=== PATIENT | male | born 1960 | race Caucasian/White ===

== ENCOUNTER 2018-04-30 16:54 | Emergency (ER) | payer MEDICARE, SELFPAY ==
[2018-04-30 16:56] VITALS: BP 135/84; PULSE 93; RESP 18; TEMP 36.7; O2SAT 96; BMI 19.8
--- NOTE | 2018-04-30 18:03 | ED.VISSUMM ---
- ER Visit Summary Date of Service: 04/30/18 Chief Complaint: Abscess History of Present Illness: The patient is a 58 M who reports an abscess to the right thigh for the past 1 week. He has noted some spontaneous drainage. He denies fever or chills. Physical Examination: Vital signs unremarkable. Patient is afebrile. Patient sitting upright in bed no acute distress. He is nontoxic appearing. Heart is regular rate and rhythm without murmur. Lung sounds are clear. Skin examination reveals a 3 x 4 cm area of induration on the medial right thigh with abscess. There is an eschar over the wound. There is no surrounding cellulitis or lymphangitis. Test Results: [] Emergency Department Course and Treatment: Patient is consented for I&D. 2 cc 1% lidocaine were infused locally. An X incision is made with a #11 blade. There is some pus drained. Loculations were broken up. Dressing is applied and patient be treated with Bactrim and Keflex, first dose given here. Treatment Plan: [] Disposition: Discharge Impression: Right thigh cutaneous abscess status post I&D This note was generated with [employer] dictation software. It may contain incorrect words, spelling, and punctuation that were not noted in review of the chart prior to signing ED Disposition - Plan for ED Patient: Referrals: Care Physician,No Primary [Primary Care Provider] -
--- NOTE | 2018-04-30 18:04 | ED.DEP ---
ED Disposition - Plan for ED Patient: Disposition: Home or Assisted Living Instructions: ED Abscess IandD Prescriptions: Cephalexin [Keflex] 500 mg PO Q6 #40 capsule Smz/Tmp Ds [Bactrim Ds] 1 tablet PO BID #20 tablet Referrals: Cathy Elmore MD [STAFF PHYSICIAN] - As Needed
[2018-04-30] MEDS: Cephalexin 250 MG Capsule 500 MG PO (18:12)
[2018-04-30] MEDS: Smz/Tmp Ds Tablet 1 TABLET PO (18:13)
== END 2018-04-30 18:22 | disposition home or self-care (01) ==
PROVIDERS: Emergency Provider Emergency Medicine
DX: L02.415 Cutaneous abscess of right lower limb (principal); F20.0 Paranoid schizophrenia; Z72.0 Tobacco use; Z79.899 Other long term (current) drug therapy
CPT/HCPCS: 10060; 99283

== ENCOUNTER 2019-06-27 00:43 | Inpatient (IN) | payer MEDICARE, SELFPAY ==
[2019-06-27] VITALS (21 sets, daily range): BP systolic 151–180; BP diastolic 58–137; PULSE 80–110; RESP 13–21; TEMP 36.6–37.1; O2SAT 74–99; BMI 22.4; BMI 21.9
--- NOTE | 2019-06-27 01:04 | RAD_ITS ---
STUDY: X-RAY CHEST REASON FOR EXAM: Male, 59 years old. DYSPNEA TECHNIQUE: Single AP portable view of the chest. COMPARISON: 04/24/16. FINDINGS: The lungs are normally expanded with new interval appearance of right lower lobe airspace opacity compatible with pneumonia. There is no demonstrated pleural abnormality. Normal size heart. Normal mediastinum and velma. Normal visualized pulmonary arteries. There is atherosclerotic calcification of the aortic arch with tortuosity. There are diffuse degenerative changes of the visualized thoracic spine. There is degenerative osteoarthritis of the bilateral shoulders. There is no demonstrated abnormality of the visualized soft tissue structures of the upper abdomen. RAD/Chest 1 View (Portable) IMPRESSION: Right lower lobe infiltrate. Electronically Signed: Amada Shell MD at 1:56 EDT , Service support ,
--- NOTE | 2019-06-27 01:04 | EKG12_ITS ---
Test Reason : SOB Blood Pressure : / mmHG Vent. Rate : 082 BPM Atrial Rate : 082 BPM P-R Int : 136 ms QRS Dur : 088 ms QT Int : 362 ms P-R-T Axes : 082 089 060 degrees QTc Int : 422 ms Normal sinus rhythm Normal ECG Confirmed by MARQUITA YANEZ ([id number]), film and video editor LOLA ANDERSON ([id number]) on 06/28/2019 10:12:08 AM Referred By: Azar Riggs Confirmed By:MARQUITA YANEZ
[2019-06-27 01:11] LABS: Absolute Lymphocyte Count 0.92 X10^3/uL (0.83-4.51); Absolute Neutrophil Count 8.9 X10^3/uL (2.0-7.7); Basophil# 0.02 X10^3/uL; Basophil% 0.2 % (0-1); Eosinophil# 0.03 X10^3/uL; Eosinophils% 0.3 % (0-5); Hemoglobin 12.5 g/dL (13.0-16.5); Lymphocyte # 0.92 X10^3/ul (4.0); Lymphocyte % 8.6 % (19-41); Mean Corp Hgb Conc 32.9 g/dL (32-36); Mean Corpuscular Hgb 30.6 pg (27.0-32.0); Mean Corpuscular Volume 93.1 fL (80-94); Mean Platelet Vol. 7.7 fl (6.2-12.0); Monocyte# 0.77 X10^3/uL; Monocyte% 7.2 % (0-10); NRBC Flagged by Analyzer 0 % (0-5); Neutrophil # 8.94 X10^3/uL (2.7-7.7); Neutrophil % 83.4 % (47-70); Platelet Count 316 K/mm3 (150-450); RBC Distribution Width CV 13.5 % (11.6-14.6); Red Blood Count 4.08 M/mm3 (4.6-6.2); White Blood Count 10.7 K/mm3 (4.4-11.0)
[2019-06-27] MEDS: 0.9% Normal Saline 1,000 ML 150 ML IV (01:11)
[2019-06-27] MEDS: MethylPREDNISolone 125 MG/2 ML Vial IV (01:12)
--- NOTE | 2019-06-27 01:42 | ED.DCSUM_ITS ---
- ER Visit Summary Date of Service: 06/27/19 Chief Complaint: [Shortness of breath] History of Present Illness: The patient is a 59 M [presents to the emergency department complaint of shortness of breath for a long time patient is a poor historian and has flight of ideas and I cannot pinpoint how long his symptoms have been ongoing. Patient does describe a cough. Patient states cough is mostly nonproductive. He denies any fevers or chills. He denies any chest pain. He denies recent travel or surgery. Patient comes in stating that he does not think he has coronavirus. Patient not on home oxygen. He is a smoker and also admits to smoking crack cocaine. Patient does have history of COPD as well as paranoid schizophrenia. Patient denies recent travel or surgery.] Physical Examination: [HEENT-PERRLA, EOMI. Cranial nerves II through XII grossly intact. TMs clear. Mucous membranes moist. No adenopathy. Cardiovascular-regular rate and rhythm without murmur or ectopy Lungs-some coarse breath sounds bilaterally with some faint expiratory wheezes noted. Somewhat diminished in the right lower lobe compared to the left. No accessory muscle use or retractions. No conversational dyspnea. Abdomen-normoactive bowel sounds, soft, nontender, no rebound or rigidity, no peritoneal signs. Extremities-intact ?4, normal range of motion, normal pulses, atraumatic] Test Results: [] EKG obtained arrival shows sinus rhythm with a ventricular rate of 82 bpm with no acute segment changes. CBC with differential showed a white count of 10.7, hemoglobin 12.5, hematocrit 38, platelets 316. Chemistry showed a sodium 120, potassium 4.5, chloride 81, CO2 36, glucose 109, BUN 8, creatinine 0.52. Troponin is 0.12. Lactate was 1.0. D-dimer was 1.34. Alcohol was negative. Influenza was negative. Chest x-ray showed a right lower lobe infiltrate. CT of the chest was ordered and results from radiology pending although on my interpretation I do not appreciate a PE or dissection. Emergency Department Course and Treatment: [Patient was started on Levaquin 750 mg IV. Patient was placed on nasal cannula O2. Patient was given albuterol MDI. Patient was given Solu-Medrol 125 mg IV. He was given a liter normal same fluid bolus.] Treatment Plan: [Admit for right lower lobe pneumonia as well as hyponatremia and elevated troponin.] Disposition: [Admit] Impression: [Right lower lobe pneumonia Hypoxemia COPD exacerbation Elevated troponin-significance uncertain Hyponatremia] This note was generated with [employer] dictation software. It may contain incorrect words, spelling, and punctuation that were not noted in review of the chart prior to signing ED Disposition - Plan for ED Patient: Referrals: Care Physician,No Primary [Primary Care Provider] -
[2019-06-27] MEDS: levoFLOXacin IV 750 MG/150 ML BAG 100 MG IV ×2 (01:47→21:12)
[2019-06-27 02:01] LABS: D-Dimer Quantitative (DVT/PE) 1.34 FEU/ug/m (0.27-0.49)
[2019-06-27 02:05] LABS: Anion Gap 3 (5-15); BUN 8 mg/dL (7-18); BUN/Creat Ratio 15.3 RATIO (10-20); Calcium,Total 7.9 mg/dL (8.5-10.1); Chloride 81 mmol/L (98-107); Creatinine, Serum 0.52 mg/dL (0.70-1.30); EST Glomerular Filtration Rate 170 mL/min (>60); Est Glom Filt Rate - Afr Amer 206 mL/min (>60); Estimated Creatinine Clearance 149.39 ml/min; Glucose 109 mg/dL (74-106); Potassium 4.5 mmol/L (3.5-5.1); Sodium Level 120 mmol/L (136-145)
--- NOTE | 2019-06-27 02:06 | CT_ITS ---
STUDY: CTA CHEST REASON FOR EXAM: Male, 59 years old. SOB AND FACIAL SWELLING,COUGH,ELEVATED DDIMER -- HX:COPD,EMPHYSEMA AND SMOKING RADIATION DOSAGE (If Supplied By Facility): CTDIvol = ( 11.57 ) mGy, DLP = ( 322.75 ) mGycm TECHNIQUE: The examination was performed with the intravenous administration of IV 100mL Isovue-370. Post-processing of the angiographic images was performed, with multiplanar reformation and 3D reconstruction. Individualized dose optimization techniques were used for this CT. COMPARISON: None. FINDINGS: Normal enhancement of the main pulmonary artery and right and left pulmonary arteries. Normal enhancement of the bilateral peripheral pulmonary arteries. There is no demonstrated pulmonary embolism. There is mild atherosclerotic calcification of the aortic arch with tortuosity. There is no demonstrated aortic dissection. Borderline cardiomegaly with coronary artery calcifications. Normal mediastinum. Normal hilar regions. Normal visualized trachea and bronchi. The lungs are normally expanded. There are diffuse bilateral emphysematous changes more significant throughout the mid upper lung minor and lung apices. There are foci of subtle groundglass opacity along the subpleural region of the right upper lobe as well as right lower lobe suggestive of small pulmonary patchy infiltrates, viral versus bacterial. Mild right-sided pleural effusion. Normal chest wall structures. Normal osseous structures. Upper abdomen: Mild ascites. Remainder of the visualized upper abdominal structures otherwise unremarkable. CT/CTA Chest W/WO Contrast IMPRESSION: Negative CTA chest examination, without a demonstrated pulmonary embolism or arterial dissection. Right upper lobe and right lower lobe subpleural distribution of groundglass infiltrates pneumonia, viral versus bacterial. Mild right-sided pleural effusion. Underlying emphysema. Electronically Signed: Amada Shell MD at 3:07 EDT , Service support ,
[2019-06-27 02:23] LABS: Alcohol, Blood (Medical)-Serum < 3.0 mg/dL
[2019-06-27 02:40] LABS: Amphetamine Urine VISTA NEGATIVE (<1000 ng/mL); Barbiturate Urine VISTA NEGATIVE (< 200 ng/mL); Benzodiazepine Urine VISTA NEGATIVE (< 200 ng/mL); Cocaine Urine VISTA POSITIVE (< 300 ng/mL); Ecstacy Urine VISTA NEGATIVE (< 500 ng/mL); Methadone Urine VISTA NEGATIVE (< 300 ng/mL); PCP Urine VISTA NEGATIVE (< 25 ng/mL); THC Urine VISTA POSITIVE (< 50 ng/mL); Vista UDS pH Range 6
--- NOTE | 2019-06-27 03:27 | HP.PCM_ITS ---
History of Present Illness Date of Admission: 06/27/19 Chief Complaint: SOB The patient is a 59 year old M with a history of paranoid schizophrenia who presents to the hospital shortness of breath. He states that he has had shortness of breath for 27 years and has had a cough for 30 years. During the exam there was no coughing. When he presented to the hospital he was hypoxic down to the 70s which has improved. He also had a troponin of around 0.12, likely related to his hypoxia. He had a chest x-ray demonstrated a right lower lobe consolidation consistent with pneumonia and was admitted for pneumonia, COPD exacerbation, and acute hypoxia. Because of his paranoid schizophrenia, he is a poor historian. He remains afebrile and without a leukocytosis. EKG is nonischemic Past Medical History Past Medical History (Chronic Problems): Chronic Problems Polysubstance abuse (Chronic) Paranoid schizophrenia (Chronic) Nicotine addiction (Chronic) COPD (chronic obstructive pulmonary disease) (Chronic) Allergies doxycycline Adverse Reaction (Verified 06/27/19 00:56) Other haloperidol lactate [From Haldol] Adverse Reaction (Verified 06/27/19 00:56) Other antihistamines Adverse Reaction (Uncoded 06/27/19 00:56) Rash Home Medications: Ambulatory Orders Medication Instructions Recorded Benztropine [Cogentin] 1 mg PO QHS 12/18/12 Prolixin 10 mg PO QHS 12/18/12 Surgical History: appendectomy Psychiatric History: Schizophrenia - Paranoid schizophrenia Smoking Status: Current every day smoker Alcohol: None Drugs: Cocaine, Marijuana - *Family History Paternal History Items: Heart Disease - Father of heart disease in his early 70s Maternal History Items: No pertinent history Review of Systems Constitutional: Denies: Chills, Fever, Weight Change HEENT: Denies: Head Aches, Sinus Congestion, Sinus Drainage Cardiovascular: Denies: Chest Pain, Palpitations Respiratory: Reports: Cough, Shortness of Breath. Denies: Shortness of breath at rest, Sputum production Gastrointestinal: Denies: Abdominal Pain, Nausea, Vomiting Genitourinary: Denies: Dysuria Musculoskeletal: Denies: Joint Pain, Joint Tenderness Skin: Denies: Rash, Wounds Neurological: Denies: Numbness, Tingling, Focal weakness Psychiatric: Denies: Anxiety, Depression Hematologic/ Lymphatic: Denies: Easy Bruising, Easy Bleeding VTE Information - Inpt Only VTE Present on Admission: No - Physical Exam Vitals/I&O's: Vital Signs Temp Pulse Resp BP Pulse Ox 98.7 F 82 19 H 154/86 H 95 06/27/19 02:57 06/27/19 02:57 06/27/19 02:57 06/27/19 02:57 06/27/19 02:57 Oxygen Flow Rate (L/min) 4 Oxygen Delivery Method Nasal Cannula Weight: 156 lb 1.396 oz Body Mass Index (BMI) 22.4 Intake and Output for Last 24 Hours 06/25/19 06/26/19 06/27/19 23:59 23:59 23:59 Intake Total 92.5 / 92.5 Balance 92.5 / 92.5 General: Alert, Oriented x3, Cooperative, No apparent distress HEENT: Atraumatic, PERRLA, EOMI, Normocephalic Oral: Moist Mucosa Neck: Supple, No JVD Lungs: Normal air movement, No rhonchi, No rales, Wheezes Cardiovascular: Regular rate, Regular Rhythm, Normal S1, Normal S2, No murmurs Abdomen: Soft, Non Tender, Non-Distended, No Hepato-splenomegaly Extremities: No edema, Capillary Refill Less than 3 Seconds Skin: No rashes, No breakdown Neurological: Neuro grossly intact, Sensory exam intact to light touch and pain Psych/Mental Status: Normal Affect, Appropriate, - - He does not have hallucinations from his schizophrenia though he does have an occasional he has delusions Microbiology Past 72 Hours 06/27/19 01:15 Mucosa - Nasopharyngeal Influenza Types A,B Direct FA (AMANDA) - Final Laboratory Results 06/27/19 00:58: WBC 10.7, RBC 4.08 L, Hgb 12.5 L, Hct 38.0 L, MCV 93.1, MCH 30.6, MCHC 32.9, RDW Std Deviation 46.0 H, RDW Coeff of John 13.5, Plt Count 316, MPV 7.7, Immature Gran % (Auto) 0.300, Neut % (Auto) 83.4 H, Lymph % (Auto) 8.6 L, [place] % (Auto) 7.2, Eos % (Auto) 0.3, Baso % (Auto) 0.2, Absolute Neuts (auto) 8.9 H, Absolute Lymphs (auto) 0.92, Nucleated RBC % 0 06/27/19 01:30: D-Dimer Quant (PE/DVT) 1.34 H* 06/27/19 01:30: Sodium 120 L, Potassium 4.5, Chloride 81 L, Carbon Dioxide 36.0 H, Anion Gap 3 L, BUN 8, Creatinine 0.52 L, Estim Creat Clear Calc 149.39, Est GFR (MDRD) Af Amer 206, Est GFR (MDRD) Non-Af 170, BUN/Creatinine Ratio 15.3, Glucose 109 H, Calcium 7.9 L, Troponin I 0.120 H 06/27/19 01:30: Lactic Acid 1.0 06/27/19 01:30: Ethyl Alcohol < 3.0 06/27/19 02:15: Urine Opiates Screen NEGATIVE, Urine Methadone Screen NEGATIVE, Ur Barbiturates Screen NEGATIVE, Ur Phencyclidine Scrn NEGATIVE, Ur Amphetamines Screen NEGATIVE, U Methamphetamin-MDMA NEGATIVE, U Benzodiazepines Scrn NEGATIVE, Urine Cocaine Screen POSITIVE H, U Cannabinoids Screen POSITIVE H, Ur Drug Screen Comment Current Medications Sodium Chloride () 1,000 mls @ 150 mls/hr IV .[id number] ONE Stop: 06/27/19 07:43 Last Infusion: 06/27/19 01:48 Dose: 0 mls/hr Documented by: Assessment/Plan All Active Problems Anemia (Acute) Rhinovirus (Acute) Acute exacerbation of chronic obstructive pulmonary disease (COPD) (Acute) Community acquired pneumonia (Acute) Impacted cerumen of both ears (Acute) 1. Acute hypoxic respiratory failure secondary to acute right lower lobe pneumonia/COPD exacerbation/elevated troponin -CT of the chest is pending for possible -Levaquin for his pneumonia -Sputum culture, urine Legionella and urine strep are also pending -Blood cultures are pending -Continue with Solu-Medrol and duo nebs -EKG is unremarkable, will obtain serial troponins likely demand ischemia secondary to his acute hypoxic respiratory failure 2. 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
[2019-06-27] MEDS: Ipratropium/Albuterol Sulfate 3 ML AMPUL.NEB INHALATION ×6 (04:00→19:16)
[2019-06-27 04:57] LABS: Absolute Lymphocyte Count 0.24 X10^3/uL (0.83-4.51); Absolute Neutrophil Count 9.2 X10^3/uL (2.0-7.7); Hematocrit 37.5 % (40-54); Hemoglobin 12.3 g/dL (13.0-16.5); Lymphocyte # 0.24 X10^3/ul (4.0); Lymphocyte % 2.5 % (19-41); Mean Corp Hgb Conc 32.8 g/dL (32-36); Mean Corpuscular Hgb 30.4 pg (27.0-32.0); Mean Corpuscular Volume 92.6 fL (80-94); Mean Platelet Vol. 7.8 fl (6.2-12.0); Monocyte# 0.07 X10^3/uL; Monocyte% 0.7 % (0-10); NRBC Flagged by Analyzer 0 % (0-5); Neutrophil # 9.21 X10^3/uL (2.7-7.7); Neutrophil % 96.4 % (47-70); POSITIVE DIFFERENTIAL YES; Platelet Count 317 K/mm3 (150-450); RBC Distribution Width CV 13.5 % (11.6-14.6); RBC Distribution Width SD 46.2 fl (35.1-43.9); Red Blood Count 4.05 M/mm3 (4.6-6.2); White Blood Count 9.6 K/mm3 (4.4-11.0)
[2019-06-27 04:58] LABS: Differential Indicated SCAN CRITERIA MET
[2019-06-27 05:26] LABS: Differential Comment SCANNED; Reactive Lymphocyte RARE
[2019-06-27 05:45] LABS: Anion Gap 7 (5-15); BUN 6 mg/dL (7-18); Calcium,Total 7.8 mg/dL (8.5-10.1); Chloride 79 mmol/L (98-107); EST Glomerular Filtration Rate 180 mL/min (>60); Est Glom Filt Rate - Afr Amer 217 mL/min (>60); Estimated Creatinine Clearance 147.91 ml/min; Glucose 162 mg/dL (74-106); Potassium 4.1 mmol/L (3.5-5.1); Sodium Level 120 mmol/L (136-145)
[2019-06-27] MEDS: 0.9% Normal Saline 1,000 ML 100 ML IV (08:15)
--- NOTE | 2019-06-27 09:09 | PN_ITS ---
Subjective: Patient seen and examined. He was admitted with a complaint of worsening shortness of breath and cough. He had no fever or chills. CXR on admission showed right lower lobe pneumonia anc CTA showed right upper and right lower lobe ground glass infiltrates pneumonia,a nd mild right sided pleural effusion. He is being managed for community acquired pneumonia. Patient had no complaints this morning. He denies shortness of breath, though he remains on 4L of oxygen; he is not on oxygen at home. He admits to a cough which is slightly productive, though he does have a chronic cough. Review of systems is otherwise negative. labs and vitals reviewed. He has remained hemodynamically stable. Vitals/I&O's: Vital Signs Temp Pulse Resp BP Pulse Ox 97.8 F 86 20 H 162/58 H 94 06/27/19 03:31 06/27/19 07:21 06/27/19 07:21 06/27/19 03:33 06/27/19 07:21 Oxygen Flow Rate (L/min) 4 Oxygen Delivery Method Nasal Cannula Weight: 148 lb 9.465 oz Body Mass Index (BMI) 21.9 Intake and Output for Last 24 Hours 06/25/19 06/26/19 06/27/19 23:59 23:59 23:59 Intake Total 592.5 / 592.5 Output Total 700 / 700 Balance -107.5 / -107.5 General: Alert, Oriented x3, Cooperative, No apparent distress HEENT: Atraumatic, PERRLA, EOMI, Normocephalic Oral: Dry Mucosa Neck: Supple, No JVD, Negative Carotid Bruits Lungs: - - decreased breath sounds in right mid and lower lung minor, has wheezing bilaterally, no rhonchi. on 4L of oxygen Cardiovascular: Regular rate, Regular Rhythm, Normal S1, Normal S2, No murmurs Abdomen: Bowel Sounds Present, Soft, Non Tender, Non-Distended, No Hepato- splenomegaly Extremities: No clubbing, No cyanosis, No edema, Capillary Refill Less than 3 S econds Skin: No rashes, No breakdown Musculoskeletal: No Tenderness to Palpation of Joints or Extremities Lymphatic: No Cervical, Supraclavicular, or Inguinal Adenopathy Neurological: Cranial nerves II-XII grossly intact, Neuro grossly intact, Motor Exam 5/5 strength throughout Psych/Mental Status: Normal Affect, Appropriate, Alert and oriented to time, place, person, mood and affect Microbiology Past 72 Hours 06/27/19 02:15 Urine, Clean Catch Streptococcus pneumoniae Antigen (M - Final 06/27/19 02:15 Urine, Clean Catch Legionella Antigen - Final 06/27/19 01:15 Mucosa - Nasopharyngeal Influenza Types A,B Direct FA (AMANDA) - Final Laboratory Results 06/27/19 00:58: WBC 10.7, RBC 4.08 L, Hgb 12.5 L, Hct 38.0 L, MCV 93.1, MCH 30 .6, MCHC 32.9, RDW Std Deviation 46.0 H, RDW Coeff of John 13.5, Plt Count 316, MPV 7.7, Immature Gran % (Auto) 0.300, Neut % (Auto) 83.4 H, Lymph % (Auto) 8.6 L, [place] % (Auto) 7.2, Eos % (Auto) 0.3, Baso % (Auto) 0.2, Absolute Neuts (auto) 8.9 H, Absolute Lymphs (auto) 0.92, Nucleated RBC % 0 06/27/19 01:30: D-Dimer Quant (PE/DVT) 1.34 H* 06/27/19 01:30: Sodium 120 L, Potassium 4.5, Chloride 81 L, Carbon Dioxide 36.0 H, Anion Gap 3 L, BUN 8, Creatinine 0.52 L, Estim Creat Clear Calc 149.39, Est GFR (MDRD) Af Amer 206, Est GFR (MDRD) Non-Af 170, BUN/Creatinine Ratio 15.3, Glucose 109 H, Calcium 7.9 L, Troponin I 0.120 H 06/27/19 01:30: Lactic Acid 1.0 06/27/19 01:30: Ethyl Alcohol < 3.0 06/27/19 02:15: Urine Opiates Screen NEGATIVE, Urine Methadone Screen NEGATIVE, Ur Barbiturates Screen NEGATIVE, Ur Phencyclidine Scrn NEGATIVE, Ur Amphetamines Screen NEGATIVE, U Methamphetamin-MDMA NEGATIVE, U Benzodiazepines Scrn NEGATIVE, Urine Cocaine Screen POSITIVE H, U Cannabinoids Screen POSITIVE H, Ur Drug Screen Comment 06/27/19 04:30: WBC 9.6, RBC 4.05 L, Hgb 12.3 L, Hct 37.5 L, MCV 92.6, MCH 30.4, MCHC 32.8, RDW Std Deviation 46.2 H, RDW Coeff of John 13.5, Plt Count 317, MPV 7.8, Immature Gran % (Auto) 0.400, Neut % (Auto) 96.4 H, Lymph % (Auto) 2.5 L, [place] % (Auto) 0.7, Eos % (Auto) 0.0, Baso % (Auto) 0.0, Absolute Neuts (auto) 9.2 H, Absolute Lymphs (auto) 0.24 L, Nucleated RBC % 0, Differential Comment SCANNED, Reactive Lymphocytes RARE 06/27/19 04:30: Sodium 120 L, Potassium 4.1, Chloride 79 L, Carbon Dioxide 34.0 H, Anion Gap 7, BUN 6 L, Creatinine 0.50 L, Estim Creat Clear Calc 147.91, Est GFR (MDRD) Af Amer 217, Est GFR (MDRD) Non-Af 180, BUN/Creatinine Ratio 12.0, Glucose 162 H, Calcium 7.8 L 06/27/19 04:30: Troponin I 0.106 H 06/27/19 07:50: Troponin I 0.098 H Diagnostic Data Chest X-Ray 06/27/19 01:04 IMPRESSION: Right lower lobe infiltrate. Electronically Signed: Amada Shell MD at 1:56 EDT , Service support , Chest CTA 06/27/19 02:06 IMPRESSION: Negative CTA chest examination, without a demonstrated pulmonary embolism or arterial dissection. Right upper lobe and right lower lobe subpleural distribution of groundglass infiltrates pneumonia, viral versus bacterial. Mild right-sided pleural effusion. Underlying emphysema. Electronically Signed: Amada Shell MD at 3:07 EDT , Service support , Current Medications Acetaminophen (Tylenol) 650 mg PO Q6H PRN PRN PRN Reason: Pain Score 1-10/Temp > 100.7 F Albuterol/Ipratropium (Duoneb) 3 ml INHALATION Q4HWA.RT SNEHA Last Admin: 06/27/19 07:21 Dose: 3 ml Documented by: Benztropine Mesylate (Cogentin) 1 mg PO QHS [facility] Enoxaparin Sodium (Lovenox) 40 mg SC DAILY [facility] Fluphenazine HCl (Prolixin) 10 mg PO QHS [facility] Sodium Chloride () 1,000 mls @ 100 mls/hr IV .Q10H [facility] Last Admin: 06/27/19 08:15 Dose: 100 mls/hr Documented by: Levofloxacin (Levaquin Iv) 750 mg in 150 mls @ 100 mls/hr IV QHS [facility] Sodium Chloride () 250 mls @ 15 mls/hr IV .[id number] PRN PRN Reason: Saline Flush Sodium Chloride () 250 mls @ 15 mls/hr IV .[id number] PRN PRN Reason: Additional IVPB Infusion Methylprednisolone (Solu-Medrol) 40 mg IV Q8 [facility] Last Admin: 06/27/19 05:02 Dose: 40 mg Documented by: Ondansetron HCl (Zofran) 4 mg IV Q8H PRN PRN PRN Reason: NAUSEA/VOMITING Sodium Chloride () 10 - 40 ml IV UD PRN PRN Reason: SALINE FLUSH STROKE Vital Signs/Narrative: Vital Signs Pulse Resp Pulse Ox 06/27/19 07:21 86 20 H 94 06/27/19 06:57 95 Medical Necessity - Tobacco Use Smoking Status: Current every day smoker Assessment/Plan All Active Problems Anemia (Acute) Rhinovirus (Acute) Acute exacerbation of chronic obstructive pulmonary disease (COPD) (Acute) Community acquired pneumonia (Acute) Impacted cerumen of both ears (Acute) 1. Acute hypoxic respiratory failure due to right lower lobe pneumonia * remains on 4L of oxygen, not tachypneic * on IV levaquin * urine for strep and Legionella pending * will order respiratory panel * check COVID 19; COVID 19 precautions * 2. Community acquired pneumonia: as under 1 3. COPD exacerbation * patient has mild expiratory wheezing * on IV solumedrol and breathing treatment with bronchodilators. * titrate oxygen to maintain sats>90% * 4. Hyponatremia * Na was 120 on admission, and is still 120 * previous records from 2017 showed Na of 138; no more recent data available * will check serum osmolality and BNP- BNP was >500, so will start on IV lasix 40mg bid. * check urine osmolality and urine sodium * nephrology consulted. 5. Elevated troponins: * initial troponin was 0.120, and trended down to 0.098. No chest pain or EKG changes. * check 2D echo * 6. Paranoid schizophrenia * on fluphenazine and benztropine * hold fluphenazine for now o/a of hyponatremia of 20 * 6. history of nicotine dependence; counselled to quit. DVT prophylaxis: lovenox Inpatient E&M: [id number] [facility] Hosp L3
[2019-06-27 10:02] LABS: BNP,B-Type NATRIURETIC PEPTIDE 515.9 pg/mL (0-100)
[2019-06-27 10:07] LABS: Urine Sodium 17 mmol/L (Not Establ.)
[2019-06-27 10:10] LABS: Osmolality, Urine 375 mOsm/KG
[2019-06-27 10:10] LABS: Osmolality, Serum 253 mOsm/KG (280-301)
--- NOTE | 2019-06-27 11:00 | CASEMGMT ---
Social Work Note SW received consult for Mental Health. SW reviewed chart, pt has history of Paranoid Schizophrenia and history of using crack cocaine. Pt currently in COVID precautions, SW unable to enter pt's room. RN KRISTAL did attempt to call pt to complete assessment, pt didn't answer. SW will continue to follow along, will speak with pt regarding Mental Health once pt is available. Fernanda Yu BIOFUELS PRODUCTION ASSOCIATE, HOME CARE AIDE
[2019-06-27] MEDS: Enoxaparin 40 MG/0.4 ML Syringe SC (13:07)
--- NOTE | 2019-06-27 13:21 | ECHOD_ITS ---
Reason For Study: HEART FAILURE Procedure This was a 2D Doppler, Color Flow transthoracic echocardiogram. The study was technically difficult. The exam was abbreviated due to the COVID 19 protocol. Exam performed portable in ICU/CCU. Left Ventricle Normal LV size. The estimated ejection fraction is 60 %. Normal diastology for age. No regional wall motion abnormalities noted. Right Ventricle Normal RV size. Normal systolic function. Atria Normal left atrium. Normal right atrium. No doppler evidence for ASD. Mitral Valve There is no mitral valve stenosis. No mitral valve insufficiency. Tricuspid Valve There is no tricuspid stenosis. Trivial tricuspid valve insufficiency. Pulmonary artery systolic pressure is 35-40 mmHg. Aortic Valve Trisinus/trileaflet aortic valve. There is no aortic stenosis. No aortic valve insufficiency. Pulmonic Valve There is no pulmonic valvular stenosis. No pulmonic valve insufficiency. Great Vessels Normal aortic root. Pericardium/Pleural No pericardial effusion. MMode/2D Measurements & Calculations RVDd: 3.7 cm LAV(MOD-bp): 46.3 ml LVAd ap4: 32.0 cm2 LAV(MOD-bp) Indexed: 25.5 ml/m2 EDV(MOD-sp4): 94.7 ml LAV(MOD-sp2): 45.8 ml EDV(sp4-el): 95.7 ml LAV(MOD-sp4): 43.9 ml LVAs ap4: 18.9 cm2 ESV(MOD-sp4): 40.6 ml ESV(sp4-el): 39.7 ml EF(MOD-sp4): 57.1 % EF(sp4-el): 58.6 % SV(MOD-sp4): 54.1 ml SV(sp4-el): 56.0 ml LA A4 area: 18.5 cm2 RA A4 area: 17.7 cm2 Time Measurements MV dec time: 0.41 sec Doppler Measurements & Calculations MV E max jagdeep: 64.2 cm/sec Lat Peak E' Jagdeep: 12.5 cm/sec Med Peak E' Jagdeep: 8.6 cm/sec MV A max jagdeep: 82.4 cm/sec E/E' lat: 5.2 E/E' med: 7.4 MV E/A: 0.78 TR max jagdeep: 289.3 cm/sec TR max P.5 mmHg Interpretation Summary The estimated ejection fraction is 60 %. Normal diastology for age. Trivial tricuspid valve insufficiency. Abbreviated exam following the COVID 19 protocol. Ordering Physician: Faina Nails Performed By: Enedelia Del Castillo, ELIAZARCS, RVT
[2019-06-27 14:04] LABS: Thyroid Stim Hormone (TSH) 0.29 uIU/mL (0.358-3.74)
[2019-06-27] MEDS: Furosemide 40 MG/4 ML Vial IV ×2 (15:21→16:23)
--- NOTE | 2019-06-27 15:21 | PCM.CONS.R ---
Consultation - Renal 06/28/19 PCP/ Referring MD: Requesting physician: Dr Nails Primary care physician: No Primary Care Phys Reason for Consultation:: hyponatremia - History of Present Illness History of Present Illness: The patient is a 59 year old M with paranoid schizophrenia, polysubstance abuse, tobacco use with COPD admitted for CAP. He was found hypoxic, hyponatremic with sodium 120 on admission. He admits to drinking a lot of water to keep from getting dehydrated. Urine sodium low at 17 urine osmolarity 375, serum osmolarity 253 with mildly elevated troponin levels. He is an unreliable historian. Apparently denied fever, chills but had cough reported to be chronic. No documented fever on admit. Creatinine stable at 0.5. CXR and CTA done showed right pleural effusion, emphysematous changes with ground glass appearance in the upper lobes, RLL pneumonia. Pulmonary embolus negative. Echo ordered, pending results. He is on iv lasix and started on steroids with iv antibiotics. Denies recent travel or sick contacts. Resp panel unremarkable with COVID19 test pending. - Allergies Allergies: Allergies doxycycline Adverse Reaction (Unknown, Verified 06/27/19 03:45) Other haloperidol lactate [From Haldol] Adverse Reaction (Verified 06/27/19 03:45) jitters antihistamines Adverse Reaction (Uncoded 06/27/19 00:56) Rash - Current Medications Current Medications: Current Medications Acetaminophen (Tylenol) 650 mg PO Q6H PRN PRN PRN Reason: Pain Score 1-10/Temp > 100.7 F Albuterol/Ipratropium (Duoneb) 3 ml INHALATION Q4HWA.RT [facility] Last Admin: 06/27/19 11:35 Dose: 3 ml Documented by: Benztropine Mesylate (Cogentin) 1 mg PO QHS [facility] Enoxaparin Sodium (Lovenox) 40 mg SC DAILY [facility] Last Admin: 06/27/19 13:07 Dose: 40 mg Documented by: Fluphenazine HCl (Prolixin) 10 mg PO QHS [facility] Furosemide (Lasix) 40 mg IV BID@1000,1800 [facility] Hydralazine HCl (Apresoline Iv) 10 mg IV Q6H PRN PRN PRN Reason: BLOOD PRESSURE ELEVATION Levofloxacin (Levaquin Iv) 750 mg in 150 mls @ 100 mls/hr IV QHS [facility] Sodium Chloride () 250 mls @ 15 mls/hr IV .[id number] PRN PRN Reason: Saline Flush Sodium Chloride () 250 mls @ 15 mls/hr IV .[id number] PRN PRN Reason: Additional IVPB Infusion Methylprednisolone (Solu-Medrol) 40 mg IV Q8 [facility] Last Admin: 06/27/19 13:07 Dose: 40 mg Documented by: Ondansetron HCl (Zofran) 4 mg IV Q8H PRN PRN PRN Reason: NAUSEA/VOMITING Sodium Chloride () 10 - 40 ml IV UD PRN PRN Reason: SALINE FLUSH - Past Medical History Past Medical History (Chronic Problems): Chronic Problems Polysubstance abuse (Chronic) Paranoid schizophrenia (Chronic) Nicotine addiction (Chronic) COPD (chronic obstructive pulmonary disease) (Chronic) - Past Surgical History Surgical History: appendectomy - Social History Smoking Status: Current every day smoker Alcohol: None Drugs: Cocaine, Marijuana - Family History Paternal History Items: Heart Disease - Father of heart disease in his early 70s Maternal History Items: No pertinent history Review of Systems Constitutional: Denies: Anorexia, Chills, Fever Cardiovascular: Denies: Chest Pain Respiratory: Reports: Cough, Shortness of Breath - improved with iv lasix Gastrointestinal: Denies: Abdominal Pain, Nausea, Vomiting Genitourinary: Denies: Dysuria Objective: limited exam due to COVID 19 status pending - Physical Exam Vitals/I&O's: Vital Signs Temp Pulse Resp BP Pulse Ox 98.4 F 92 20 H 180/84 H 97 06/27/19 09:00 06/27/19 11:35 06/27/19 11:35 06/27/19 09:00 06/27/19 09:00 Oxygen Flow Rate (L/min) 2 Oxygen Delivery Method Nasal Cannula Weight: 67.4 kg Body Mass Index (BMI) 21.9 Intake and Output for Last 24 Hours 06/25/19 06/26/19 06/27/19 23:59 23:59 23:59 Intake Total 2289.17 / 2289.17 Output Total 700 / 700 Balance 1589.17 / 1589.17 General: Alert, Oriented x3, Cooperative, No apparent distress, - - breathing comfortably without use off accessory muscles or nasal flaring, no conversational dyspnea. Requesting more coffee, up in bed eating breakfast Oral: Moist Mucosa Neck: No JVD Lungs: - - respirations normal Extremities: No edema Comment: deferred due to COVID 19 pending results Microbiology Past 72 Hours 06/27/19 10:15 Mucosa - Nasopharyngeal Respiratory Panel (PCR) - Final 06/27/19 02:15 Urine, Clean Catch Streptococcus pneumoniae Antigen (M - Final 06/27/19 02:15 Urine, Clean Catch Legionella Antigen - Final 06/27/19 01:15 Mucosa - Nasopharyngeal Influenza Types A,B Direct FA ([facility]ANDA) - Final Laboratory Results 06/27/19 00:58: WBC 10.7, RBC 4.08 L, Hgb 12.5 L, Hct 38.0 L, MCV 93.1, MCH 30.6, MCHC 32.9, RDW Std Deviation 46.0 H, RDW Coeff of John 13.5, Plt Count 316, MPV 7.7, Immature Gran % (Auto) 0.300, Neut % (Auto) 83.4 H, Lymph % (Auto) 8.6 L, Elk % (Auto) 7.2, Eos % (Auto) 0.3, Baso % (Auto) 0.2, Absolute Neuts (auto) 8.9 H, Absolute Lymphs (auto) 0.92, Nucleated RBC % 0 06/27/19 01:30: D-Dimer Quant (PE/DVT) 1.34 H* 06/27/19 01:30: Sodium 120 L, Potassium 4.5, Chloride 81 L, Carbon Dioxide 36.0 H, Anion Gap 3 L, BUN 8, Creatinine 0.52 L, Estim Creat Clear Calc 149.39, Est GFR (MDRD) Af Amer 206, Est GFR (MDRD) Non-Af 170, BUN/Creatinine Ratio 15.3, Glucose 109 H, Calcium 7.9 L, Troponin I 0.120 H 06/27/19 01:30: Lactic Acid 1.0 06/27/19 01:30: Ethyl Alcohol < 3.0 06/27/19 02:15: Urine Opiates Screen NEGATIVE, Urine Methadone Screen NEGATIVE, Ur Barbiturates Screen NEGATIVE, Ur Phencyclidine Scrn NEGATIVE, Ur Amphetamines Screen NEGATIVE, U Methamphetamin-MDMA NEGATIVE, U Benzodiazepines Scrn NEGATIVE, Urine Cocaine Screen POSITIVE H, U Cannabinoids Screen POSITIVE H, Ur Drug Screen Comment 06/27/19 02:15: Urine Osmolality 375 06/27/19 02:15: Ur Random Sodium 17 06/27/19 04:30: WBC 9.6, RBC 4.05 L, Hgb 12.3 L, Hct 37.5 L, MCV 92.6, MCH 30.4, MCHC 32.8, RDW Std Deviation 46.2 H, RDW Coeff of John 13.5, Plt Count 317, MPV 7.8, Immature Gran % (Auto) 0.400, Neut % (Auto) 96.4 H, Lymph % (Auto) 2.5 L, Elk % (Auto) 0.7, Eos % (Auto) 0.0, Baso % (Auto) 0.0, Absolute Neuts (auto) 9.2 H, Absolute Lymphs (auto) 0.24 L, Nucleated RBC % 0, Differential Comment SCANNED, Reactive Lymphocytes RARE 06/27/19 04:30: Sodium 120 L, Potassium 4.1, Chloride 79 L, Carbon Dioxide 34.0 H, Anion Gap 7, BUN 6 L, Creatinine 0.50 L, Estim Creat Clear Calc 147.91, Est GFR (MDRD) Af Amer 217, Est GFR (MDRD) Non-Af 180, BUN/Creatinine Ratio 12.0, Glucose 162 H, Calcium 7.8 L 06/27/19 04:30: Troponin I 0.106 H 06/27/19 07:50: Troponin I 0.098 H 06/27/19 07:50: Serum Osmolality 253 L 06/27/19 07:50: B-Natriuretic Peptide 515.9 H 06/27/19 07:50: TSH 0.29 L 06/27/19 10:15: COVID-19 ([facility]) Pending Clinical Impression(s) from Imaging Studies Chest X-Ray 06/27/19 01:04 IMPRESSION: Right lower lobe infiltrate. Electronically Signed: Amada Shell MD at 1:56 EDT , Service support , Chest CTA 06/27/19 02:06 IMPRESSION: Negative CTA chest examination, without a demonstrated pulmonary embolism or arterial dissection. Right upper lobe and right lower lobe subpleural distribution of groundglass infiltrates pneumonia, viral versus bacterial. Mild right-sided pleural effusion. Underlying emphysema. Electronically Signed: Amada Shell MD at 3:07 EDT , Service support , Current Medications Acetaminophen (Tylenol) 650 mg PO Q6H PRN PRN PRN Reason: Pain Score 1-10/Temp > 100.7 F Albuterol/Ipratropium (Duoneb) 3 ml INHALATION Q4HWA.RT [facility] Last Admin: 06/27/19 11:35 Dose: 3 ml Documented by: Benztropine Mesylate (Cogentin) 1 mg PO QHS [facility] Enoxaparin Sodium (Lovenox) 40 mg SC DAILY [facility] Last Admin: 06/27/19 13:07 Dose: 40 mg Documented by: Fluphenazine HCl (Prolixin) 10 mg PO QHS [facility] Furosemide (Lasix) 40 mg IV BID@1000,1800 [facility] Hydralazine HCl (Apresoline Iv) 10 mg IV Q6H PRN PRN PRN Reason: BLOOD PRESSURE ELEVATION Levofloxacin (Levaquin Iv) 750 mg in 150 mls @ 100 mls/hr IV QHS [facility] Sodium Chloride () 250 mls @ 15 mls/hr IV .[id number] PRN PRN Reason: Saline Flush Sodium Chloride () 250 mls @ 15 mls/hr IV .[id number] PRN PRN Reason: Additional IVPB Infusion Methylprednisolone (Solu-Medrol) 40 mg IV Q8 [facility] Last Admin: 06/27/19 13:07 Dose: 40 mg Documented by: Ondansetron HCl (Zofran) 4 mg IV Q8H PRN PRN PRN Reason: NAUSEA/VOMITING Sodium Chloride () 10 - 40 ml IV UD PRN PRN Reason: SALINE FLUSH Assessment/Plan All Active Problems Anemia (Acute) Rhinovirus (Acute) Acute exacerbation of chronic obstructive pulmonary disease (COPD) (Acute) Community acquired pneumonia (Acute) Impacted cerumen of both ears (Acute) 1. Hyponatremia of unclear duration. serum sodium 120 on admit improved to 132 last night, now at 128. Urine sodium low at 17 to suggest prerenal event. Await echo to check on LVEF to evaluate for cardiomyopathy. Renal function preserved with creatinine of 0.43. Discussed fluid restriction 2. RLL pneumonia on CXR with cough, hypoxia, small rt pleural effusion. CTA negative for PE with groundglass infiltrates in upper lobes. Continue with antibx, iv lasix. May need to give NSS if sodium not improved with lasix and echo shows normal LV function. Await COVID 19 results 3. Tobacco use with emphysematous changes on CTA 4. + troponin levels, await echo 5. hx polysubstance use 6. schizophrenia. 7. Hypokalemia due to diuretics, replaced with KCL
[2019-06-27 17:18] LABS: Anion Gap 5 (5-15); BUN 7 mg/dL (7-18); BUN/Creat Ratio 16.2 RATIO (10-20); Calcium,Total 6.4 mg/dL (8.5-10.1); Chloride 96 mmol/L (98-107); Creatinine, Serum 0.43 mg/dL (0.70-1.30); EST Glomerular Filtration Rate 212 mL/min (>60); Est Glom Filt Rate - Afr Amer 256 mL/min (>60); Estimated Creatinine Clearance 171.98 ml/min; Glucose 124 mg/dL (74-106); Potassium 3.1 mmol/L (3.5-5.1); Sodium Level 132 mmol/L (136-145)
[2019-06-27] MEDS: hydrALAZINE 20 MG/ML Vial 10 MG IV (20:25)
[2019-06-27] MEDS: 0.9% Saline Lock 10 ML Syringe IV ×2 (20:25→21:13)
[2019-06-27] MEDS: Benztropine 2 MG Tablet 1 MG PO (21:13)
[2019-06-27] MEDS: Metoprolol Tartrate 25 MG Tablet PO (22:50)
[2019-06-28] VITALS (11 sets, daily range): BP systolic 143–163; BP diastolic 71–90; PULSE 85–108; RESP 16–20; TEMP 36.4–36.9; O2SAT 93–98
[2019-06-28] MEDS: 0.9% Saline Lock 10 ML Syringe IV ×5 (05:12→21:23)
[2019-06-28 05:55] LABS: Anion Gap 3 (5-15); BUN 9 mg/dL (7-18); BUN/Creat Ratio 14.7 RATIO (10-20); Calcium,Total 8.3 mg/dL (8.5-10.1); Chloride 85 mmol/L (98-107); Creatinine, Serum 0.61 mg/dL (0.70-1.30); EST Glomerular Filtration Rate 142 mL/min (>60); Est Glom Filt Rate - Afr Amer 171 mL/min (>60); Estimated Creatinine Clearance 121.23 ml/min; Glucose 143 mg/dL (74-106); Potassium 4.4 mmol/L (3.5-5.1); Sodium Level 128 mmol/L (136-145); T4 Free Direct 1.04 ng/dL (0.76-1.46)
[2019-06-28] MEDS: Ipratropium/Albuterol Sulfate 3 ML AMPUL.NEB INHALATION ×4 (07:20→18:40)
--- NOTE | 2019-06-28 08:49 | PCM.PN.HOSP ---
Subjective: Patient seen and examined. He felt well and had no complaints. He said his shortness of breath is much better. He denies any cough, chest pain, palpitations, dizziness, nausea or vomiting. Review of systems is otherwise negative. Labs and vitals reviewed. Sodium came up to 132, but is down to 128 this morning. Vitals/I&O's: Vital Signs Temp Pulse Resp BP Pulse Ox 97.6 F L 92 18 152/72 H 97 06/28/19 05:20 06/28/19 05:20 06/28/19 05:20 06/28/19 05:20 06/28/19 05:20 Oxygen Flow Rate (L/min) 4 Oxygen Delivery Method Nasal Cannula Weight: 148 lb 9.465 oz Body Mass Index (BMI) 21.9 Intake and Output for Last 24 Hours 06/26/19 06/27/19 06/28/19 23:59 23:59 23:59 Intake Total 3519.17 / 3999.17 960 / 960 Output Total 700 / 700 Balance 2819.17 / 3299.17 960 / 960 General: Alert, Oriented x3, Cooperative, No apparent distress HEENT: Atraumatic, PERRLA, EOMI, Normocephalic Oral: Dry Mucosa Neck: Supple, No JVD, Negative Carotid Bruits Lungs: - - minimally decreased breath sounds bibasally, no wheezing or crackles, on 4L of oxygen. Cardiovascular: Regular rate, Regular Rhythm, Normal S1, Normal S2, No murmurs Abdomen: Bowel Sounds Present, Soft, Non Tender, Non-Distended, No Hepato-splenomegaly Extremities: No clubbing, No cyanosis, No edema, Capillary Refill Less than 3 Seconds Skin: No rashes, No breakdown Musculoskeletal: No Tenderness to Palpation of Joints or Extremities Lymphatic: No Cervical, Supraclavicular, or Inguinal Adenopathy Neurological: Cranial nerves II-XII grossly intact, Neuro grossly intact, Motor Exam 5/5 strength throughout Psych/Mental Status: Normal Affect, Appropriate, Alert and oriented to time, place, person, mood and affect Microbiology Past 72 Hours 06/27/19 10:15 Sputum, Expectorated/Coughed Gram Stain - Final 06/27/19 10:15 Mucosa - Nasopharyngeal Respiratory Panel (PCR) - Final 06/27/19 02:15 Urine, Clean Catch Streptococcus pneumoniae Antigen (M - Final 06/27/19 02:15 Urine, Clean Catch Legionella Antigen - Final 06/27/19 01:15 Mucosa - Nasopharyngeal Influenza Types A,B Direct FA (AMANDA) - Final Laboratory Results 06/27/19 02:15: Urine Osmolality 375 06/27/19 02:15: Ur Random Sodium 17 06/27/19 07:50: Serum Osmolality 253 L 06/27/19 07:50: B-Natriuretic Peptide 515.9 H 06/27/19 07:50: TSH 0.29 L 06/27/19 10:15: COVID-19 ([facility]) Pending 06/27/19 16:30: Sodium 132 L, Potassium 3.1 L, Chloride 96 L, Carbon Dioxide 31.0, Anion Gap 5, BUN 7, Creatinine 0.43 L, Estim Creat Clear Calc 171.98, Est GFR (MDRD) Af Amer 256, Est GFR (MDRD) Non-Af 212, BUN/Creatinine Ratio 16.2, Glucose 124 H, Calcium 6.4 L* 06/28/19 05:10: Sodium 128 L, Potassium 4.4, Chloride 85 L, Carbon Dioxide 40.0 H, Anion Gap 3 L, BUN 9, Creatinine 0.61 L, Estim Creat Clear Calc 121.23, Est GFR (MDRD) Af Amer 171, Est GFR (MDRD) Non-Af 142, BUN/Creatinine Ratio 14.7, Glucose 143 H, Calcium 8.3 L, Magnesium 2.0, Free T4 1.04 Diagnostic Data Chest X-Ray 06/27/19 01:04 IMPRESSION: Right lower lobe infiltrate. Electronically Signed: Amada Shell MD at 1:56 EDT , Service support , Chest CTA 06/27/19 02:06 IMPRESSION: Negative CTA chest examination, without a demonstrated pulmonary embolism or arterial dissection. Right upper lobe and right lower lobe subpleural distribution of groundglass infiltrates pneumonia, viral versus bacterial. Mild right-sided pleural effusion. Underlying emphysema. Electronically Signed: Amada Shell MD at 3:07 EDT , Service support , Current Medications Acetaminophen (Tylenol) 650 mg PO Q6H PRN PRN PRN Reason: Pain Score 1-10/Temp > 100.7 F Acetazolamide (Diamox) 250 mg PO BID [facility] Stop: 06/29/19 22:01 Albuterol/Ipratropium (Duoneb) 3 ml INHALATION Q4HWA.RT [facility] Last Admin: 06/27/19 19:16 Dose: 3 ml Documented by: Benztropine Mesylate (Cogentin) 1 mg PO QHS [facility] Last Admin: 06/27/19 21:13 Dose: 1 mg Documented by: Enoxaparin Sodium (Lovenox) 40 mg SC DAILY [facility] Last Admin: 06/27/19 13:07 Dose: 40 mg Documented by: Fluphenazine HCl (Prolixin) 10 mg PO QHS [facility] Furosemide (Lasix) 40 mg IV BID@1000,1800 [facility] Last Admin: 06/27/19 16:23 Dose: 40 mg Documented by: Hydralazine HCl (Apresoline Iv) 10 mg IV Q6H PRN PRN PRN Reason: BLOOD PRESSURE ELEVATION Last Admin: 06/27/19 20:25 Dose: 10 mg Documented by: Levofloxacin (Levaquin Iv) 750 mg in 150 mls @ 100 mls/hr IV QHS [facility] Last Infusion: 06/27/19 23:22 Dose: Infused Documented by: Sodium Chloride () 250 mls @ 15 mls/hr IV .[id number] PRN PRN Reason: Saline Flush Sodium Chloride () 250 mls @ 15 mls/hr IV .[id number] PRN PRN Reason: Additional IVPB Infusion Methylprednisolone (Solu-Medrol) 40 mg IV Q8 [facility] Last Admin: 06/28/19 05:12 Dose: 40 mg Documented by: Metoprolol Tartrate (Lopressor (Beta Jody)) 25 mg PO BID [facility] Last Admin: 06/27/19 22:50 Dose: 25 mg Documented by: Ondansetron HCl (Zofran) 4 mg IV Q8H PRN PRN PRN Reason: NAUSEA/VOMITING Sodium Chloride () 10 - 40 ml IV UD PRN PRN Reason: SALINE FLUSH Last Admin: 06/28/19 05:12 Dose: 10 ml Documented by: STROKE Vital Signs/Narrative: Vital Signs Temp Pulse Resp BP Pulse Ox 06/28/19 05:20 97.6 F L 92 18 152/72 H 97 Medical Necessity - Tobacco Use Smoking Status: Current every day smoker Assessment/Plan All Active Problems Anemia (Acute) Rhinovirus (Acute) Acute exacerbation of chronic obstructive pulmonary disease (COPD) (Acute) Community acquired pneumonia (Acute) Impacted cerumen of both ears (Acute) 1. Acute hypoxic respiratory failure due to right lower lobe pneumonia remains on 4L of oxygen, not tachypneic on IV levaquin urine for strep and Legionella are negative respiratory panel was negative will order respiratory panel check COVID 19; COVID 19 precautions 2. Community acquired pneumonia: as under 1 3. COPD exacerbation lungs are clear to auscultation today on IV solumedrol and breathing treatment with bronchodilators. titrate oxygen to maintain sats>90% 4. Hyponatremia is a hypotonic hyponatremia; patient appeared euvolemic, though he was on oxygen and BNP was elevated at >500 serum osmolality was low at 253, urine sodium was 17 on IV lasix for probable heart failure, on fluid restriction sodium is 128 today nephro on board 5. Probable acute heart failure of unknown EF still on 4L of oxygen; BNP was >500 2D echo pending on IV lasix 40mg bid; fluid restriction to 1500cc daily intake and output charting 5. Elevated troponins: initial troponin was 0.120, and trended down to 0.098. No chest pain or EKG changes. 2D echo pending 6. Hypertension was not on any meds at home. BP was up to the 180s systolic yesterday stated on PO metoprolol 25mg bid yesterday IV hydralazine prn 7. Hypocalcemia: calcium was 6.4 yesterday. Replaced with calcium gluconate. Calcium level today is 8.3 8. Paranoid schizophrenia on fluphenazine and benztropine will resume fluphenazine as sodium is better 6. history of nicotine dependence; counselled to quit. DVT prophylaxis: lovenox Inpatient E&M: [id number] [facility] L2
[2019-06-28] MEDS: AcetaZOLAMIDE 250 MG Tablet PO ×2 (09:03→21:25)
[2019-06-28] MEDS: Metoprolol Tartrate 25 MG Tablet PO ×2 (09:03→21:25)
[2019-06-28] MEDS: Enoxaparin 40 MG/0.4 ML Syringe SC (09:04)
[2019-06-28] MEDS: Furosemide 40 MG/4 ML Vial IV ×2 (09:04→17:11)
[2019-06-28 09:11] LABS: Absolute Lymphocyte Count 0.29 X10^3/uL (0.83-4.51); Absolute Neutrophil Count 11.5 X10^3/uL (2.0-7.7); Basophil# 0.01 X10^3/uL; Basophil% 0.1 % (0-1); Hematocrit 39.9 % (40-54); Hemoglobin 12.8 g/dL (13.0-16.5); Lymphocyte # 0.29 X10^3/ul (4.0); Lymphocyte % 2.4 % (19-41); Mean Corp Hgb Conc 32.1 g/dL (32-36); Mean Corpuscular Hgb 29.9 pg (27.0-32.0); Mean Corpuscular Volume 93.2 fL (80-94); Mean Platelet Vol. 8.2 fl (6.2-12.0); Monocyte# 0.27 X10^3/uL; Monocyte% 2.2 % (0-10); NRBC Flagged by Analyzer 0 % (0-5); Neutrophil # 11.49 X10^3/uL (2.7-7.7); POSITIVE DIFFERENTIAL YES; Platelet Count 332 K/mm3 (150-450); RBC Distribution Width CV 14.4 % (11.6-14.6); RBC Distribution Width SD 49.3 fl (35.1-43.9); Red Blood Count 4.28 M/mm3 (4.6-6.2); White Blood Count 12.1 K/mm3 (4.4-11.0)
[2019-06-28 09:19] LABS: Differential Indicated SCAN CRITERIA MET
[2019-06-28 09:31] LABS: Differential Comment SCANNED
[2019-06-28] MEDS: Senna/Docusate Sodium 1 Tablet PO (11:10)
--- NOTE | 2019-06-28 11:15 | CASEMGMT ---
RN CM attempted to call patient in room to complete assessment. No answer, unable to leave message. RN CM will attempt again later as time allows. RN CM called patient several time yesterday with no answer and requested nursing to give CM extension to patient to have patient call RN CM, but received no call.
--- NOTE | 2019-06-28 11:28 | CASEMGMT ---
Social Work Note Pt still in COVID precautions. RN KRISTAL attempted to call pt multiple times yesterday and attempted to call today and pt didn't answer. SW unable to meet with pt to discuss MH as pt is in COVID precautions. SW waiting for NORI GIRALDO to get a hold of pt to complete assessment and then will speak to pt regarding MH. SW to continue to follow for MH and substance abuse. Fernanda Yu BINDING BENCH WORKER, SCHOOL SERVICES OFFICER
--- NOTE | 2019-06-28 13:30 | CASEMGMT ---
RN KRISTAL called patient in room, as he is in precautions, for initial transition planning/care coordination assessment. NORI GIRALDO introduced self and role at [facility]. Patient is alert and oriented. Patient willing to participate in assessment and is able to answer all questions appropriately. Care providers, pharmacy, and demographics verified. Patient wishes to discharge home, denies need for home health at this time. Patient states he has no further needs or concerns at this time. CM to follow for discharge planning needs that may arise. PCP: No PCP, list given to nurse to provide to patient Specialists: [facility] Preferred Pharmacy: [place] Insurance: [facility] Prescription Benefit: yes Living Will/HPOA: none LNOK: Roommate Living Arrangements: Patient lives with roommate in 2 story home. Patient states he is independent at home. Transportation: walks/public transportation DME/HHC: Patient denies DME or previous HHC. Disposition Plan: Patient wishes to discharge home with family support and follow-up plans in place. Fernanda BRENNAN, RN, CM
--- NOTE | 2019-06-28 14:12 | CASEMGMT ---
Addendum entered by Fernanda Yu 06/28/19 14:59: SW was able to call pt again and get a hold of pt. SW introduced self and role at [facility]. Pt is alert and orientated x3. Pt states he was trying to rest but is agreeable to speaking with this worker. Pt confirms that he would like substance abuse resources and food assistance resources. SW informed pt that this worker can put together packed of information for pt including substance abuse resources, food pantries, and MOW information. SW informed pt that MOW referral can be made for pt while he is at [facility]. Pt agreeable to MOW referral. SW made MOW referral. SW provided RN with packet of resources to provide to pt as pt is in COVID precautions and SW is not able to enter pt's room at this time. Pt denied additional needs or concers at this time. Original Note: Social Work Note RN CM updated this worker that pt see's a counselor at [facility] and pt wanted resources on substance abuse and food assistance. SW attempted to call pt to discuss resources, pt didn't answer. SW to follow up with pt tomorrow. COVID test is still pending for pt. Fernanda Yu PROPERTY MANAGEMENT INTERN, MAIL DISTRIBUTION CLERK
[2019-06-28] MEDS: levoFLOXacin IV 750 MG/150 ML BAG 100 MG IV (21:24)
[2019-06-28] MEDS: Benztropine 2 MG Tablet 1 MG PO (21:25)
[2019-06-29] VITALS: BP 137/68; PULSE 85; RESP 20; TEMP 36.6; O2SAT 95
[2019-06-29] MEDS: 0.9% Saline Lock 10 ML Syringe IV (05:17)
[2019-06-29 05:25] VITALS: BP 154/93; PULSE 93; RESP 20; TEMP 36.4; O2SAT 98
[2019-06-29 05:55] LABS: Anion Gap 6 (5-15); BUN 12 mg/dL (7-18); BUN/Creat Ratio 16.3 RATIO (10-20); Calcium,Total 8.8 mg/dL (8.5-10.1); Chloride 90 mmol/L (98-107); Creatinine, Serum 0.74 mg/dL (0.70-1.30); EST Glomerular Filtration Rate 115 mL/min (>60); Est Glom Filt Rate - Afr Amer 139 mL/min (>60); Estimated Creatinine Clearance 99.94 ml/min; Glucose 123 mg/dL (74-106); Potassium 3.9 mmol/L (3.5-5.1); Sodium Level 128 mmol/L (136-145)
[2019-06-29] MEDS: Ipratropium/Albuterol Sulfate 3 ML AMPUL.NEB INHALATION (07:08)
[2019-06-29 07:09] VITALS: PULSE 97; RESP 18; O2SAT 94
[2019-06-29 07:47] LABS: Absolute Lymphocyte Count 0.56 X10^3/uL (0.83-4.51); Absolute Neutrophil Count 12.6 X10^3/uL (2.0-7.7); Basophil# 0.01 X10^3/uL; Basophil% 0.1 % (0-1); Eosinophil# 0.01 X10^3/uL; Eosinophils% 0.1 % (0-5); Hematocrit 42.4 % (40-54); Hemoglobin 13.5 g/dL (13.0-16.5); Lymphocyte # 0.56 X10^3/ul (4.0); Mean Corp Hgb Conc 31.8 g/dL (32-36); Mean Corpuscular Hgb 30.3 pg (27.0-32.0); Mean Corpuscular Volume 95.3 fL (80-94); Mean Platelet Vol. 8.1 fl (6.2-12.0); Monocyte# 0.68 X10^3/uL; Monocyte% 4.9 % (0-10); NRBC Flagged by Analyzer 0 % (0-5); Neutrophil # 12.59 X10^3/uL (2.7-7.7); Neutrophil % 90.5 % (47-70); POSITIVE DIFFERENTIAL YES; Platelet Count 379 K/mm3 (150-450); RBC Distribution Width CV 14.6 % (11.6-14.6); RBC Distribution Width SD 50.9 fl (35.1-43.9); Red Blood Count 4.45 M/mm3 (4.6-6.2); White Blood Count 13.9 K/mm3 (4.4-11.0)
[2019-06-29 08:00] LABS: Differential Indicated SCAN CRITERIA MET
[2019-06-29 08:42] LABS: Differential Comment SCANNED
--- NOTE | 2019-06-29 10:25 | CASEMGMT ---
Addendum entered by Doroteo Lugo 06/29/19 12:43: Call and message left with [facility] that pt will be discharged today and will need his prescriptions delivered to his home @ [address] Updated that pt does not have a phone and delivery should be to back door of house. Call back information given. Lev NICK Original Note: NORI GIRALDO Note: Possible dc today. SW assisting with dc needs re: meals/transportation. NORI GIRALDO called to [facility], they will deliver prescriptions to patient's home. Pt lives in two story home, can self isolate, but compliance is concern. Pt is independent, no care needs identified. Lev SANM
[2019-06-29] MEDS: Polyethylene Glycol 3350 17 GM PACKET PO (10:46)
[2019-06-29 10:50] VITALS: BP 171/85; PULSE 105; RESP 18; TEMP 36.5; O2SAT 93
[2019-06-29 10:53] VITALS: PULSE 105
[2019-06-29] MEDS: Senna/Docusate Sodium 1 Tablet PO (10:53)
[2019-06-29] MEDS: AcetaZOLAMIDE 250 MG Tablet PO (10:53)
[2019-06-29] MEDS: Metoprolol Tartrate 25 MG Tablet PO (10:53)
[2019-06-29 11:30] VITALS: PULSE 96; RESP 18
--- NOTE | 2019-06-29 11:55 | CASEMGMT ---
Social Work GOGO spoke with physician who states pt is ready for discharge but states he has no food at home and will need to go to the grocery. Pt to return home with 14 days of isolation and should not go to grocery store. Phone call to Adriana at [facility] [facility] and they are able to provide pt with a delivery on Saturday 07/01 of 10 frozen meals and will deliver weekly thereafter. Phone number to pt room provided and MOW spoke with pt and obtained all needed information for meals to start on Tuesday. SW placed call to [employer] who is able to deliver a box of groceries to pt doorstep free of charge and they are able to deliver the items today if pt is home by 4pm. [employer] is closed on the weekend and will reopen on Tuesday if pt unable to get resources today. They state there will be enough food in the box to last about 2 weeks. GOGO placed phone call to pt room. Pt confirmed he did speak with MOW and is appreciative to have this service started. GOGO informed pt about groceries from [employer] and he is agreeable to this and understanding that he needs to be home by 4 pm to get the service today. Pt agreeable to discharge today and states he is aware that he needs to be in isolation for 14 days. Pt states he does not have a ride home but plans on walking. GOGO inquired about friends, family, roommate and pt denies any. [facility] call to [facility] to see if pt has a returned case inspector that may assist but pt does not currently have a CM as he has not been seen in quite a while. Phone call to [employer] who state they are unable to take pt due to potential Covid. Phone call to Larry at [employer] and left . Phone call to [facility] chair Van and they do not have a W/C van running at this time. Phone call to [employer] and they are able to take pt home. Arrangements made for 1:30 pickler helper. Phone call to pt and asked if he was able to find a ride home. Pt did make phone calls but was unable to secure a ride and he is agreeable to transportation with [employer]. Pt stating he is unable to pay at this time. GOGO spoke with wireless development manager and [facility] agreeable for payment. Physician and nursing made aware of discharge time. Call to [employer] and arrangements made for grocery delivery to pt home today between 2:00 and 4:00. [facility] to deliver prescriptions. Plan: Pt to return home via [facility] [employer] and will have 2 weeks of groceries delivered to door step this afternoon and [facility] [facility] to start on Tuesday. [facility] to deliver prescriptions to home. [facility] [employer]
--- NOTE | 2019-06-29 12:25 | DCINST_ITS ---
- Discharge Diagnoses Current Active Problems: Current Active and Chronic Problems Hypokalemia (Acute) Hyponatremia (Acute) COPD (chronic obstructive pulmonary disease) (Chronic) Community acquired pneumonia (Acute) You will use the following diet at home:: Cardiac Your food should be the consistency of: Regular Your liquids should be the consistency of: Regular/Thin Discharge Activity: Return to Normal Activity Weight Bearing Status: Weight bearing as tolerated Call your doctor if you observe: Fever of 101 or Higher, Shortness of breath, Dizziness Instructions: ED Hyponatremia, Pneumonia Additional Instructions: to be in self isolation for the next 14 days, or until you are informed that COVID 19 test was negative. You will be informed by hospital about COVID 19 test Allergies/Adverse Reactions: Allergies doxycycline Adverse Reaction (Unknown, Verified 06/27/19 03:45) Other haloperidol lactate [From Haldol] Adverse Reaction (Verified 06/27/19 03:45) jitters antihistamines Adverse Reaction (Uncoded 06/27/19 00:56) Rash Medications to take at Discharge Benztropine [Cogentin] 1 mg PO QHS 12/18/12 Prolixin 10 mg PO QHS 12/18/12 Albuterol Inhaler [Ventolin Hfa (SP)] 1 puff INHALATION Q4H PRN PRN 06/27/19 Lisinopril [Zestril] 10 mg PO DAILY #30 tab 06/29/19 Metoprolol Tartrate [Lopressor (beta bob)] 25 mg PO BID #60 tab 06/29/19 levoFLOXacin tablet [Levaquin tablet] 750 mg PO DAILY #3 tab 06/29/19 The following prescriptions were given: levoFLOXacin tablet [Levaquin tablet] 750 mg PO DAILY #3 tab Transmission Status: Sent to [place] [address] Metoprolol Tartrate [Lopressor (beta bob)] 25 mg PO BID #60 tab Transmission Status: Sent to [place] [address] Lisinopril [Zestril] 10 mg PO DAILY #30 tab Transmission Status: Sent to [place] [address] Primary Care Physician: Care Physician,No Primary [Primary Care Provider] - Test Results: Test results from this visit will be discussed in further detail at your follow- up appointment, if applicable. Please Follow Up With: Daphne Persaud DO Proposed Discharge Date: 06/29/19
--- NOTE | 2019-06-29 12:35 | PCM.DC.SUM ---
Discharge Date and Diagnosis - Problem List Patient Problems: Active and Suspected Problems Hypokalemia (Acute) Hyponatremia (Acute) Community acquired pneumonia (Acute) Date of Admission: 06/27/19 Date of Discharge: 06/29/19 - Primary Discharge Diagnosis Active and Suspected Problems Hypokalemia (Acute) Hyponatremia (Acute) Community acquired pneumonia (Acute) acute HFpEF hypocalcemia - Secondary Discharge Diagnosis Chronic Problems Polysubstance abuse (Chronic) Paranoid schizophrenia (Chronic) Nicotine addiction (Chronic) COPD (chronic obstructive pulmonary disease) (Chronic) Hospital Course and Treatment Imaging Results: Diagnostic Data Chest X-Ray 06/27/19 01:04 IMPRESSION: Right lower lobe infiltrate. Electronically Signed: Amada Shell MD at 1:56 EDT , Service support , Chest CTA 06/27/19 02:06 IMPRESSION: Negative CTA chest examination, without a demonstrated pulmonary embolism or arterial dissection. Right upper lobe and right lower lobe subpleural distribution of groundglass infiltrates pneumonia, viral versus bacterial. Mild right-sided pleural effusion. Underlying emphysema. Electronically Signed: Amada Shell MD at 3:07 EDT , Service support , Interpretation Summary The estimated ejection fraction is 60 %. Normal diastology for age. Trivial tricuspid valve insufficiency. Abbreviated exam following the COVID 19 protocol. nephrology- Dr Persaud Operations: None Procedures: 2-D Echocardiogram Summary of Care Provided: The patient is a 59 year old M with a past medical history of paranoid schizophrenia who was admitted through the ED on 06/27/2019 with a complaint of shortness of breath. Patient states he has had shortness of breath for 27 years and a cough for about 30 years due to COPD. Shortness of breath worsened so he came to the ED. He denied any cough or palpitations, dizziness, nausea vomiting or diarrhea. On admission in the ED, saturation was down in the 70s which improved with administration of oxygen. Initial troponin was 0.12 and chest x-ray done showed right lower lobe consolidation consistent with pneumonia. CTA done was negative for PE and showed right upper lobe and right lower lobe distribution of groundglass infiltrates versus pneumonia and a mild right-sided pleural effusion with underlying emphysema. He was admitted and managed for acute hypoxic respiratory insufficiency due to community acquired pneumonia. He was started on IV Levaquin. Of note patient was also hyponatremic on admission with sodium of 120. Osmolality of the serum was also low. BNP was checked and this was around 500. Patient however looked euvolemic he also stated that he had been drinking a lot of water. Patient was diuresed with IV Lasix 40 mg twice daily. Nephrology was also consulted and fluid was restricted. Patient's hyponatremia improved markedly with sodium going up to 130 and coming down to 128. Patient shortness of breath resolved and he was weaned off of oxygen and he remained stable on room air. Blood cultures were negative and urine for strep and Legionella were also negative. [] Sputum culture with Inge albicans. Patient remained stable and was discharged home on 06/29/2019 with a prescription for p.o. Levaquin 750 mg daily x 3 days to give a total of 5 days of antibiotics. 2D echo was done which showed EF of 60% with normal diastole. However since patient had improved on Lasix, he was given p.o. Lasix 40 mg daily x7 days and also potassium supplementation 20 mEq daily for 7 days. He is to follow-up with his primary care doctor within 1 week. Patient seen and examined prior to discharge. He had no complaints and felt well. Review of systems otherwise negative. I did associate counsel patient that he would need to be self isolated for the next 14 days until complete results come back and then negative. Patient stated that he would not be able to self isolate because he did not have any food at home to eat and did not have anyone to bring him food. This was discussed with case management to arrange for Meals on Wheels for patient starting today and his medications will be delivered to him at home as well. Labs and vitals reviewed. Home medications reviewed and reconciled. o/e: Vital Signs Temp Pulse Resp BP Pulse Ox 97.7 F L 105 H 18 171/85 H 93 06/29/19 10:50 06/29/19 10:53 06/29/19 10:50 06/29/19 10:50 06/29/19 10:50 General: Alert, Oriented x3, Cooperative, No apparent distress HEENT: Atraumatic, PERRLA, EOMI, Normocephalic Oral: Dry Mucosa Neck: Supple, No JVD, Negative Carotid Bruits Lungs: - - minimally decreased breath sounds bibasally, no wheezing or crackles, on room air Cardiovascular: Regular rate, Regular Rhythm, Normal S1, Normal S2, No murmurs Abdomen: Bowel Sounds Present, Soft, Non Tender, Non-Distended, No Hepato-splenomegaly Extremities: No clubbing, No cyanosis, No edema, Capillary Refill Less than 3 Seconds Skin: No rashes, No breakdown Musculoskeletal: No Tenderness to Palpation of Joints or Extremities Lymphatic: No Cervical, Supraclavicular, or Inguinal Adenopathy Neurological: Cranial nerves II-XII grossly intact, Neuro grossly intact, Motor Exam 5/5 strength throughout Psych/Mental Status: Normal Affect, Appropriate, Alert and oriented to time, place, person, mood and affect Plan is to dc home on PO levaquin and p.o. Lasix potassium chloride as stated above. Of note, patient was also noted to be hypertensive during admission. He was not on any blood pressure medications, with blood pressure being in the 180 systolic. He was threrefore started on p.o. metoprolol 25 mg twice daily and lisinopril 10 mg daily. He is to follow up with his PCP for adjustment of BP meds as needed. Patient Problems: Active and Suspected Problems Hypokalemia (Acute) Hyponatremia (Acute) Community acquired pneumonia (Acute) - Physical Exam Vitals/I&O's: Vital Signs Temp Pulse Resp BP Pulse Ox 97.7 F L 105 H 18 171/85 H 93 06/29/19 10:50 06/29/19 10:53 06/29/19 10:50 06/29/19 10:50 06/29/19 10:50 Oxygen Flow Rate (L/min) 2 Oxygen Delivery Method Room Air Weight: 148 lb 9.465 oz Body Mass Index (BMI) 21.9 Intake and Output for Last 24 Hours 06/27/19 06/28/19 06/29/19 23:59 23:59 23:59 Intake Total 3519.17 / 3999.17 2160 / 2640 870 / 870 Output Total 700 / 700 Balance 2819.17 / 3299.17 2160 / 2640 870 / 870 Microbiology Past 72 Hours 06/27/19 10:15 Sputum, Expectorated/Coughed Gram Stain - Final 06/27/19 10:15 Sputum, Expectorated/Coughed Respiratory Culture - Final Presumptive C albicans 06/27/19 01:05 Blood Culture (Wb) #2 - Right Forearm Blood Culture - Preliminary No growth in 48 hours. 06/27/19 00:58 Blood Culture (Wb) - Left Forearm Blood Culture - Preliminary No growth in 48 hours. 06/27/19 10:15 Mucosa - Nasopharyngeal Respiratory Panel (PCR) - Final 06/27/19 02:15 Urine, Clean Catch Streptococcus pneumoniae Antigen (M - Final 06/27/19 02:15 Urine, Clean Catch Legionella Antigen - Final 06/27/19 01:15 Mucosa - Nasopharyngeal Influenza Types A,B Direct FA (AMANDA) - Final Laboratory Results 06/29/19 05:20: Sodium 128 L, Potassium 3.9, Chloride 90 L, Carbon Dioxide 32.0, Anion Gap 6, BUN 12, Creatinine 0.74, Estim Creat Clear Calc 99.94, Est GFR (MDRD) Af Amer 139, Est GFR (MDRD) Non-Af 115, BUN/Creatinine Ratio 16.3, Glucose 123 H, Calcium 8.8 06/29/19 05:20: WBC 13.9 H, RBC 4.45 L, Hgb 13.5, Hct 42.4, MCV 95.3 H, MCH 30.3, MCHC 31.8 L, RDW Std Deviation 50.9 H, RDW Coeff of John 14.6, Plt Count 379, MPV 8.1, Immature Gran % (Auto) 0.400, Neut % (Auto) 90.5 H, Lymph % (Auto) 4.0 L, Pacific % (Auto) 4.9, Eos % (Auto) 0.1, Baso % (Auto) 0.1, Absolute Neuts (auto) 12.6 H, Absolute Lymphs (auto) 0.56 L, Nucleated RBC % 0, Differential Comment SCANNED Current Medications Acetaminophen (Tylenol) 650 mg PO Q6H PRN PRN PRN Reason: Pain Score 1-10/Temp > 100.7 F Acetazolamide (Diamox) 250 mg PO BID SNEHA Stop: 06/29/19 22:01 Last Admin: 06/29/19 10:53 Dose: 250 mg Documented by: Albuterol/Ipratropium (Duoneb) 3 ml INHALATION Q4HWA.RT [facility] Last Admin: 06/29/19 07:08 Dose: 3 ml Documented by: Benztropine Mesylate (Cogentin) 1 mg PO QHS [facility] Last Admin: 06/28/19 21:25 Dose: 1 mg Documented by: Enoxaparin Sodium (Lovenox) 40 mg SC DAILY [facility] Last Admin: 06/29/19 12:32 Dose: Not Given Documented by: Fluphenazine HCl (Prolixin) 10 mg PO QHS [facility] Last Admin: 06/28/19 21:25 Dose: 10 mg Documented by: Hydralazine HCl (Apresoline Iv) 10 mg IV Q6H PRN PRN PRN Reason: BLOOD PRESSURE ELEVATION Last Admin: 06/27/19 20:25 Dose: 10 mg Documented by: Levofloxacin (Levaquin Iv) 750 mg in 150 mls @ 100 mls/hr IV QHS [facility] Last Infusion: 06/29/19 07:29 Dose: Infused Documented by: Sodium Chloride () 250 mls @ 15 mls/hr IV .[id number] PRN PRN Reason: Saline Flush Sodium Chloride () 250 mls @ 15 mls/hr IV .[id number] PRN PRN Reason: Additional IVPB Infusion Methylprednisolone (Solu-Medrol) 40 mg IV Q8H [facility] Metoprolol Tartrate (Lopressor (Beta Jody)) 25 mg PO BID [facility] Last Admin: 06/29/19 10:53 Dose: 25 mg Documented by: Ondansetron HCl (Zofran) 4 mg IV Q8H PRN PRN PRN Reason: NAUSEA/VOMITING Polyethylene Glycol (Miralax) 17 gm PO DAILY [facility] Last Admin: 06/29/19 10:46 Dose: 17 gm Documented by: Senna/Docusate Sodium (Senokot-S, Rosana-Colace) 1 tablet PO DAILY [facility] Last Admin: 06/29/19 10:53 Dose: 1 tablet Documented by: Sodium Chloride () 10 - 40 ml IV UD PRN PRN Reason: SALINE FLUSH Last Admin: 06/29/19 05:17 Dose: 10 ml Documented by: Discharge Diet: Low fat/ Low Cholesterol Discharge Activity: Return to Normal Activity Weight Bearing Status: Weight bearing as tolerated Call your doctor if you observe: Fever of 101 or Higher, Shortness of breath, Dizziness Home Medications: Medications to take at Discharge Benztropine [Cogentin] 1 mg PO QHS 12/18/12 Prolixin 10 mg PO QHS 12/18/12 Albuterol Inhaler [Ventolin Hfa] 1 puff INHALATION Q4H PRN PRN 06/27/19 Furosemide [Lasix] 40 mg PO DAILY #7 tab 06/29/19 Lisinopril [Zestril] 10 mg PO DAILY #30 tab 06/29/19 Metoprolol Tartrate [Lopressor (beta jody)] 25 mg PO BID #60 tab 06/29/19 Potassium Chloride 20 meq PO DAILY #7 tab.er.prt 06/29/19 levoFLOXacin tablet [Levaquin tablet] 750 mg PO DAILY #3 tab 06/29/19 Following Prescrptions Were Given to Patient: Furosemide [Lasix] 40 mg PO DAILY #7 tab Transmission Status: Received by [place] [id number] levoFLOXacin tablet [Levaquin tablet] 750 mg PO DAILY #3 tab Transmission Status: Received by [place] [id number] Metoprolol Tartrate [Lopressor (beta jody)] 25 mg PO BID #60 tab Transmission Status: Received by [facility] [id number] Potassium Chloride 20 meq PO DAILY #7 tab.er.prt Transmission Status: Received by [place] [id number] Lisinopril [Zestril] 10 mg PO DAILY #30 tab Transmission Status: Received by [place] [id number] Primary Care Physician: Care Physician,No Primary [Primary Care Provider] - Please Follow Up With: Daphne Persaud DO When: one week Patient Instructions: Pneumonia, ED Hyponatremia Disposition: Home Minutes spent on discharge:: 40 Patient Condition:: Stable Medical Necessity - Tobacco Use Smoking Status: Current every day smoker Meaningful Use Info Meaningful Use Diagnoses (Choose all that apply): CHF - CHF EKTA/ARB ordered at discharge?: Yes Documented LVEF (%): 60 Inpatient E&M: 10090 Disch Hosp
--- NOTE | 2019-06-29 13:36 | NURSING ---
This RN attempted to review discharge instructions with the patient. Patient was argumentation with this nurse, stating he will take his medications how he wants to, and refuses to be on medications for a long time. This RN tried to explain to the patient that he needs to get a PCP, and that they would manage his medications for him, however the patient continued to be argumentative and interrupt this nurse. This nurse explained all medications to patient and how to take them and when to take them. During further education about wearing a mask when around his roommate, the patient again was interrupting this RN and argumentative. This nurse explained to patient that he needs to let me explain to him, however the patient continued to interrupt this RN.
--- NOTE | 2019-07-02 08:01 | CASEMGMT ---
NORI GIRALDO DC PHONE CALL DC DATE: 06.29.19 DC DISPOSITION: Home DC DIAGNOSIS: SARS COVID 2-negative DC Call deferred as patient does not have a phone. Extensive DC planning prior to discharge was completed including self isolation until results for testing are known. NORI GIRALDO set up for medications to be delivered to his home by Teresa, [facility] set up [employer] who will provide 2 weeks of food, then [facility] will also start food service helper this week. Ride home was arranged by [facility] through [facility] [employer] [facility]. Lev BRENNAN RN ACM
--- NOTE | 2019-07-02 09:11 | CASEMGMT ---
NORI GIRALDO Note: Call from [facility] that they were not able to deliver medications because driver education road instructor could not find address. Pt called in to pharmacy and gave further instructions to his home at the address that was given (address was correct). Medications will be delivered this am. NORI GIRALDO requested Lexie BOWENS call [employer] to be sure food delivery was successful on Tuesday, or is further intervention is needed. Lev BRENNAN RN ACM
--- NOTE | 2019-07-02 09:11 | CASEMGMT ---
RN CM Note: Call from [facility] that they were not able to deliver medications because driver/refuse collector could not find address. Pt called in to pharmacy and gave further instructions to his home at the address that was given (address was correct). NORI GIRALDO requested Lexie BOWENS call [employer] to be sure food delivery was successful on Tuesday, or is further intervention is needed. Lev BRITTN NORI ACM
--- NOTE | 2019-07-02 09:14 | CASEMGMT ---
Social Work Note SW placed a call to [employer] to confirm pt was able to get food delivered on Tuesday. Per [employer], a progress worker dropped off pt's food for him on Tuesday. Fernanda Yu HOUSEHOLD APPLIANCE INSTALLER, COMMERCIAL CONSTRUCTION ESTIMATOR
--- NOTE | 2019-07-03 10:27 | CASEMGMT ---
Social Work Note [facility] updated that [employer] attempted to deliver meals yesterday but was unable to find pt's address/home. Per previous notes, pt's pharmacy [facility] was given special instructions by pt and was able to find pt's home to deliver medications. [facility] placed a call to [facility] and was provided instructions. Per [facility], pt's address is actually [address] [place] [address]. [facility] was able to park in [facility] parking lot and it was three steps to get to pt's door. Pt's door is located by a pink garage door and there are steps above pt's door but staff doesn't take those steps, pt's door is on ground level located under the steps. [facility] placed a call to [facility] and updated staff on instructions on how to get to pt's home. Fernanda Yu COOKER PROCESS CHEESE, DEPARTMENT MANAGER
== END 2019-06-29 13:40 | disposition home or self-care (01) | DRG 193 ==
LOC: ED 01:41 → PCU 02:51 → ICU 08:32
PROVIDERS: Internal Medicine Nephrology; Admitting Provider Family Medicine; Emergency Provider Emergency Medicine; Referring Provider Family Medicine; Visit Provider Student in an Organized Health Care Education/Training Program
DX: J18.9 Pneumonia, unspecified organism (principal); I50.31 Acute diastolic (congestive) heart failure; J96.01 Acute respiratory failure with hypoxia; E87.1 Hypo-osmolality and hyponatremia; F20.0 Paranoid schizophrenia; J44.0 Chronic obstructive pulmonary disease with (acute) lower respiratory infection; E87.6 Hypokalemia; I11.0 Hypertensive heart disease with heart failure; F17.200 Nicotine dependence, unspecified, uncomplicated; F19.10 Other psychoactive substance abuse, uncomplicated; T50.2X5A Adverse effect of carbonic-anhydrase inhibitors, benzothiadiazides and other diuretics, initial encounter; E83.51 Hypocalcemia
CPT/HCPCS: 36415; 71045; 71275; 80048; 80307; 80320; 83605; 83735; 83880; 83930; 83935; 84300; 84439; 84443; 84484; 85025; 85379; 87040; 87070; 87205; 87449; 87633; 87635; 87804; 93005; 93306; 94640; 94667; 99285; 99406; J7030; Q9967; A4216; G0480; J0610; J1940; U0004

== ENCOUNTER 2019-10-03 12:44 | Inpatient (IN) | payer MEDICARE, SELFPAY ==
[2019-06-27 03:28] VITALS: BMI 21.9
[2019-10-03] VITALS (11 sets, daily range): BP systolic 144–166; BP diastolic 66–94; PULSE 77–102; RESP 16–22; TEMP 36.6–37.2; O2SAT 77–100; BMI 19.8; BMI 21.3
--- NOTE | 2019-10-03 13:12 | EKG12_ITS ---
Test Reason : ABDOMINAL PAIN Blood Pressure : / mmHG Vent. Rate : 097 BPM Atrial Rate : 097 BPM P-R Int : 146 ms QRS Dur : 088 ms QT Int : 332 ms P-R-T Axes : 081 110 061 degrees QTc Int : 421 ms Normal sinus rhythm Right axis deviation Pulmonary disease pattern Abnormal ECG Confirmed by MARQUITA YANEZ ([id number]), greeting card editor LOLA ANDERSON ([id number]) on 10/08/2019 12:02:14 PM Referred By: Confirmed By:MARQUITA YANEZ
--- NOTE | 2019-10-03 13:23 | ED.VISSUMM ---
- ER Visit Summary Date of Service: 10/03/19 Chief Complaint: Abdominal pain History of Present Illness: The patient is a 59 M presenting with abdominal pain. He states he has had abdominal pain for quite some time. He states now that he is in the emergency department his abdominal pain is actually resolved. He states it improves with marijuana. He is currently homeless. He has flight of ideas. He has pressured speech. He denies suicidal or homicidal ideation. On arrival to the ED his pulse ox was 77% on room air. He admits to shortness of breath. Denies fever or cough. Physical Examination: Vitals are stable. Patient is afebrile. Alert no acute distress. Pulse ox 88% on room air HEENT exam is unremarkable. Neck is supple. Lungs are diminished bilaterally. Heart is regular rate and rhythm. Abdomen is soft nontender nondistended. No guarding or rebound Extremities are unremarkable. Skin is warm and dry. No focal neurologic deficit. Remainder of exam is unremarkable. Emergency Department Course and Treatment: EKG is sinus rate of 97. Chest x-ray shows near complete resolution of right basilar opacities since June 27, 2019; there appears minimal residual atelectasis and/or possible pneumonia. CBC unremarkable. Chemistry shows sodium 131. Liver lipase are normal. Troponin is negative. Tox positive for cannabinoids. Alcohol negative. COVID negative. Patient was given DuoNeb. He was given Solu-Medrol IV. Discussed with the hospitalist for admission. Disposition: Admission Impression: COPD exacerbation, hypoxia This note was generated with [employer] dictation software. It may contain incorrect words, spelling, and punctuation that were not noted in review of the chart prior to signing ED Disposition - Plan for ED Patient: Referrals: Care Physician,No Primary [Primary Care Provider] -
[2019-10-03 14:08] LABS: Absolute Lymphocyte Count 1.11 X10^3/uL (0.83-4.51); Absolute Neutrophil Count 6.4 X10^3/uL (2.0-7.7); Basophil# 0.01 X10^3/uL; Basophil% 0.1 % (0-1); Eosinophil# 0.02 X10^3/uL; Eosinophils% 0.2 % (0-5); Hematocrit 43.1 % (40-54); Hemoglobin 13.3 g/dL (13.0-16.5); Lymphocyte # 1.11 X10^3/ul (4.0); Lymphocyte % 13.5 % (19-41); Mean Corp Hgb Conc 30.9 g/dL (32-36); Mean Corpuscular Hgb 29.6 pg (27.0-32.0); Mean Corpuscular Volume 95.8 fL (80-94); Mean Platelet Vol. 8.7 fl (6.2-12.0); Monocyte# 0.63 X10^3/uL; Monocyte% 7.7 % (0-10); NRBC Flagged by Analyzer 0 % (0-5); Neutrophil # 6.41 X10^3/uL (2.7-7.7); Neutrophil % 78.3 % (47-70); POSITIVE MORPHOLOGY YES; Platelet Count 376 K/mm3 (150-450); RBC Distribution Width CV 18.8 % (11.6-14.6); RBC Distribution Width SD 65.8 fl (35.1-43.9); White Blood Count 8.2 K/mm3 (4.4-11.0)
[2019-10-03 14:11] LABS: Differential Indicated SCAN CRITERIA MET
[2019-10-03 14:23] LABS: ALB/GLOB Ratio 0.8 RATIO (0.9-2.4); AST(SGOT) 25 U/L (15-37); Alanine Aminotransfer ALT/SGPT 33 U/L (16-61); Albumin, Serum 3.3 g/dL (3.2-5.0); Alkaline Phosphatase 70 U/L (45-117); Anion Gap 0 (5-15); BUN 10 mg/dL (7-18); BUN/Creat Ratio 13.4 RATIO (10-20); Calcium,Total 8.4 mg/dL (8.5-10.1); Chloride 91 mmol/L (98-107); Creatinine, Serum 0.74 mg/dL (0.70-1.30); EST Glomerular Filtration Rate 113 mL/min (>60); Est Glom Filt Rate - Afr Amer 137 mL/min (>60); Estimated Creatinine Clearance 87.43 ml/min; Globulin 3.9 g/dL (2.2-4.2); Glucose 101 mg/dL (74-106); Lipase 92 U/L (73-393); Potassium 4.6 mmol/L (3.5-5.1); Protein, Total 7.2 g/dL (6.4-8.2); Sodium Level 131 mmol/L (136-145)
[2019-10-03 14:26] LABS: Alcohol, Blood (Medical)-Serum < 3.0 mg/dL
[2019-10-03 14:39] LABS: Anisocytosis RARE; Red Cell Morphology N CHROM NORMAL (NORM C&C)
--- NOTE | 2019-10-03 14:41 | RAD_ITS ---
STUDY: X-RAY CHEST REASON FOR EXAM: Male, 59 years old. PT HAVING ABD PAIN FOR OVER HALF A YEAR and DESCRIBES TIGHTENING OF MUSCLES AND ALSO LEG SWELLING. PAIN IMPROVES WITH MOTRIN AND MEDICAL MARIJUANA TECHNIQUE: Single frontal view of the chest. COMPARISON: June 27, 2019 FINDINGS: There is near complete resolution of the right lower lobe opacity visualized on the prior examination. There are a few right basilar ill-defined opacities. Normal size heart. Normal mediastinum and velma. Normal visualized pulmonary arteries. Normal visualized aortic arch and descending thoracic aorta. Normal visualized thoracic spine. Normal visualized ribs, clavicles, and shoulders. There is no demonstrated abnormality of the visualized soft tissue structures of the upper abdomen. RAD/Chest 1 View (Portable) IMPRESSION: Near complete resolution of right basilar opacities since June 27, 2019; there appears minimal residual atelectasis and/or possible pneumonia. Electronically Signed: Radha Moreno MD at 15:22 EDT Tel , Service support ,
[2019-10-03] MEDS: Acetaminophen 500 MG Tablet 1000 MG PO (14:46)
[2019-10-03 14:47] LABS: Amphetamine Urine VISTA NEGATIVE (<1000 ng/mL); Barbiturate Urine VISTA NEGATIVE (< 200 ng/mL); Benzodiazepine Urine VISTA NEGATIVE (< 200 ng/mL); Cocaine Urine VISTA NEGATIVE (< 300 ng/mL); Ecstacy Urine VISTA NEGATIVE (< 500 ng/mL); Methadone Urine VISTA NEGATIVE (< 300 ng/mL); PCP Urine VISTA NEGATIVE (< 25 ng/mL); THC Urine VISTA POSITIVE (< 50 ng/mL); Vista UDS pH Range 6
[2019-10-03] MEDS: Ipratropium/Albuterol Sulfate 3 ML AMPUL.NEB INHALATION ×2 (16:37→19:39)
--- NOTE | 2019-10-03 16:39 | NURSING ---
DR DON MARRERO
--- NOTE | 2019-10-03 16:53 | NURSING ---
pedro parikh copd, hypoxia
[2019-10-03] MEDS: MethylPREDNISolone 125 MG/2 ML Vial IV (17:00)
--- NOTE | 2019-10-03 17:43 | PCM.HP.STD ---
<Yanet Diggs - Last Filed: 10/03/19 17:55> Problem List (1) Hyponatremia Status: Chronic (2) Anemia Status: Resolved (3) Polysubstance abuse Status: Chronic (4) Paranoid schizophrenia Status: Chronic (5) Rhinovirus Status: Resolved (6) Nicotine addiction Status: Chronic (7) COPD (chronic obstructive pulmonary disease) Status: Chronic (8) Acute exacerbation of chronic obstructive pulmonary disease (COPD) Status: Acute (9) Impacted cerumen of both ears Status: Resolved History of Present Illness Date of Admission: 10/03/19 Chief Complaint: Shortness of breath, cough. The patient is a 59 year old M who presents to the emergency room due to shortness of breath and cough. Patient is a poor historian and has flight of ideas. HPI difficult to obtain. No family at bedside. He denies fever. States he feels better now and denies any current symptoms. Patient states he is here because he was supposed to get a chest x-ray. Per records, he has a past medical history of COPD, hypertension, paranoid schizophrenia, polysubstance abuse, tobacco dependence. Patient reports he has a current pack per day smoker and uses marijuana. Denies other drug use. Past Medical History Past Medical History (Chronic Problems): Chronic Problems Hyponatremia (Chronic) Polysubstance abuse (Chronic) Paranoid schizophrenia (Chronic) Nicotine addiction (Chronic) COPD (chronic obstructive pulmonary disease) (Chronic) Allergies doxycycline Adverse Reaction (Unknown, Verified 10/03/19 12:49) Other haloperidol lactate [From Haldol] Adverse Reaction (Verified 10/03/19 12:49) jitters antihistamines Adverse Reaction (Uncoded 10/03/19 12:49) Rash Home Medications: Ambulatory Orders Medication Instructions Recorded Benztropine [Cogentin] 1 mg PO QHS 12/18/12 Prolixin 15 mg PO QHS 12/18/12 Albuterol Inhaler [Ventolin Hfa] 1 puff INHALATION Q4H PRN PRN 06/27/19 Lisinopril [Zestril] 10 mg PO DAILY #30 tab 06/29/19 Metoprolol Tartrate [Lopressor 25 mg PO BID #60 tab 06/29/19 (beta bob)] Fluphenazine HCl 10 mg PO DAILY 10/03/19 Prednisone 0 mg 10/03/19 Smz/Tmp Ds [Bactrim Ds] 1 tab PO BID 10/03/19 Surgical History: appendectomy Psychiatric History: Schizophrenia - Paranoid schizophrenia Lives: Homeless, - - States he is living with a friend Smoking Status: Current every day smoker Tobacco Use: Cigarettes Alcohol: None Drugs: Marijuana - *Family History Paternal History Items: Heart Disease - Father of heart disease in his early 70s Maternal History Items: - - Denies known maternal medical history including cardiac history. Review of Systems Constitutional: Denies: Chills, Fever, Weight Change HEENT: Denies: Head Aches, Sinus Congestion, Sinus Drainage Cardiovascular: Denies: Chest Pain, Palpitations Respiratory: Reports: Cough, Shortness of Breath Gastrointestinal: Denies: Abdominal Pain, Nausea, Vomiting Genitourinary: Denies: Dysuria Musculoskeletal: Denies: Joint Pain, Joint Tenderness Skin: Denies: Rash, Wounds Neurological: Denies: Numbness, Tingling, Focal weakness Psychiatric: Denies: Anxiety, Depression, Homicidal Ideations, Suicidal Ideations Hematologic/ Lymphatic: Denies: Easy Bruising, Easy Bleeding VTE Information - Inpt Only VTE Present on Admission: No VTE Mechan Device Prophylaxis: None VTE Pharm Prophylaxis ordered?: Yes - Physical Exam Vitals/I&O's: Vital Signs Temp Pulse Resp BP Pulse Ox 98.9 F 86 20 H 166/86 H 94 10/03/19 17:03 10/03/19 17:03 10/03/19 17:03 10/03/19 17:03 10/03/19 17:03 Oxygen Flow Rate (L/min) 6 Oxygen Delivery Method Nasal Cannula Weight: 130 lb Body Mass Index (BMI) 19.8 General: Alert, Oriented x3, Cooperative HEENT: Atraumatic, PERRLA, EOMI, Normocephalic Neck: Supple, No JVD, Negative Carotid Bruits Lungs: Clear to auscultation, Diminished Cardiovascular: Regular rate, No murmurs Abdomen: Bowel Sounds Present, Soft, Non Tender, Non-Distended Extremities: No clubbing, No cyanosis, No edema, Capillary Refill Less than 3 Seconds Skin: No rashes, No breakdown Musculoskeletal: No Tenderness to Palpation of Joints or Extremities Neurological: Cranial nerves II-XII grossly intact, Neuro grossly intact Psych/Mental Status: Normal Affect, Appropriate Laboratory Results 10/03/19 13:27: COVID-19 ([facility]) Negative 10/03/19 13:52: WBC 8.2, RBC 4.50 L, Hgb 13.3, Hct 43.1, MCV 95.8 H, MCH 29.6, MCHC 30.9 L, RDW Std Deviation 65.8 H, RDW Coeff of John 18.8 H, Plt Count 376, MPV 8.7, Immature Gran % (Auto) 0.200, Neut % (Auto) 78.3 H, Lymph % (Auto) 13.5 L, Crockett % (Auto) 7.7, Eos % (Auto) 0.2, Baso % (Auto) 0.1, Absolute Neuts (auto) 6.4, Absolute Lymphs (auto) 1.11, Nucleated RBC % 0, RBC Morphology N CHROM, Anisocytosis RARE 10/03/19 13:52: Sodium 131 L, Potassium 4.6, Chloride 91 L, Carbon Dioxide 40.0 H, Anion Gap 0 L, BUN 10, Creatinine 0.74, Estim Creat Clear Calc 87.43, Est GFR (MDRD) Af Amer 137, Est GFR (MDRD) Non-Af 113, BUN/Creatinine Ratio 13.4, Glucose 101, Calcium 8.4 L, Total Bilirubin 0.20, AST 25, ALT 33, Alkaline Phosphatase 70, Troponin I 0.032, Total Protein 7.2, Albumin 3.3, Globulin 3.9, Albumin/Globulin Ratio 0.8 L, Lipase 92 10/03/19 13:52: Ethyl Alcohol < 3.0 10/03/19 14:25: Urine Opiates Screen NEGATIVE, Urine Methadone Screen NEGATIVE, Ur Barbiturates Screen NEGATIVE, Ur Phencyclidine Scrn NEGATIVE, Ur Amphetamines Screen NEGATIVE, U Methamphetamin-MDMA NEGATIVE, U Benzodiazepines Scrn NEGATIVE, Urine Cocaine Screen NEGATIVE, U Cannabinoids Screen POSITIVE H, Ur Drug Screen Comment Assessment/Plan All Active Problems Acute exacerbation of chronic obstructive pulmonary disease (COPD) (Acute) Anemia (Resolved) Impacted cerumen of both ears (Resolved) Rhinovirus (Resolved) 1. Acute hypoxic respiratory insufficiency secondary to exacerbation of COPD-chest x-ray without acute process. IV Solu-Medrol. Albuterol DuoNeb aerosols. Continue supplement oxygen to maintain O2 at or above 90%. Walking pulse ox prior to discharge. COVID negative. 2. Hypertension-stable, continue lisinopril, Toprol. 3. Chronic hyponatremia-appears above baseline. Trend BMP. 4. Paranoid schizophrenia-continue home medication regimen. 5. Polysubstance abuse-reports history of cocaine and other drug use. Currently uses marijuana which is consistent with tox screen. 6. Tobacco dependence-encouraged cessation. Nicotine replacement patch. DVT prophylaxis-Lovenox subcu This patient was seen by DANIELLE Gillette under the supervision of Dr. Riggs. <Azar Riggs F - Last Filed: 10/03/19 18:11> History of Present Illness The patient is a 59 year old M [] Past Medical History Allergies doxycycline Adverse Reaction (Unknown, Verified 10/03/19 12:49) Other haloperidol lactate [From Haldol] Adverse Reaction (Verified 10/03/19 12:49) jitters antihistamines Adverse Reaction (Uncoded 10/03/19 12:49) Rash - Physical Exam Vitals/I&O's: Vital Signs Temp Pulse Resp BP Pulse Ox 97.8 F 86 18 166/83 H 100 10/03/19 17:49 10/03/19 17:49 10/03/19 17:49 10/03/19 17:49 10/03/19 17:49 Oxygen Flow Rate (L/min) 2 Oxygen Delivery Method Nasal Cannula Weight: 130 lb Body Mass Index (BMI) 19.8 Laboratory Results 10/03/19 13:27: COVID-19 ([facility]) Negative 10/03/19 13:52: WBC 8.2, RBC 4.50 L, Hgb 13.3, Hct 43.1, MCV 95.8 H, MCH 29.6, MCHC 30.9 L, RDW Std Deviation 65.8 H, RDW Coeff of John 18.8 H, Plt Count 376, MPV 8.7, Immature Gran % (Auto) 0.200, Neut % (Auto) 78.3 H, Lymph % (Auto) 13.5 L, Crockett % (Auto) 7.7, Eos % (Auto) 0.2, Baso % (Auto) 0.1, Absolute Neuts (auto) 6.4, Absolute Lymphs (auto) 1.11, Nucleated RBC % 0, RBC Morphology N CHROM, Anisocytosis RARE 10/03/19 13:52: Sodium 131 L, Potassium 4.6, Chloride 91 L, Carbon Dioxide 40.0 H, Anion Gap 0 L, BUN 10, Creatinine 0.74, Estim Creat Clear Calc 87.43, Est GFR (MDRD) Af Amer 137, Est GFR (MDRD) Non-Af 113, BUN/Creatinine Ratio 13.4, Glucose 101, Calcium 8.4 L, Total Bilirubin 0.20, AST 25, ALT 33, Alkaline Phosphatase 70, Troponin I 0.032, Total Protein 7.2, Albumin 3.3, Globulin 3.9, Albumin/Globulin Ratio 0.8 L, Lipase 92 10/03/19 13:52: Ethyl Alcohol < 3.0 10/03/19 14:25: Urine Opiates Screen NEGATIVE, Urine Methadone Screen NEGATIVE, Ur Barbiturates Screen NEGATIVE, Ur Phencyclidine Scrn NEGATIVE, Ur Amphetamines Screen NEGATIVE, U Methamphetamin-MDMA NEGATIVE, U Benzodiazepines Scrn NEGATIVE, Urine Cocaine Screen NEGATIVE, U Cannabinoids Screen POSITIVE H, Ur Drug Screen Comment Addendum: Dr. Riggs I personally examined the patient and reviewed the chart. I agree with the above. 59-year-old male who presents to the hospital because he was post get chest x-rays however when he was here in the hospital he also was having shortness of breath as well as a cough, as well as mild abdominal pain. CT scan of his abdomen pelvis was unremarkable. However he does have coarse breath sounds bilaterally and he did have some hypoxic respiratory failure that was acute with sat of 77% on room air. He was started on 6 L nasal cannula in the ED and has improved significantly and feels much better. He would also like to eat if he can because he says that his abdominal abdomen feels better. He is a very difficult historian secondary to his diagnosis of schizophrenia, he is on fluphenazine as well as Cogentin. As for his hypoxic respiratory failure and a COPD exacerbation, will continue with Solu-Medrol 3 times daily and duo nebs. Will wean oxygen as able. He also had a COVID test which was negative. Inpatient E&M: [id number] Init Hosp L3
[2019-10-03] MEDS: 0.9% Normal Saline 1,000 ML 75 ML IV (20:10)
[2019-10-03] MEDS: 0.9% Saline Lock 10 ML Syringe IV (20:11)
[2019-10-03] MEDS: Benztropine 2 MG Tablet 1 MG PO (21:28)
[2019-10-03] MEDS: Metoprolol Tartrate 25 MG Tablet PO (21:33)
[2019-10-04 02:58] VITALS: PULSE 87
[2019-10-04 05:00] VITALS: BP 133/59; PULSE 76; RESP 16; TEMP 37.1; O2SAT 96
[2019-10-04 06:00] LABS: Absolute Lymphocyte Count 0.36 X10^3/uL (0.83-4.51); Hematocrit 42.6 % (40-54); Hemoglobin 12.9 g/dL (13.0-16.5); Lymphocyte # 0.36 X10^3/ul (4.0); Lymphocyte % 10.3 % (19-41); Mean Corp Hgb Conc 30.3 g/dL (32-36); Mean Corpuscular Hgb 29.1 pg (27.0-32.0); Mean Corpuscular Volume 95.9 fL (80-94); Mean Platelet Vol. 8.3 fl (6.2-12.0); Monocyte# 0.13 X10^3/uL; Monocyte% 3.7 % (0-10); NRBC Flagged by Analyzer 0 % (0-5); Neutrophil # 2.99 X10^3/uL (2.7-7.7); Neutrophil % 85.7 % (47-70); POSITIVE DIFFERENTIAL YES; POSITIVE MORPHOLOGY YES; Platelet Count 340 K/mm3 (150-450); RBC Distribution Width CV 18.6 % (11.6-14.6); RBC Distribution Width SD 66.3 fl (35.1-43.9); Red Blood Count 4.44 M/mm3 (4.6-6.2); White Blood Count 3.5 K/mm3 (4.4-11.0)
[2019-10-04 06:09] LABS: Differential Indicated SCAN CRITERIA MET
[2019-10-04 06:20] LABS: Anion Gap 0 (5-15); BUN 11 mg/dL (7-18); BUN/Creat Ratio 19.2 RATIO (10-20); Calcium,Total 8.1 mg/dL (8.5-10.1); Chloride 94 mmol/L (98-107); Creatinine, Serum 0.57 mg/dL (0.70-1.30); EST Glomerular Filtration Rate 154 mL/min (>60); Est Glom Filt Rate - Afr Amer 186 mL/min (>60); Estimated Creatinine Clearance 122.81 ml/min; Glucose 126 mg/dL (74-106); Potassium 4.9 mmol/L (3.5-5.1); Sodium Level 133 mmol/L (136-145)
[2019-10-04 06:36] VITALS: PULSE 89; RESP 20; O2SAT 95
[2019-10-04] MEDS: Ipratropium/Albuterol Sulfate 3 ML AMPUL.NEB INHALATION (06:36)
[2019-10-04 06:44] LABS: Anisocytosis 1+; Differential Comment SCANNED
[2019-10-04 06:45] LABS: Red Cell Morphology N CHROM NORMAL (NORM C&C)
[2019-10-04] MEDS: Acetaminophen 325 MG Tablet 650 MG PO (08:22)
--- NOTE | 2019-10-04 08:32 | NURSING ---
pt escalating and security and sue white and edmundo up. refusing to let check pox. pt off the unit screaming and very aggitated. escorted off premise.
--- NOTE | 2019-10-04 08:35 | DS.PCM_ITS ---
<Osbaldo Montoya - Last Filed: 10/04/19 08:35> Discharge Date and Diagnosis Date of Admission: 10/03/19 Date of Discharge: 10/04/19 - Primary Discharge Diagnosis Acute Problems: Acute hypoxic and hypercapneic respiratory failure 2/2 COPD exacerbation Paranoid schizophrenia Nicotine abuse Marijuana abuse Homelessness Hyponatremia - Secondary Discharge Diagnosis Chronic Problems: Chronic Problems Hyponatremia (Chronic) Polysubstance abuse (Chronic) Paranoid schizophrenia (Chronic) Nicotine addiction (Chronic) COPD (chronic obstructive pulmonary disease) (Chronic) Hospital Course and Treatment Imaging Results: RAD/Chest 1 View (Portable) IMPRESSION: Near complete resolution of right basilar opacities since June 27, 2019; there appears minimal residual atelectasis and/or possible pneumonia. Operations: None Procedures: None Summary of Care Provided: Hospital Course: The patient is a 59 year old M with pmhx of COPD nicotine abuse, marijuana abuse, homelessness, paranoid schizophrenia, who presented to the ER with shortness of breath, requesting a chest xray, abdominal pain. He was found to be hypoxic at 77% with elevated CO2 on BMP and required up to 6 lpm to maintain adequate sats. CXR showed improvement of prior opacities and small amount of residual atelectasis vs pna. Trop was negative, he had mild hyponatremia, drug screen showed thc. EtOH was negative, covid was negative, lipase was negative, LFTs were normal. He was felt to have COPD exacerbation and started on steroids and aerosols. The following morning he was very agitated. He would not allow me to physically touch him. He was violent, threatening the stafff, throwing thing s, and demanding pills for pain and to make him sleep. He removed his own oxygen and was continuously yelling on the floor without evidence of struggle to breath, accessory muscle breathing, tripoding, or cyanosis. He denies SOB. He demanded to be transferred to [facility], however several minutes later he suddenly left ama. This patient was seen by Osbaldo Montoya PA-C under the supervision of Dr. Humphries. [] - Physical Exam Vitals/I&O's: Vital Signs Temp Pulse Resp BP Pulse Ox 98.8 F 89 20 H 133/59 H 95 10/04/19 05:00 10/04/19 06:36 10/04/19 06:36 10/04/19 05:00 10/04/19 06:36 Oxygen Flow Rate (L/min) 3 Oxygen Delivery Method Nasal Cannula Weight: 140 lb 10.479 oz Body Mass Index (BMI) 21.3 Intake and Output for Last 24 Hours 10/02/19 10/03/19 10/04/19 23:59 23:59 23:59 Intake Total 440 / 440 150 / 150 Output Total 1000 / 1000 500 / 500 Balance -560 / -560 -350 / -350 General: Alert, - - Disheveled, angry, throwing things, standing up, sitting down, laying down frequently, threatening postures, making fists, stating he was in the and could fight us. HEENT: Atraumatic Lungs: - - Yelling, no cyanosis of the mouth, no mega SOB, no tripoding, no accessory breathing, no conversational dyspnea. Extremities: No edema, - - no mega cyanosis Skin: No rashes, No breakdown Psych/Mental Status: Agitated, Irrational Behavior, Restless, Alert and oriented to time, place, person, mood and affect Comment: Patient refused to allow me to touch him for further examination Laboratory Results 10/03/19 13:27: COVID-19 ([facility]) Negative 10/03/19 13:52: WBC 8.2, RBC 4.50 L, Hgb 13.3, Hct 43.1, MCV 95.8 H, MCH 29.6, MCHC 30.9 L, RDW Std Deviation 65.8 H, RDW Coeff of John 18.8 H, Plt Count 376, MPV 8.7, Immature Gran % (Auto) 0.200, Neut % (Auto) 78.3 H, Lymph % (Auto) 13.5 L, Linn % (Auto) 7.7, Eos % (Auto) 0.2, Baso % (Auto) 0.1, Absolute Neuts (auto) 6.4, Absolute Lymphs (auto) 1.11, Nucleated RBC % 0, RBC Morphology N CHROM, Anisocytosis RARE 10/03/19 13:52: Sodium 131 L, Potassium 4.6, Chloride 91 L, Carbon Dioxide 40.0 H, Anion Gap 0 L, BUN 10, Creatinine 0.74, Estim Creat Clear Calc 87.43, Est GFR (MDRD) Af Amer 137, Est GFR (MDRD) Non-Af 113, BUN/Creatinine Ratio 13.4, Glucose 101, Calcium 8.4 L, Total Bilirubin 0.20, AST 25, ALT 33, Alkaline Phosphatase 70, Troponin I 0.032, Total Protein 7.2, Albumin 3.3, Globulin 3.9, Albumin/Globulin Ratio 0.8 L, Lipase 92 10/03/19 13:52: Ethyl Alcohol < 3.0 10/03/19 14:25: Urine Opiates Screen NEGATIVE, Urine Methadone Screen NEGATIVE, Ur Barbiturates Screen NEGATIVE, Ur Phencyclidine Scrn NEGATIVE, Ur Amphetamines Screen NEGATIVE, U Methamphetamin-MDMA NEGATIVE, U Benzodiazepines Scrn NEGATIVE, Urine Cocaine Screen NEGATIVE, U Cannabinoids Screen POSITIVE H, Ur Drug Screen Comment 10/04/19 05:46: WBC 3.5 L, RBC 4.44 L, Hgb 12.9 L, Hct 42.6, MCV 95.9 H, MCH 29.1, MCHC 30.3 L, RDW Std Deviation 66.3 H, RDW Coeff of John 18.6 H, Plt Count 340, MPV 8.3, Immature Gran % (Auto) 0.300, Neut % (Auto) 85.7 H, Lymph % (Auto) 10.3 L, Linn % (Auto) 3.7, Eos % (Auto) 0.0, Baso % (Auto) 0.0, Absolute Neuts (auto) 3.0, Absolute Lymphs (auto) 0.36 L, Nucleated RBC % 0, Differential Comment SCANNED, Diff Path Review July ashli, RBC Morphology N CHROM, Anisocytosis 1+ 10/04/19 05:46: Sodium 133 L, Potassium 4.9, Chloride 94 L, Carbon Dioxide 39.0 H, Anion Gap 0 L, BUN 11, Creatinine 0.57 L, Estim Creat Clear Calc 122.81, Est GFR (MDRD) Af Amer 186, Est GFR (MDRD) Non-Af 154, BUN/Creatinine Ratio 19.2, Glucose 126 H, Calcium 8.1 L Discharge Diet: Low fat/ Low Cholesterol, 2000 mg Sodium Diet Discharge Activity: Return to Normal Activity Home Medications: Medications to take at Discharge Benztropine [Cogentin] 1 mg PO QHS 12/18/12 Prolixin 15 mg PO QHS 12/18/12 Albuterol Inhaler [Ventolin Hfa] 1 puff INHALATION Q4H PRN PRN 06/27/19 Lisinopril [Zestril] 10 mg PO DAILY #30 tab 06/29/19 Metoprolol Tartrate [Lopressor (beta bob)] 25 mg PO BID #60 tab 06/29/19 Fluphenazine HCl 10 mg PO DAILY 10/03/19 Prednisone 0 mg 10/03/19 Smz/Tmp Ds [Bactrim Ds] 1 tab PO BID 10/03/19 Primary Care Physician: Care Physician,No Primary [Primary Care Provider] - Disposition: Against Medical Advice Minutes spent on discharge:: 35 Patient Condition:: Guarded Medical Necessity - Tobacco Use Smoking Status: Current every day smoker Tobacco Use: Cigarettes Meaningful Use Info Meaningful Use Diagnoses (Choose all that apply): None applicable <Josi Humphries - Last Filed: 10/04/19 14:05> Discharge Date and Diagnosis - Secondary Discharge Diagnosis Chronic Problems: Chronic Problems Hyponatremia (Chronic) Polysubstance abuse (Chronic) Paranoid schizophrenia (Chronic) Nicotine addiction (Chronic) COPD (chronic obstructive pulmonary disease) (Chronic) Hospital Course and Treatment Summary of Care Provided: This patient was seen in conjunction with RIVERA Hanna. I have independently interviewed and examined the patient and reviewed pertinent historical, laboratory, and other data. Please refer to RIVERA Hanna note for his patient's presentation, findings, and recommendations. I have reviewed and his note and concur with his documentation 1-year-old male with past medical history of COPD, nicotine dependence, paranoid schizophrenia who is homeless presented with progressive shortness of breath and abdominal pain. Patient was found to be hypoxic in the ED and was admitted to the regular floor as COPD exacerbation. His COVID-19 test was negative. Rest of his blood work was essentially stable. He was managed on IV steroids and breathing treatment. Patient however was very belligerent the next morning, refusing care and sign out AGAINST MEDICAL ADVICE. I was unable to see the patient prior to he walking out of the floor. I was informed of his behavior -refusing care. Chart was reviewed in detail. He left before I could see him. - Physical Exam Vitals/I&O's: Vital Signs Temp Pulse Resp BP Pulse Ox 98.8 F 89 20 H 133/59 H 95 10/04/19 05:00 10/04/19 06:36 10/04/19 06:36 10/04/19 05:00 10/04/19 06:36 Oxygen Flow Rate (L/min) 3 Oxygen Delivery Method Nasal Cannula Weight: 63.8 kg Body Mass Index (BMI) 21.3 Intake and Output for Last 24 Hours 10/02/19 10/03/19 10/04/19 23:59 23:59 23:59 Intake Total 440 / 440 150 / 150 Output Total 1000 / 1000 500 / 500 Balance -560 / -560 -350 / -350 Laboratory Results 10/03/19 13:27: COVID-19 ([facility]) Negative 10/03/19 13:52: WBC 8.2, RBC 4.50 L, Hgb 13.3, Hct 43.1, MCV 95.8 H, MCH 29.6, MCHC 30.9 L, RDW Std Deviation 65.8 H, RDW Coeff of John 18.8 H, Plt Count 376, MPV 8.7, Immature Gran % (Auto) 0.200, Neut % (Auto) 78.3 H, Lymph % (Auto) 13.5 L, Linn % (Auto) 7.7, Eos % (Auto) 0.2, Baso % (Auto) 0.1, Absolute Neuts (auto) 6.4, Absolute Lymphs (auto) 1.11, Nucleated RBC % 0, RBC Morphology N CHROM, Anisocytosis RARE 10/03/19 13:52: Sodium 131 L, Potassium 4.6, Chloride 91 L, Carbon Dioxide 40.0 H, Anion Gap 0 L, BUN 10, Creatinine 0.74, Estim Creat Clear Calc 87.43, Est GFR (MDRD) Af Amer 137, Est GFR (MDRD) Non-Af 113, BUN/Creatinine Ratio 13.4, Glucose 101, Calcium 8.4 L, Total Bilirubin 0.20, AST 25, ALT 33, Alkaline Phosphatase 70, Troponin I 0.032, Total Protein 7.2, Albumin 3.3, Globulin 3.9, Albumin/Globulin Ratio 0.8 L, Lipase 92 10/03/19 13:52: Ethyl Alcohol < 3.0 10/03/19 14:25: Urine Opiates Screen NEGATIVE, Urine Methadone Screen NEGATIVE, Ur Barbiturates Screen NEGATIVE, Ur Phencyclidine Scrn NEGATIVE, Ur Amphetamines Screen NEGATIVE, U Methamphetamin-MDMA NEGATIVE, U Benzodiazepines Scrn NEGATIVE, Urine Cocaine Screen NEGATIVE, U Cannabinoids Screen POSITIVE H, Ur Drug Screen Comment 10/04/19 05:46: WBC 3.5 L, RBC 4.44 L, Hgb 12.9 L, Hct 42.6, MCV 95.9 H, MCH 29.1, MCHC 30.3 L, RDW Std Deviation 66.3 H, RDW Coeff of John 18.6 H, Plt Count 340, MPV 8.3, Immature Gran % (Auto) 0.300, Neut % (Auto) 85.7 H, Lymph % (Auto) 10.3 L, Linn % (Auto) 3.7, Eos % (Auto) 0.0, Baso % (Auto) 0.0, Absolute Neuts (auto) 3.0, Absolute Lymphs (auto) 0.36 L, Nucleated RBC % 0, Differential Comment SCANNED, Diff Path Review Reviewed, RBC Morphology N CHROM, Anisocytosis 1+ 10/04/19 05:46: Sodium 133 L, Potassium 4.9, Chloride 94 L, Carbon Dioxide 39.0 H, Anion Gap 0 L, BUN 11, Creatinine 0.57 L, Estim Creat Clear Calc 122.81, Est GFR (MDRD) Af Amer 186, Est GFR (MDRD) Non-Af 154, BUN/Creatinine Ratio 19.2, Glucose 126 H, Calcium 8.1 L Inpatient E&M: [id number] Disch Hosp
--- NOTE | 2019-10-04 08:45 | NURSING ---
PATIENT YELLING AND SCREAMING WENT INTO ROOM PATIENT YELLING HE WANTS SOMETHING FOR PAIN NURSE TRYING TO LOOK INTO COMPUTER TO SEE WHAT IS ORDERED PATIENT GETTING LOUDER AND LOUDER THROWING BLANKETS AROUND DEMANDING CLOTHES. LET PATIENT KNOW THAT TYLENOL IS ORDERED AN THAT THIS NURSE WILL GIVE. CAME BACK WITH TYLENOL SECURITY AND FRAMING MANAGER PRESENT AT THIS TIME TRYING TO CALM PATIENT ALONG WITH PHYSICIAN BONE DENSITY TECHNICIAN. PATIENT GIVEN TYLENOL THEN STARTED YELLING MORE HE JUST WANTS SLEEP THREW GLASS DOWN ON FLOOR BREAKING IT WITH PIECES HITTING THIS NURSE AND PROJECTED IN ROOM ON FLOOR. PATIENT KEPT YELLING . HE WAAS FROM [facility] AND HE JUST NEEDS TO SLEEP. 2 NURSES IN ROOM TRYING TO LEAVE ROOM TO LET PATIENT SLEEP THEN PATIENT ASKED NURSE TO TIE SHOE. WHEN THE NURSE WENT TO TIE SHOE HE STARTED YELLING AND GETTING VIOLENT THEN HE WANTED TO BE TRANSPORTED TO [facility] HE IS FROM [facility]. TAKE HIM TO [facility]. HE WOULD NOT LET NURSE CHECK O2 LEVEL OR VITAL SIGNS INSTEAD STOOD UP AND SHOOK FIST AT NURSE IN VIOLENCE. PATIENT GOT DRESSED THEN PROCEEDED TOWARD DOOR TO LEAVE SECURITY AND NURSING MACHINE ZIPPER TRIMMER ESCORTED PATIENT OUT OF FACILITY
[2019-10-04 12:12] LABS: Pathologist Review Reviewed
== END 2019-10-04 08:34 | disposition left against medical advice (07) | DRG 190 ==
LOC: ED 14:09 → PCU 20:37
PROVIDERS: Admitting Provider Family Medicine; Emergency Provider Emergency Medicine; Visit Provider Internal Medicine
DX: J44.1 Chronic obstructive pulmonary disease with (acute) exacerbation (principal); J96.01 Acute respiratory failure with hypoxia; J96.02 Acute respiratory failure with hypercapnia; F20.0 Paranoid schizophrenia; E87.1 Hypo-osmolality and hyponatremia; Z59.0 Homelessness; F17.210 Nicotine dependence, cigarettes, uncomplicated; I10 Essential (primary) hypertension; F14.10 Cocaine abuse, uncomplicated; F12.10 Cannabis abuse, uncomplicated
CPT/HCPCS: 36415; 71045; 80048; 80053; 80307; 80320; 83690; 84484; 85025; 87635; 93005; 94640; 99285; 99406; G2023; J7030; A4216; G0480; U0003

== ENCOUNTER 2020-08-22 21:37 | Emergency (ER) | payer MEDICARE, SELFPAY ==
[2019-10-03 18:41] VITALS: BMI 21.3
[2020-08-22 21:38] VITALS: PULSE 78; RESP 16; TEMP 36.1; O2SAT 96; BMI 21.4
[2020-08-22] MEDS: Ketorolac 30 MG/ML Syringe IV (22:43)
[2020-08-22 22:49] LABS: Absolute Lymphocyte Count 1.15 X10^3/uL (0.83-4.51); Absolute Neutrophil Count 7.7 X10^3/uL (2.0-7.7); Basophil# 0.04 X10^3/uL; Basophil% 0.4 % (0-1); Eosinophil# 0.11 X10^3/uL; Eosinophils% 1.1 % (0-5); Hematocrit 42.7 % (40-54); Hemoglobin 13.8 g/dL (13.0-16.5); Lymphocyte # 1.15 X10^3/ul (0.83-4.51); Lymphocyte % 11.6 % (19-41); Mean Corp Hgb Conc 32.3 g/dL (32-36); Mean Corpuscular Hgb 31.3 pg (27.0-32.0); Mean Corpuscular Volume 96.8 fL (80-94); Mean Platelet Vol. 8.1 fl (6.2-12.0); Monocyte# 0.93 X10^3/uL; Monocyte% 9.4 % (0-10); NRBC Flagged by Analyzer 0 % (0-5); Neutrophil # 7.67 X10^3/uL (2.7-7.7); Neutrophil % 77.4 % (47-70); Platelet Count 291 K/mm3 (150-450); RBC Distribution Width CV 13.7 % (11.6-14.6); RBC Distribution Width SD 48.8 fl (35.1-43.9); Red Blood Count 4.41 M/mm3 (4.6-6.2); White Blood Count 9.9 K/mm3 (4.4-11.0)
[2020-08-22 23:06] LABS: AST(SGOT) 31 U/L (15-37); Alanine Aminotransfer ALT/SGPT 31 U/L (16-61); Albumin, Serum 3.3 g/dL (3.2-5.0); Alkaline Phosphatase 76 U/L (45-117); Anion Gap 2 (5-15); BUN 8 mg/dL (7-18); BUN/Creat Ratio 12.3 RATIO (10-20); Calcium,Total 8.7 mg/dL (8.5-10.1); Chloride 89 mmol/L (98-107); Creatinine, Serum 0.65 mg/dL (0.70-1.30); EST Glomerular Filtration Rate 133 mL/min (>60); Est Glom Filt Rate - Afr Amer 160 mL/min (>60); Estimated Creatinine Clearance 109.62 ml/min; Globulin 3.8 g/dL (2.2-4.2); Glucose 115 mg/dL (74-106); Potassium 4.4 mmol/L (3.5-5.1); Protein, Total 7.1 g/dL (6.4-8.2); Sodium Level 127 mmol/L (136-145)
[2020-08-22 23:10] LABS: Acetaminophen (Tylenol) Level < 2.0 ug/mL (10.0-30.0)
--- NOTE | 2020-08-22 23:15 | EX.ED.DYSGE1 ---
HPI History of Present Illness Chief Complaint: Other, Pain/Inj Detail of Chief Complaint: Left arm pain Informant: patient Onset/Context/Timing Onset: Month(s) Timing: Waxes and wanes Current Severity: Mild Maximum Severity: Moderate Narrative Narrative: Patient presents secondary to what he believes are muscle spasms. He holds up both arms and states that he has pain around his left bicep. He states it has been an abnormal shape for several years and he thinks it is from holding his crack pipe. He was asked multiple times what changed tonight that brought him to the emergency room but he was unable to give me an answer. He states that his arm was hurting tonight so he came in for evaluation. We did review his medication bottles that he has with him. He has a bottle of Tylenol 3 25 mg and a bottle Tylenol 500 mg. When asked how much of he had this he is taken he states he takes 2 tabs from each bottle at the same time, 1650 mg per dose. He states he has been doing this for quite some time. [facility] Medical History (Updated 08/22/20 @ 23:[address] Sonja Blackwood MD) Cocaine abuse COPD (chronic obstructive pulmonary disease) Paranoid schizophrenia Home Medications albuterol sulfate 1 puff INHALATION Q4H PRN PRN 06/27/19 [History Last Taken Unknown] lisinopril 10 mg PO DAILY #30 tab 06/29/19 [Rx Last Taken Unknown] fluphenazine HCl 10 mg PO DAILY 10/03/19 [History Last Taken Unknown] acetaminophen [Tylenol Extra Strength] 500 mg PO Q6H PRN 08/22/20 [History Last Taken Unknown] benztropine 1 mg PO DAILY 08/22/20 [History Last Taken Unknown] metoprolol tartrate 25 mg PO DAILY 08/22/20 [History Last Taken Unknown] Allergy/AdvReac Type Severity Reaction Status Date / Time doxycycline AdvReac Unknown Other Verified 08/22/20 21:59 haloperidol lactate AdvReac jitters Verified 08/22/20 21:59 [From Haldol] antihistamines AdvReac Rash Uncoded 08/22/20 21:41 Social History Smoking Status: Current every day smoker tobacco type: cigarettes ROS ROS ED Constitutional Constitutional ED: Denies chills or fever(s) Eyes Eyes: Denies change in vision ENT ENT ED: Denies sore throat Cardiovascular Cardiovascular: Denies chest pain Respiratory/Chest Respiratory/Chest: Denies cough or dyspnea Gastrointestinal Gastrointestinal: Denies abdominal pain, diarrhea, nausea or vomiting Genitourinary Genitourinary ED: Denies dysuria Musculoskeletal Musculoskeletal: Reports arthralgias and myalgias; Denies back pain Integumentary Denies rash Neurologic Neurologic: Denies headache(s) or weakness Psychiatric Psychiatric: Denies anxiety or depression Endocrine Endocrinology: Denies polydipsia or polyuria Allergic/Immunologic Allergic/Immunologic ED: Denies urticaria EXAM Physical Exam Const Vital Signs: 08/22/20 21:38 Temperature 97 F L Temperature Source Temporal Pulse Rate 78 Respiratory Rate 16 Pulse Ox 96 Positive well nourished and well developed General Appearance ED: well developed HEENT Reports moist mucous membranes Eyes PERRL and EOMs intact bilaterally Neck supple Chest Wall inspection of chest normal and palpation of chest normal Resp normal respiratory effort and clear to auscultation bilaterally Cardio regular rate and regular rhythm GI normal to inspection, nondistended, normoactive bowel sounds and non-tender Extremity Extremity Narrative: No reproducible tenderness with palpation over the left upper extremity. Strong distal pulses and normal sensation. Full range of motion. Neuro oriented x3 and no sensory deficits noted Sensorium / Orientation: alert Motor Exam: strength 5/5 throughout Psych Mood & Affect: anxious Skin no rashes or lesions noted MDM MDM MDM Narrative Medical decision making narrative: Due to the patient's excessive Tylenol ingestion patient did have labs obtained including LFTs and Tylenol level. Albuterol inhaler was ordered but patient refused this. He was given a dose of Toradol for pain. Lab Data Attestation: I reviewed the patient's lab results. Labs: Laboratory Results - last 24 hr 08/22/20 08/22/20 08/22/20 22:40 22:40 22:40 WBC 9.9 RBC 4.41 L Hgb 13.8 Hct 42.7 MCV 96.8 H MCH 31.3 MCHC 32.3 RDW Std Deviation 48.8 H RDW Coeff of John 13.7 Plt Count 291 MPV 8.1 Immature Gran % (Auto) 0.100 Neut % (Auto) 77.4 H Lymph % (Auto) 11.6 L [place] % (Auto) 9.4 Eos % (Auto) 1.1 Baso % (Auto) 0.4 Absolute Neuts (auto) 7.7 Absolute Lymphs (auto) 1.15 Nucleated RBC % 0 Sodium 127 L Potassium 4.4 Chloride 89 L Carbon Dioxide 36.0 H Anion Gap 2 L BUN 8 Creatinine 0.65 L Estim Creat Clear Calc 109.62 Est GFR (MDRD) Af Amer 160 Est GFR (MDRD) Non-Af 133 BUN/Creatinine Ratio 12.3 Glucose 115 H Calcium 8.7 Total Bilirubin 0.20 Direct Bilirubin 0.10 AST 31 ALT 31 Alkaline Phosphatase 76 Total Protein 7.1 Albumin 3.3 Globulin 3.8 Acetaminophen < 2.0 L Treatment and Re-Evaluation Comments:: Prior to the completion of the patient's lab work he decided he did not want to stay for results and left the emergency room. Test results ultimately returned with normal Tylenol level and normal LFTs. Patient does have history of hyponatremia and sodium tonight is 127. Discharge Plan Triage Chief Complaint: Other, Pain/Inj ED Provider: Sonja Blackwood Dx/Rx/DC Orders Clinical Impression: Arm pain Prescriptions: No Action albuterol sulfate 1 INHALER inhaler 1 puff inhalation Q4H PRN PRN (Reason: breathing) RF: 0 lisinopril 10 MG tablet 10 mg PO DAILY Qty: 30 RF: 1 fluphenazine HCl 10 MG tablet 10 mg PO DAILY RF: 0 benztropine 1 mg Tablet 1 mg PO DAILY RF: 0 metoprolol tartrate 25 MG tablet 25 mg PO DAILY RF: 0 acetaminophen [Tylenol Extra Strength] 500 mg Capsule 500 mg PO Q6H PRN (Reason: Pain) RF: 0 Primary Care Provider: Care Physician,No Primary Referrals: Care Physician,No Primary [Primary Care Provider] - Disposition Disposition: [facility]
--- NOTE | 2020-08-22 23:15 | ED.RN ---
pt standing in hallway asking to get IV out. RN took pt to room and he stated take this out, this is disgusting. explained to pt waiting on lab results, and he stated I don't care what you are waiting on. He then was angry and said women. I cannot believe I didn't get to talk to a male doctor. HRO notified that pt is leaving with a hostile attitude. notified.
== END 2020-08-22 23:15 | disposition left against medical advice (07) ==
PROVIDERS: Emergency Provider Emergency Medicine
DX: M79.602 Pain in left arm (principal); F17.210 Nicotine dependence, cigarettes, uncomplicated; F14.10 Cocaine abuse, uncomplicated; F20.0 Paranoid schizophrenia; Z79.899 Other long term (current) drug therapy; M62.838 Other muscle spasm
CPT/HCPCS: 80048; 80076; 80329; 85025; 96374; 99284; G0480

== ENCOUNTER 2020-08-27 09:43 | Inpatient (IN) | payer MEDICARE, SELFPAY ==
[2020-08-27] VITALS (9 sets, daily range): BP systolic 124–157; BP diastolic 85–97; PULSE 70–118; RESP 16–20; TEMP 36.6–36.8; O2SAT 88–97; BMI 28.0
--- NOTE | 2020-08-27 10:03 | EX.ED.VIS.PS ---
HPI HPI - Psych History of Present Illness Chief Complaint: Suicidal Informant: patient Onset/Context/Timing Onset: Days Context: Gradual Onset Timing: Continuous Current Severity: Mild Maximum Severity: Mild Associated Symptoms Associated Symptoms - Psych: Positive for Depressed, Hopelessness, Suicidal Thoughts, Agitated and Paranoia Specific plan (suicidal thought): No specific plan Narrative Narrative: 60-year-old male history of paranoid schizophrenia and currently homeless. He is very upset about being homeless. States that he is having suicidal thoughts. And he needs to be hospitalized. He denies any recent illness. Prior similar symptoms: Yes Recent Illness/Hospitalization: No [facility] Medical History (Updated 08/27/20 @ 11:[address] Baldo Beasley MD) Cocaine abuse COPD (chronic obstructive pulmonary disease) HTN (hypertension) Paranoid schizophrenia Home Medications lisinopril 10 mg PO DAILY #30 tab 06/29/19 [Rx Last Taken Unknown] fluphenazine HCl 10 mg PO DAILY 10/03/19 [History Last Taken Unknown] benztropine 1 mg PO DAILY 08/22/20 [History Last Taken Unknown] metoprolol tartrate 25 mg PO DAILY 08/22/20 [History Last Taken Unknown] Allergy/AdvReac Type Severity Reaction Status Date / Time doxycycline AdvReac Unknown Other Verified 08/22/20 21:59 haloperidol lactate AdvReac jitters Verified 08/22/20 21:59 [From Haldol] antihistamines AdvReac Rash Uncoded 08/22/20 21:41 Social History Smoking Status: Current every day smoker tobacco type: cigarettes ROS ROS ED ROS Narrative Denies recent illness. Review of Systems ROS Unobtainable: Denies due to encephalopathy Constitutional Constitutional ED: Denies chills or fever(s) Eyes Eyes: Denies change in vision ENT ENT ED: Denies ear pain or sore throat Cardiovascular Cardiovascular: Denies chest pain Respiratory/Chest Respiratory/Chest: Denies dyspnea Gastrointestinal Gastrointestinal: Denies abdominal pain, diarrhea or vomiting Genitourinary Genitourinary ED: Denies dysuria Musculoskeletal Musculoskeletal: Reports arthralgias and myalgias Integumentary Denies abscess or rash Neurologic Neurologic: Denies headache(s) Psychiatric Psychiatric: Reports anxiety, depression and suicidal thoughts Endocrine Endocrinology: Denies polyuria Hematologic/Lymphatic Hematologic/Lymphatic: Denies easy bruising Allergic/Immunologic Allergic/Immunologic ED: Denies urticaria EXAM Physical Exam Narrative Exam Narrative: Older male no acute distress. Emotionally upset. Minimally cooperative. No obvious toxidrome. No smell of alcohol. Vital signs are stable and afebrile. Const Vital Signs: 08/27/20 09:45 Temperature 98.3 F Temperature Source Temporal Pulse Rate 118 H Respiratory Rate 16 Blood Pressure 157/97 H Blood Pressure Mean 117 Pulse Ox 94 Oxygen Delivery Method Room Air Positive well nourished and well developed; Negative for obese General Appearance ED: well developed and irritable Nutritional Appearance: Negative for obese HEENT Reports moist mucous membranes normocephalic and atraumatic; Negative for trauma or tenderness Eyes PERRL and EOMs intact bilaterally Neck no lymphadenopathy, supple and no JVD General: Negative for tenderness Resp normal respiratory effort Auscultation: wheezes Cardio no murmurs Rate: tachycardic Rhythm: regular rhythm GI non-tender, non-distended and no masses Auscultation: normoactive bowel sounds Palpation: soft; Negative for tender Back/Spine no CVA tenderness General Back: Negative for CVA tenderness Cervical Spine: Negative for cervical spine tenderness Thoracic Spine / Upper Back: Negative for thoracic spinal tenderness Extremity normal to inspection General Extremety ED: Negative for edema or tenderness General Extremity: Negative for edema Neuro Sensorium / Orientation: alert, oriented to person and oriented to place Psych activity/motor behavior normal; Negative for denies suicidal ideation Appearance: grossly normal Attitude: paranoid, uncooperative, guarded and agitated Activity / Motor Behavior: appropriate eye contact Speech: excessive, loud and pressured Mood & Affect: depressed, anxious, irritable, tearful and hostile affect Thought Process: disorganized Thought Content: suicidality Attention / Concentration: concentration grossly impaired Insight: limited Judgement: limited Skin Rashes: no rashes MDM MDM MDM Narrative Medical decision making narrative: Order paranoid schizophrenic, homeless male who states he is suicidal. And all thing at this time is able to care for himself. Will have a psychiatric evaluation most likely need placed. He will undergo an ED mental health work-up. Medically he is cleared. Lab Data Lab results narrative: CBC: White count 7. Hemoglobin 15. Sodium is low 130.the patient's baseline he runs between about 127 and 132. Gap normal. Normal BUN and creatinine. Glucose 106. Alcohol negative. Tox screen is positive only for cannabis. Labs: Laboratory Results - last 24 hr 08/27/20 08/27/20 08/27/20 10:07 10:07 10:07 WBC 7.5 RBC 5.01 Hgb 15.6 Hct 48.3 MCV 96.4 H MCH 31.1 MCHC 32.3 RDW Std Deviation 48.3 H RDW Coeff of John 13.5 Plt Count 372 MPV 8.2 Immature Gran % (Auto) 0.400 Neut % (Auto) 75.1 H Lymph % (Auto) 16.5 L [place] % (Auto) 7.2 Eos % (Auto) 0.5 Baso % (Auto) 0.3 Absolute Neuts (auto) 5.6 Absolute Lymphs (auto) 1.23 Nucleated RBC % 0 Sodium 130 L Potassium 4.3 Chloride 92 L Carbon Dioxide 37.0 H Anion Gap 1 L BUN 10 Creatinine 0.63 L Estim Creat Clear Calc 121.57 Est GFR (MDRD) Af Amer 165 Est GFR (MDRD) Non-Af 137 BUN/Creatinine Ratio 15.8 Glucose 106 Calcium 8.6 Urine Opiates Screen Urine Methadone Screen Ur Barbiturates Screen Ur Phencyclidine Scrn Ur Amphetamines Screen U Methamphetamin-MDMA U Benzodiazepines Scrn Urine Cocaine Screen U Cannabinoids Screen Ur Drug Screen Comment Ethyl Alcohol < 3.0 08/27/20 13:13 WBC RBC Hgb Hct MCV MCH MCHC RDW Std Deviation RDW Coeff of John Plt Count MPV Immature Gran % (Auto) Neut % (Auto) Lymph % (Auto) [place] % (Auto) Eos % (Auto) Baso % (Auto) Absolute Neuts (auto) Absolute Lymphs (auto) Nucleated RBC % Sodium Potassium Chloride Carbon Dioxide Anion Gap BUN Creatinine Estim Creat Clear Calc Est GFR (MDRD) Af Amer Est GFR (MDRD) Non-Af BUN/Creatinine Ratio Glucose Calcium Urine Opiates Screen NEGATIVE Urine Methadone Screen NEGATIVE Ur Barbiturates Screen NEGATIVE Ur Phencyclidine Scrn NEGATIVE Ur Amphetamines Screen NEGATIVE U Methamphetamin-MDMA NEGATIVE U Benzodiazepines Scrn NEGATIVE Urine Cocaine Screen NEGATIVE U Cannabinoids Screen POSITIVE H Ur Drug Screen Comment Ethyl Alcohol Discharge Plan Triage Chief Complaint: Suicidal ED Provider: Baldo Beasley Dx/Rx/DC Orders Clinical Impression: Paranoid schizophrenia, Feeling suicidal Prescriptions: No Action lisinopril 10 MG tablet 10 mg PO DAILY Qty: 30 RF: 1 fluphenazine HCl 10 MG tablet 10 mg PO DAILY RF: 0 benztropine 1 mg Tablet 1 mg PO DAILY RF: 0 metoprolol tartrate 25 MG tablet 25 mg PO DAILY RF: 0 Primary Care Provider: Care Physician,No Primary Referrals: Care Physician,No Primary [Primary Care Provider] - Disposition Disposition: Psychiatric Hospital or Unit
[2020-08-27 10:16] LABS: Absolute Lymphocyte Count 1.23 X10^3/uL (0.83-4.51); Absolute Neutrophil Count 5.6 X10^3/uL (2.0-7.7); Basophil# 0.02 X10^3/uL; Basophil% 0.3 % (0-1); Eosinophil# 0.04 X10^3/uL; Eosinophils% 0.5 % (0-5); Hematocrit 48.3 % (40-54); Hemoglobin 15.6 g/dL (13.0-16.5); Lymphocyte # 1.23 X10^3/ul (0.83-4.51); Lymphocyte % 16.5 % (19-41); Mean Corp Hgb Conc 32.3 g/dL (32-36); Mean Corpuscular Hgb 31.1 pg (27.0-32.0); Mean Corpuscular Volume 96.4 fL (80-94); Mean Platelet Vol. 8.2 fl (6.2-12.0); Monocyte# 0.54 X10^3/uL; Monocyte% 7.2 % (0-10); NRBC Flagged by Analyzer 0 % (0-5); Neutrophil # 5.59 X10^3/uL (2.7-7.7); Neutrophil % 75.1 % (47-70); Platelet Count 372 K/mm3 (150-450); RBC Distribution Width CV 13.5 % (11.6-14.6); RBC Distribution Width SD 48.3 fl (35.1-43.9); Red Blood Count 5.01 M/mm3 (4.6-6.2); White Blood Count 7.5 K/mm3 (4.4-11.0)
[2020-08-27 10:31] LABS: Anion Gap 1 (5-15); BUN 10 mg/dL (7-18); BUN/Creat Ratio 15.8 RATIO (10-20); Calcium,Total 8.6 mg/dL (8.5-10.1); Chloride 92 mmol/L (98-107); Creatinine, Serum 0.63 mg/dL (0.70-1.30); EST Glomerular Filtration Rate 137 mL/min (>60); Est Glom Filt Rate - Afr Amer 165 mL/min (>60); Estimated Creatinine Clearance 121.57 ml/min; Glucose 106 mg/dL (74-106); Potassium 4.3 mmol/L (3.5-5.1); Sodium Level 130 mmol/L (136-145)
[2020-08-27 10:48] LABS: Alcohol, Blood (Medical)-Serum < 3.0 mg/dL
[2020-08-27] MEDS: Ibuprofen 600 MG Tablet PO (13:02)
--- NOTE | 2020-08-27 13:05 | ED.RN ---
pt yelling at patient safety observer, pt informed that his behavior was inappropriate, pt redirected, given pain medication for his left arm pain.
--- NOTE | 2020-08-27 13:15 | CM.ED ---
SOCIAL WORK ASSESSMENT Referral Source: Dr. Beasley Reason for Consult: Mental Health Evaluation Chief Compliant: Patient presents to [facility] ER with suicidal thoughts. Patient with history of paranoid schizophrenia and states been without medication for years. Patient has been homeless for 3 years. Marital/Social History: Single Living Situation: Homeless Support/Resources: [facility] in the past History: None Education and Employment History: 6th grade, disabled. Mental Health Treatment/History: Paranoid Schizophrenia. Patient states followed with [facility]. 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 Triggers/Stressors: being homeless, not having medications Coping Skills: None Substance Abuse History: Patient reports prior history of beer and crack cocaine. Patient admits to marijuana use. Risk to Self/Others: Suicidal- Patient admits to suicidal thoughts. Homicidal- Patient denies any thoughts of wanting to harm anyone else. Patient tearful stating ?I?m a nice decent bhargav.? Mental Status Exam: Orientation- A&Ox3 Memory: fair Appearance/General Behavior: disheveled, agitated Mood/Affect: depressed, bizarre Communication Pattern: responds to questions Thought Process: flight of ideas General Intellectual Functioning: Average Judgement: poor Insight: fair Assessment: Met with patient in room. Sitter protocol in place. Patient gave life review. Patient states has been homeless for 3 years. Patient states was living with a roommate who from lung cancer a few years ago. Patient reports history of paranoid schizophrenia and states has been without medications. Patient states suicidal thoughts. Patient with grandiose thinking, flight of ideas, paranoia. Patient reports it has been 10-15 years since last hospitalization for mental health. Patient does not feel can keep self safe. Patient reports ?I?m a total wreak.? Collaboration with Dr. Beasley. Plan for inpatient psych. Patient has been [place] [facility]. This worker to facilitate placement. Plan: Referral to inpatient psych Siddhartha Cerrato MSW, PROPERTY INSURANCE AGENT
[2020-08-27 13:35] LABS: Amphetamine Urine VISTA NEGATIVE (<1000 ng/mL); Barbiturate Urine VISTA NEGATIVE (< 200 ng/mL); Benzodiazepine Urine VISTA NEGATIVE (< 200 ng/mL); Cocaine Urine VISTA NEGATIVE (< 300 ng/mL); Ecstacy Urine VISTA NEGATIVE (< 500 ng/mL); Methadone Urine VISTA NEGATIVE (< 300 ng/mL); PCP Urine VISTA NEGATIVE (< 25 ng/mL); THC Urine VISTA POSITIVE (< 50 ng/mL); Vista UDS pH Range 7
[2020-08-27] MEDS: Metoprolol Tartrate 25 MG Tablet PO (14:25)
[2020-08-27] MEDS: Benztropine 2 MG Tablet 1 MG PO (14:25)
[2020-08-27] MEDS: Lisinopril 10 MG Tablet PO (14:26)
--- NOTE | 2020-08-27 15:16 | CM.ED ---
SOCIAL WORK Referral called and faxed to [facility]. Pending review at this time. Siddhartha Cerrato, AUTO COLLISION REPAIR INSTRUCTOR, CLOTH LAYER
--- NOTE | 2020-08-27 16:40 | CM.ED ---
SOCIAL WORK Received call from [facility] do not have bed available for patient, but may be able to accept patient later this evening or tomorrow. Referral faxed and called to [facility]. Pending review at this time. Siddhartha Cerrato, KNOWLEDGE MANAGEMENT CONSULTANT, FAN BLADE ALIGNER
--- NOTE | 2020-08-27 17:52 | EKG12_ITS ---
Test Reason : MHC PLACEMENT Blood Pressure : / mmHG Vent. Rate : 083 BPM Atrial Rate : 083 BPM P-R Int : 146 ms QRS Dur : 092 ms QT Int : 354 ms P-R-T Axes : 080 098 073 degrees QTc Int : 415 ms Normal sinus rhythm Possible Left atrial enlargement Rightward axis Borderline ECG Confirmed by ROBIN HENDERSON, PROSPER ([id number]), material expeditor ITALO BRIAN ([id number]) on 08/29/2020 10:44:48 A M Referred By: TARAS Confirmed By:LORNA KELLY MD
[2020-08-27] MEDS: Albuterol 2.5 MG/3 ML VIAL.NEB. INHALATION (18:02)
[2020-08-27] MEDS: Ipratropium/Albuterol Sulfate 3 ML AMPUL.NEB INHALATION (18:02)
--- NOTE | 2020-08-27 18:25 | RAD_ITS ---
INDICATION: wheezing EXAMINATION/TECHNIQUE: X-RAY - XR Chest 1 View COMPARISON: 10/03/2019. FINDINGS: Subtle bilateral ill-defined opacities. Tortuous and calcified thoracic aorta. The heart is not enlarged. No pleural effusion or pneumothorax. No acute osseous abnormalities. RAD/Chest 1 View (Portable) IMPRESSION: Subtle bilateral ill-defined opacities could represent infection and/or edema. Electronically Signed: Marcell Moran MD at 18:54 EDT Tel , Service support ,
--- NOTE | 2020-08-27 18:50 | CM.ED ---
SOCIAL WORK Discussed with Dr. Terrell. Patient with change in status, requiring O2. Hospitalist to be paged. [facility] notified. Siddhartha Cerrato, EXERCISE INSTRUCT, HAND HOSE CUTTER
--- NOTE | 2020-08-27 19:26 | ED.RN ---
pt refuses iv access at this time.
[2020-08-27] MEDS: predniSONE 20 MG Tablet 60 MG PO (20:19)
--- NOTE | 2020-08-27 22:28 | PCM.HP.STD ---
HPI - General General Date of Admission: 08/27/20 HPI Narrative LYLY CALVIN, is a 60 M who presents to the hospital with mental health disturbance. He has a paranoid schizophrenic who is presenting. He denies any visual hallucinations but says he does have auditory hallucinations however he does not elucidate on what these hallucinations are saying. He presented to the hospital on 611 with muscle spasms in his arm specifically around his left bicep. And that it has been an abnormal shape for several years and he thinks it is because he was holding a crack pipe.. He did not wait for test results at that time and left the ER AMA. He is homeless and therefore not on oxygen at baseline, however when he presented he was hypoxic to 88% and was placed on 2 L nasal cannula. It was felt that he needed to go to a psychiatric hospital secondary to his suicidality and his homicidal ideation however despite being accepted because of his respiratory status he needed medical stabilization first and therefore admitted. I was unable to gather any significant information from him as he was perseverating over the idea of being told that he had to have an IV in his arm. After redirecting him from that he discussed his left arm pain. When I tried to discuss to him about his suicidality he says that he is more homicidal and suicidal however he does not clarify if he currently has a plan either for his suicidality or his homicidal ideation. [facility] Medical History (Updated 08/27/20 @ 22:[address] Azar Riggs MD) Cocaine abuse COPD (chronic obstructive pulmonary disease) HTN (hypertension) Paranoid schizophrenia Smoker Substance abuse Home Medications lisinopril 10 mg PO DAILY #30 tab 06/29/19 [Rx Last Taken 08/27/20] fluphenazine HCl 10 mg PO DAILY 10/03/19 [History Last Taken 08/27/20] benztropine 1 mg PO DAILY 08/22/20 [History Last Taken 08/27/20] metoprolol tartrate 25 mg PO DAILY 08/22/20 [History Last Taken 08/27/20] Allergy/AdvReac Type Severity Reaction Status Date / Time doxycycline AdvReac Unknown Other Verified 08/22/20 21:59 haloperidol lactate AdvReac jitters Verified 08/22/20 21:59 [From Haldol] antihistamines AdvReac Rash Uncoded 08/22/20 21:41 Family History (Updated 08/27/20 @ 22:[address] Azar Riggs MD) Father Heart disease Surgical History (Updated 08/27/20 @ 19:22 by Sonja Pickens) History of appendectomy Social History Smoking Status: Current every day smoker tobacco type: cigarettes ROS Constitutional Constitutional: Denies chills, fatigue, fever(s) or malaise Eyes Eyes: Denies blurry vision ENT HEENT: Denies headache(s) or nasal discharge Cardiovascular Cardiovascular: Denies chest pain, dyspnea on exertion or syncope Respiratory/Chest Respiratory/Chest: Denies cough, shortness of breath at rest or shortness of breath with exertion Gastrointestinal Gastrointestinal: Denies constipation, diarrhea, nausea or vomiting Genitourinary Genitourinary: Denies dysuria Neurologic Neurologic: Denies focal weakness, numbness or tremor(s) Psychiatric Psychiatric: Reports anxiety, homicidal ideation and suicidal ideation; Denies depression Vital Signs Vital Signs Vital Signs: 08/27/20 09:45 08/27/20 17:39 08/27/20 17:41 Temperature 98.3 F Temperature Source Temporal Pulse Rate 118 H 88 Respiratory Rate 16 16 16 Respiratory Effort Respiratory Depth Respiratory Pattern Blood Pressure 157/97 H 150/85 H Blood Pressure Mean 117 106 Blood Pressure Source Blood Pressure Position Blood Pressure Location Pulse Ox 94 88 97 Oxygen Delivery Method Room Air Room Air Nasal Cannula Oxygen Flow Rate (L/min) 4 08/27/20 18:07 08/27/20 19:00 08/27/20 20:00 Temperature Temperature Source Pulse Rate 70 74 70 Respiratory Rate 16 20 H Respiratory Effort Respiratory Depth Respiratory Pattern Normal Blood Pressure Blood Pressure Mean Blood Pressure Source Blood Pressure Position Blood Pressure Location Pulse Ox 94 94 Oxygen Delivery Method Nasal Cannula Nasal Cannula Oxygen Flow Rate (L/min) 2 08/27/20 21:00 08/27/20 21:27 08/27/20 21:46 Temperature 98 F 98.1 F Temperature Source Oral Oral Pulse Rate 70 79 Respiratory Rate 20 H 20 H Respiratory Effort Non-Labored Short of Breath Respiratory Depth Normal Respiratory Pattern Tachypnea Blood Pressure 150/85 H 124/88 H Blood Pressure Mean 106 100 Blood Pressure Source Monitor Blood Pressure Position Semi-Fowlers Blood Pressure Location Right Arm Pulse Ox 94 95 Oxygen Delivery Method Nasal Cannula Nasal Cannula Nasal Cannula Oxygen Flow Rate (L/min) 2 2 2 Weight Weight: 135 lb 2.294 oz Body Mass Index (BMI) 0.0 Physical Exam Const alert and no apparent distress General Appearance: disheveled HEENT normocephalic Mouth: dry mucous membranes Teeth and Gingiva: poor dentition and teeth discoloration Eyes PERRL, EOMs intact bilaterally and conjunctivae normal Neck supple and no JVD Resp normal respiratory effort, no retractions and no use of accessory muscles Auscultation: wheezes throughout; Negative for crackles, rales or rhonchi Cardio regular rate, regular rhythm, S1 normal heart sound, S2 normal heart sound and no murmurs GI soft to palpation, non-tender and non-distended; Negative for hepatosplenomegaly Extremity no clubbing, cyanosis or edema Skin no rashes or lesions noted Neuro no focal motor deficits and no sensory deficits noted Psych Appearance: unkempt and disheveled Attitude: paranoid Activity / Motor Behavior: fidgetting Speech: rapid Mood & Affect: labile affect Thought Process: perseverating Thought Content: suicidality and homicidality Results Lab / Micro Data Result Diagrams: 08/27/20 10:07 08/27/20 10:07 Labs: Laboratory Results - last 24 hr 08/27/20 08/27/20 08/27/20 10:07 10:07 10:07 WBC 7.5 RBC 5.01 Hgb 15.6 Hct 48.3 MCV 96.4 H MCH 31.1 MCHC 32.3 RDW Std Deviation 48.3 H RDW Coeff of John 13.5 Plt Count 372 MPV 8.2 Immature Gran % (Auto) 0.400 Neut % (Auto) 75.1 H Lymph % (Auto) 16.5 L Drew % (Auto) 7.2 Eos % (Auto) 0.5 Baso % (Auto) 0.3 Absolute Neuts (auto) 5.6 Absolute Lymphs (auto) 1.23 Nucleated RBC % 0 Sodium 130 L Potassium 4.3 Chloride 92 L Carbon Dioxide 37.0 H Anion Gap 1 L BUN 10 Creatinine 0.63 L Estim Creat Clear Calc 121.57 Est GFR (MDRD) Af Amer 165 Est GFR (MDRD) Non-Af 137 BUN/Creatinine Ratio 15.8 Glucose 106 Calcium 8.6 Urine Opiates Screen Urine Methadone Screen Ur Barbiturates Screen Ur Phencyclidine Scrn Ur Amphetamines Screen U Methamphetamin-MDMA U Benzodiazepines Scrn Urine Cocaine Screen U Cannabinoids Screen Ur Drug Screen Comment Ethyl Alcohol < 3.0 08/27/20 13:13 WBC RBC Hgb Hct MCV MCH MCHC RDW Std Deviation RDW Coeff of John Plt Count MPV Immature Gran % (Auto) Neut % (Auto) Lymph % (Auto) Drew % (Auto) Eos % (Auto) Baso % (Auto) Absolute Neuts (auto) Absolute Lymphs (auto) Nucleated RBC % Sodium Potassium Chloride Carbon Dioxide Anion Gap BUN Creatinine Estim Creat Clear Calc Est GFR (MDRD) Af Amer Est GFR (MDRD) Non-Af BUN/Creatinine Ratio Glucose Calcium Urine Opiates Screen NEGATIVE Urine Methadone Screen NEGATIVE Ur Barbiturates Screen NEGATIVE Ur Phencyclidine Scrn NEGATIVE Ur Amphetamines Screen NEGATIVE U Methamphetamin-MDMA NEGATIVE U Benzodiazepines Scrn NEGATIVE Urine Cocaine Screen NEGATIVE U Cannabinoids Screen POSITIVE H Ur Drug Screen Comment Ethyl Alcohol Micro: Microbiology 08/27/20 14:23 SARS-CoV-2 Antigen (Rapid) - Final Mucosa - Nasopharyngeal Radiology Impression Chest X-Ray 08/27/20 18:25 IMPRESSION: Subtle bilateral ill-defined opacities could represent infection and/or edema. Electronically Signed: Marcell Moran MD at 18:54 EDT Tel , Service support , Assessment & Plan Assessment/Plan (1) Acute respiratory failure with hypoxia: (2) Acute exacerbation of chronic obstructive pulmonary disease (COPD): (3) Paranoid schizophrenia: (4) Feeling suicidal: PLAN: 1. Acute hypoxic respiratory failure secondary to COPD exacerbation -Argumentative about the IV therefore will make his prednisone p.o. -Continue with duo nebs -ABG is pending, he does have an elevated carbon dioxide which is not new for him 2. Paranoid schizophrenia now with suicidal and homicidal ideation -We will continue with his home medications -He was accepted to mental health facility -Hopefully once stabilized medically will be able to be transferred to the mental health facility for further stabilization -Unable to clarify his homicidal ideation, states that he does have auditory hallucinations but it just sounds like somebody is calling his name from far away. He does deny visual hallucinations 3. Hypertension -Blood pressure is stable -We will continue with his p.o. metoprolol and lisinopril His sodium level is at baseline for him DVT: SCDs Charges/Coding Visit Charges Inpatient E&M: 57659 Init Hosp L2
[2020-08-27] MEDS: Acetaminophen 325 MG Tablet 650 MG PO (23:03)
--- NOTE | 2020-08-27 23:15 | NURSING ---
650 mg Tylenol pulled from accudose for this pt so it could be given. In the meantime, Erwin JULIO pulled Tylenol as well to give to pt. 650 mg Tylenol placed in return bin in accudose by this RN.
[2020-08-28] VITALS (8 sets, daily range): BP systolic 128–159; BP diastolic 55–65; PULSE 82–99; RESP 14–20; TEMP 36.7–37.4; O2SAT 93–96
[2020-08-28] MEDS: 0.9% Saline Lock 10 ML Syringe IV (01:48)
[2020-08-28] MEDS: Ondansetron 4 MG/2 ML Vial IV (01:48)
[2020-08-28] MEDS: Dicyclomine 10 MG Capsule PO ×2 (04:48→20:16)
[2020-08-28] MEDS: Acetaminophen 325 MG Tablet 650 MG PO (05:00)
[2020-08-28 06:48] LABS: Absolute Neutrophil Count 4.8 X10^3/uL (2.0-7.7); Hematocrit 42.6 % (40-54); Hemoglobin 13.6 g/dL (13.0-16.5); Lymphocyte % 9.1 % (19-41); Mean Corp Hgb Conc 31.9 g/dL (32-36); Mean Corpuscular Hgb 30.8 pg (27.0-32.0); Mean Corpuscular Volume 96.4 fL (80-94); Mean Platelet Vol. 8.1 fl (6.2-12.0); Monocyte# 0.18 X10^3/uL; Monocyte% 3.3 % (0-10); NRBC Flagged by Analyzer 0 % (0-5); Neutrophil # 4.78 X10^3/uL (2.7-7.7); Neutrophil % 87.4 % (47-70); POSITIVE DIFFERENTIAL YES; Platelet Count 367 K/mm3 (150-450); RBC Distribution Width CV 13.5 % (11.6-14.6); RBC Distribution Width SD 48.6 fl (35.1-43.9); Red Blood Count 4.42 M/mm3 (4.6-6.2); White Blood Count 5.5 K/mm3 (4.4-11.0)
[2020-08-28 06:50] LABS: Differential Indicated SCAN CRITERIA MET
[2020-08-28 07:09] LABS: Anion Gap 3 (5-15); BUN 9 mg/dL (7-18); BUN/Creat Ratio 13.1 RATIO (10-20); Calcium,Total 8.5 mg/dL (8.5-10.1); Chloride 86 mmol/L (98-107); Creatinine, Serum 0.69 mg/dL (0.70-1.30); EST Glomerular Filtration Rate 124 mL/min (>60); Est Glom Filt Rate - Afr Amer 150 mL/min (>60); Estimated Creatinine Clearance 96.24 ml/min; Glucose 194 mg/dL (74-106); Sodium Level 126 mmol/L (136-145)
[2020-08-28] MEDS: Ipratropium/Albuterol Sulfate 3 ML AMPUL.NEB INHALATION ×2 (07:31→20:30)
[2020-08-28] MEDS: predniSONE 20 MG Tablet 40 MG PO (08:49)
[2020-08-28] MEDS: Metoprolol Tartrate 25 MG Tablet PO (08:50)
[2020-08-28] MEDS: Lisinopril 10 MG Tablet PO (08:51)
[2020-08-28] MEDS: Benztropine 2 MG Tablet 1 MG PO (08:51)
--- NOTE | 2020-08-28 10:21 | PCM.PN.HOSP ---
Subjective Subjective Patient is a 60-year-old gentleman with history of schizophrenia who presented to the emergency department wanting to go to a psych facility. Patient was however found to be hypoxic and assessment of COPD with mild exacerbation made admitted to regular nursing floor for further management Objective Data Objective Data Vital Signs: Vital Signs Temp Pulse Resp BP Pulse Ox 99.1 F 99 16 131/58 H 93 08/28/20 08:30 08/28/20 08:50 08/28/20 08:30 08/28/20 08:30 08/28/20 08:30 Oxygen Flow Rate (L/min) 3 Oxygen Delivery Method Nasal Cannula Weight: 61.3 kg Body Mass Index (BMI) 0.0 Intake & Output: Intake and Output for Last 24 Hours 08/26/20 08/27/20 08/28/20 23:59 23:59 23:59 Intake Total 700 / 700 Balance 700 / 700 Lab / Micro Data Result Diagrams: 08/28/20 06:42 08/28/20 06:42 Labs: Laboratory Results - last 24 hr 08/27/20 08/27/20 08/27/20 10:07 10:07 13:13 WBC RBC Hgb Hct MCV MCH MCHC RDW Std Deviation RDW Coeff of John Plt Count MPV Immature Gran % (Auto) Neut % (Auto) Lymph % (Auto) [place] % (Auto) Eos % (Auto) Baso % (Auto) Absolute Neuts (auto) Absolute Lymphs (auto) Nucleated RBC % Sodium 130 L Potassium 4.3 Chloride 92 L Carbon Dioxide 37.0 H Anion Gap 1 L BUN 10 Creatinine 0.63 L Estim Creat Clear Calc 121.57 Est GFR (MDRD) Af Amer 165 Est GFR (MDRD) Non-Af 137 BUN/Creatinine Ratio 15.8 Glucose 106 Calcium 8.6 Urine Opiates Screen NEGATIVE Urine Methadone Screen NEGATIVE Ur Barbiturates Screen NEGATIVE Ur Phencyclidine Scrn NEGATIVE Ur Amphetamines Screen NEGATIVE U Methamphetamin-MDMA NEGATIVE U Benzodiazepines Scrn NEGATIVE Urine Cocaine Screen NEGATIVE U Cannabinoids Screen POSITIVE H Ur Drug Screen Comment Ethyl Alcohol < 3.0 08/28/20 08/28/20 06:42 06:42 WBC 5.5 RBC 4.42 L Hgb 13.6 Hct 42.6 MCV 96.4 H MCH 30.8 MCHC 31.9 L RDW Std Deviation 48.6 H RDW Coeff of John 13.5 Plt Count 367 MPV 8.1 Immature Gran % (Auto) 0.200 Neut % (Auto) 87.4 H Lymph % (Auto) 9.1 L [place] % (Auto) 3.3 Eos % (Auto) 0.0 Baso % (Auto) 0.0 Absolute Neuts (auto) 4.8 Absolute Lymphs (auto) 0.50 L Nucleated RBC % 0 Sodium 126 L Potassium 5.0 Chloride 86 L Carbon Dioxide 37.0 H Anion Gap 3 L BUN 9 Creatinine 0.69 L Estim Creat Clear Calc 96.24 Est GFR (MDRD) Af Amer 150 Est GFR (MDRD) Non-Af 124 BUN/Creatinine Ratio 13.1 Glucose 194 H Calcium 8.5 Urine Opiates Screen Urine Methadone Screen Ur Barbiturates Screen Ur Phencyclidine Scrn Ur Amphetamines Screen U Methamphetamin-MDMA U Benzodiazepines Scrn Urine Cocaine Screen U Cannabinoids Screen Ur Drug Screen Comment Ethyl Alcohol Micro: Microbiology 08/27/20 14:23 Mucosa - Nasopharyngeal SARS-CoV-2 Antigen (Rapid) - Final Radiography Diagnostic Testing: Radiology Impression Chest X-Ray 08/27/20 18:25 IMPRESSION: Subtle bilateral ill-defined opacities could represent infection and/or edema. Electronically Signed: Marcell Moran MD at 18:54 EDT Tel , Service support , Physical Exam Narrative GENERAL: cooperative HEENT: Atraumatic; EYES; Anicteric, Normal Conjunctiva NECK; supple, normal thyroid, RESPIRATORY: Diminished to auscultation CARDIOVASCULAR: Regular S1 S2, GI: soft, normoactive bowel sounds, : No Renal angle tenderness; EXTREMITIES: No edema, no clubbing, MUSCULOSKELETAL: no muscle waisting NEURO: Awake; no lateralizing signs. SKIN: No Rash PSYCH; Flat affect Assessment & Plan Assessment/Plan (1) Paranoid schizophrenia: (2) Hypoxemia: (3) Hyponatremia: PLAN: Patient is a 60-year-old gentleman found to be hypoxic after presenting to the emergency department asking to be placed in a psych facility 1. Acute respiratory insufficiency ?Secondary to COPD with acute exacerbation. Admitted to regular nursing floor placed on prednisone as well as bronchodilator treatment 2. Hypertension - Blood pressure controlled, home medications continued with dose adjustment as needed 3. Hyponatremia ?Patient has some chronicity to his hyponatremia do suspect his antipsychotic medications we will continue monitoring 4. Paranoid schizophrenia ?Plan is for patient to be placed in an inpatient psych facility once he is weaned off oxygen 5. DVT prophylaxis ?Low risk Charges/Coding Visit Charges Inpatient E&M: 02786 Subs Hosp L2
--- NOTE | 2020-08-28 11:47 | CASEMGMT ---
Addendum entered by Mercedes Blair 08/28/20 12:29: Social Work Return call from [facility] who state a new [place], new Covid Screen and note of medical clearance are needed to consider pt for placement. They may be able to accept pt with oxygen needs. [facility] updated physician who feels pt needs to remain at [facility] today. Discharge to psychiatric facility will be readdressed tomorrow. [facility] updated. FAITH Ward Original Note: Social Work Pt was evaluated in the ED yesterday by CED. [place] and psychiatric placement pursued. Per ED SW, [facility] accept. Pt then admitted for medical issues. This SW contacted [facility] intake at this time and spoke with [place]. Explained that pt still requiring 3L O2 and was not on O2 previously. [facility] requesting updated clinicals be faxed. Requested information faxed. Will await return call. FAITH Blue
[2020-08-28] MEDS: FLUPHENAZINE HCL 10 MG TABLET PO (15:46)
--- NOTE | 2020-08-28 16:48 | CHAPLAIN ---
Type of Pastoral Visit _x__ Initial Visit ___ Follow-up Visit ___ On-call Visit ___ General Patient Visit ___ Spiritual Assessment ___ Family Conference ___ Bereavement ___ Rapid Response ___ Code Blue ___ Other (describe below) Pastoral Care Referral From ___ Patient ___ Family ___ Nurse ___ Physician ___ Windows Server Administrator ___ Lamp Developer _x__ Other (describe below) Sacrament/Intervention ___ Active listening ___ Anointing ___ Mormon ___ Bereavement ___ Communion ___ Abbie exploration ___ ___ Life review ___ Prayer ___ Reconciliation ___ Sacrament of Sick ___ Supportive presence ___ Wedding _x__ Other (describe below) Pastoral Comments patient is sleeping at the time of visit; sitter is in the room and states that she will ask pt when he awakens if he wants to talk with this musical instruments assembler; left a calling card
[2020-08-28] MEDS: levoFLOXacin 750 MG Tablet PO (18:12)
--- NOTE | 2020-08-28 23:25 | NURSING ---
pt went in room cont. pulse ox is alarming. spoke to pt to put his O2 and cont. pulse ox back on. pt states its too uncomfortable, I am not gonna wear it. I'm done. asked pt if he is sob, pt denies sob. pt went back to sleep. sitter at bedside.
--- NOTE | 2020-08-29 00:05 | NURSING ---
Patient requesting to walk in hallways. This RN informed patient that for his safety he needs to stay in his room and ambulate. Patient furious, yelling and asking to speak with someone older and more authoritative. States he wants to speak with the police as he feels he is imprisoned and would like to press charges. [place] precinct police sergeant notified of patient request. Officer arrived to room and talked with patient for roughly 15 minutes. Patient now seems more calm. Sitter remains at bedside.
[2020-08-29] MEDS: Acetaminophen 325 MG Tablet 650 MG PO ×2 (00:30→10:00)
[2020-08-29 02:00] VITALS: BP 137/80; PULSE 94; RESP 18; TEMP 36.9; O2SAT 95
--- NOTE | 2020-08-29 04:08 | NURSING ---
pt wanted to shower, explained we need to wrap his IV first. Pt insisted to remove his IV, pt just pulled Iv out in front of staff.
[2020-08-29] MEDS: levoFLOXacin 750 MG Tablet PO (06:43)
--- NOTE | 2020-08-29 06:46 | NURSING ---
Refusing oxygen and continuous pulse ox at this time.
--- NOTE | 2020-08-29 06:50 | NURSING ---
Patient sitting in hallway yelling. Demanding to make a phone call. This RN offered patient a portable phone to make a call but patient would not return to room. Yelling continued, therefore Estee Gutierrez was called.
--- NOTE | 2020-08-29 07:15 | NURSING ---
pt asking RN for phone to call his sider. pt came out of his room demanding for a phone. granite polisher machine tried to tell pt to go back in his room and he will give him phone to call to. pt refused and sat in the hallway and started screaming. granite polisher machine called security, but no police justice available yet. Security came and immediately pt got up and went to his room. pt then started to scream again and propellant charge zone assembler called tor willis. propellant charge zone assembler spoke to and got haldol order. pt refusing to stay in bed and wanted to leave. ED RN, DIRECTOR OF FINANCE, security and propellant charge zone assembler carried pt back in his room.
--- NOTE | 2020-08-29 07:20 | NURSING ---
talked with Dr. Barriga for the second time regarding patient, code violent. informed to Dr. Barriga continues to not follow instructions, yelling, security, nightshift charge nurse, operations supervisor 2nd shift, Ana Campbell RN and 2 [employer] officers bedside. Vickie JULIO aware. Requesting Dr. Barriga come see patient Orders recieved for Ativan and Haldol.
--- NOTE | 2020-08-29 07:31 | NURSING ---
talked with Dr. Barriga. Informed him patient sitting in the chair. aware per staff spo2 82% on RA while yelling.
[2020-08-29] MEDS: Haloperidol Lactate 5 MG/ML Vial 2 MG IM (07:34)
--- NOTE | 2020-08-29 08:10 | NURSING ---
Addendum entered by Leslie Ruelas 08/29/20 08:14: pt continues to refuse to wear Oxygen. Dr. Barriga aware. no respiratory distress noted Original Note: pt sitting in recliner, sitter in room. pt continues to be aggitated intermittently. assisted pt with making a phone call using units portable phone to [facility].
[2020-08-29 08:34] VITALS: BP 144/70; PULSE 85; RESP 20; TEMP 37.1; O2SAT 86
--- NOTE | 2020-08-29 09:03 | CASEMGMT ---
Addendum entered by Najma Barger 08/29/20 12:47: SW spoke w/[facility], they can take pt, just need COVID screening. Screening completed w/pt, faxed to [facility]. SW spoke w/[facility], they can take pt any time. SW called [facility], set up an ambulance for 1:30 pm. SW let pt, pt's bedside RN, and [facility] at [facility] know the time. scratcher tender notified physician. No further needs, pt to [facility] today. JALEN Oviedo Addendum entered by Najma Barger 08/29/20 11:16: SW called [facility], as per [facility], he is still receiving the information and once they have everything he will let SW know if they can take pt or if they have any additional questions. JALEN Oviedo Addendum entered by Najma Barger 08/29/20 10:27: Updates faxed to [facility] including pink slip and discharge summary. JALEN Oviedo Original Note: As per physician, pt is now medically ready for discharge. [facility] called [facility], they no longer have pt's referral on file. [facility] faxed new referral, will send updates as they are available today. JALEN Oviedo
[2020-08-29 09:06] VITALS: PULSE 85
[2020-08-29] MEDS: Benztropine 2 MG Tablet 1 MG PO (09:06)
[2020-08-29] MEDS: predniSONE 20 MG Tablet 40 MG PO (09:06)
[2020-08-29] MEDS: FLUPHENAZINE HCL 10 MG TABLET PO (09:06)
[2020-08-29] MEDS: Lisinopril 10 MG Tablet PO (09:06)
[2020-08-29] MEDS: Metoprolol Tartrate 25 MG Tablet PO (09:06)
--- NOTE | 2020-08-29 09:40 | PCM.DC.SUM ---
Providers Date of Admission: 08/27/20 Primary Care Physician: Ebony Primary Care Phys Reason For Visit: COPOD EXACERATION AND SUICIDALITY Diagnosis Discharge Diagnosis (1) Paranoid schizophrenia: Status: Acute Code(s): F20.0 - Paranoid schizophrenia (2) Hypoxemia: Status: Acute Code(s): R09.02 - Hypoxemia (3) Hyponatremia: Status: Chronic Code(s): E87.1 - Hypo-osmolality and hyponatremia Medications at Discharge Home Medications lisinopril 10 mg PO DAILY #30 tab 06/29/19 fluphenazine HCl 10 mg PO DAILY 10/03/19 benztropine 1 mg PO DAILY 08/22/20 metoprolol tartrate 25 mg PO DAILY 08/22/20 levofloxacin 750 mg PO DAILY@0600 #5 tab 08/29/20 prednisone 40 mg PO BREAKFAST #10 tab 08/29/20 Hospital Course Summary of Care Provided Minutes Spent on Discharge: 35 Hospital Course: 1. Acute respiratory insufficiency ?Secondary to COPD with acute exacerbation. Admitted to regular nursing floor placed on prednisone as well as bronchodilator treatment -Patient did improve clinically. Patient was deemed medically stable to be transferred to an inpatient psych facility for treatment of his paranoid schizophrenia 2. Hypertension - Blood pressure controlled, home medications continued with dose adjustment as needed 3. Hyponatremia ?Patient has some chronicity to his hyponatremia do suspect his antipsychotic medications we will continue monitoring -Patient refused subsequent blood draws for follow-up 4. Paranoid schizophrenia ?Plan is for patient to be placed in an inpatient psych facility once he is weaned off oxygen 5. DVT prophylaxis ?Low risk Physical Exam Narrative GENERAL: cooperative HEENT: Atraumatic; EYES; Anicteric, Normal Conjunctiva NECK; supple, normal thyroid, RESPIRATORY: Diminished to auscultation CARDIOVASCULAR: Regular S1 S2, GI: soft, normoactive bowel sounds, : No Renal angle tenderness; EXTREMITIES: No edema, no clubbing, MUSCULOSKELETAL: no muscle waisting NEURO: Awake; no lateralizing signs. SKIN: No Rash PSYCH; Flat affect Weight / BMI Weight Weight: 61.3 kg Body Mass Index (BMI) 0.0 ABG / Lab / Microbiology Data Result Diagrams: 08/28/20 06:42 08/28/20 06:42 Microbiology: Microbiology 08/27/20 14:23 Mucosa - Nasopharyngeal SARS-CoV-2 Antigen (Rapid) - Final Meaningful Use Info Meaningful Use Diagnoses (Choose all that apply): None applicable Discharge Plan Admission Admit Date/Time: 08/27/20 22:22 Primary Reason for Your Visit: COPD with superimposed pneumonia Attending Provider: Quinten Barriga Primary Care Provider: Care Physician,No Primary Discharge Orders/Prescriptions Prescriptions: New prednisone 20 mg Tablet 40 mg PO BREAKFAST Qty: 10 RF: 0 levofloxacin 750 mg Tablet 750 mg PO DAILY@0600 Qty: 5 RF: 0 Continued lisinopril 10 MG tablet 10 mg PO DAILY Qty: 30 RF: 1 fluphenazine HCl 10 MG tablet 10 mg PO DAILY RF: 0 benztropine 1 mg Tablet 1 mg PO DAILY RF: 0 metoprolol tartrate 25 MG tablet 25 mg PO DAILY RF: 0 Referrals / Follow Up: Care Physician,No Primary [Primary Care Provider] - Disposition Disposition (needs filled in before D/C Order can be placed): Psychiatric Hospital or Unit Charges/Coding Visit Charges Inpatient E&M: 18906 Disch Hosp
--- NOTE | 2020-08-29 13:22 | NURSING ---
took message from Lobito Donohue, pt cyanide case hardener, who states that he has shelter set up for pt upon discharge from [facility]. contact phone number is [phone] ext [phone]
--- NOTE | 2020-08-29 14:00 | NURSING ---
Report given to [facility] RN. While giving report the nurse states she was unaware of code lazaro, sitter precautions for suicidal/homicidal ideations and other behaviors patient was exhibiting. This RN states that the SW did fax info (including nurses' notes) to intake. RN states they will accept patient. She is aware the patient is on his way via ambulance at this time.
== END 2020-08-29 13:36 | DRG 191 ==
LOC: ED 19:41 → MS3 08-28 00:57
PROVIDERS: Emergency Medicine; Admitting Provider Family Medicine; Emergency Provider Emergency Medicine; Visit Provider Internal Medicine
DX: J44.1 Chronic obstructive pulmonary disease with (acute) exacerbation (principal); R45.851 Suicidal ideations; F20.0 Paranoid schizophrenia; E87.1 Hypo-osmolality and hyponatremia; R06.89 Other abnormalities of breathing; I10 Essential (primary) hypertension; F14.10 Cocaine abuse, uncomplicated; F17.210 Nicotine dependence, cigarettes, uncomplicated; R09.02 Hypoxemia; Z79.899 Other long term (current) drug therapy; Z59.0 Homelessness; R45.850 Homicidal ideations
CPT/HCPCS: 36415; 71045; 80048; 80307; 82077; 85025; 87426; 93005; 94640; 99285; 99406; A4216; J2405

== ENCOUNTER 2020-11-04 09:20 | Inpatient (IN) | payer MEDICARE, SELFPAY ==
[2020-11-04] VITALS (14 sets, daily range): BP systolic 81–103; BP diastolic 59–79; PULSE 71–96; RESP 16–24; TEMP 35.9–36.8; O2SAT 79–96; BMI 21.2; BMI 21.3
--- NOTE | 2020-11-04 09:40 | EKG12_ITS ---
Test Reason : SOB Blood Pressure : / mmHG Vent. Rate : 069 BPM Atrial Rate : 069 BPM P-R Int : 144 ms QRS Dur : 090 ms QT Int : 358 ms P-R-T Axes : 082 144 070 degrees QTc Int : 383 ms Normal sinus rhythm Low voltage QRS Anteroseptal [place], age undetermined, cannot be excluded Confirmed by ALBERTO HENDERSON, RADHA ([id number]), food expeditor ITALO BRIAN ([id number]) on 11/06/2020 9:55:20 AM Referred By: NATI Confirmed By:RADHA DOMINGUEZ MD
[2020-11-04] MEDS: Albuterol 2.5 MG/3 ML VIAL.NEB. INHALATION (09:50)
[2020-11-04] MEDS: Ipratropium/Albuterol Sulfate 3 ML AMPUL.NEB INHALATION (09:50)
[2020-11-04 09:54] LABS: Absolute Lymphocyte Count 0.92 X10^3/uL (0.83-4.51); Absolute Neutrophil Count 10.1 X10^3/uL (2.0-7.7); Basophil# 0.04 X10^3/uL; Basophil% 0.3 % (0-1); Eosinophil# 0.03 X10^3/uL; Eosinophils% 0.2 % (0-5); Hematocrit 52.3 % (40-54); Hemoglobin 16.6 g/dL (13.0-16.5); Lymphocyte # 0.92 X10^3/ul (0.83-4.51); Lymphocyte % 7.6 % (19-41); Mean Corp Hgb Conc 31.7 g/dL (32-36); Mean Corpuscular Hgb 29.9 pg (27.0-32.0); Mean Corpuscular Volume 94.1 fL (80-94); Mean Platelet Vol. 8.5 fl (6.2-12.0); Monocyte# 0.92 X10^3/uL; Monocyte% 7.6 % (0-10); NRBC Flagged by Analyzer 0 % (0-5); Neutrophil # 10.12 X10^3/uL (2.7-7.7); Neutrophil % 84.1 % (47-70); Platelet Count 352 K/mm3 (150-450); RBC Distribution Width CV 14.8 % (11.6-14.6); RBC Distribution Width SD 51.6 fl (35.1-43.9); Red Blood Count 5.56 M/mm3 (4.6-6.2); White Blood Count 12.1 K/mm3 (4.4-11.0)
[2020-11-04] MEDS: 0.9% Normal Saline 1,000 ML 999 ML IV ×3 (09:57→13:00)
--- NOTE | 2020-11-04 10:04 | RAD_ITS ---
STUDY: X-RAY CHEST REASON FOR EXAM: Male, 60 years old. Cough hypoxia TECHNIQUE: Single AP portable view of the chest. COMPARISON: Comparison is made with prior study dated 04/29/2020. FINDINGS: EKG electrodes are seen. New patchy infiltrate in the right lower lobe. Minimal increased linear markings at the left lung base. There is no demonstrated pleural abnormality. Normal size heart. Normal mediastinum and velma. Normal visualized pulmonary arteries. There is atherosclerotic calcification of the aortic arch with tortuosity. There are degenerative changes of the visualized thoracic spine. Normal visualized ribs, clavicles, and shoulders. There is no demonstrated abnormality of the visualized soft tissue structures of the upper abdomen. RAD/Chest 1 View (Portable) IMPRESSION: Patchy infiltrate in the right lower lobe as well as increased markings at the left lung base. Electronically Signed: Kp Viveros MD at 10:27 EDT , Service support ,
[2020-11-04 10:12] LABS: Prothrombin Time (Protime)PT. 12.8 SECONDS (11.7-14.9)
[2020-11-04 10:13] LABS: Partial Thromboplast Time 25.2 Seconds (24.1-36.2)
[2020-11-04 10:15] LABS: Lactic Acid 1.7 mmol/L (0.4-1.9)
--- NOTE | 2020-11-04 10:25 | ED.RN ---
PT REFUSING TO BE SWABBED FOR COVID. DR DODD NOTIFIED
[2020-11-04 10:45] LABS: ALB/GLOB Ratio 0.9 RATIO (0.9-2.4); AST(SGOT) 64 U/L (15-37); Alanine Aminotransfer ALT/SGPT 76 U/L (16-61); Albumin, Serum 3.5 g/dL (3.2-5.0); Alkaline Phosphatase 89 U/L (45-117); Anion Gap 5 (5-15); BUN 16 mg/dL (7-18); BUN/Creat Ratio 17.3 RATIO (10-20); Calcium,Total 9.1 mg/dL (8.5-10.1); Chloride 85 mmol/L (98-107); Creatinine, Serum 0.93 mg/dL (0.70-1.30); EST Glomerular Filtration Rate 88 mL/min (>60); Est Glom Filt Rate - Afr Amer 106 mL/min (>60); Estimated Creatinine Clearance 76.09 ml/min; Glucose 127 mg/dL (74-106); Potassium 5.1 mmol/L (3.5-5.1); Protein, Total 7.5 g/dL (6.4-8.2); Sodium Level 124 mmol/L (136-145); Troponin-I HS 115 pg/mL (3.0-78.0)
--- NOTE | 2020-11-04 11:02 | CT_ITS ---
STUDY: CT ABDOMEN AND PELVIS WITH CONTRAST REASON FOR EXAM: Male, 60 years old. Abdominal pain. Lower extremity swelling. Weakness. Substance abuse. RADIATION DOSAGE (If Supplied By Facility): CTDIvol = ( 12.33 ) mGy, DLP = ( 1076.37 ) mGycm TECHNIQUE: Transaxial images were obtained from the dome of the diaphragm to the symphysis pubis without oral contrast. IV 100mL Isovue-370 was administered. Sagittal and coronal images were reconstructed. Individualized dose optimization techniques were used for this CT. COMPARISON: None. FINDINGS: Small bilateral pleural effusions slightly worse on the right side with bibasilar atelectasis. The visualized portions of the heart are within normal limits. Normal liver. Mild degree of gallbladder wall thickening with a small amount of pericholecystic fluid. Possible sludge are noncalcified gallstones within the gallbladder lumen. Small amount of fluid is seen in the right paracolic gutter. Normal spleen. Normal pancreas. Normal bilateral adrenal glands. Normal right kidney. Normal left kidney. Normal visualized stomach. Normal small intestine. Moderate amount of fecal material is seen in the colon. The appendix is visualized and appears normal. There is diffuse atherosclerotic calcification of the abdominal aorta and its major visceral branches, without a demonstrated aneurysm. Normal inferior vena cava. Normal retroperitoneum. Diffuse bladder wall thickening. Small amount of free fluid is seen within the pelvis. Central prostatic calcifications. Increased markings in the subcutaneous fat suggestive of a subcutaneous edema. There are diffuse degenerative changes of the visualized lumbar spine. Minimal anterior listhesis of L4 on L5 most likely secondary to the facet joint osteoarthritis. CT/Abdomen/Pelvis W IV Cont ONLY IMPRESSION: Small amount of free fluid in the pelvis as well as the Comment gutter on the right side. Mild degree of gallbladder wall thickening and pericholecystic fluid. Possible sludge in the gallbladder lumen. Diffuse urinary bladder wall thickening. Electronically Signed: Kp Viveros MD at 12:09 EDT , Service support ,
--- NOTE | 2020-11-04 11:02 | CT_ITS ---
STUDY: CTA CHEST REASON FOR EXAM: Male, 60 years old. Hypoxia. Leg swelling. Weakness. Substance abuse. RADIATION DOSAGE (If Supplied By Facility): CTDIvol = ( 12.33 ) mGy, DLP = ( 1076.37 ) mGycm TECHNIQUE: The examination was performed with the intravenous administration of IV 100mL Isovue-370. Post-processing of the angiographic images was performed, with multiplanar reformation and 3D reconstruction. Individualized dose optimization techniques were used for this CT. COMPARISON: None. FINDINGS: Normal enhancement of the main pulmonary artery and right and left pulmonary arteries. Normal enhancement of the bilateral peripheral pulmonary arteries. There is no demonstrated pulmonary embolism. There is atherosclerotic calcification of the aortic arch with tortuosity. There is no demonstrated aortic dissection. There are calcifications of the coronary arteries. Normal mediastinum. Normal hilar regions. Normal visualized trachea and bronchi. The lungs are well expanded. Emphysematous changes. Small right pleural effusion with right basilar atelectasis. Increased markings in the subcutaneous fat suggestive of possible fluid overload. There are degenerative changes of thoracic spine. Normal visualized upper abdomen. CT/CTA Chest W/WO Contrast IMPRESSION: Small right pleural effusion with right basilar atelectasis. There is no evidence of pulmonary embolism. Electronically Signed: Kp Viveros MD at 11:56 EDT , Service support ,
--- NOTE | 2020-11-04 11:02 | CT_ITS ---
STUDY: CT BRAIN WITHOUT CONTRAST REASON FOR EXAM: Male, 60 years old. Weakness. Lower extremity swelling and substance abuse. RADIATION DOSAGE (If Supplied By Facility): CTDIvol = ( 44.99 ) mGy, DLP = ( 779.24 ) mGycm TECHNIQUE: Transaxial CT imaging of the brain was performed without administration of intravenous contrast material. Individualized dose optimization techniques were used for this CT. COMPARISON: No relevant priors. FINDINGS: Normal soft tissue structures. Normal calvarium. There is mild cerebral atrophy with widening of the extra-axial spaces and ventricular dilatation. There are areas of decreased attenuation within the white matter tracts of the supratentorial brain, consistent with microvascular disease changes. Normal basal ganglia and thalami. Normal brainstem. Normal cerebellum. There is no intracranial hemorrhage. There are no findings of an acute ischemic infarction. Mild mucosal thickening at the base of the left maxillary sinus. CT/Brain/Head without Contrast IMPRESSION: Chronic involutional changes of the brain. Electronically Signed: Kp Viveros MD at 11:54 EDT , Service support ,
--- NOTE | 2020-11-04 11:06 | CM.ED ---
SW Note MD stated that patient will be admitted. reports that patient reports he lives at a long term and wants a new placement. Acute SW will be updated. Plan: To be determined. Cindy LOGAN
[2020-11-04] MEDS: Ceftriaxone 1 GM/50 ML BAG IV (11:11)
--- NOTE | 2020-11-04 11:47 | EDS_ITS ---
HPI History of Present Illness Chief Complaint: Edema Informant: patient and mental health staff Narrative Narrative: 60-year-old male presents the emergency room with shortness of breath. Patient reportedly has been having some periorbital swelling. He fell last week but did not come to emergency. He states now he is developed abdominal pain shortness of breath bilateral leg pain. He is currently residing at a half-way but does not staff 24 hours a day 7 days a week. He has a history of paranoid schizophrenia as well as polysubstance abuse. Longstanding history of COPD. Patient denies any fever. He does note cough and states he has had some sputum production. Unfortunately the patient is a very poor historian and cannot really give consistent linear answers. [facility] Medical History Cocaine abuse COPD (chronic obstructive pulmonary disease) HTN (hypertension) Paranoid schizophrenia Smoker Substance abuse Home Medications lisinopril 10 mg PO DAILY #30 tab 06/29/19 [Rx Last Taken 08/27/20] fluphenazine HCl 10 mg PO DAILY 10/03/19 [History Last Taken 08/27/20] benztropine 1 mg PO DAILY 08/22/20 [History Last Taken 08/27/20] metoprolol tartrate 25 mg PO DAILY 08/22/20 [History Last Taken 08/27/20] Allergy/AdvReac Type Severity Reaction Status Date / Time haloperidol lactate Allergy Anaphylaxis Verified 11/04/20 09:41 [From Haldol] doxycycline AdvReac Unknown Other Verified 11/04/20 09:40 antihistamines AdvReac Rash Uncoded 11/04/20 09:40 Family History Father Heart disease Surgical History History of appendectomy Social History Smoking Status: Current every day smoker tobacco type: cigarettes ROS ROS ED Constitutional Constitutional ED: Denies chills or weight loss Eyes Eyes: Reports other Details: Periorbital swelling facial bruising ; Denies change in vision or diplopia ENT ENT ED: Denies ear pain, rhinorrhea or sore throat Cardiovascular Cardiovascular: Denies chest pain, orthopnea, palpitations or racing heartbeat Respiratory/Chest Respiratory/Chest: Reports cough, dyspnea and dyspnea on exertion; Denies orthopnea Gastrointestinal Gastrointestinal: Reports abdominal pain; Denies diarrhea, nausea or vomiting Genitourinary Genitourinary ED: Denies dysuria, hematuria or urinary frequency Musculoskeletal Musculoskeletal: Denies arthralgias or myalgias Integumentary Denies abscess or rash Neurologic Neurologic: Reports headache(s); Denies weakness Psychiatric Psychiatric: Denies anxiety, depression, suicidal ideation or suicidal thoughts Endocrine Endocrinology: Denies polydipsia, polyphagia or polyuria Allergic/Immunologic Allergic/Immunologic ED: Denies mouth swelling, tongue swelling or urticaria EXAM Physical Exam Const Vital Signs: 11/04/20 09:20 11/04/20 09:27 11/04/20 09:31 Temperature 96.7 F L Temperature Source Temporal Pulse Rate 73 Respiratory Rate 16 Respiratory Effort Respiratory Pattern Blood Pressure 81/59 L Blood Pressure Mean 66 Pulse Ox 79 80 92 Oxygen Delivery Method Room Air Nasal Cannula Nasal Cannula Oxygen Flow Rate (L/min) 2 4 11/04/20 09:44 11/04/20 09:48 11/04/20 09:53 Temperature 97.7 F L Temperature Source Oral Pulse Rate 75 71 Respiratory Rate 23 H 18 Respiratory Effort Short of Breath Respiratory Pattern Tachypnea Normal Blood Pressure 88/62 L 83/59 L Blood Pressure Mean 70 67 Pulse Ox 94 Oxygen Delivery Method Nasal Cannula Oxygen Flow Rate (L/min) 4 11/04/20 10:24 11/04/20 11:21 11/04/20 11:46 Temperature 98.2 F Temperature Source Oral Pulse Rate 71 73 78 Respiratory Rate 24 H 22 H 21 H Respiratory Effort Respiratory Pattern Blood Pressure 88/64 L 100/67 96/67 Blood Pressure Mean 72 78 76 Pulse Ox 93 94 94 Oxygen Delivery Method Nasal Cannula Nasal Cannula Oxygen Flow Rate (L/min) 4 4 11/04/20 12:58 Temperature 98.1 F Temperature Source Oral Pulse Rate 73 Respiratory Rate 19 H Respiratory Effort Respiratory Pattern Blood Pressure 101/71 Blood Pressure Mean 81 Pulse Ox 95 Oxygen Delivery Method Nasal Cannula Oxygen Flow Rate (L/min) 4 Positive well nourished and well developed General Appearance ED: well developed HEENT Reports normocephalic, head/scalp atraumatic and moist mucous membranes HEENT Narrative: Bilateral periorbital swelling. Ecchymosis over the left forehead and periorbital region. trauma Eyes PERRL and EOMs intact bilaterally Neck no lymphadenopathy, supple and no JVD Resp clear to auscultation bilaterally Auscultation: rhonchi Cardio regular rate, regular rhythm and no murmurs GI GI Narrative: Generalized tenderness to palpation with superficial abrasions over the lower abdominal wall Palpation: soft and tender Back/Spine no CVA tenderness and normal ROM Extremity normal to inspection General Extremety ED: Negative for edema General Extremity: Negative for edema Neuro oriented x3 and CN's II-XII intact bilaterally Sensorium / Orientation: alert Motor Exam: strength 5/5 throughout Psych mental status grossly normal Mood & Affect: Negative for depressed or tearful Skin no rashes or lesions noted and no wounds MDM MDM MDM Narrative Medical decision making narrative: Patient received breathing treatments and Solu-Medrol. My review of the chest x-ray is probable early infiltrate in the right lower lung field. It was a white count of 12.1 and his hypoxia we administered Rocephin and azithromycin. Later in his ED course CT of his head CTA of his chest and CT his head and pelvis was obtained. No obvious infiltrate was noted or pulmonary embolisms noted. Patient is still requiring supplemental oxygen. The CT was having pelvis demonstrates gallbladder sludge with pericholecystic fluid. Formal gallbladder ultrasound was obtained. He is not tender in the right upper quadrant and is not having any problems eating. I do not think that this represents acute cholecystitis. I did speak with on-call surgeon Dr. Maguire. She will follow along. The patient removed his IV has oxygen and his heart monitor stating that he wants to go outside and smoke and to go live somewhere else. He has been off of his psychiatric medicines for the past couple days per his immigration case manager. I do not think he has the capacity to make this decision. He tells me that he does not want an IV because it prevents him from sleeping. Patient received Geodon all pink slip him. I will speak with the hospitalist regarding admission Lab Data Attestation: I reviewed the patient's lab results. Labs: Laboratory Results - last 24 hr 11/04/20 11/04/20 11/04/20 09:35 09:35 09:35 WBC 12.1 H RBC 5.56 Hgb 16.6 H Hct 52.3 MCV 94.1 H MCH 29.9 MCHC 31.7 L RDW Std Deviation 51.6 H RDW Coeff of John 14.8 H Plt Count 352 MPV 8.5 Immature Gran % (Auto) 0.200 Neut % (Auto) 84.1 H Lymph % (Auto) 7.6 L [place] % (Auto) 7.6 Eos % (Auto) 0.2 Baso % (Auto) 0.3 Absolute Neuts (auto) 10.1 H Absolute Lymphs (auto) 0.92 Nucleated RBC % 0 PT INR APTT Sodium 124 L Potassium 5.1 Chloride 85 L Carbon Dioxide 34.0 H Anion Gap 5 BUN 16 Creatinine 0.93 Estim Creat Clear Calc 76.09 Est GFR (MDRD) Af Amer 106 Est GFR (MDRD) Non-Af 88 BUN/Creatinine Ratio 17.3 Glucose 127 H Lactic Acid 1.7 Calcium 9.1 Total Bilirubin 0.30 AST 64 H ALT 76 H Alkaline Phosphatase 89 Troponin I High Sens 115 H* Total Protein 7.5 Albumin 3.5 Globulin 4.0 Albumin/Globulin Ratio 0.9 11/04/20 09:54 WBC RBC Hgb Hct MCV MCH MCHC RDW Std Deviation RDW Coeff of John Plt Count MPV Immature Gran % (Auto) Neut % (Auto) Lymph % (Auto) [place] % (Auto) Eos % (Auto) Baso % (Auto) Absolute Neuts (auto) Absolute Lymphs (auto) Nucleated RBC % PT 12.8 INR 1.0 APTT 25.2 Sodium Potassium Chloride Carbon Dioxide Anion Gap BUN Creatinine Estim Creat Clear Calc Est GFR (MDRD) Af Amer Est GFR (MDRD) Non-Af BUN/Creatinine Ratio Glucose Lactic Acid Calcium Total Bilirubin AST ALT Alkaline Phosphatase Troponin I High Sens Total Protein Albumin Globulin Albumin/Globulin Ratio Radiography Diagnostic Testing: Radiology Impression Chest X-Ray 11/04/20 10:04 IMPRESSION: Patchy infiltrate in the right lower lobe as well as increased markings at the left lung base. Electronically Signed: Kp Viveros MD at 10:27 EDT , Service support , Abdomen/Pelvis CT 11/04/20 11:02 IMPRESSION: Small amount of free fluid in the pelvis as well as the Comment gutter on the right side. Mild degree of gallbladder wall thickening and pericholecystic fluid. Possible sludge in the gallbladder lumen. Diffuse urinary bladder wall thickening. Electronically Signed: Kp Viveros MD at 12:09 EDT , Service support , Brain CT 11/04/20 11:02 IMPRESSION: Chronic involutional changes of the brain. Electronically Signed: Kp Viveros MD at 11:54 EDT , Service support , Chest CTA 11/04/20 11:02 IMPRESSION: Small right pleural effusion with right basilar atelectasis. There is no evidence of pulmonary embolism. Electronically Signed: Kp Viveros MD at 11:56 EDT , Service support , Gallbladder Ultrasound 11/04/20 12:17 IMPRESSION: Findings suggestive of tumefactive sludge adherent to the gallbladder wall. Small amount of pericholecystic fluid. Electronically Signed: Kp Viveros MD at 13:56 EDT , Service support , EKG Initial EKG: Attestation: I personally reviewed and interpreted this EKG as follows: Comments: EKG demonstrates normal sinus rhythm at a rate of 69 bpm. Noted low voltage. Discharge Plan Triage Chief Complaint: Edema ED Provider: Daquan Terrell Dx/Rx/DC Orders Clinical Impression: Acute exacerbation of chronic obstructive pulmonary disease (COPD), Acute hypoxemic respiratory failure Prescriptions: No Action lisinopril 10 MG tablet 10 mg PO DAILY Qty: 30 RF: 1 fluphenazine HCl 10 MG tablet 10 mg PO DAILY RF: 0 benztropine 1 mg Tablet 1 mg PO DAILY RF: 0 metoprolol tartrate 25 MG tablet 25 mg PO DAILY RF: 0 Primary Care Provider: Daquan Pritchett NP Referrals: Daquan Pritchett STOCK SHEETS CLEANER INSPECTOR, STOCK SHEETS CLEANER INSPECTOR-C [Primary Care Provider] - Disposition Disposition: Acute [facility] Capacity Capacity Assessment Tool Can the patient make a choice & communicate that choice?: Yes Can the patient understand benefits, risks and alternatives?: Yes Can the patient make a logical, rational choice?: No Is the choice the patient makes consistent w/ their values?: No Is there an impending, emergent risk to the patient?: Yes Does the patient have an Advance Directive?: No Is there a Surrogate Available?: No i.e. HCPOA: No i.e. close relative (spouse, child, parent, sibling)?: No
--- NOTE | 2020-11-04 12:17 | US_ITS ---
STUDY: ABDOMINAL ULTRASOUND - RIGHT UPPER QUADRANT REASON FOR VISIT: Male, 60 years old right upper quadrant pain. TECHNIQUE: Ultrasound evaluation of the right upper quadrant was performed with real-time and static guevara-scale imaging. TECHNICAL QUALITY: Adequate. COMPARISON: Comparison is made with prior CT scan done earlier today. FINDINGS: Liver: The liver measures 17.4 cm. There is normal echogenicity of the liver. The bile ducts are within normal limits. There is hepatic color flow. The direction of portal flow is hepatopetal. There is no demonstrated mass lesion. Gallbladder: Normal distended gallbladder. The gallbladder wall measures 2 mm. There is a negative sonographic Lee''s sign. There is pericholecystic fluid. There are no gallstones. There is evidence of 6.9 mm tumefactive sludge adherent to the gallbladder wall. Common Bile Duct (C.B.D.): The common bile duct measures 4 mm. Pancreas: Normal size of the head, body of the pancreas. The tail portion is obscured due to overlying bowel gas. There is normal echogenicity of the pancreas. There is no demonstrated pancreatic mass or cyst. Right Kidney: Normal size of the right kidney. The right kidney measures 10.5 cm x 4.7 cm x 5.1 cm. Normal renal cortex. The right cortex measures 1.1 cm. There is no demonstrated renal mass or cyst. There is no right hydronephrosis. US/Gallbladder IMPRESSION: Findings suggestive of tumefactive sludge adherent to the gallbladder wall. Small amount of pericholecystic fluid. Electronically Signed: Kp Viveros MD at 13:56 EDT , Service support ,
[2020-11-04] MEDS: Ibuprofen 400 MG Tablet 800 MG PO (12:54)
[2020-11-04] MEDS: Ziprasidone IM 20 MG/ML VIAL IM (14:48)
--- NOTE | 2020-11-04 14:51 | ED.RN ---
PT AGITATED, DIFFICULT TO REDIRECT, REFUSES TO WEAR MONITORS, REMOVED IV. OUT IN HALLWAY DEMANDING TO LEAVE, REDIRECTED BACK TO ROOM. PT INTERMITTENTLY WILL WEAR O2 WITH NASAL CANNULA, DESPITE LENGTHY EDUCATION ON RISKS OF NOT WEARING. PT APPEARS HYPOXIC, LIPS AND EARS BLUE TINGED. PT CONSENTING TO SIT IN CHAIR AT BEDSIDE AND WEAR NASAL CANNULA, LIPS PINK. REAL ESTATE REPRESENTATIVE REMAINS AT BEDSIDE. PT REQUESTS, SOMETHING TO HELP ME CALM DOWN. STACIE KIM.
--- NOTE | 2020-11-04 14:55 | ED.RN ---
PT ALSO REFUSING TO GIVE URINE SAMPLE AT THIS TIME, DOES NOT ALLOW THIS RN TO OBTAIN VITALS SIGNS.
--- NOTE | 2020-11-04 15:00 | CM.ED ---
GOGO Note Referral Source: mine environmental engineer Reason: Patient reports he wants to leave. His medical conditions requires he use oxygen for his safety and well being. Patient is refusing to wear oxygen. SW met with patient. In the room was patient's casemanager Macey Casper, Dayana Ivesron RN, MAYTE Cota and this radio script writer. Patient said that he wanted to go to [place]. The RN's (Dayana and [place]) explained the importance of patient wearing his oxygen. MD spoke to patient and stated the serious of the situation. Patient's director of casework services said that she just got assigned this patient 1 day ago. She said that patient is in a custodial now but has indicated a desire to leave. Per CM patient has been homeless for 11 years. SW called Abdiaziz in Adult Protective Services. She said that she would recommend that [facility] for guardianship as it is there client. GOGO spoke to Macey Casper and inquired if she could speak to staff at [facility] regarding guardianship. GOGO was updated by Macey Casper. She said that she spoke to Estela Nassar at [facility]. Macey said that she was told by Estela Nassar that they do not file contested or emergency guardianship. GOGO spoke to Trisha Lopez and updated her regarding this situation. Plan: To be determined Cindy LOGAN
--- NOTE | 2020-11-04 15:00 | NURSING ---
THERON PRADHAN, [place] NEEDS REDRAWN
--- NOTE | 2020-11-04 15:59 | NURSING ---
[facility] COPD EXAC
[2020-11-04] MEDS: MethylPREDNISolone 125 MG/2 ML Vial IV (16:04)
--- NOTE | 2020-11-04 16:15 | ED.RN ---
PT CONTINUES TO REFUSES VITALS, OBTAINED AFTER MUCH COAXING, FREQUENTLY REMOVES NASAL CANNULA
--- NOTE | 2020-11-04 16:18 | CM.ED ---
Addendum entered by Cindy Meadows 11/04/20 17:26: GOGO spoke to Macey Casper patient's casemanager from [facility]. Macey said that the plan is for patient to go to a 24/7 supervised shelter at discharge. Macey said that patient has a payee, Mr. Hilliard (banking attorney in [place]). Macey said that patient is in agreement with a 24/7 shelter as people will assist him with care of the residence. GOGO updated Rekha Arellano regarding this patient and his needs. Plan: Patient admitted to acute unit. Original Note: GOGO Note GOGO called patient's CUSTOMS PATROL OFFICER, Daquan Hathaway. He stated that the only next of kin listed was Lobito Charanjit for the [facility]. GOGO received call from Abdiaziz at [facility]. She said that they are reaching out to determine if, as patient is in a shelter, it is in her jurisdiction. She is hopeful to have any answer in 24 hour. Plan: To be determined Cindy Lay
--- NOTE | 2020-11-04 16:43 | PCM.HP.STD ---
Documented by User: Flavio STAFFORD 11/04/20 17:25 HPI - General General Date of Admission: 11/04/20 HPI Narrative LYLY CALVIN is a 60-year-old male who presents to the ED at [facility] 11/04/2020 with a chief complaint of shortness of breath and abdominal pain. Patient not able to provide much insight into his current condition due to sedation with Geodon, after being noncompliant with ED staff and tearing out his IV port. According to the ED note, patient has been suffering for abdominal pain and shortness of breath with bilateral leg pain for the past week, ED physician believes patient has not been compliant with his home medication due to his paranoid schizophrenia and polysubstance abuse. Past medical history is significant for long standing COPD and cigarette use. On examination patient did endorse cough and some mild nonpurulent sputum production. He denied any fever, chills or N/V/D. CT of the abdomen/pelvis demonstrates small amount of free fluid in the pelvis, mild degree of gallbladder wall thickening , kit-Suzi cystic fluid with a small amount of sludge in the gallbladder lumen and diffuse urinary bladder wall thickening. Chest x-ray demonstrates a possible patchy infiltrate in the right lower lobe as well as increased markings at the left lung base as well as emphysematous change with hyperinflated lungs. CT- A demonstrated small right pleural effusion with right bibasilar atelectasis and showed no evidence of pulmonary embolism. Brain CT only demonstrated chronic involutional changes of the brain's and did not demonstrate any evidence of acute ischemia. Gallbladder ultrasound demonstrated findings suggestive of tumefactive sludge in the gallbladder wall with small amounts of pericholecystic fluid. In the ED patient was given bronchodilators, initiate on Rocephin and azithromycin as well as given Geodon. [facility] Medical History Cocaine abuse COPD (chronic obstructive pulmonary disease) HTN (hypertension) Paranoid schizophrenia Smoker Substance abuse Home Medications lisinopril 10 mg PO DAILY #30 tab 06/29/19 [Rx Last Taken 08/27/20] fluphenazine HCl 10 mg PO DAILY 10/03/19 [History Last Taken 08/27/20] benztropine 1 mg PO DAILY 08/22/20 [History Last Taken 08/27/20] metoprolol tartrate 25 mg PO DAILY 08/22/20 [History Last Taken 08/27/20] Allergy/AdvReac Type Severity Reaction Status Date / Time haloperidol lactate Allergy Anaphylaxis Verified 11/04/20 09:41 [From Haldol] doxycycline AdvReac Unknown Other Verified 11/04/20 09:40 antihistamines AdvReac Rash Uncoded 11/04/20 09:40 Family History Father Heart disease Surgical History History of appendectomy Social History Smoking Status: Current every day smoker tobacco type: cigarettes ROS Review of Systems ROS Unobtainable: due to mental condition and due to mental status Vital Signs Vital Signs Vital Signs: 11/04/20 09:20 11/04/20 09:27 11/04/20 09:31 Temperature 96.7 F L Temperature Source Temporal Pulse Rate 73 Respiratory Rate 16 Respiratory Effort Respiratory Pattern Blood Pressure 81/59 L Blood Pressure Mean 66 Pulse Ox 79 80 92 Oxygen Delivery Method Room Air Nasal Cannula Nasal Cannula Oxygen Flow Rate (L/min) 2 4 11/04/20 09:44 11/04/20 09:48 11/04/20 09:53 Temperature 97.7 F L Temperature Source Oral Pulse Rate 75 71 Respiratory Rate 23 H 18 Respiratory Effort Short of Breath Respiratory Pattern Tachypnea Normal Blood Pressure 88/62 L 83/59 L Blood Pressure Mean 70 67 Pulse Ox 94 Oxygen Delivery Method Nasal Cannula Oxygen Flow Rate (L/min) 4 11/04/20 10:24 11/04/20 11:21 11/04/20 11:46 Temperature 98.2 F Temperature Source Oral Pulse Rate 71 73 78 Respiratory Rate 24 H 22 H 21 H Respiratory Effort Respiratory Pattern Blood Pressure 88/64 L 100/67 96/67 Blood Pressure Mean 72 78 76 Pulse Ox 93 94 94 Oxygen Delivery Method Nasal Cannula Nasal Cannula Oxygen Flow Rate (L/min) 4 4 11/04/20 12:58 11/04/20 16:12 Temperature 98.1 F 97.8 F Temperature Source Oral Temporal Pulse Rate 73 89 Respiratory Rate 19 H 18 Respiratory Effort Respiratory Pattern Blood Pressure 101/71 103/79 Blood Pressure Mean 81 87 Pulse Ox 95 92 Oxygen Delivery Method Nasal Cannula Nasal Cannula Oxygen Flow Rate (L/min) 4 4 Weight Weight: 144 lb Body Mass Index (BMI) 21.2 Physical Exam Const alert General Appearance: uncooperative Orientation / Consciousness: lethargic Exam Limitations: behavioral limitations HEENT normocephalic, head/scalp atraumatic and hearing grossly normal bilaterally Eyes EOMs intact bilaterally and conjunctivae normal Neck no lymphadenopathy, supple and no JVD Resp normal respiratory effort, no retractions, no use of accessory muscles and clear to auscultation bilaterally Cardio regular rate, regular rhythm, no murmurs and no JVD GI normal to inspection, nondistended, normoactive bowel sounds, soft to palpation and non-tender Extremity normal to inspection, full ROM and no clubbing, cyanosis or edema Skin no rashes or lesions noted, no wounds and no jaundice Neuro CN's II-XII intact bilaterally Psych Attitude: paranoid Mood & Affect: anxious Results Lab / Micro Data Result Diagrams: 11/04/20 09:35 11/04/20 09:35 Labs: Laboratory Results - last 24 hr 11/04/20 09:35: WBC 12.1 H, RBC 5.56, Hgb 16.6 H, Hct 52.3, MCV 94.1 H, MCH 29.9, MCHC 31.7 L, RDW Std Deviation 51.6 H, RDW Coeff of John 14.8 H, Plt Count 352, MPV 8.5, Immature Gran % (Auto) 0.200, Neut % (Auto) 84.1 H, Lymph % (Auto) 7.6 L, Davis % (Auto) 7.6, Eos % (Auto) 0.2, Baso % (Auto) 0.3, Absolute Neuts (auto) 10.1 H, Absolute Lymphs (auto) 0.92, Nucleated RBC % 0 11/04/20 09:35: Sodium 124 L, Potassium 5.1, Chloride 85 L, Carbon Dioxide 34.0 H, Anion Gap 5, BUN 16, Creatinine 0.93, Estim Creat Clear Calc 76.09, Est GFR (MDRD) Af Amer 106, Est GFR (MDRD) Non-Af 88, BUN/Creatinine Ratio 17.3, Glucose 127 H, Calcium 9.1, Total Bilirubin 0.30, AST 64 H, ALT 76 H, Alkaline Phosphatase 89, Troponin I High Sens 115 H*, Total Protein 7.5, Albumin 3.5, Globulin 4.0, Albumin/Globulin Ratio 0.9 11/04/20 09:35: Lactic Acid 1.7 11/04/20 09:54: PT 12.8, INR 1.0, APTT 25.2 Micro: Microbiology 11/04/20 10:50 Mucosa - Nose SARS-CoV-2 Antigen (Rapid) - Final Radiology Impression Chest X-Ray 11/04/20 10:04 IMPRESSION: Patchy infiltrate in the right lower lobe as well as increased markings at the left lung base. Electronically Signed: Kp Viveros MD at 10:27 EDT , Service support , Abdomen/Pelvis CT 11/04/20 11:02 IMPRESSION: Small amount of free fluid in the pelvis as well as the Comment gutter on the right side. Mild degree of gallbladder wall thickening and pericholecystic fluid. Possible sludge in the gallbladder lumen. Diffuse urinary bladder wall thickening. Electronically Signed: Kp Viveros MD at 12:09 EDT , Service support , Brain CT 11/04/20 11:02 IMPRESSION: Chronic involutional changes of the brain. Electronically Signed: Kp Viveros MD at 11:54 EDT , Service support , Chest CTA 11/04/20 11:02 IMPRESSION: Small right pleural effusion with right basilar atelectasis. There is no evidence of pulmonary embolism. Electronically Signed: Kp Viveros MD at 11:56 EDT , Service support , Gallbladder Ultrasound 11/04/20 12:17 IMPRESSION: Findings suggestive of tumefactive sludge adherent to the gallbladder wall. Small amount of pericholecystic fluid. Electronically Signed: Kp Viveros MD at 13:56 EDT , Service support , Assessment & Plan Assessment/Plan (1) Acute hypoxemic respiratory failure: (2) Acute respiratory failure with hypoxia: (3) Acute exacerbation of chronic obstructive pulmonary disease (COPD): (4) Paranoid schizophrenia: PLAN: Patient is a 60-year-old male who presents to the ED [facility] on 11/04/2020 with a chief complaint of shortness of breath and abdominal pain. Patient will be admitted for management of COPD exacerbation and will be consulted on by general surgery for abdominal pain. 1) acute hypoxic respiratory failure secondary to COPD exacerbation Patient presents with shortness of breath and mild sputum production. Patient does not appear to be on any bronchodilators at home, nor is he on oxygen at the halfway. Vital signs obtained in the ED are stable and patient is afebrile. Chest x-ray does not demonstrate acute cardiopulmonary process and only shows emphysematous changes with hyperinflated lungs. CT-A did not demonstrate any evidence of pulmonary embolism. CBC shows a mild leukocytosis at 12,000 WBCs with neutrophilic predominance. Plan; admit to PCU for cardiac telemetry monitoring, initiate albuterol as needed, scheduled duo nebs every 4 hours, IV Solu-Medrol 40 mg every 8, incentive spirometry encouraged, respiratory therapy evaluation ordered, O2 per protocol, CBC and BMP in a.m., viral respiratory panel ordered, continue azithromycin initiated in the ED. 2) Abdominal pain Patient complains of abdominal pain. CT of the abdomen/pelvis show a small amount of free fluid in the pelvis, mild degree of gallbladder wall thickening with pericholecystic fluid, possible sludge in the gallbladder lumen and urinary bladder wall thickening. Ultrasound of the gallbladder shows tumefactive sludge adherent to the gallbladder wall with pericholecystic fluid. Plan; consult general surgery, CBC and BMP in a.m, IV fluids. 3) elevated troponins Initial high-sensitivity troponin mildly elevated at 115. Patient denies any chest pain or heart palpitations. Likely demand secondary to #1. We will place on PCU for cardiac telemetry monitoring, no further cycling of troponins at this time. 4) hyponatremia BMP shows a sodium of 124. Plan; trend BMP, IV fluids. CODE STATUS: Unverified at this time due to patient sedation DVT prophylaxis - low risk, not indicated Patient seen by Flavio Ramirez PA-C, under the supervision of Dr. Banks. Documented by User: Dr. Ridge Banks, 11/04/20 18:50 HPI - General General Date of Admission: 11/04/20 [facility] Medical History Cocaine abuse COPD (chronic obstructive pulmonary disease) HTN (hypertension) Paranoid schizophrenia Smoker Substance abuse Home Medications lisinopril 10 mg PO DAILY #30 tab 06/29/19 [Rx Last Taken 08/27/20] fluphenazine HCl 10 mg PO DAILY 10/03/19 [History Last Taken 08/27/20] benztropine 1 mg PO DAILY 08/22/20 [History Last Taken 08/27/20] metoprolol tartrate 25 mg PO DAILY 08/22/20 [History Last Taken 08/27/20] Allergy/AdvReac Type Severity Reaction Status Date / Time haloperidol lactate Allergy Anaphylaxis Verified 11/04/20 09:41 [From Haldol] doxycycline AdvReac Unknown Other Verified 11/04/20 09:40 antihistamines AdvReac Rash Uncoded 11/04/20 09:40 Family History Father Heart disease Surgical History History of appendectomy Social History Smoking Status: Current every day smoker tobacco type: cigarettes Results Lab / Micro Data Result Diagrams: 11/04/20 09:35 11/04/20 09:35 Charges/Coding Addendum Addendum: Patient seen and examined independently of Flavio Ramirez today, he came to the ER at [facility] with complaints of mid abdominal pain, patient also appeared cyanotic around his lips and face on evaluation in the ER and he was noted to have a pulse ox of 80 on room air. Patient has a history of schizophrenia and lives in a halfway, it is unknown whether the patient takes his medications correctly it is believed that he has not been taking his psychiatric medications for the last 48 hours. Patient was placed on supplemental oxygen in the emergency room, he underwent imaging studies of the lungs which showed no obvious evidence of pneumonia-there was evidence of emphysematous changes however. Patient became moderately agitated in the emergency room and had to be given IM Geodon, he pulled his IV out and his telemetry leads. On examination he appeared in no distress. Vital signs as documented. Skin warm and dry and without overt rashes. Neck without JVD, neck was supple, trachea midline, thyroid was normal. Lungs clear bilaterally, normal air movement was noted. Heart exam notable for regular rhythm, normal sounds and absence of murmurs, rubs or gallops. Abdomen unremarkable and without evidence of organomegaly, masses, or abdominal aortic enlargement. Bowel sounds are present, abdomen is not distended, there is some mild mid abdominal tenderness to deep palpation-no rebound abdominal tenderness was noted. Extremities nonedematous, no cyanosis was noted, no clubbing was noted. Neuro: Cranial nerves II through XII are grossly intact, no focal motor deficits were noted, sensation to light touch and pinprick intact, motor exam 5/5 throughout. Psych: Patient is alert and oriented x3, patient's affect is bizarre, he does not appear to be agitated at the time of my exam. Patient will be admitted to PCU for acute hypoxic respiratory failure and abdominal pain, imaging studies of the gallbladder showed evidence of sludge adherent to the gallbladder wall and a small amount of pericholecystic fluid, patient's abdomen however is nontender in the right upper quadrant, there is mild mid abdominal tenderness to palpation but no rebound abdominal tenderness was noted. Patient will be seen by general surgery during his hospital stay. I have reviewed Flavio Ramirez's history and physical including his medical assessment and plan of care and endorse it. Visit Charges Inpatient E&M: 87476 Init Hosp L3
--- NOTE | 2020-11-04 17:04 | NURSING ---
emergency documentation
[2020-11-04] MEDS: Acetaminophen 325 MG Tablet 650 MG PO (21:18)
[2020-11-05 04:00] VITALS: BP 117/63; PULSE 92; RESP 18; TEMP 36.3; O2SAT 94
[2020-11-05 08:31] LABS: Troponin-I HS 111 pg/mL (3.0-78.0)
--- NOTE | 2020-11-05 09:10 | CASEMGMT ---
GOGO called [facility] and asked to talk with Macey Casper, patient's Seedling Puller. Her voice mail said she will be out of the office most of the day doing home visits and to talk with her food supervisor, Baldo, for immediate attention. GOGO spoke with change number operator and asked to talk with Macey's food supervisor and she said it was Salas. GOGO then left a message for Salas requesting a return call regarding patient. GOGO also received a call from [facility] at [facility] requesting an update. GOGO told her SW does not have any updates at this time. GOGO told her that per Cindy's (ED SW) note the plan is for him to go to a penitentiary with / staff and patient is in agreement. GOGO told her SW has not confirmed this. Dayana Green MSW CED
--- NOTE | 2020-11-05 09:44 | CASEMGMT ---
Addendum entered by Dayana Green 11/05/20 09:59: Macey's cell number is [phone]. Addendum entered by Dayana Green 11/05/20 09:49: GOGO received a call from Macey. They cannot take patient in their 24/7 long term if he requires O2. GOGO told her that SW will have to let her know, but he will more than likely need O2 at discharge. Dayana COUGHLIN Original Note: GOGO received a call from Macey Casper with [facility]. She asked what his d/c needs will be. SW told her he will more than likely need home O2 and the physician thinks he will be ready tomorrow. She said that may be a problem as none of their group homes are medical. GOGO asked about the plan for the 24/7 long term. She said it is not a medical long term, but she will check to see if he can have O2 at the long term. She said if he cannot go to that long term they were wondering if rehab may be appropriate so he can get his medical needs met. GOGO asked that if he needs O2 and they cannot take him in the 24/7 long term they essentially have no place for him to go. She said that is correct. She will find out about the O2 and the long term and get back to GOGO. Dayana COUGHLIN
--- NOTE | 2020-11-05 09:48 | CON.PCM.SX_ITS ---
Assessment & Plan Assessment/Plan (1) Abdominal pain: (2) Acute exacerbation of chronic obstructive pulmonary disease (COPD): PLAN: Patient denies any abdominal pain. Denies any pain on exam. Patient denies abdominal pain nausea or vomiting with meals prior to coming into the hospital states he had large meals with no issues. Patient's ultrasound was reviewed gallbladder wall was 2 mm likely the pericholecystic fluid is actually fluid in the abdomen as patient does have pelvic fluid as well so doubt this is from the actual gallbladder. Patient is also noncompliant with medical care he is using refusing his supplemental oxygen. Patient is also unable to sign his own consents currently- and process started to appointed guardian. Patient is currently on a regular diet. Will plan to sign off call with any questions please. Patient does begin to have abdominal pain or nausea or vomiting recommend a HIDA scan to rule out acute cholecystitis however this will be very difficult as patient has been noncompliant and likely was not sit still for the scan. Kaye Maguire M.D. Pager: [phone] [facility] [address] [place] [address], [facility], [address] [place] [address] Office: [phone] HPI Consult Data Date of Consult: 11/06/20 HPI Narrative HPI Narrative: LYLY CALVIN, is a 60 M who admitted due to hypoxia. Patient will occasionally complain of abdominal pain. Patient had a CT abdomen pelvis done thousand ultrasound of the gallbladder which showed abnormal wall some gallbladder sludge he did call some pericholecystic fluid. CAT scan did show seem fluid in the pelvis as well. Patient also has significant past medical history for paranoid schizophrenia as well as substance abuse. Patient had pr eviously been refusing supplemental oxygen and he was satting in the 70s on room air. Currently he did allow the nasal cannula to be placed. Patient denied having any abdominal pain for me this morning also states that he had been eating previously without any issues denied any nausea or vomiting. Patient did not want answer any further questions states he wanted to just chew his gum. [facility] Medical History (Updated 11/05/20 @ 10:[address] Kaye Maguire MD) Abdominal pain Cocaine abuse COPD (chronic obstructive pulmonary disease) HTN (hypertension) Paranoid schizophrenia Smoker Substance abuse Home Medications lisinopril 10 mg PO DAILY #30 tab 06/29/19 [Rx Last Taken 08/27/20] fluphenazine HCl 10 mg PO DAILY 10/03/19 [History Last Taken 08/27/20] benztropine 1 mg PO DAILY 08/22/20 [History Last Taken 08/27/20] metoprolol tartrate 25 mg PO DAILY 08/22/20 [History Last Taken 08/27/20] Allergy/AdvReac Type Severity Reaction Status Date / Time haloperidol lactate Allergy Anaphylaxis Verified 11/04/20 09:41 [From Haldol] doxycycline AdvReac Unknown Other Verified 11/04/20 09:40 antihistamines AdvReac Rash Uncoded 11/04/20 09:40 Family History Father Heart disease Surgical History History of appendectomy Social History Smoking Status: Current every day smoker tobacco type: cigarettes ROS Review of Systems ROS Unobtainable: other Details: Patient was not interested in answering any more questions as he wanted to chew his gum Gastrointestinal Gastrointestinal: Denies abdominal pain, nausea or vomiting Physical Exam Const alert, oriented x3 and no apparent distress HEENT normocephalic and head/scalp atraumatic Resp normal respiratory effort Cardio regular rate GI soft to palpation and non-tender; Negative for non-distended Palpation: Negative for guarding Extremity no clubbing, cyanosis or edema Neuro CN's II-XII intact bilaterally Psych Mood & Affect: irritable Lab / Micro Data Result Diagrams: 11/06/20 05:35 11/06/20 05:35 Labs: Laboratory Results - last 24 hr 11/04/20 09:35: WBC 12.1 H, RBC 5.56, Hgb 16.6 H, Hct 52.3, MCV 94.1 H, MCH 29.9 , MCHC 31.7 L, RDW Std Deviation 51.6 H, RDW Coeff of John 14.8 H, Plt Count 352, MPV 8.5, Immature Gran % (Auto) 0.200, Neut % (Auto) 84.1 H, Lymph % (Auto) 7.6 L, Mobile % (Auto) 7.6, Eos % (Auto) 0.2, Baso % (Auto) 0.3, Absolute Neuts (auto) 10.1 H, Absolute Lymphs (auto) 0.92, Nucleated RBC % 0 11/04/20 09:35: Sodium 124 L, Potassium 5.1, Chloride 85 L, Carbon Dioxide 34.0 H, Anion Gap 5, BUN 16, Creatinine 0.93, Estim Creat Clear Calc 76.09, Est GFR (MDRD) Af Amer 106, Est GFR (MDRD) Non-Af 88, BUN/Creatinine Ratio 17.3, Glucose 127 H, Calcium 9.1, Total Bilirubin 0.30, AST 64 H, ALT 76 H, Alkaline Phosphatase 89, Troponin I High Sens 115 H*, Total Protein 7.5, Albumin 3.5, Globulin 4.0, Albumin/Globulin Ratio 0.9 11/04/20 09:35: Lactic Acid 1.7 11/04/20 09:54: PT 12.8, INR 1.0, APTT 25.2 11/05/20 08:00: Troponin I High Sens 111 H* Micro: Microbiology 11/04/20 17:25 Mucosa - Nasopharyngeal Respiratory Panel (PCR) - Final 11/04/20 10:50 Mucosa - Nose SARS-CoV-2 Antigen (Rapid) - Final Radiology Impression Chest X-Ray 11/04/20 10:04 IMPRESSION: Patchy infiltrate in the right lower lobe as well as increased markings at the left lung base. Electronically Signed: Kp Viveros MD at 10:27 EDT , Service support , Abdomen/Pelvis CT 11/04/20 11:02 IMPRESSION: Small amount of free fluid in the pelvis as well as the Comment gutter on the right side. Mild degree of gallbladder wall thickening and pericholecystic fluid. Possible sludge in the gallbladder lumen. Diffuse urinary bladder wall thickening. Electronically Signed: Kp Viveros MD at 12:09 EDT , Service support , Brain CT 11/04/20 11:02 IMPRESSION: Chronic involutional changes of the brain. Electronically Signed: Kp Viveros MD at 11:54 EDT , Service support , Chest CTA 11/04/20 11:02 IMPRESSION: Small right pleural effusion with right basilar atelectasis. There is no evidence of pulmonary embolism. Electronically Signed: Kp Viveros MD at 11:56 EDT , Service support , Gallbladder Ultrasound 11/04/20 12:17 IMPRESSION: Findings suggestive of tumefactive sludge adherent to the gallbladder wall. Small amount of pericholecystic fluid. Electronically Signed: Kp Viveros MD at 13:56 EDT , Service support , Charges/Coding Visit Charges Inpatient E&M: 84202 Init Hosp L3
[2020-11-05 10:00] VITALS: BP 115/72; PULSE 80; RESP 18; TEMP 36.4; O2SAT 78
--- NOTE | 2020-11-05 10:06 | NURSING ---
Pt refusing to apply O2 via NC. O2 is 78%. RIVERA Muniz in room attempting to get pt to comply as well. Ineffective.
[2020-11-05] MEDS: Benztropine 2 MG Tablet 1 MG PO (10:07)
[2020-11-05 10:08] VITALS: BP 115/72; PULSE 80
[2020-11-05] MEDS: Metoprolol Tartrate 25 MG Tablet PO (10:08)
[2020-11-05] MEDS: Lisinopril 10 MG Tablet PO (10:08)
[2020-11-05] MEDS: predniSONE 20 MG Tablet 50 MG PO (10:11)
--- NOTE | 2020-11-05 10:25 | CASEMGMT ---
GOGO called Macey Casper. [facility] has not pursued a guardian for patient. Per Macey she spoke with the previous case repairer and patient has been relatively self sufficient. These medical problems are new for patient. She said if patient does not need O2 at discharge can he go to the 04/10 longterm. She said he can but there is no availability until Tuesday. SW asked if he would go back to his longterm until then. She said possibly, but she would have to find out. SW told her SW will be in touch with her. Dayana Green INCOME TAX MANAGER CED
--- NOTE | 2020-11-05 10:27 | NURSING ---
Pt agreeable to placing O2 via NC. Pt at 4L but pt refusing to SPO2 check.
--- NOTE | 2020-11-05 10:35 | CASEMGMT ---
Palliative screening tool completed at this time for Lace/Strata 3. Patient does not meet criteria for palliative consult at this time.
[2020-11-05 10:47] LABS: Troponin-I HS 130 pg/mL (3.0-78.0)
[2020-11-05 11:01] VITALS: PULSE 85; RESP 20; O2SAT 92
[2020-11-05] MEDS: Ipratropium/Albuterol Sulfate 3 ML AMPUL.NEB INHALATION ×2 (11:01→18:29)
--- NOTE | 2020-11-05 12:25 | PCM.PN.HOSP ---
Documented by User: Flavio STAFFORD 11/05/20 12:42 Subjective Subjective Patient is a 60-year-old male resting in bed, alert and oriented to self. Patient unable to abide much insight into his current condition as he is confrontational and agitated. Does report improvement in his shortness of breath and abdominal pain. Objective Data Objective Data Vital Signs: Vital Signs Temp Pulse Resp BP Pulse Ox 97.6 F L 85 20 H 115/72 92 11/05/20 10:00 11/05/20 11:01 11/05/20 11:01 11/05/20 10:08 11/05/20 11:01 Oxygen Flow Rate (L/min) 5 Oxygen Delivery Method Nasal Cannula Weight: 143 lb 15.39 oz Body Mass Index (BMI) 21.3 Intake & Output: Intake and Output for Last 24 Hours 11/03/20 11/04/20 11/05/20 23:59 23:59 23:59 Intake Total 3305 / 3365 60 / 60 Output Total 0 / 0 Balance 3305 / 3365 60 / 60 Lab / Micro Data Result Diagrams: 11/04/20 09:35 11/04/20 09:35 Labs: Laboratory Results - last 24 hr 11/05/20 08:00: Troponin I High Sens 111 H* 11/05/20 10:10: Troponin I High Sens 130 H* Micro: Microbiology 11/04/20 17:25 Mucosa - Nasopharyngeal Respiratory Panel (PCR) - Final 11/04/20 10:50 Mucosa - Nose SARS-CoV-2 Antigen (Rapid) - Final Radiography Diagnostic Testing: Radiology Impression Gallbladder Ultrasound 11/04/20 12:17 IMPRESSION: Findings suggestive of tumefactive sludge adherent to the gallbladder wall. Small amount of pericholecystic fluid. Electronically Signed: Kp Viveros MD at 13:56 EDT , Service support , Physical Exam Const alert General Appearance: uncooperative Orientation / Consciousness: disoriented Exam Limitations: behavioral limitations HEENT head/scalp atraumatic and moist oral mucous membranes Head and Scalp: normocephalic Eyes EOMs intact bilaterally and conjunctivae normal Neck no lymphadenopathy, supple and no JVD Resp Resp Narrative: Hypoxic, satting 70% on room air. When compliant with oxygen supplementation saturations rise to 92% on 3 L via nasal cannula. Effort and Inspection: tachypneic and labored Auscultation: diminished lung sounds Cardio regular rate, regular rhythm, no murmurs and no JVD GI normal to inspection, nondistended, normoactive bowel sounds, soft to palpation and non-tender Extremity normal to inspection, full ROM and no clubbing, cyanosis or edema Skin no rashes or lesions noted, no wounds, skin turgor normal and no jaundice Neuro CN's II-XII intact bilaterally Psych affect normal Assessment & Plan Assessment/Plan (1) Acute respiratory failure with hypoxia: (2) Abdominal pain: (3) Acute exacerbation of chronic obstructive pulmonary disease (COPD): PLAN: Day 2 Discharge planning: [facility] a [facility], and will likely discharge there when medically ready. 1) acute hypoxic respiratory failure secondary to COPD exacerbation Patient has been on compliant with his oxygen supplementation. Currently satting 78% on room air. When compliant with oxygen supplementation patient's oxygen saturations are at 92% on 3 L via nasal cannula. Patient has remained afebrile. Patient does have a elevated white count at 12,000, likely secondary to steroid administration. Viral respiratory panel negative. Blood culture pending. Rapid Covid negative. Plan; remain admitted to PCU, initiate albuterol as needed, scheduled duo nebs every 4 hours, IV Solu-Medrol 40 mg every 8, incentive spirometry encouraged, respiratory therapy evaluation ordered, O2 per protocol, CBC and BMP in a.m. 2) Abdominal pain Resolved. Abdominal pain for mission has subsided, patient is currently on a regular diet and denies any nausea vomiting or diarrhea. General surgery was consulted on the patient and is now signed off. CT of the abdomen/pelvis show a small amount of free fluid in the pelvis, mild degree of gallbladder wall thickening with pericholecystic fluid, possible sludge in the gallbladder lumen and urinary bladder wall thickening. Ultrasound of the gallbladder shows tumefactive sludge adherent to the gallbladder wall with pericholecystic fluid. 3) elevated troponins Initial high-sensitivity troponin mildly elevated at 115. Patient denies any chest pain or heart palpitations. Likely demand secondary to #1. We will place on PCU for cardiac telemetry monitoring, no further cycling of troponins at this time. 4) hyponatremia Sodium on admission was 124. Plan; trend BMP, IV fluids. DVT prophylaxis - low risk, not indicated Patient seen by Flavio Ramirez PA-C, under the supervision of Dr. Nails. Documented by User: Dr. Faina Nails MD 11/05/20 14:36 Objective Data Lab / Micro Data Result Diagrams: 11/04/20 09:35 11/04/20 09:35 Charges/Coding Addendum Addendum: Patient seen by Flavio Ramirez PA-C under my supervision Patient seen and examined. He was awake and alert but would not really answer any questions and only kept asking for his medications because he was very upset. He wasnt tachypneic, but was on 4L of oxygen, and noted to desaturate to the 70s% when on room air. He has otherwise remained hemodynamically stable. O/E: Const alert General Appearance:fairly cooperative. Orientation / Consciousness: oriented to self, Exam Limitations: HEENT head/scalp atraumatic and moist oral mucous membranes Head and Scalp: normocephalic Eyes EOMs intact bilaterally and conjunctivae normal Neck no lymphadenopathy, supple and no JVD Resp Resp Narrative: diminished breath sounds bibasally, no wheezes or crackles. On 4L of oxygen by nasal canula. Effort and Inspection: tachypneic and labored Auscultation: diminished lung sounds Cardio regular rate, regular rhythm, no murmurs and no JVD GI normal to inspection, nondistended, normoactive bowel sounds, soft to palpation and non-tender Extremity normal to inspection, full ROM and no clubbing, cyanosis or edema Skin no rashes or lesions noted, no wounds, skin turgor normal and no jaundice Neuro CN's II-XII intact bilaterally Psych affect normal Plan is to titrate oxygen to maintain sats >90%. Breathing treatment with bronchodilators. He has been managed for acute hypoxic respiratory failure due to COPD exacerbation. Does not seem to be very compliant with his oxygen. WBC is also elevated and this is thought to be due to steroids. Rapid Covid test was negative. Respiratory panel was also negative. Continue IV Solu-Medrol 40 mg every 8 hours as needed. Initial troponin was elevated, at 115. It wasnt cycled on admission. Troponins rechecked today trended up to a peak of 130. Will order a 2D echo to assess his cardiac function as he is not having any chest pain whatsoever. CXR did show new patchy infiltrate in the right lower lobe, though CTA of the chest showed small right pleural effusion with right basilar atelectasis and no evidence of PE. Tachypneic and his degree of desaturation down to the 70s on room air is very concerning and does not really convince me of only COPD exacerbation being the only problem here. Will check a BNP. Troponins may only have been elevated as a result of demand ischemia from hypoxia also. Will DC p.o. prednisone and start patient on IV Solu-Medrol 40 mg every 8hrs. Will start patient on IV levofloxacin. General surgery was also consulted on account of concerns for gallbladder problems. Gallbladder ultrasound showed gallbladder which which was 2 mm thick and was thought that the pericholecystic fluid was likely due to fluid in the abdomen. General surgery was therefore signed off. SCDs for DVT prophylaxis. Continue psych medications for patient's schizophrenia. Rest as per Flavio Ramirez PA-C's note, which I have reviewed. Visit Charges Inpatient E&M: 32980 [facility] Hosp L3
--- NOTE | 2020-11-05 14:21 | ECHOD_ITS ---
Reason For Study: DYSPNEA/SOB Procedure This was a 2D Doppler, Color Flow transthoracic echocardiogram. Exam performed portable in patient room. Left Ventricle Normal LV size. D shaped septum in diastole. Left ventricular systolic function is normal. The estimated ejection fraction is 55 %. Stage 1 diastolic dysfunction. No regional wall motion abnormalities noted. Right Ventricle Mildly dilated right ventricle. Mild global right ventricular systolic dysfunction. Atria Normal left atrium. The right atrium is moderately enlarged. Tricuspid Valve Normal tricuspid valve. Mild (1+) tricuspid valve insufficiency. Pulmonary artery systolic pressure is 36 mmHg. Aortic Valve Normal aortic valve. Trisinus/trileaflet aortic valve. Pulmonic Valve Normal pulmonic valve. Great Vessels Normal aortic root. The pulmonary artery is normal size. Normal inferior vena cava. Pericardium/Pleural No pericardial effusion. MMode/2D Measurements & Calculations LVIDd: 4.6 cm IVSd: 1.1 cm Ao root diam: 2.9 cm LVIDs: 3.0 cm LVPWd: 0.91 cm LA dimension: 3.4 cm RVDd: 4.3 cm FS: 34.7 % LAV(MOD-bp): 55.3 ml LA A4 area: 16.3 cm2 LAV(MOD-bp) Indexed: 31.1 ml/m2 LAV(MOD-sp2): 72.7 ml LAV(MOD-sp4): 42.2 ml Time Measurements MV dec time: 0.21 sec Doppler Measurements & Calculations MV E max jagdeep: 62.9 cm/sec Lat Peak E' Jagdeep: 12.4 cm/sec Med Peak E' Jagdeep: 9.4 cm/sec MV A max jagdeep: 86.2 cm/sec E/E' lat: 5.1 E/E' med: 6.7 MV E/A: 0.73 Ao V2 max: 93.0 cm/sec LV V1 max: 70.8 cm/sec PA V2 max: 77.6 cm/sec Ao max P.5 mmHg LV V1 max P.0 mmHg TR max jagdeep: 276.1 cm/sec TR max P.5 mmHg ECHO/Echo Complete Interpretation Summary Normal LV size. Left ventricular systolic function is normal. The estimated ejection fraction is 55 %. Stage 1 diastolic dysfunction. Mildly dilated right ventricle. Mild global right ventricular systolic dysfunction. D shaped septum in diastole. Ordering Physician: Faina Nails Referring Physician: Daquan Pritchett Performed By: Pastora Veloz RDCS, RVT
[2020-11-05 15:05] LABS: Troponin-I HS 157 pg/mL (3.0-78.0)
[2020-11-05 15:17] LABS: BNP,B-Type NATRIURETIC PEPTIDE 966.8 pg/mL (0-100)
[2020-11-05 15:55] VITALS: BP 135/69; PULSE 94; RESP 18; TEMP 36.4; O2SAT 94
--- NOTE | 2020-11-05 18:29 | CPS ---
Gave patient med with neb of which he threw and refused. He wanted cookies instead of medication.
--- NOTE | 2020-11-05 19:59 | PCM.HOSP.N ---
Hospitalist Note Patient continuing to refuse IV placement at this time. Due to patient refusal and continued agitation and confrontational behavior toward staff will discontinue IV Solu-Medrol at this time and transition to prednisone 40 mg daily p.o. we will also transition patient from IV Levaquin to p.o. Levaquin daily. Patient received 1 dose Solu-Medrol 11/04/2020 at 10 PM and received 1 p.o. dose of prednisone morning of 11/05/2020. Discussed plan with Dr. Connelly who is agreeable to plan of care.
[2020-11-05] MEDS: levoFLOXacin 750 MG Tablet PO (21:05)
[2020-11-05 21:15] VITALS: BP 134/78; PULSE 88; RESP 18; TEMP 36.8; O2SAT 93
[2020-11-05] MEDS: Acetaminophen 325 MG Tablet 650 MG PO (21:15)
[2020-11-06 05:45] LABS: Absolute Neutrophil Count 9.4 X10^3/uL (2.0-7.7); Basophil# 0.01 X10^3/uL; Basophil% 0.1 % (0-1); Eosinophil# 0.03 X10^3/uL; Eosinophils% 0.3 % (0-5); Hematocrit 42.8 % (40-54); Hemoglobin 13.2 g/dL (13.0-16.5); Lymphocyte % 8.7 % (19-41); Mean Corp Hgb Conc 30.8 g/dL (32-36); Mean Corpuscular Hgb 29.7 pg (27.0-32.0); Mean Corpuscular Volume 96.2 fL (80-94); Mean Platelet Vol. 8.5 fl (6.2-12.0); Monocyte# 1.07 X10^3/uL; Monocyte% 9.3 % (0-10); NRBC Flagged by Analyzer 0.2 % (0-5); Neutrophil # 9.41 X10^3/uL (2.7-7.7); Neutrophil % 81.3 % (47-70); Platelet Count 265 K/mm3 (150-450); RBC Distribution Width CV 15.3 % (11.6-14.6); RBC Distribution Width SD 54.4 fl (35.1-43.9); Red Blood Count 4.45 M/mm3 (4.6-6.2); White Blood Count 11.6 K/mm3 (4.4-11.0)
[2020-11-06 06:28] LABS: Anion Gap 1 (5-15); BUN 21 mg/dL (7-18); BUN/Creat Ratio 43.1 RATIO (10-20); Calcium,Total 8.1 mg/dL (8.5-10.1); Chloride 89 mmol/L (98-107); Creatinine, Serum 0.49 mg/dL (0.70-1.30); EST Glomerular Filtration Rate 184 mL/min (>60); Est Glom Filt Rate - Afr Amer 223 mL/min (>60); Estimated Creatinine Clearance 144.37 ml/min; Glucose 107 mg/dL (74-106); Potassium 5.8 mmol/L (3.5-5.1); Sodium Level 124 mmol/L (136-145)
[2020-11-06 07:12] VITALS: PULSE 98; RESP 20; O2SAT 96
[2020-11-06] MEDS: Ipratropium/Albuterol Sulfate 3 ML AMPUL.NEB INHALATION (07:12)
--- NOTE | 2020-11-06 07:42 | NURSING ---
Pt ordering breakfast during shift report rounds. Pt had self removed O2. Pt absolutely refuses to allow O2 to be reapplied. Will continue to monitor.
[2020-11-06 08:00] VITALS: BP 129/68; PULSE 77; RESP 18; TEMP 36.6; O2SAT 94
--- NOTE | 2020-11-06 09:04 | CASEMGMT ---
GOGO received a message from Macey with [facility] inquiring about patient and O2. GOGO called her back and left her a voice mail letting her know that patient is now on 6L and will likely not be discharged. Dayana COUGHLIN
[2020-11-06] MEDS: levoFLOXacin 750 MG Tablet PO (10:36)
[2020-11-06 10:37] VITALS: BP 129/68; PULSE 77
[2020-11-06] MEDS: Sodium Polystyrene Sulfonate 15 GM/60 ML UDC 30 GM PO (10:37)
[2020-11-06] MEDS: predniSONE 20 MG Tablet 40 MG PO (10:37)
[2020-11-06] MEDS: Metoprolol Tartrate 25 MG Tablet PO (10:37)
[2020-11-06] MEDS: Benztropine 2 MG Tablet 1 MG PO (10:37)
[2020-11-06] MEDS: Furosemide 40 MG Tablet PO ×2 (10:37→17:32)
--- NOTE | 2020-11-06 13:26 | PN.HOSP_ITS ---
Documented by User: Yanet Diggs NP, ATOMIC PHYSICS PROFESSOR-C 11/06/20 13:57 Subjective Subjective Patient seen and examined. Reported agitation and confrontational behavior overnight. Refusing IV. Denies chest pain. Reports improvement in breathing. Denies other complaints Objective Data Objective Data Vital Signs: Vital Signs Temp Pulse Resp BP Pulse Ox 97.8 F 77 18 129/68 H 94 11/06/20 08:00 11/06/20 10:37 11/06/20 08:00 11/06/20 10:37 11/06/20 08:00 Oxygen Flow Rate (L/min) 6 Oxygen Delivery Method Nasal Cannula Weight: 143 lb 15.39 oz Body Mass Index (BMI) 21.3 Intake & Output: Intake and Output for Last 24 Hours 11/04/20 11/05/20 11/06/20 23:59 23:59 23:59 Intake Total 3305 / 3365 420 / 660 880 / 880 Output Total 0 / 0 Balance 3305 / 3365 420 / 660 880 / 880 Lab / Micro Data Result Diagrams: 11/06/20 05:35 11/06/20 05:35 Labs: Laboratory Results - last 24 hr 11/05/20 08:00: B-Natriuretic Peptide 966.8 H 11/05/20 13:30: Troponin I High Sens Cancelled 11/05/20 14:34: Troponin I High Sens 157 H* 11/06/20 05:35: WBC 11.6 H, RBC 4.45 L, Hgb 13.2, Hct 42.8, MCV 96.2 H, MCH 29.7, MCHC 30.8 L, RDW Std Deviation 54.4 H, RDW Coeff of John 15.3 H, Plt Count 265, MPV 8.5, Immature Gran % (Auto) 0.300, Neut % (Auto) 81.3 H, Lymph % (Auto) 8.7 L, [place] % (Auto) 9.3, Eos % (Auto) 0.3, Baso % (Auto) 0.1, Absolute Neuts (auto) 9.4 H, Absolute Lymphs (auto) 1.00, Nucleated RBC % 0.2 11/06/20 05:35: Sodium 124 L, Potassium 5.8 H, Chloride 89 L, Carbon Dioxide 34.0 H, Anion Gap 1 L, BUN 21 H, Creatinine 0.49 L, Estim Creat Clear Calc 144.37, Est GFR (MDRD) Af Amer 223, Est GFR (MDRD) Non-Af 184, BUN/Creatinine Ratio 43.1 H, Glucose 107 H, Calcium 8.1 L Micro: Microbiology 11/04/20 17:25 Mucosa - Nasopharyngeal Respiratory Panel (PCR) - Final 11/04/20 10:50 Mucosa - Nose SARS-CoV-2 Antigen (Rapid) - Final Radiography Diagnostic Testing: Radiology Impression Echocardiogram 11/05/20 14:21 Interpretation Summary Normal LV size. Left ventricular systolic function is normal. The estimated ejection fraction is 55 %. Stage 1 diastolic dysfunction. Mildly dilated right ventricle. Mild global right ventricular systolic dysfunction. D shaped septum in diastole. Ordering Physician: Faina Nails Referring Physician: Daquan Pritchett Performed By: Pastora Veloz RDCS, RVT Physical Exam Const alert, oriented x3 and no apparent distress Orientation / Consciousness: awake, oriented to person, oriented to place and oriented to time HEENT normocephalic and moist oral mucous membranes Eyes PERRL, EOMs intact bilaterally and conjunctivae normal Neck no lymphadenopathy Resp clear to auscultation bilaterally Auscultation: diminished lung sounds Cardio regular rate, regular rhythm and no murmurs Peripheral Pulses: pulses 2+ throughout GI normal to inspection, nondistended, normoactive bowel sounds, non-tender and non-distended Extremity normal to inspection Skin no rashes or lesions noted Lesions: no lesions Rashes: no rashes Trauma: no lacerations or abrasions Neuro CN's II-XII intact bilaterally, no focal motor deficits, no sensory deficits noted and deep tendon reflexes 2+ bilaterally Psych Psych Narrative: Intermittent agitation Attitude: uncooperative Assessment & Plan Assessment/Plan (1) Acute hypoxemic respiratory failure: PLAN: 1. Acute hypoxic respiratory failure, multifactorial secondary to COPD exacerbation and acute heart failure with preserved ejection fraction-chest CTA with small right pleural effusion, no PE. Respiratory panel and Covid negative. Continue supplemental oxygen to maintain O2 at or above 90%. Ambu latory pulse ox prior to discharge. 2. COPD exacerbation-transition to prednisone given no IV access. Albuterol and DuoNeb aerosols. On Levaquin empirically. 3. Acute heart failure with preserved ejection fraction-BNP 966. Chest CT with small right pleural effusion. Echocardiogram completed and demonstrates an EF of 55%, stage I diastolic dysfunction, mildly dilated right ventricle, mild g lobal right ventricular systolic dysfunction. Oral Lasix 40 mg twice daily given patient refusing IV. Strict I&O. Daily weight. 4. Abnormal troponin-suspect demand ischemia related to #1/#2. Appears troponin levels have been elevated in the past as well June 2019. High sensitive troponin mildly elevated, did trend upward mildly as well. Denies chest pain. Cardiology consulted for further input. Will place on aspirin. 5. Paranoid schizophrenia-complicates care. Patient refusing IV. Uncooperative and intermittently agitated. On fluphenazine. Resides in retirement and follows at counseling center. SW involved. Patient will not be able to return to retirement on supplemental oxygen. 6. Hypertension-stable, continue metoprolol. Lisinopril on hold. 7. Chronic hyponatremia- trend BMP. 8. Tobacco dependence/marijuana abuse-encouraged cessation. DVT prophylaxis-Lovenox subcu This patient was seen by DANIELLE Gillette under the supervision of Dr. Nails. Documented by User: Dr. Faina Nails MD 11/06/20 15:50 Objective Data Lab / Micro Data Result Diagrams: 11/06/20 05:35 11/06/20 05:35 Charges/Coding Addendum Addendum: Patient seen by Yanet Dontae ATOMIC PHYSICS PROFESSOR-C under my supervision Patient seen and examined. He was drowsy and not really responding to questions. He was agitated and confrontational overnight. He is now on 6L of oxygen by nasal canula. O/E: Const alert, drowsy Orientation / Consciousness: awake, oriented to person, oriented to place and oriented to time HEENT normocephalic and moist oral mucous membranes Eyes PERRL, EOMs intact bilaterally and conjunctivae normal Neck no lymphadenopathy Resp clear to auscultation bilaterally Auscultation: diminished lung sounds Cardio regular rate, regular rhythm and no murmurs Peripheral Pulses: pulses 2+ throughout GI normal to inspection, nondistended, normoactive bowel sounds, non-tender and non-distended Extremity normal to inspection Skin no rashes or lesions noted Lesions: no lesions Rashes: no rashes Trauma: no lacerations or abrasions Neuro CN's II-XII intact bilaterally, no focal motor deficits, no sensory deficits noted and deep tendon reflexes 2+ bilaterally Psych Psych Narrative: drowsy. Patient's troponin trended upwards, and BNP was also elevated at >900. Will therefore start on diuresis with IV lasix. Cardiology consulted due to elevated high sensitivity troponins. He is being managed for acute hypoxic respiratory failure due to COPD exacerbation and acute on chronic HFpEF as well as nonstemi. On aspirin. Cardiology consulted; await rec's. 2D echo shows EF of 55%, with stage 1 diastolic dysfunction, mildly dilated RV and mild global RV systolic dysfunction. Patient refusing IV meds, so now on oral prednisone and oral lasix. Lisinopril held today o/a of hyperkalemia of 5.8. WIll give sodium kayexalate. Continue on metoprolol. Patient's care being complicated by his being uncooperative and gets agitated intermittently. On lovenox for DVT prophylaxis. Rest as per Yanet HAWKC's note, which I have reviewed and endorsed. Visit Charges Inpatient E&M: 78407 Subs Hosp L3
[2020-11-06 14:00] VITALS: BP 133/77; PULSE 88; RESP 18; TEMP 36.9; O2SAT 94
--- NOTE | 2020-11-06 14:39 | CHAPLAIN ---
Type of Pastoral Visit ___ Initial Visit ___ Follow-up Visit ___ On-call Visit ___ General Patient Visit ___ Spiritual Assessment ___ Family Conference ___ Bereavement ___ Rapid Response ___ Code Blue x Other (describe below) Pastoral Care Referral From ___ Patient ___ Family ___ Nurse ___ Physician ___ Carpenter Helper Maintenance ___ Neurocritical Care Physician ___ Other (describe below) Sacrament/Intervention ___ Active listening ___ Anointing ___ Congregation ___ Bereavement ___ Communion ___ Abbie exploration ___ ___ Life review ___ Prayer ___ Reconciliation ___ Sacrament of Sick ___ Supportive presence ___ Wedding ___ Other (describe below) Pastoral Comments patient was sleeping so he was not disturbed at this time
--- NOTE | 2020-11-06 18:28 | CON.PCM.CA_ITS ---
Assessment & Plan Assessment/Plan (1) CHF (congestive heart failure), NYHA class II: PLAN: Patient presents with shortness of breath and is noted to have an echocardiogram demonstrating preserved left ventricular systolic function estimated EF of 55% and mildly dilated right ventricle with mild right ventricular dysfunction. * Would pursue diuresis with intravenous Lasix and subsequently oral Lasix. * (2) HTN (hypertension): PLAN: His blood pressure appears to be under better control at this time. Would recommend continue with the EKTA inhibitor and adding a beta-bob and titrating upwards as appropriate. * His ejection fraction appears to be stable and at this time I would not make any other changes. (3) Troponin level elevated: PLAN: He does have an elevated troponin level which I suspect at this time is secondary to demand ischemia. I will recommend continue with aspirin and risk factor modification. The level appears to be flat and chronically elevated and I would not recommend pursuing an invasive or interventional approach at this time. Thank you most kindly for this consultation. HPI Consult Data Date of Consult: 11/06/20 HPI Narrative HPI Narrative: LYLY CALVIN, is a 60 M who to the emergency room on 11/04/2020 with a chief complaint of shortness of breath as well as abdominal discomfort. Patient has a history of schizophrenia and is not able to provide a very adequate history. He however says that this has been going on for at least a week. He also complained of bilateral leg discomfort. It is not clear whether he has been compliant with all his medications. In the emergency room he was evaluated with a CT which demonstrated a small amount of gallbladder wall thickening pericolic fluid as well as patchy infiltrates in the right lower l obe. The patient was admitted and treated with intravenous antibiotics as well as bronchodilators. Cardiac enzymes were obtained which were noted to be mildly elevated as well as a natruretic peptide level which was also noted to be elevated. Cardiology was called for further evaluation and management. [facility] Medical History (Updated 11/06/20 @ 18:[address] Aman Self MD) Abdominal pain Cocaine abuse COPD (chronic obstructive pulmonary disease) HTN (hypertension) Paranoid schizophrenia Smoker Substance abuse Home Medications lisinopril 10 mg PO DAILY #30 tab 06/29/19 [Rx Last Taken 08/27/20] fluphenazine HCl 10 mg PO DAILY 10/03/19 [History Last Taken 08/27/20] benztropine 1 mg PO DAILY 08/22/20 [History Last Taken 08/27/20] metoprolol tartrate 25 mg PO DAILY 08/22/20 [History Last Taken 08/27/20] Allergy/AdvReac Type Severity Reaction Status Date / Time haloperidol lactate Allergy Anaphylaxis Verified 11/04/20 09:41 [From Haldol] doxycycline AdvReac Unknown Other Verified 11/04/20 09:40 antihistamines AdvReac Rash Uncoded 11/04/20 09:40 Family History Father Heart disease Surgical History History of appendectomy Social History Smoking Status: Current every day smoker tobacco type: cigarettes ROS Constitutional Constitutional: Denies fever(s) or weight loss Eyes Eyes: Reports systems reviewed and no addt'l complaints, except as documented ENT HEENT: Reports systems reviewed and no addt'l complaints, except as documented Cardiovascular Cardiovascular: Denies chest pain at rest, chest pain with activity, dyspnea at rest, dyspnea on exertion, edema, palpitations or paroxysmal nocturnal dyspnea Respiratory/Chest Respiratory/Chest: Denies dyspnea on exertion, productive cough, shortness of breath at rest or shortness of breath with exertion Gastrointestinal Gastrointestinal: Denies change in bowel habits, nausea, vomiting or weight changes Genitourinary Genitourinary: Denies difficulty urinating Musculoskeletal Musculoskeletal: Denies joint stiffness or muscle weakness Integumentary Integumentary: Denies lesions Neurologic Neurologic: Denies dizziness or syncope Psychiatric Psychiatric: Denies anxiety Endocrine Endocrinology: Denies excessive sweating or fatigue Hematologic/Lymphatic Hematologic/Lymphatic: Denies anemia Allergic/Immunologic Allergic/Immunologic: Denies seasonal rhinorrhea Physical Exam Const alert and oriented x3 HEENT normocephalic Neck no lymphadenopathy Lymph Lymphatic: lymphadenopathy Chest inspection of chest normal Resp clear to auscultation bilaterally Cardio regular rhythm Rate: regular rate Rhythm: regular rhythm Heart Sounds: S1 normal and S2 normal GI normal to inspection, nondistended, normoactive bowel sounds Neuro CN's II-XII intact bilaterally Objective Data Vital Signs: Vital Signs Temp Pulse Resp BP Pulse Ox 98.4 F 88 18 133/77 H 94 11/06/20 14:00 11/06/20 14:00 11/06/20 14:00 11/06/20 14:00 11/06/20 14:00 Oxygen Flow Rate (L/min) 6 Oxygen Delivery Method Nasal Cannula Weight: 143 lb 15.39 oz Body Mass Index (BMI) 21.3 Intake & Output: Intake and Output for Last 24 Hours 11/04/20 11/05/20 11/06/20 23:59 23:59 23:59 Intake Total 3305 / 3365 420 / 660 1120 / 1120 Output Total 0 / 0 Balance 3305 / 3365 420 / 660 1120 / 1120 Lab / Micro Data Result Diagrams: 11/06/20 05:35 11/06/20 05:35 Labs: Laboratory Results - last 24 hr 11/06/20 05:35: WBC 11.6 H, RBC 4.45 L, Hgb 13.2, Hct 42.8, MCV 96.2 H, MCH 29.7, MCHC 30.8 L, RDW Std Deviation 54.4 H, RDW Coeff of John 15.3 H, Plt Count 265, MPV 8.5, Immature Gran % (Auto) 0.300, Neut % (Auto) 81.3 H, Lymph % (Auto) 8.7 L, Dent % (Auto) 9.3, Eos % (Auto) 0.3, Baso % (Auto) 0.1, Absolute Neuts (auto) 9.4 H, Absolute Lymphs (auto) 1.00, Nucleated RBC % 0.2 11/06/20 05:35: Sodium 124 L, Potassium 5.8 H, Chloride 89 L, Carbon Dioxide 34.0 H, Anion Gap 1 L, BUN 21 H, Creatinine 0.49 L, Estim Creat Clear Calc 144.37, Est GFR (MDRD) Af Amer 223, Est GFR (MDRD) Non-Af 184, BUN/Creatinine Ratio 43.1 H, Glucose 107 H, Calcium 8.1 L Micro: Microbiology 11/04/20 09:35 Blood Culture (Wb) - Anticubital Left Blood Culture - Preliminary No growth in 48 hours. 11/04/20 11:05 Blood Culture (Wb) - Anticubital Left Blood Culture - Preliminary No growth in 48 hours. Cardiology Labs/Tests 11/06/20 05:35: WBC 11.6 H, RBC 4.45 L, Hgb 13.2, Hct 42.8, MCV 96.2 H, MCH 29.7, MCHC 30.8 L, Plt Count 265, MPV 8.5, Immature Gran % (Auto) 0.300, Neut % (Auto) 81.3 H, Lymph % (Auto) 8.7 L, Dent % (Auto) 9.3, Eos % (Auto) 0.3, Baso % (Auto) 0.1, Absolute Neuts (auto) 9.4 H, Nucleated RBC % 0.2 11/06/20 05:35: Sodium 124 L, Potassium 5.8 H, Chloride 89 L, Carbon Dioxide 34.0 H, Anion Gap 1 L, BUN 21 H, Creatinine 0.49 L, Est GFR (MDRD) Af Amer 223, Est GFR (MDRD) Non-Af 184, BUN/Creatinine Ratio 43.1 H, Glucose 107 H, Calcium 8.1 L Rhythm: EKG: ECHO: Stress Test: Cardiac Cath: PCI: CT Surgery: Holter monitor: EPS: PPM: CXR: Chest CT Scan:
[2020-11-06 20:00] VITALS: BP 116/70; PULSE 92; RESP 18; TEMP 36.6; O2SAT 55
--- NOTE | 2020-11-06 20:08 | NURSING ---
This nurse explained to patient on the importance of wearing oxygen and states, I want to sleep for 2 hours I don't want oxygen on leave me alone. VS Bp 116/70, RR-18, Temp 97.8 Temporal, Spo2 55% RA. Patient refusing to let this nurse apply oxygen.
--- NOTE | 2020-11-06 21:58 | NURSING ---
Patient is refusing to allow this nurse to apply oxygen or complete a assessment on him. Educated on the importance of wear oxygen and patient stated, I want to just sleep tell 8 am and leave me alone.
[2020-11-06 22:01] VITALS: BP 142/81; PULSE 92; RESP 20; TEMP 36.9; O2SAT 94
[2020-11-07] VITALS (9 sets, daily range): BP systolic 120–151; BP diastolic 70–89; PULSE 78–103; RESP 18–22; TEMP 35.8–36.8; O2SAT 92–95
--- NOTE | 2020-11-07 04:30 | NURSING ---
Pt allowed this nurse to apply oxygen 6L NC SpO2 at 94% at this time. Assessment completed on at this time. Call light within reach.
[2020-11-07] MEDS: Enoxaparin 40 MG/0.4 ML Syringe SC (06:47)
[2020-11-07 06:48] LABS: Absolute Lymphocyte Count 1.18 X10^3/uL (0.83-4.51); Absolute Neutrophil Count 8.2 X10^3/uL (2.0-7.7); Basophil# 0.01 X10^3/uL; Basophil% 0.1 % (0-1); Eosinophil# 0.04 X10^3/uL; Eosinophils% 0.4 % (0-5); Hematocrit 44.3 % (40-54); Hemoglobin 13.4 g/dL (13.0-16.5); Lymphocyte # 1.18 X10^3/ul (0.83-4.51); Lymphocyte % 11.3 % (19-41); Mean Corp Hgb Conc 30.2 g/dL (32-36); Mean Corpuscular Hgb 29.4 pg (27.0-32.0); Mean Corpuscular Volume 97.1 fL (80-94); Mean Platelet Vol. 8.4 fl (6.2-12.0); Monocyte# 0.95 X10^3/uL; Monocyte% 9.1 % (0-10); NRBC Flagged by Analyzer 0 % (0-5); Neutrophil # 8.21 X10^3/uL (2.7-7.7); Neutrophil % 78.8 % (47-70); Platelet Count 222 K/mm3 (150-450); RBC Distribution Width CV 15.1 % (11.6-14.6); RBC Distribution Width SD 54.3 fl (35.1-43.9); Red Blood Count 4.56 M/mm3 (4.6-6.2); White Blood Count 10.4 K/mm3 (4.4-11.0)
[2020-11-07 07:15] LABS: Anion Gap 3 (5-15); BUN 13 mg/dL (7-18); BUN/Creat Ratio 25.3 RATIO (10-20); Chloride 86 mmol/L (98-107); Creatinine, Serum 0.51 mg/dL (0.70-1.30); EST Glomerular Filtration Rate 173 mL/min (>60); Est Glom Filt Rate - Afr Amer 210 mL/min (>60); Estimated Creatinine Clearance 138.71 ml/min; Glucose 129 mg/dL (74-106); Potassium 4.3 mmol/L (3.5-5.1); Sodium Level 127 mmol/L (136-145)
--- NOTE | 2020-11-07 09:29 | CASEMGMT ---
Addendum entered by Dayana Green 11/07/20 14:56: Macey did tell SW patient does not qualify for Medicaid. SW did talk with physician and she does not feel patient is competent to make decisions. She will try and review papers and fill them out. Dayana COUGHLIN Original Note: GOGO called Macey with [facility] and updated her on patient. She said she thinks he is at his baseline. He has a history of refusing things and fighting care. GOGO then received a call from Lobito Donohue with [facility]. 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 He said the same thing as Macey about patient's baseline. SW told him physician does not think he is capable of making his own decisions. He asked if we could send him to a detention. GOGO told him we cannot without permission and we do not feel he is capable of making his own decisions. GOGO said he needs a guardian. He asked if SW can do this. GOGO told him it is possible if the physician will complete the Statement of Expert Eval. Dayana COUGHLIN
[2020-11-07] MEDS: predniSONE 20 MG Tablet 40 MG PO (09:55)
[2020-11-07] MEDS: Benztropine 2 MG Tablet 1 MG PO (09:55)
[2020-11-07] MEDS: Metoprolol Tartrate 25 MG Tablet PO (09:56)
[2020-11-07] MEDS: Aspirin E.C. 81 MG Tablet PO (09:56)
[2020-11-07] MEDS: Furosemide 40 MG Tablet PO ×2 (09:56→17:11)
[2020-11-07] MEDS: levoFLOXacin 750 MG Tablet PO (09:56)
--- NOTE | 2020-11-07 12:32 | PN.HOSP_ITS ---
Documented by User: Yanet Diggs NP, [employer] 11/07/20 12:39 Subjective Subjective Patient seen and examined. Resting in bed. Later notified by nursing that patient ambulating in hallway without oxygen and found to be significantly hypoxic. Patient was able to be redirected back to room and oxygen placed back on patient. Currently cooperative in room. Objective Data Objective Data Vital Signs: Vital Signs Temp Pulse Resp BP Pulse Ox 97.0 F L 90 20 H 151/74 H 94 11/07/20 09:53 11/07/20 09:56 11/07/20 09:53 11/07/20 09:53 11/07/20 09:53 Oxygen Flow Rate (L/min) 6 Oxygen Delivery Method Nasal Cannula Weight: 143 lb 15.39 oz Body Mass Index (BMI) 21.3 Intake & Output: Intake and Output for Last 24 Hours 11/05/20 11/06/20 11/07/20 23:59 23:59 23:59 Intake Total 420 / 660 1120 / 1120 120 / 120 Output Total 0 / 0 Balance 420 / 660 1120 / 1120 120 / 120 Lab / Micro Data Result Diagrams: 11/07/20 06:27 11/07/20 06:27 Labs: Laboratory Results - last 24 hr 11/07/20 06:27: WBC 10.4, RBC 4.56 L, Hgb 13.4, Hct 44.3, MCV 97.1 H, MCH 29.4, MCHC 30.2 L, RDW Std Deviation 54.3 H, RDW Coeff of John 15.1 H, Plt Count 222, MPV 8.4, Immature Gran % (Auto) 0.300, Neut % (Auto) 78.8 H, Lymph % (Auto) 11.3 L, Gosper % (Auto) 9.1, Eos % (Auto) 0.4, Baso % (Auto) 0.1, Absolute Neuts (auto) 8.2 H, Absolute Lymphs (auto) 1.18, Nucleated RBC % 0 11/07/20 06:27: Sodium 127 L, Potassium 4.3, Chloride 86 L, Carbon Dioxide 38.0 H, Anion Gap 3 L, BUN 13, Creatinine 0.51 L, Estim Creat Clear Calc 138.71, Est GFR (MDRD) Af Amer 210, Est GFR (MDRD) Non-Af 173, BUN/Creatinine Ratio 25.3 H, Glucose 129 H, Calcium 8.0 L Micro: Microbiology 11/04/20 09:35 Blood Culture (Wb) - Anticubital Left Blood Culture - Preliminary No growth in 48 hours. 11/04/20 11:05 Blood Culture (Wb) - Anticubital Left Blood Culture - Preliminary No growth in 48 hours. 11/04/20 17:25 Mucosa - Nasopharyngeal Respiratory Panel (PCR) - Final 11/04/20 10:50 Mucosa - Nose SARS-CoV-2 Antigen (Rapid) - Final Physical Exam Const no apparent distress HEENT normocephalic and moist oral mucous membranes Eyes PERRL, EOMs intact bilaterally and conjunctivae normal Neck no lymphadenopathy Resp clear to auscultation bilaterally Auscultation: diminished lung sounds Cardio regular rate, regular rhythm and no murmurs Peripheral Pulses: pulses 2+ throughout GI normal to inspection, nondistended, normoactive bowel sounds, non-tender and non-distended Extremity normal to inspection Skin no rashes or lesions noted Lesions: no lesions Rashes: no rashes Trauma: no lacerations or abrasions Neuro CN's II-XII intact bilaterally, no focal motor deficits, no sensory deficits noted and deep tendon reflexes 2+ bilaterally Psych Psych Narrative: Impulsive, intermittently uncooperative Assessment & Plan Assessment/Plan (1) Acute hypoxemic respiratory failure: PLAN: 1. Acute hypoxic respiratory failure, multifactorial secondary to COPD exacerbation and acute heart failure with preserved ejection fraction-chest CTA with small right pleural effusion, no PE. Respiratory panel and Covid negative. Continue supplemental oxygen to maintain O2 at or above 90%. Ambulatory pulse ox prior to discharge. 2. COPD exacerbation-transition to prednisone given no IV access. Albuterol and DuoNeb aerosols. On Levaquin empirically. 3. Acute heart failure with preserved ejection fraction-BNP 966. Chest CT with small right pleural effusion. Echocardiogram completed and demonstrates an EF of 55%, stage I diastolic dysfunction, mildly dilated right ventricle, mild global right ventricular systolic dysfunction. Oral Lasix 40 mg twice daily given patient refusing IV. Strict I&O. Daily weight. 4. Abnormal troponin-suspect demand ischemia related to #1/#2. Appears troponin levels have been elevated in the past as well June 2019. High se nsitive troponin mildly elevated, did trend upward mildly as well. Denies chest pain. Cardiology consulted for further input. Continue aspirin, EKTA inhibitor, beta-bob. 5. Paranoid schizophrenia-complicates care. Patient refusing IV. Uncooperative and intermittently agitated. On fluphenazine. Resides in [facility] and follows at counseling center. SW involved. Patient will not be able to return to [facility] on supplemental oxygen. 6. Hypertension-stable, continue metoprolol, lisinopril. 7. Chronic hyponatremia- trend BMP. 8. Tobacco dependence/marijuana abuse-encouraged cessation. DVT prophylaxis-Lovenox subcu Discharge plan: Awaiting facility placement. This patient was seen by DANIELLE Gillette under the supervision of Dr. Nails. Documented by User: Dr. Faina Nails MD 11/07/20 17:40 Objective Data Lab / Micro Data Result Diagrams: 11/07/20 06:27 11/07/20 06:27 Charges/Coding Addendum Addendum: Patient seen by Yanet SANTOS under my supervision Patient seen and examined. He had no active complaints, and review of systems was otherwise negative. O/E: Const alert, oriented x3 and no apparent distress Orientation / Consciousness: awake, oriented to person, oriented to place and oriented to time HEENT normocephalic and moist oral mucous membranes Eyes PERRL, EOMs intact bilaterally and conjunctivae normal Neck no lymphadenopathy Resp clear to auscultation bilaterally Auscultation: diminished lung sounds Cardio regular rate, regular rhythm and no murmurs Peripheral Pulses: pulses 2+ throughout GI normal to inspection, nondistended, normoactive bowel sounds, non-tender and non-distended Extremity normal to inspection Skin no rashes or lesions noted Lesions: no lesions Rashes: no rashes Trauma: no lacerations or abrasions Neuro CN's II-XII intact bilaterally, no focal motor deficits, no sensory deficits noted and deep tendon reflexes 2+ bilaterally Psych Psych Narrative: flat affect Patient is being managed for acute hypoxic respiratory failure due to COPD exacerbation, and acute heart failure with preserved EF. Patient doesnt keep his oxygen on, and desaturates when he takes the oxygen off. On oral lasix; he is refusing keeping his IV in place. Troponins trended up, so cardiology was consulted, and thinks this was due to demand ischemia. On aspirin. On lisinopril and metoprolol. Also on levaquin for COPD exacerbation. On lovenox for DVT prophylaxis. Rest as per Yanet Diggs [employer]'s note, which I have reviewed and endorsed. Visit Charges Inpatient E&M: 25560 Subs Hosp L2
--- NOTE | 2020-11-07 14:59 | CASEMGMT ---
Plan: Physician feels patient is not capable of making decisions at this time. Patient is not able to return to the [facility] on O2. SW cannot send patient to a correction as he cannot make decisions. Therefore he will need a guardian unless he clears up. Physician will need to complete Statement of Expert Evaluation papers. This will then get sent to the court. We will also need to find someone willing to be his guardian. He does have an litigation attorney associate that is his payee so he will be contacted to see if he is willing to be patient's guardian. Dayana COUGHLIN
--- NOTE | 2020-11-07 15:21 | NURSING ---
Pt has continously taken off his oxygen and gets agitated at times when you remind him to put it back on. This nurse in room with pt at this time and spo2 41% on RA. Audible wheezes noted. reapplied oxygen (tubing was on the floor) at 6L NC.
[2020-11-07] MEDS: QUEtiapine 25 MG Tablet PO ×2 (15:27→22:15)
[2020-11-07] MEDS: Ipratropium/Albuterol Sulfate 3 ML AMPUL.NEB INHALATION (17:22)
[2020-11-08] VITALS (10 sets, daily range): BP systolic 109–142; BP diastolic 60–86; PULSE 77–99; RESP 16–24; TEMP 36.2–36.7; O2SAT 90–95
--- NOTE | 2020-11-08 00:48 | NURSING ---
Pt has continously taken off his oxygen and was agitated at first but has allowed me to put back on and remind him that he needs to wear oxygen. This nures in room with pt at this time SpO2 55% on RA. Audible wheezing noted, reapplied oxygen at 6L NC. Will continue to monitor throughout the night
[2020-11-08] MEDS: Enoxaparin 40 MG/0.4 ML Syringe SC (05:32)
[2020-11-08] MEDS: Ipratropium/Albuterol Sulfate 3 ML AMPUL.NEB INHALATION ×4 (07:30→23:49)
[2020-11-08 07:40] LABS: BUN 12 mg/dL (7-18); BUN/Creat Ratio 20.7 RATIO (10-20); Calcium,Total 8.3 mg/dL (8.5-10.1); Carbon Dioxide > 45.0 mmol/L (21.0-32.0); Chloride 89 mmol/L (98-107); Creatinine, Serum 0.58 mg/dL (0.70-1.30); EST Glomerular Filtration Rate 151 mL/min (>60); Est Glom Filt Rate - Afr Amer 183 mL/min (>60); Estimated Creatinine Clearance 121.97 ml/min; Glucose 118 mg/dL (74-106); Potassium 4.3 mmol/L (3.5-5.1); Sodium Level 130 mmol/L (136-145)
--- NOTE | 2020-11-08 09:26 | PN.CARD_ITS ---
Subjective Subjective Patient seen and evaluated. Appears to be stable. Tells me he has no home so he is going to stay here. Objective Data Vital Signs: Vital Signs Temp Pulse Resp BP Pulse Ox 98.0 F 95 20 H 142/86 H 94 11/08/20 03:20 11/08/20 03:20 11/08/20 03:20 11/08/20 03:20 11/08/20 03:20 Oxygen Flow Rate (L/min) 6 Oxygen Delivery Method Nasal Cannula Weight: 143 lb 15.39 oz Body Mass Index (BMI) 21.3 Intake & Output: Intake and Output for Last 24 Hours 11/06/20 11/07/20 11/08/20 23:59 23:59 23:59 Intake Total 1120 / 1120 120 / 120 Balance 1120 / 1120 120 / 120 Lab / Micro Data Result Diagrams: 11/07/20 06:27 11/08/20 06:44 Labs: Laboratory Results - last 24 hr 11/08/20 06:44: Sodium 130 L, Potassium 4.3, Chloride 89 L, Carbon Dioxide > 45.0 H*, Anion Gap TNP, BUN 12, Creatinine 0.58 L, Estim Creat Clear Calc 121.97, Est GFR (MDRD) Af Amer 183, Est GFR (MDRD) Non-Af 151, BUN/Creatinine Ratio 20.7 H, Glucose 118 H, Calcium 8.3 L Cardiology Labs/Tests 11/08/20 06:44: Sodium 130 L, Potassium 4.3, Chloride 89 L, Carbon Dioxide > 45. 0 H*, Anion Gap TNP, BUN 12, Creatinine 0.58 L, Est GFR (MDRD) Af Amer 183, Est GFR (MDRD) Non-Af 151, BUN/Creatinine Ratio 20.7 H, Glucose 118 H, Calcium 8.3 L Rhythm: EKG: ECHO: Stress Test: Cardiac Cath: PCI: CT Surgery: Holter monitor: EPS: PPM: CXR: Chest CT Scan: Physical Exam Const Orientation / Consciousness: awake HEENT normocephalic Eyes EOMs intact bilaterally Neck no JVD Chest palpation of chest normal Resp clear to auscultation bilaterally Cardio regular rate and regular rhythm Extremity normal capillary refill Peripheral Pulses: Yes femoral pulses present Psych denies hallucinations Assessment & Plan Assessment/Plan (1) CHF (congestive heart failure), NYHA class II: PLAN: Patient presents with shortness of breath and is noted to have an echocardiogram demonstrating preserved left ventricular systolic function estimated EF of 55% and mildly dilated right ventricle with mild right ventricular dysfunction. * Would pursue diuresis oral Lasix. * Will reduce the oral daily Lasix dose to 40 mg as patient appears to have significantly increased bicarb (2) HTN (hypertension): PLAN: His blood pressure appears to be under better control at this time. Would recommend continue with the EKTA inhibitor and adding a beta-bob and titrating upwards as appropriate. * His ejection fraction appears to be stable and at this time I would not make any other changes. (3) Troponin level elevated: PLAN: He does have an elevated troponin level which I suspect at this time is secondary to demand ischemia. I will recommend continue with aspirin and risk factor modification. The level appears to be flat and chronically elevated and I would not recommend pursuing an invasive or interventional approach at this time. Thank you most kindly for this consultation.
[2020-11-08] MEDS: Furosemide 40 MG Tablet PO (10:53)
[2020-11-08] MEDS: QUEtiapine 25 MG Tablet PO ×2 (10:53→21:08)
[2020-11-08] MEDS: levoFLOXacin 750 MG Tablet PO (10:54)
[2020-11-08] MEDS: predniSONE 20 MG Tablet 40 MG PO (10:54)
[2020-11-08] MEDS: Benztropine 2 MG Tablet 1 MG PO (10:55)
[2020-11-08] MEDS: Lisinopril 10 MG Tablet PO (10:55)
[2020-11-08] MEDS: Metoprolol Tartrate 25 MG Tablet PO (10:56)
[2020-11-08] MEDS: Aspirin E.C. 81 MG Tablet PO (10:56)
--- NOTE | 2020-11-08 11:33 | PCM.PN.HOSP ---
Documented by User: Yanet Diggs MYSQL DATABASE DEVELOPER, MYSQL DATABASE DEVELOPER-C 11/08/20 11:39 Subjective Subjective Patient seen and examined. Resting comfortably in bed. Will not provide verbal feedback during exam/conversation. No behavioral concerns overnight per nursing report. Objective Data Objective Data Vital Signs: Vital Signs Temp Pulse Resp BP Pulse Ox 98.0 F 77 20 H 142/86 H 95 11/08/20 03:20 11/08/20 10:56 11/08/20 07:30 11/08/20 03:20 11/08/20 07:30 Oxygen Flow Rate (L/min) 6 Oxygen Delivery Method Nasal Cannula Weight: 143 lb 15.39 oz Body Mass Index (BMI) 21.3 Intake & Output: Intake and Output for Last 24 Hours 11/06/20 11/07/20 11/08/20 23:59 23:59 23:59 Intake Total 1120 / 1120 120 / 120 Balance 1120 / 1120 120 / 120 Lab / Micro Data Result Diagrams: 11/07/20 06:27 11/08/20 06:44 Labs: Laboratory Results - last 24 hr 11/08/20 06:44: Sodium 130 L, Potassium 4.3, Chloride 89 L, Carbon Dioxide > 45.0 H*, Anion Gap TNP, BUN 12, Creatinine 0.58 L, Estim Creat Clear Calc 121.97, Est GFR (MDRD) Af Amer 183, Est GFR (MDRD) Non-Af 151, BUN/Creatinine Ratio 20.7 H, Glucose 118 H, Calcium 8.3 L Micro: Microbiology 11/04/20 09:35 Blood Culture (Wb) - Anticubital Left Blood Culture - Preliminary No growth in 48 hours. 11/04/20 11:05 Blood Culture (Wb) - Anticubital Left Blood Culture - Preliminary No growth in 48 hours. 11/04/20 17:25 Mucosa - Nasopharyngeal Respiratory Panel (PCR) - Final 11/04/20 10:50 Mucosa - Nose SARS-CoV-2 Antigen (Rapid) - Final Physical Exam Const alert and no apparent distress HEENT normocephalic and moist oral mucous membranes Eyes PERRL, EOMs intact bilaterally and conjunctivae normal Neck no lymphadenopathy Resp normal respiratory effort and clear to auscultation bilaterally Cardio regular rate, regular rhythm and no murmurs Peripheral Pulses: pulses 2+ throughout GI normal to inspection, nondistended, normoactive bowel sounds, non-tender and non-distended Extremity normal to inspection Skin no rashes or lesions noted Lesions: no lesions Rashes: no rashes Trauma: no lacerations or abrasions Neuro CN's II-XII intact bilaterally, no focal motor deficits, no sensory deficits noted and deep tendon reflexes 2+ bilaterally Psych Attitude: uncooperative Activity / Motor Behavior: other Impulsive Assessment & Plan Assessment/Plan (1) Acute hypoxemic respiratory failure: PLAN: 1. Acute hypoxic respiratory failure, multifactorial secondary to COPD exacerbation and acute heart failure with preserved ejection fraction-chest CTA with small right pleural effusion, no PE. Respiratory panel and Covid negative. Continue supplemental oxygen to maintain O2 at or above 90%. Ambulatory pulse ox prior to discharge. 2. COPD exacerbation-transition to prednisone given no IV access. Albuterol and DuoNeb aerosols. On Levaquin empirically. 3. Acute heart failure with preserved ejection fraction-BNP 966. Chest CT with small right pleural effusion. Echocardiogram completed and demonstrates an EF of 55%, stage I diastolic dysfunction, mildly dilated right ventricle, mild global right ventricular systolic dysfunction. Strict I&O. Daily weight. Lasix 40 mg daily, bicarb increased this morning. 4. Abnormal troponin-suspect demand ischemia related to #1/#2. Appears troponin levels have been elevated in the past as well June 2019. High sensitive troponin mildly elevated, did trend upward mildly as well. Denies chest pain. Cardiology consulted for further input. Continue aspirin, EKTA inhibitor, beta-bob. 5. Paranoid schizophrenia-complicates care. Patient refusing IV. Uncooperative and intermittently agitated. On fluphenazine. Resides in skilled nursing and follows at counseling center. SW involved. Patient will not be able to return to skilled nursing on supplemental oxygen. 6. Hypertension-stable, continue metoprolol, lisinopril. 7. Chronic hyponatremia- trend BMP. 8. Tobacco dependence/marijuana abuse-encouraged cessation. DVT prophylaxis-Lovenox subcu Discharge plan: Awaiting facility placement. This patient was seen by DANIELLE Gillette under the supervision of Dr. Nails. Documented by User: Dr. Faina Nails MD 11/08/20 17:28 Objective Data Lab / Micro Data Result Diagrams: 11/07/20 06:27 11/08/20 06:44 Charges/Coding Addendum Addendum: Patient seen by Yanet SANTOS under my supervision Patient seen and examined. He was communicative today and had no active complaints. He felt well and review of symptoms otherwise negative. O/E; Const alert, oriented x3 and no apparent distress Orientation / Consciousness: awake, oriented to person, oriented to place and oriented to time HEENT normocephalic and moist oral mucous membranes Eyes PERRL, EOMs intact bilaterally and conjunctivae normal Neck no lymphadenopathy Resp clear to auscultation bilaterally Auscultation: diminished lung sounds Cardio regular rate, regular rhythm and no murmurs Peripheral Pulses: pulses 2+ throughout GI normal to inspection, nondistended, normoactive bowel sounds, non-tender and non-distended Extremity normal to inspection Skin no rashes or lesions noted Lesions: no lesions Rashes: no rashes Trauma: no lacerations or abrasions Neuro CN's II-XII intact bilaterally, no focal motor deficits, no sensory deficits noted and deep tendon reflexes 2+ bilaterally Psych Psych Narrative: flat affect Patient is being managed for acute hypoxic respiratory failure due to COPD exacerbation, and acute heart failure with preserved EF. Continue titrating oxygen to maintain saturation above 90%. Elevated troponins thought to be due to demand ischemia. Cardiology on board. On aspirin and beta-bob as well as lisinopril. Also on Levaquin. Patient will likely need placement as he is currently on supplemental oxygen so cannot go back to his skilled nursing. Case management on board. Rest as per Yanet SANTOS's note, which I have reviewed and endorsed. Visit Charges Inpatient E&M: 47592 Subs Hosp L2
--- NOTE | 2020-11-08 23:53 | NURSING ---
pt removed oxygen nasal canula several times throughout shift. pt frustrated yelling at staff for being in his room. Will continue to monitor.
[2020-11-09] VITALS (9 sets, daily range): BP systolic 114–153; BP diastolic 60–86; PULSE 96–101; RESP 16–20; TEMP 36.6–37; O2SAT 91–96
--- NOTE | 2020-11-09 06:39 | NURSING ---
pt resting in bed with eyes closed oxygen tubing not in place. pt yelling at this nurse to leave him alone he wants to sleep explained pt needed to leave on oxygen due to spo2 dropping. pt began to cuss at staff and told this nurse to get out of his room. pt refused lovenox medication.
[2020-11-09 07:45] LABS: Anion Gap 1 (5-15); BUN 14 mg/dL (7-18); BUN/Creat Ratio 24.6 RATIO (10-20); Calcium,Total 8.9 mg/dL (8.5-10.1); Chloride 84 mmol/L (98-107); Creatinine, Serum 0.57 mg/dL (0.70-1.30); EST Glomerular Filtration Rate 154 mL/min (>60); Est Glom Filt Rate - Afr Amer 187 mL/min (>60); Estimated Creatinine Clearance 124.11 ml/min; Glucose 108 mg/dL (74-106); Potassium 4.3 mmol/L (3.5-5.1); Sodium Level 130 mmol/L (136-145)
[2020-11-09] MEDS: QUEtiapine 25 MG Tablet PO ×2 (08:09→20:31)
[2020-11-09] MEDS: Lisinopril 10 MG Tablet PO (08:09)
[2020-11-09] MEDS: Enoxaparin 40 MG/0.4 ML Syringe SC (08:09)
[2020-11-09] MEDS: Metoprolol Tartrate 25 MG Tablet PO (08:09)
[2020-11-09] MEDS: Aspirin E.C. 81 MG Tablet PO (08:10)
[2020-11-09] MEDS: Benztropine 2 MG Tablet 1 MG PO (08:10)
[2020-11-09] MEDS: predniSONE 20 MG Tablet 40 MG PO (08:10)
[2020-11-09] MEDS: Furosemide 40 MG Tablet PO (08:10)
[2020-11-09] MEDS: levoFLOXacin 750 MG Tablet PO (08:11)
--- NOTE | 2020-11-09 09:11 | PN.CARD_ITS ---
Subjective Subjective Patient seen and evaluated. Appears to be doing well. Eating his breakfast Objective Data Vital Signs: Vital Signs Temp Pulse Resp BP Pulse Ox 98.1 F 97 18 153/86 H 95 11/09/20 08:07 11/09/20 08:09 11/09/20 08:07 11/09/20 08:07 11/09/20 08:20 Oxygen Flow Rate (L/min) 6 Oxygen Delivery Method Nasal Cannula Weight: 143 lb 15.39 oz Body Mass Index (BMI) 21.3 Intake & Output: Intake and Output for Last 24 Hours 11/07/20 11/08/20 11/09/20 23:59 23:59 23:59 Intake Total 120 / 120 1060 / 1060 Balance 120 / 120 1060 / 1060 Lab / Micro Data Result Diagrams: 11/07/20 06:27 11/09/20 07:08 Labs: Laboratory Results - last 24 hr 11/09/20 07:08: Sodium 130 L, Potassium 4.3, Chloride 84 L, Carbon Dioxide 45.0 H, Anion Gap 1 L, BUN 14, Creatinine 0.57 L, Estim Creat Clear Calc 124.11, Est GFR (MDRD) Af Amer 187, Est GFR (MDRD) Non-Af 154, BUN/Creatinine Ratio 24.6 H, Glucose 108 H, Calcium 8.9 Cardiology Labs/Tests 11/09/20 07:08: Sodium 130 L, Potassium 4.3, Chloride 84 L, Carbon Dioxide 45.0 H, Anion Gap 1 L, BUN 14, Creatinine 0.57 L, Est GFR (MDRD) Af Amer 187, Est GFR (MDRD) Non-Af 154, BUN/Creatinine Ratio 24.6 H, Glucose 108 H, Calcium 8.9 Rhythm: EKG: ECHO: Stress Test: Cardiac Cath: PCI: CT Surgery: Holter monitor: EPS: PPM: CXR: Chest CT Scan: Physical Exam Const alert and oriented x3 Orientation / Consciousness: awake HEENT normocephalic Eyes EOMs intact bilaterally Neck no lymphadenopathy and no JVD Lymph Lymphatic: lymphadenopathy Chest inspection of chest normal and palpation of chest normal Resp clear to auscultation bilaterally Cardio regular rate and regular rhythm Rate: regular rate Rhythm: regular rhythm Heart Sounds: S1 normal and S2 normal GI normal to inspection, nondistended, normoactive bowel sounds Extremity normal capillary refill Neuro CN's II-XII intact bilaterally Psych denies hallucinations Assessment & Plan Assessment/Plan (1) CHF (congestive heart failure), NYHA class II: PLAN: Patient presents with shortness of breath and is noted to have an echocardiogram demonstrating preserved left ventricular systolic function estimated EF of 55% and mildly dilated right ventricle with mild right ventricular dysfunction. * Would pursue diuresis oral Lasix. * Will continue current dose of Lasix. Bicarb appears to be better. Input output chart appears to be inaccurate. Not sure why he still requires 6 L of oxygen. (2) HTN (hypertension): PLAN: His blood pressure appears to be under better control at this time. Would recommend continue with the EKTA inhibitor and adding a beta-bob and titrating upwards as appropriate. * His ejection fraction appears to be stable and at this time I would not make any other changes. (3) Troponin level elevated: PLAN: He does have an elevated troponin level which I suspect at this time is secondary to demand ischemia. I will recommend continue with aspirin and risk factor modification. The level appears to be flat and chronically elevated and I would not recommend pursuing an invasive or interventional approach at this time. Thank you most kindly for this consultation.
--- NOTE | 2020-11-09 09:23 | CON.PCM.CC_ITS ---
Assessment & Plan Assessment/Plan (1) Acute hypoxemic respiratory failure: PLAN: RECOMMENDATIONS: 1. Consider establishing legal guardianship, as the patient has been refusing medical therapy. 2. Wean supplemental oxygen as tolerated. 3. Antimicrobials can be discontinued from my perspective. 4. Continue bronchodilator therapy. 5. Continue prednisone 40 mg daily x5 days. 6. Continue diuretic therapy per cardiology recommendations. 7. Will sign off at this time. Please call with any additional questions. IMPRESSIONS: 1. Acute hypoxemic respiratory failure Suspect multifactorial etiology including an exacerbation of underlying heart failure with preserved ejection fraction and potential COPD exacerbation. Ultimately, the patient is noncompliant with medical therapy. His underlying psychiatric condition is a significant barrier to his clinical improvement. Ideally, the patient should be on IV diuretic therapy, but has been refusing to allow for IV access to be established. Therefore, I have no additional recommendations to optimize the patient any further. I would strongly encourage establishing legal guardianship so that further medical care can be delivered. I do strongly suspect that the patient may have required supplemental oxygen even before this hospitalization. It may be beneficial to increase his p.o. Lasix regimen. Compliance with the use of supplemental oxygen is strongly encouraged. This note was generated with [employer] dictation software. It may contain incorrect words, spelling, and punctuation that were not noted in checking the note before signing. HPI Consult Data Date of Consult: 11/09/20 HPI Narrative Reason for Consultation: CHF/COPD exacerbation HPI Narrative: The patient is a 60-year-old male, with a history as outlined below, who initially presented to the emergency department on November 05 with dyspnea. The patient has a history of paranoid schizophrenia as well as polysubstance abuse and has apparently been off of his psychiatric medications. On my encounter with the patient this morning, he would not answer any of my questions and repeatedly told me that he was tired and wanted to be left alone. The patient apparently resides within a halfway. The patient was initially admitted to the hospital with a diagnosis of acute respiratory failure felt to be secondary to a combination of COPD and CHF exacerbation. Surface echocardiogram completed on November 05 revealed stage I diastolic dysfunction with an ejection fraction of 55% and a pulmonary artery systolic pressure of 36 mmHg. The patient's hospital course has been complicated by the fact that he has refused medical therapy. He no longer has any form of IV access. He has been noncompliant with the use of supplemental oxygen. His I's and O's are inaccurate, as there has been no documentation of any output. The patient is currently being maintained on p.o. Levaquin, bronchodilators, prednisone and p.o. Lasix. [facility] Medical History (Updated 11/06/20 @ 18:[address] Aman Self MD) Abdominal pain Cocaine abuse COPD (chronic obstructive pulmonary disease) HTN (hypertension) Paranoid schizophrenia Smoker Substance abuse Home Medications lisinopril 10 mg PO DAILY #30 tab 06/29/19 [Rx Last Taken 08/27/20] fluphenazine HCl 10 mg PO DAILY 10/03/19 [History Last Taken 08/27/20] benztropine 1 mg PO DAILY 08/22/20 [History Last Taken 08/27/20] metoprolol tartrate 25 mg PO DAILY 08/22/20 [History Last Taken 08/27/20] Allergy/AdvReac Type Severity Reaction Status Date / Time haloperidol lactate Allergy Anaphylaxis Verified 11/04/20 09:41 [From Haldol] doxycycline AdvReac Unknown Other Verified 11/04/20 09:40 antihistamines AdvReac Rash Uncoded 11/04/20 09:40 Family History Father Heart disease Surgical History History of appendectomy Social History Smoking Status: Current every day smoker tobacco type: cigarettes ROS Review of Systems ROS Unobtainable: due to mental condition and due to mental status Physical Exam Const alert and no apparent distress General Appearance: uncooperative and disheveled Exam Limitations: behavioral limitations HEENT normocephalic and head/scalp atraumatic Teeth and Gingiva: poor dentition Eyes EOMs intact bilaterally Neck supple General: trachea midline Resp normal respiratory effort Auscultation: diminished lung sounds Cardio regular rate and regular rhythm GI normal to inspection, nondistended, normoactive bowel sounds Extremity no clubbing, cyanosis or edema Neuro moves all extremities and no focal motor deficits Psych Mood & Affect: flat affect Lab / Micro Data Result Diagrams: 11/07/20 06:27 11/09/20 07:08 Labs: Laboratory Results - last 24 hr 11/09/20 07:08: Sodium 130 L, Potassium 4.3, Chloride 84 L, Carbon Dioxide 45.0 H, Anion Gap 1 L, BUN 14, Creatinine 0.57 L, Estim Creat Clear Calc 124.11, Est GFR (MDRD) Af Amer 187, Est GFR (MDRD) Non-Af 154, BUN/Creatinine Ratio 24.6 H, Glucose 108 H, Calcium 8.9 Charges/Coding Visit Charges Inpatient E&M: 89031 Init Hosp L2
--- NOTE | 2020-11-09 10:00 | NURSING ---
Pt found asleep in bed without his oxygen on again. This RN woke him to replace oxygen and patient became frustrated and agitated with this RN but eventually allowed RN to replace oxygen. Again this RN explained to patient the need for supplemental oxygen and educated patient on purpose
[2020-11-09] MEDS: Ipratropium/Albuterol Sulfate 3 ML AMPUL.NEB INHALATION (11:25)
--- NOTE | 2020-11-09 11:51 | PN.HOSP_ITS ---
Documented by User: Yanet Diggs NP, BUSINESS TRANSFORMATION CONSULTANT-C 11/09/20 12:12 Subjective Subjective Patient seen and examined. Resting in bed. States he just wants to sleep. Patient has been removing supplemental oxygen intermittently. Oxygen currently in place. Objective Data Objective Data Vital Signs: Vital Signs Temp Pulse Resp BP Pulse Ox 98.1 F 96 20 H 153/86 H 95 11/09/20 08:07 11/09/20 11:25 11/09/20 11:25 11/09/20 08:07 11/09/20 08:20 Oxygen Flow Rate (L/min) 6 Oxygen Delivery Method Nasal Cannula Weight: 143 lb 15.39 oz Body Mass Index (BMI) 21.3 Intake & Output: Intake and Output for Last 24 Hours 11/07/20 11/08/20 11/09/20 23:59 23:59 23:59 Intake Total 120 / 120 1060 / 1060 Balance 120 / 120 1060 / 1060 Lab / Micro Data Result Diagrams: 11/07/20 06:27 11/09/20 07:08 Labs: Laboratory Results - last 24 hr 11/09/20 07:08: Sodium 130 L, Potassium 4.3, Chloride 84 L, Carbon Dioxide 45.0 H, Anion Gap 1 L, BUN 14, Creatinine 0.57 L, Estim Creat Clear Calc 124.11, Est GFR (MDRD) Af Amer 187, Est GFR (MDRD) Non-Af 154, BUN/Creatinine Ratio 24.6 H, Glucose 108 H, Calcium 8.9 Micro: Microbiology 11/04/20 11:05 Blood Culture (Wb) - Anticubital Left Blood Culture - Final No growth in 5 days. 11/04/20 09:35 Blood Culture (Wb) - Anticubital Left Blood Culture - Final No growth in 5 days. 11/04/20 17:25 Mucosa - Nasopharyngeal Respiratory Panel (PCR) - Final 11/04/20 10:50 Mucosa - Nose SARS-CoV-2 Antigen (Rapid) - Final Physical Exam Const no apparent distress Constitutional Narrative: Uncooperative HEENT normocephalic and moist oral mucous membranes Eyes PERRL, EOMs intact bilaterally and conjunctivae normal Neck no lymphadenopathy Resp normal respiratory effort and clear to auscultation bilaterally Cardio regular rate, regular rhythm and no murmurs Peripheral Pulses: pulses 2+ throughout GI normal to inspection, nondistended, normoactive bowel sounds, non-tender and non-distended Extremity normal to inspection Skin no rashes or lesions noted Lesions: no lesions Rashes: no rashes Trauma: no lacerations or abrasions Neuro CN's II-XII intact bilaterally, no focal motor deficits, no sensory deficits noted and deep tendon reflexes 2+ bilaterally Psych Attitude: uncooperative Assessment & Plan Assessment/Plan (1) Acute hypoxemic respiratory failure: PLAN: 1. Acute hypoxic respiratory failure, multifactorial secondary to COPD exacerbation and acute heart failure with preserved ejection fraction-chest CTA with small right pleural effusion, no PE. Respiratory panel and Covid negative. Continue supplemental oxygen to maintain O2 at or above 90%. Ambulatory pulse ox prior to discharge. 2. COPD exacerbation-prednisone burst given no IV access. Albuterol and DuoNeb aerosols. On Levaquin empirically to complete course. 3. Acute heart failure with preserved ejection fraction-BNP 966. Chest CT with small right pleural effusion. Echocardiogram completed and demonstrates an EF of 55%, stage I diastolic dysfunction, mildly dilated right ventricle, mild global right ventricular systolic dysfunction. Strict I&O. Daily weight. Lasix 40 mg daily, bicarb increased this morning. 4. Abnormal troponin-suspect demand ischemia related to #1/#2. Appears troponin levels have been elevated in the past as well June 2019. High sensitive troponin mildly elevated, did trend upward mildly as well. Denies chest pain. Cardiology consulted for further input. No plans for further cardiac work-up at this time. Continue aspirin, EKTA inhibitor, beta-bob. 5. Paranoid schizophrenia-complicates care. Patient refusing IV. Uncooperative and intermittently agitated. On fluphenazine. Resides in skilled nursing and follows at counseling center. SW involved. Patient will not be able to return to skilled nursing on supplemental oxygen. Attempting guardianship. 6. Hypertension-stable, continue metoprolol, lisinopril. 7. Chronic hyponatremia- trend BMP. 8. Tobacco dependence/marijuana abuse-encouraged cessation. DVT prophylaxis-Lovenox subcu Discharge plan: Awaiting facility placement/guardianship. This patient was seen by DANIELLE Gillette under the supervision of Dr. Nails. Documented by User: Dr. Faina Nails MD 11/09/20 15:38 Objective Data Lab / Micro Data Result Diagrams: 11/07/20 06:27 11/09/20 07:08 Charges/Coding Addendum Addendum: Patient seen by Yanet SANTOS under my supervision Patient seen and examined. He had no complaints and felt well. He was however now on 8L of oxygen. He denied feeling short of breath. Per his nurse, he doesnt really keep his oxygen on, and this leads him to desaturate. Review of systems otherwise negative. O/E; Const alert, oriented x3 and no apparent distress Orientation / Consciousness: awake, oriented to person, oriented to place and oriented to time HEENT normocephalic and moist oral mucous membranes Eyes PERRL, EOMs intact bilaterally and conjunctivae normal Neck no lymphadenopathy Resp Auscultation: diminished breath sounds bibasally, no wheezes or crackles. on 8L of oxygen by nasal canula Cardio regular rate, regular rhythm and no murmurs Peripheral Pulses: pulses 2+ throughout GI normal to inspection, nondistended, normoactive bowel sounds, non-tender and non-distended Extremity normal to inspection Skin no rashes or lesions noted Lesions: no lesions Rashes: no rashes Trauma: no lacerations or abrasions Neuro CN's II-XII intact bilaterally, no focal motor deficits, no sensory deficits noted and deep tendon reflexes 2+ bilaterally Psych Psych Narrative: flat affect Patient is being managed for acute hypoxic respiratory failure due to COPD exacerbation, and acute heart failure with preserved EF. Continue titrating oxygen to maintain saturation above 90%. Pulmonology consulted because his oxygen requirements were up to 8L today. Elevated troponins thought to be due to demand ischemia. Cardiology on board. On aspirin and beta-bob as well as lisinopril. Also on Levaquin. Patient will likely need placement as he is currently on supplemental oxygen so cannot go back to his skilled nursing. Will likely need guardianship. Case management on board. Rest as per Yanet SANTOS's note, which I have reviewed and endorsed. Visit Charges Inpatient E&M: 80202 Subs Hosp L2
[2020-11-10] VITALS (7 sets, daily range): BP systolic 116–152; BP diastolic 45–92; PULSE 88–100; RESP 18; TEMP 36.8–37; O2SAT 88–98
--- NOTE | 2020-11-10 00:20 | NURSING ---
Patient want to leave AMA. Dr. Connelly notified, patient can not leave, pink slip renewed by Dr. Connelly. PT continues to yell that he is being held hostage and has been here for more than 1 month. This RN unable to verbally redirect patient. PT continued to yell call 911. House Resource Officer to bedside and talked with patient. PT's NC remains on.
[2020-11-10] MEDS: Enoxaparin 40 MG/0.4 ML Syringe SC (05:33)
[2020-11-10 06:14] LABS: Anion Gap 2 (5-15); BUN 13 mg/dL (7-18); BUN/Creat Ratio 27.1 RATIO (10-20); Calcium,Total 8.5 mg/dL (8.5-10.1); Chloride 87 mmol/L (98-107); Creatinine, Serum 0.48 mg/dL (0.70-1.30); EST Glomerular Filtration Rate 188 mL/min (>60); Est Glom Filt Rate - Afr Amer 227 mL/min (>60); Estimated Creatinine Clearance 147.38 ml/min; Glucose 89 mg/dL (74-106); Potassium 4.7 mmol/L (3.5-5.1); Sodium Level 133 mmol/L (136-145)
[2020-11-10] MEDS: QUEtiapine 25 MG Tablet PO (08:21)
[2020-11-10] MEDS: Aspirin E.C. 81 MG Tablet PO (08:21)
[2020-11-10] MEDS: Furosemide 40 MG Tablet PO (08:21)
[2020-11-10] MEDS: Benztropine 2 MG Tablet 1 MG PO (08:21)
[2020-11-10] MEDS: levoFLOXacin 750 MG Tablet PO (08:22)
[2020-11-10] MEDS: predniSONE 20 MG Tablet 40 MG PO (08:22)
[2020-11-10] MEDS: Metoprolol Tartrate 25 MG Tablet PO (08:22)
[2020-11-10] MEDS: Lisinopril 10 MG Tablet PO (08:22)
--- NOTE | 2020-11-10 11:27 | PN.HOSP_ITS ---
Documented by User: Yanet Diggs COUNTER CHECKER, COUNTER CHECKER-C 11/10/20 11:31 Subjective Subjective Patient seen and examined. Resting in bed, no evidence of distress. Refusing to speak with provider, stating he wants to sleep. Objective Data Objective Data Vital Signs: Vital Signs Temp Pulse Resp BP Pulse Ox 98.4 F 88 18 152/92 H 97 11/10/20 08:20 11/10/20 08:22 11/10/20 08:20 11/10/20 08:20 11/10/20 08:25 Oxygen Flow Rate (L/min) 5 Oxygen Delivery Method Nasal Cannula Weight: 158 lb 1.143 oz Body Mass Index (BMI) 21.3 Intake & Output: Intake and Output for Last 24 Hours 11/08/20 11/09/20 11/10/20 23:59 23:59 23:59 Intake Total 1060 / 1060 Output Total 2 / 2 Balance 1058 / 1058 Lab / Micro Data Result Diagrams: 11/07/20 06:27 11/10/20 05:24 Labs: Laboratory Results - last 24 hr 11/10/20 05:24: Sodium 133 L, Potassium 4.7, Chloride 87 L, Carbon Dioxide 44.0 H, Anion Gap 2 L, BUN 13, Creatinine 0.48 L, Estim Creat Clear Calc 147.38, Est GFR (MDRD) Af Amer 227, Est GFR (MDRD) Non-Af 188, BUN/Creatinine Ratio 27.1 H, Glucose 89, Calcium 8.5 Micro: Microbiology 11/04/20 11:05 Blood Culture (Wb) - Anticubital Left Blood Culture - Final No growth in 5 days. 11/04/20 09:35 Blood Culture (Wb) - Anticubital Left Blood Culture - Final No growth in 5 days. 11/04/20 17:25 Mucosa - Nasopharyngeal Respiratory Panel (PCR) - Final 11/04/20 10:50 Mucosa - Nose SARS-CoV-2 Antigen (Rapid) - Final Physical Exam Const alert, oriented x3 and no apparent distress Orientation / Consciousness: awake, oriented to person, oriented to place and oriented to time HEENT normocephalic and moist oral mucous membranes Eyes PERRL, EOMs intact bilaterally and conjunctivae normal Neck no lymphadenopathy Resp clear to auscultation bilaterally Auscultation: diminished lung sounds Cardio regular rate, regular rhythm and no murmurs Peripheral Pulses: pulses 2+ throughout GI normal to inspection, nondistended, normoactive bowel sounds, non-tender and non-distended Extremity normal to inspection Skin no rashes or lesions noted Lesions: no lesions Rashes: no rashes Trauma: no lacerations or abrasions Neuro CN's II-XII intact bilaterally, no focal motor deficits, no sensory deficits noted and deep tendon reflexes 2+ bilaterally Psych Attitude: uncooperative Activity / Motor Behavior: other Impulsive Assessment & Plan Assessment/Plan (1) Acute hypoxemic respiratory failure: PLAN: 1. Acute hypoxic respiratory failure, multifactorial secondary to COPD exacerbation and acute heart failure with preserved ejection fraction-chest CTA with small right pleural effusion, no PE. Respiratory panel and Covid negative. Continue supplemental oxygen to maintain O2 at or above 90%. Ambulatory pulse ox prior to discharge. 2. COPD exacerbation-prednisone burst given no IV access. Albuterol and DuoNeb aerosols. On Levaquin empirically to complete course. 3. Acute heart failure with preserved ejection fraction-BNP 966. Chest CT with small right pleural effusion. Echocardiogram completed and demonstrates an EF of 55%, stage I diastolic dysfunction, mildly dilated right ventricle, mild global right ventricular systolic dysfunction. Strict I&O. Daily weight. Lasix 40 mg daily, bicarb increased this morning. 4. Abnormal troponin-suspect demand ischemia related to #1/#2. Appears troponin levels have been elevated in the past as well June 2019. High sensitive troponin mildly elevated, did trend upward mildly as well. Denies c hest pain. Cardiology consulted for further input. No plans for further cardiac work-up at this time. Continue aspirin, EKTA inhibitor, beta-bob. 5. Paranoid schizophrenia-complicates care. Patient refusing IV. Uncooperative and intermittently agitated. On fluphenazine. Resides in correction and follows at counseling center. SW involved. Patient will not be able to return to correction on supplemental oxygen. Attempting guardianship. 6. Hypertension-stable, continue metoprolol, lisinopril. 7. Chronic hyponatremia- trend BMP. 8. Tobacco dependence/marijuana abuse-encouraged cessation. DVT prophylaxis-Lovenox subcu Discharge plan: Awaiting facility placement/guardianship. This patient was seen by DANIELLE Gillette under the supervision of Dr. Nails. Documented by User: Dr. Faina Nails MD 11/10/20 17:44 Objective Data Lab / Micro Data Result Diagrams: 11/07/20 06:27 11/10/20 05:24
--- NOTE | 2020-11-10 11:52 | CASEMGMT ---
GOGO called patient's payee Attlandy Mistry. GOGO introduced self and role at [facility]. GOGO explained situation and that [facility] will be working on getting a guardian for patient. He said he is not interested in being patient's guardian. He said if there is any other way he can help to let him know. Dayana COUGHLIN
--- NOTE | 2020-11-10 13:00 | CASEMGMT ---
SW met with patient. Introduced self and role at [facility]. GOGO told patient SW wanted to explain to him why he is still here at [facility]. GOGO told him he cannot go back to the correction with oxygen. SW told him we need him to go somewhere. SW asked if he would be willing to go to a [place] [facility] [place]. He said yes he would. He told SW he wants the one that starts with a G. SW asked if he meant [facility] and he said yes. He will go there. SW asked him if he will wear his O2. He said he will cooperate. GOGO told him SW will work on making the referral. GOGO called Jenna with [facility] regarding referral. GOGO explained that he cannot return to the correction on O2. GOGO did tell her he refuses to wear O2 often and staff has to re-apply O2 if he allows them. He often refuses vitals to be taken etc. GOGO faxed referral. Dayana Green TRANSITIONS MANAGER RN CED
--- NOTE | 2020-11-10 15:05 | CASEMGMT ---
GOGO received a call from [facility] and she asked if it was okay if someone came to see patient. They are trying to determine if they can take him. SW told her that is fine. GOGO then went and told patient that someone from [facility] is coming to see him. GOGO told him they are trying to determine if they can take him. He verbalized understanding. Dayana COUGHLIN
--- NOTE | 2020-11-10 16:05 | CASEMGMT ---
Kenya from [facility] came to see patient. GOGO introduced her to patient. She spoke with him briefly. She then told SW that she will tell the facility she thinks he is fine to admit today. GOGO notified physician and MICA PATCHER Yanet. Dayana COUGHLIN
--- NOTE | 2020-11-10 16:14 | TREXTCAR_ITS ---
Documented by User: Yanet Diggs SENIOR IT BUSINESS ANALYST, SENIOR IT BUSINESS ANALYST-C 11/10/20 16:20 Diet 11/10/20 14:20 Diet: Sodium Restricted (MOD) Food consistency:: Regular Liquid Consistency:: Regular/Thin Fluid restriction:: 1500 mL Routine Orders/Code Status Enema Type: Fleetz Suppository Type: Dulcolax 10mg Suppository Frequency: Daily PRN O2 Liters per Minute: 4-6 O2 Frequency: Continuous Keep PO Greater than or Equal to (%): 90 Routine Lab Work: - (Weekly CBC, BMP) Code Status: Full Code Therapies Physical Therapy: Eval and Treat Occupational Therapy: Eval and Treat Problem/Diagnosis (1) Acute hypoxemic respiratory failure: Status: Acute Allergies/Procedures Done in Hospital Allergies haloperidol lactate [From Haldol] Allergy (Verified 11/04/20 09:41) Anaphylaxis doxycycline Adverse Reaction (Unknown, Verified 11/04/20 09:40) Other antihistamines Adverse Reaction (Uncoded 11/04/20 09:40) Rash Procedures: 2-D Echocardiogram Type of Care/Length of Stay Estimated LOS: Convalescent Care Less Than 30 days Type of Care Needed: Skilled Rehab Potential: Good Prognosis: Fair Additional Orders/Day of Discharge Day of Discharge: 11/10/20 Dietary and Speech Recommendations Dietitian Recommendations/Changes: Will change diet to sodium-restricted; 1500ml FR. Discharge Plan Admission Admit Date/Time: 11/04/20 16:30 Primary Reason for Your Visit: Hypoxic respiratory failure, COPD, CHF Attending Provider: Faina Nails Primary Care Provider: Daquan Pritchett NP Consulting Providers: Kaye Maguire ; lAba Chino ; Henri Herrera Discharge Orders/Prescriptions Prescriptions: New quetiapine 25 mg Tablet 25 mg PO BID Qty: 0 RF: 0 furosemide 40 mg Tablet 40 mg PO DAILY Qty: 0 RF: 0 ipratropium-albuterol 0.5 mg-3 mg(2.5 mg base)/3 mL Solution For Nebulization 3 ml inhalation Q4H.RT Qty: 0 RF: 0 albuterol sulfate 2.5 mg /3 mL (0.083 %) Solution For Nebulization 2.5 mg inhalation Q2H PRN PRN (Reason: DYSPNEA) Qty: 0 RF: 0 aspirin 81 mg Tablet,Delayed Release (Dr/Ec) 81 mg PO BREAKFAST Qty: 0 RF: 0 nicotine (polacrilex) 4 mg Gum 4 mg PO Q2H PRN PRN (Reason: SMOKING CESSATION) Qty: 0 RF: 0 Continued lisinopril 10 MG tablet 10 mg PO DAILY Qty: 30 RF: 1 fluphenazine HCl 10 MG tablet 10 mg PO DAILY RF: 0 benztropine 1 mg Tablet 1 mg PO DAILY RF: 0 metoprolol tartrate 25 MG tablet 25 mg PO DAILY RF: 0 Referrals / Follow Up: Daquan Pritchett SENIOR IT BUSINESS ANALYST, SENIOR IT BUSINESS ANALYST-C [Primary Care Provider] - In 1 Week Flavio Watters SENIOR IT BUSINESS ANALYST, SENIOR IT BUSINESS ANALYST-C [Nurse Practitioner] - Within 2 Weeks Disposition Disposition (needs filled in before D/C Order can be placed): Senior Care Facility Documented by User: Dr. Faina Nails MD 11/10/20 16:43 Allergies/Procedures Done in Hospital Allergies haloperidol lactate [From Haldol] Allergy (Verified 11/04/20 09:41) Anaphylaxis doxycycline Adverse Reaction (Unknown, Verified 11/04/20 09:40) Other antihistamines Adverse Reaction (Uncoded 11/04/20 09:40) Rash Discharge Plan Admission Admit Date/Time: 11/04/20 16:30 Primary Reason for Your Visit: Hypoxic respiratory failure, COPD, CHF Attending Provider: Faina Nails Primary Care Provider: Daquan Pritchett NP Consulting Providers: Kaye Maguire ; Alba Chino ; Henri Herrera Discharge Orders/Prescriptions Prescriptions: New quetiapine 25 mg Tablet 25 mg PO BID Qty: 0 RF: 0 furosemide 40 mg Tablet 40 mg PO DAILY Qty: 0 RF: 0 ipratropium-albuterol 0.5 mg-3 mg(2.5 mg base)/3 mL Solution For Nebulization 3 ml inhalation Q4H.RT Qty: 0 RF: 0 albuterol sulfate 2.5 mg /3 mL (0.083 %) Solution For Nebulization 2.5 mg inhalation Q2H PRN PRN (Reason: DYSPNEA) Qty: 0 RF: 0 aspirin 81 mg Tablet,Delayed Release (Dr/Ec) 81 mg PO BREAKFAST Qty: 0 RF: 0 nicotine (polacrilex) 4 mg Gum 4 mg PO Q2H PRN PRN (Reason: SMOKING CESSATION) Qty: 0 RF: 0 Continued lisinopril 10 MG tablet 10 mg PO DAILY Qty: 30 RF: 1 fluphenazine HCl 10 MG tablet 10 mg PO DAILY RF: 0 benztropine 1 mg Tablet 1 mg PO DAILY RF: 0 metoprolol tartrate 25 MG tablet 25 mg PO DAILY RF: 0 Referrals / Follow Up: Daquan Pritchett SENIOR IT BUSINESS ANALYST, SENIOR IT BUSINESS ANALYST-C [Primary Care Provider] - In 1 Week Flavio Watters SENIOR IT BUSINESS ANALYST, SENIOR IT BUSINESS ANALYST-C [Nurse Practitioner] - Within 2 Weeks Disposition Disposition (needs filled in before D/C Order can be placed): Senior Care Facility
--- NOTE | 2020-11-10 16:20 | DS.PCM_ITS ---
Documented by User: Yanet Diggs NP, REMELT WORKER-C 11/10/20 16:24 Providers Date of Admission: 11/04/20 Date of Discharge: 11/10/20 Primary Care Physician: DANIELLE Pryor Consultations 11/04/20 16:48 Consult: General Surgery Routine Consulting Provider: Kaye Maguire Reason for Consult: abdominal pain EMERGENT Consult: No MD Notified: Yes Date Notified: 11/04/20 Time Notified: 16:30 Method of Notification: Verbal 11/06/20 10:35 Consult: Cardiology Routine Consulting Provider: Alba Chino Reason for Consult: elevated trop, new onset CHF EMERGENT Consult: No MD Notified: Yes Date Notified: 11/06/20 Time Notified: 10:39 Method of Notification: Text 11/09/20 08:48 Consult: Senior Program Planner / Pulmonary Medicine Routine Consulting Provider: Henri Herrera Reason for Consult: hypoxia EMERGENT Consult: No MD Notified: Yes Date Notified: 11/09/20 Time Notified: 08:48 Method of Notification: Text Reason For Visit: COPD EXACERBATION Diagnosis Discharge Diagnosis (1) Acute hypoxemic respiratory failure: Status: Acute Code(s): J96.01 - Acute respiratory failure with hypoxia Medications at Discharge Home Medications lisinopril 10 mg PO DAILY #30 tab 06/29/19 fluphenazine HCl 10 mg PO DAILY 10/03/19 benztropine 1 mg PO DAILY 08/22/20 metoprolol tartrate 25 mg PO DAILY 08/22/20 albuterol sulfate 2.5 mg INHALATION Q2H PRN PRN #0 ml 11/10/20 aspirin 81 mg PO BREAKFAST #0 tab 11/10/20 furosemide 40 mg PO DAILY #0 tab 11/10/20 ipratropium-albuterol 3 ml INHALATION Q4H.RT #0 ml 11/10/20 nicotine (polacrilex) 4 mg PO Q2H PRN PRN #0 ea 11/10/20 quetiapine 25 mg PO BID #0 tab 11/10/20 Hospital Course Operations None Procedures 2-D Echocardiogram Summary of Care Provided Minutes Spent on Discharge: 35 Hospital Course: Patient is a 60-year-old male admitted 11/04/2020 due to shortness of breath. 1. Acute hypoxic respiratory failure, multifactorial secondary to COPD exacerbation and acute heart failure with preserved ejection fraction-chest CTA with small right pleural effusion, no PE. Respiratory panel and Covid negative. Continue supplemental oxygen to maintain O2 at or above 90%. Patient will continue oxygen use at SNF. 2. COPD exacerbation-prednisone burst given no IV access. Albuterol and DuoNeb aerosols. Completed course of prednisone and Levaquin. 3. Acute heart failure with preserved ejection fraction-BNP 966. Chest CT with small right pleural effusion. Echocardiogram completed and demonstrates an EF of 55%, stage I diastolic dysfunction, mildly dilated right ventricle, mild global right ventricular systolic dysfunction. Strict I&O. Daily weight. Lasix 40 mg daily at discharge. 4. Abnormal troponin-suspect demand ischemia related to #1/#2. Appears troponin levels have been elevated in the past as well June 2019. High sensitive troponin mildly elevated, did trend upward mildly as well. Denies chest pain. Cardiology consulted for further input. No plans for further c ardiac work-up at this time. Continue aspirin, EKTA inhibitor, beta-jody. 5. Paranoid schizophrenia-complicates care. Patient refusing IV. Uncooperative and intermittently agitated. On fluphenazine. Resides in senior living and follows at counseling center. SW involved. Patient will not be able to return to senior living on supplemental oxygen. Attempting guardianship. 6. Hypertension-stable, continue metoprolol, lisinopril. 7. Chronic hyponatremia- trend BMP. 8. Tobacco dependence/marijuana abuse-encouraged cessation. Physical Exam Const alert, oriented x3 and no apparent distress Orientation / Consciousness: awake, oriented to person, oriented to place and oriented to time HEENT normocephalic and moist oral mucous membranes Eyes PERRL, EOMs intact bilaterally and conjunctivae normal Neck no lymphadenopathy Resp clear to auscultation bilaterally Auscultation: diminished lung sounds Cardio regular rate, regular rhythm and no murmurs Peripheral Pulses: pulses 2+ throughout GI normal to inspection, nondistended, normoactive bowel sounds, non-tender and non-distended Extremity normal to inspection Skin no rashes or lesions noted Lesions: no lesions Rashes: no rashes Trauma: no lacerations or abrasions Neuro CN's II-XII intact bilaterally, no focal motor deficits, no sensory deficits noted and deep tendon reflexes 2+ bilaterally Psych Attitude: uncooperative Activity / Motor Behavior: other Impulsive Patient seen and examined prior to discharge. Physical assessment as noted above. Patient is stable for discharge with follow up recommendations as noted above. This patient was seen by DANIELLE Gillette under the supervision of Dr. Nails. Weight / BMI Weight Weight: 158 lb 1.143 oz Body Mass Index (BMI) 21.3 ABG / Lab / Microbiology Data Result Diagrams: 11/07/20 06:27 11/10/20 05:24 Laboratory: Laboratory Results - last 24 hr 11/10/20 05:24: Sodium 133 L, Potassium 4.7, Chloride 87 L, Carbon Dioxide 44.0 H, Anion Gap 2 L, BUN 13, Creatinine 0.48 L, Estim Creat Clear Calc 147.38, Est GFR (MDRD) Af Amer 227, Est GFR (MDRD) Non-Af 188, BUN/Creatinine Ratio 27.1 H, Glucose 89, Calcium 8.5 Microbiology: Microbiology 11/04/20 11:05 Blood Culture (Wb) - Anticubital Left Blood Culture - Final No growth in 5 days. 11/04/20 09:35 Blood Culture (Wb) - Anticubital Left Blood Culture - Final No growth in 5 days. 11/04/20 17:25 Mucosa - Nasopharyngeal Respiratory Panel (PCR) - Final 11/04/20 10:50 Mucosa - Nose SARS-CoV-2 Antigen (Rapid) - Final Meaningful Use Info Meaningful Use Diagnoses (Choose all that apply): CHF CHF EKTA/ARB ordered at discharge?: Yes Documented LVEF (%): 55 Discharge Plan Admission Admit Date/Time: 11/04/20 16:30 Primary Reason for Your Visit: Hypoxic respiratory failure, COPD, CHF Attending Provider: Faina Nails Primary Care Provider: Daquan Pritchett NP Consulting Providers: Kaye Maguire ; Alba Chino ; Henri Herrera Discharge Orders/Prescriptions Prescriptions: New quetiapine 25 mg Tablet 25 mg PO BID Qty: 0 RF: 0 furosemide 40 mg Tablet 40 mg PO DAILY Qty: 0 RF: 0 ipratropium-albuterol 0.5 mg-3 mg(2.5 mg base)/3 mL Solution For Nebulization 3 ml inhalation Q4H.RT Qty: 0 RF: 0 albuterol sulfate 2.5 mg /3 mL (0.083 %) Solution For Nebulization 2.5 mg inhalation Q2H PRN PRN (Reason: DYSPNEA) Qty: 0 RF: 0 aspirin 81 mg Tablet,Delayed Release (Dr/Ec) 81 mg PO BREAKFAST Qty: 0 RF: 0 nicotine (polacrilex) 4 mg Gum 4 mg PO Q2H PRN PRN (Reason: SMOKING CESSATION) Qty: 0 RF: 0 Continued lisinopril 10 MG tablet 10 mg PO DAILY Qty: 30 RF: 1 fluphenazine HCl 10 MG tablet 10 mg PO DAILY RF: 0 benztropine 1 mg Tablet 1 mg PO DAILY RF: 0 metoprolol tartrate 25 MG tablet 25 mg PO DAILY RF: 0 Referrals / Follow Up: Daquan Pritchett REMELT WORKER, REMELT WORKER-C [Primary Care Provider] - In 1 Week Flavio Watters REMELT WORKER, REMELT WORKER-C [Nurse Practitioner] - Within 2 Weeks Disposition Disposition (needs filled in before D/C Order can be placed): Intermediate Fa cility Documented by User: Dr. Faina Nails MD 11/10/20 17:44 Providers Date of Admission: 11/04/20 Reason For Visit: COPD EXACERBATION Medications at Discharge Home Medications lisinopril 10 mg PO DAILY #30 tab 06/29/19 fluphenazine HCl 10 mg PO DAILY 10/03/19 benztropine 1 mg PO DAILY 08/22/20 metoprolol tartrate 25 mg PO DAILY 08/22/20 albuterol sulfate 2.5 mg INHALATION Q2H PRN PRN #0 ml 11/10/20 aspirin 81 mg PO BREAKFAST #0 tab 11/10/20 furosemide 40 mg PO DAILY #0 tab 11/10/20 ipratropium-albuterol 3 ml INHALATION Q4H.RT #0 ml 11/10/20 nicotine (polacrilex) 4 mg PO Q2H PRN PRN #0 ea 11/10/20 quetiapine 25 mg PO BID #0 tab 11/10/20 ABG / Lab / Microbiology Data Result Diagrams: 11/07/20 06:27 11/10/20 05:24 Discharge Plan Admission Admit Date/Time: 11/04/20 16:30 Primary Reason for Your Visit: Hypoxic respiratory failure, COPD, CHF Attending Provider: Faina Nails Primary Care Provider: Daquan Pritchett NP Consulting Providers: Kaye Maguire ; Alba Chino ; Henri Herrera Discharge Orders/Prescriptions Prescriptions: New quetiapine 25 mg Tablet 25 mg PO BID Qty: 0 RF: 0 furosemide 40 mg Tablet 40 mg PO DAILY Qty: 0 RF: 0 ipratropium-albuterol 0.5 mg-3 mg(2.5 mg base)/3 mL Solution For Nebulization 3 ml inhalation Q4H.RT Qty: 0 RF: 0 albuterol sulfate 2.5 mg /3 mL (0.083 %) Solution For Nebulization 2.5 mg inhalation Q2H PRN PRN (Reason: DYSPNEA) Qty: 0 RF: 0 aspirin 81 mg Tablet,Delayed Release (Dr/Ec) 81 mg PO BREAKFAST Qty: 0 RF: 0 nicotine (polacrilex) 4 mg Gum 4 mg PO Q2H PRN PRN (Reason: SMOKING CESSATION) Qty: 0 RF: 0 Continued lisinopril 10 MG tablet 10 mg PO DAILY Qty: 30 RF: 1 fluphenazine HCl 10 MG tablet 10 mg PO DAILY RF: 0 benztropine 1 mg Tablet 1 mg PO DAILY RF: 0 metoprolol tartrate 25 MG tablet 25 mg PO DAILY RF: 0 Referrals / Follow Up: Daquan Pritchett NP, REMELT WORKER-C [Primary Care Provider] - In 1 Week Flavio Watters NP, REMELT WORKER-C [Nurse Practitioner] - Within 2 Weeks Disposition Disposition (needs filled in before D/C Order can be placed): Intermediate Facility Charges/Coding Addendum Addendum: Patient seen by Yanet HAWKC under my supervision Patient is a 60 y/o male with a PMH as outlined who was admitted via the ED on 11/04/2020 with a complaint of shortness of breath and abdominal pain with bilateral leg pain for one week prior to admission. Patient has a history of paranoid schizophrenia and polysubstance abuse as well as COPD. On admission, patient couldnt give much insight about why he was here due to him being sedated after he was noncompliant in the ED. CT of the abdomen and pelvis showed small amount of free fluid in the pelvis, and mild degree of gallbladder wall thickening and pericholecystic fluid with a small amount of sludge in the right lower lobe. CXR shwoed possibel patchy infiltrate in the right lower lobe as well as increed markings at the left lung base as well as emphysematous changes with chronic hyperinflated lungs. Gallbladdr USG showed findings suggestive of tumefactive sludge in the gallbladder. He was started on IV ceftriaxone and azithromycin to treat community acquired pneumonia; he was also treated for acute hypoxic respiratory failure due to acute exacerbation of COPD. High sensitivity troponin was also elevated. He was also hyponatremic, with sodium of 124. He was initially hydrated with IVF. BNP was elevated at over 900 so fluids were discontinued and patient was started on diuresis with IV Lasix. High- sensitivity troponins also trended up so cardiology was consulted. Acute heart failure with preserved ejection fraction was added onto his diagnosis last 2D echo showed EF of 55% with stage I diastolic dysfunction and mild global right ventricular systolic dysfunction. He was also put on IV Solu-Medrol for COPD exacerbation. Patient was uncooperative during admission and kept on taking off his oxygen. Therefore his order requirements Increasing Because He Was Not Com pliant. Patient Was Living in a Fpc but Could Not Go Back to the Fpc Because He Was Now Requiring Oxygen. Pulmonology Was Also Consulted during This Admission. Patient Was Eventually Agreeable to Going to a Intermediate Facility and Was Discharged to Intermediate Facility on 11/10/2020. He Is Follow-Up with His Primary Care Doctor. He Is Also to Follow-Up with Cardiology. Patient Was Continued on Lasix As Well As Aspirin and EKTA Inhibitor and a Beta-Jody. He Was Also Discharged on P.O. Prednisone. Patient was seen and examined prior to discharge. He had no complaints but was not very cooperative. Unable to do comprehensive review of systems on account of patient not being cooperative. Labs and vitals reviewed. Home medication reviewed and reconciled. O/E: Const alert, oriented x3, not cooperative HEENT normocephalic and moist oral mucous membranes Eyes PERRL, EOMs intact bilaterally and conjunctivae normal Neck no lymphadenopathy Resp clear to auscultation bilaterally Auscultation: diminished lung sounds, on 5L of oxygen by nasal canula Cardio regular rate, regular rhythm and no murmurs Peripheral Pulses: pulses 2+ throughout GI normal to inspection, nondistended, normoactive bowel sounds, non-tender and non-distended Extremity normal to inspection Skin no rashes or lesions noted Lesions: no lesions Rashes: no rashes Trauma: no lacerations or abrasions Neuro CN's II-XII intact bilaterally, no focal motor deficits, no sensory deficits noted and deep tendon reflexes 2+ bilaterally Psych Attitude: uncooperative Activity / Motor Behavior: other Impulsive Plan is for discharge to SNF today. Rest as per Yanet Diggs NP-Kelsey's note which I reviewed and endorsed. Visit Charges Inpatient E&M: 62721 Disch Hosp
--- NOTE | 2020-11-10 17:02 | CASEMGMT ---
GOGO let patient know [facility] will take him today. Faxed orders to [facility] and [facility]. Completed convalescent on [facility] and had physician sign. GOGO called Macey Casper with [facility] and let her know patient will be going to [facility] today. GOGO also spoke with Jenna with [facility] and gave her Macey's name and number and patient's payees's name and number. Plan: d/c to [facility] under skilled level of care on a convalescent stay. [facility] will transport via van. Dayana Green ELECTRICIAN CONTROL EQUIPMENT CED
--- NOTE | 2020-11-10 18:39 | NURSING ---
report called to NORI Cho at [facility] for discharge
--- NOTE | 2020-11-10 20:51 | NURSING ---
physican's here to pick patient up for discharge.
== END 2020-11-10 20:50 | disposition skilled nursing facility (03) | DRG 190 ==
LOC: ED 15:51 → PCU 17:09
PROVIDERS: Nurse Practitioner Family; Physician Assistant; Admitting Provider Internal Medicine; Emergency Provider Emergency Medicine; PCP Nurse Practitioner Family; Visit Provider Student in an Organized Health Care Education/Training Program
DX: J44.1 Chronic obstructive pulmonary disease with (acute) exacerbation (principal); J96.01 Acute respiratory failure with hypoxia; I50.33 Acute on chronic diastolic (congestive) heart failure; F20.0 Paranoid schizophrenia; E87.1 Hypo-osmolality and hyponatremia; I24.8 Other forms of acute ischemic heart disease; I11.0 Hypertensive heart disease with heart failure; F14.10 Cocaine abuse, uncomplicated; F17.210 Nicotine dependence, cigarettes, uncomplicated; F12.10 Cannabis abuse, uncomplicated; K82.8 Other specified diseases of gallbladder; Z79.899 Other long term (current) drug therapy; Z91.14 Patient's other noncompliance with medication regimen
CPT/HCPCS: 36415; 70450; 71045; 71275; 74177; 76705; 80048; 80053; 83605; 83880; 84484; 85025; 85610; 85730; 87040; 87426; 87633; 93005; 93306; 94640; 99251; 99285; 99406; J7030; Q9967; A4216; G0463; J3486

== ENCOUNTER 2020-11-12 09:21 | Inpatient (IN) | payer MEDICARE, SELFPAY ==
[2020-11-12] VITALS (16 sets, daily range): BP systolic 101–152; BP diastolic 59–96; PULSE 93–109; RESP 14–26; TEMP 36.2–37.1; O2SAT 56–98; BMI 24.9; BMI 24.0
--- NOTE | 2020-11-12 09:32 | RAD_ITS ---
STUDY: X-RAY CHEST REASON FOR EXAM: Male, 60 years old. hypoxia TECHNIQUE: Single AP portable view of the chest. COMPARISON: 11/04/2020 FINDINGS: Increase in alveolar opacity in the right lung consistent with worsening right-sided pneumonia. There is no demonstrated pleural abnormality. Normal size heart. Normal mediastinum and velma. Normal visualized pulmonary arteries. Normal visualized aortic arch and descending thoracic aorta. Normal visualized thoracic spine. Normal visualized ribs, clavicles, and shoulders. There is no demonstrated abnormality of the visualized soft tissue structures of the upper abdomen. RAD/Chest 1 View (Portable) IMPRESSION: Worsening right-sided pneumonia. Electronically Signed: Abel Valerio MD at 10:16 EDT Tel , Service support ,
--- NOTE | 2020-11-12 09:33 | EKG12_ITS ---
Test Reason : HYPOXIA Blood Pressure : / mmHG Vent. Rate : 094 BPM Atrial Rate : 094 BPM P-R Int : 136 ms QRS Dur : 086 ms QT Int : 326 ms P-R-T Axes : 083 124 059 degrees QTc Int : 407 ms Normal sinus rhythm Septal infarct , age undetermined Abnormal ECG Confirmed by ROBIN HENDERSON, PROSPER ([id number]), publication editor ITALO BRIAN ([id number]) on 11/13/2020 12:52:36 PM Referred By: KWAME Confirmed By:LORNA KELLY MD
--- NOTE | 2020-11-12 09:41 | EDS_ITS ---
HPI History of Present Illness Chief Complaint: Shortness of Breath Narrative Narrative: Patient presents with hypoxia. He has a history of paranoid schizophrenia, he is in the ECF, he is apparently full code. He was found to be hypoxic in the ECF and the ambulance was called. I was told that the patient is refusing his oxygen. He tells me the he does not want to wear his oxygen, he tells me that I cannot get anywhere near him with any kind of oxygen. I cannot get a history or review of systems from him since he is paranoid, borderline combative and agitated. [facility] Medical History (Updated 11/12/20 @ 10:[address] Hiren Diop MD) Abdominal pain Cocaine abuse COPD (chronic obstructive pulmonary disease) HTN (hypertension) Paranoid schizophrenia Smoker Substance abuse Home Medications lisinopril 10 mg PO DAILY #30 tab 06/29/19 [Rx Last Taken 08/27/20] fluphenazine HCl 10 mg PO DAILY 10/03/19 [History Last Taken 08/27/20] benztropine 1 mg PO DAILY 08/22/20 [History Last Taken 08/27/20] metoprolol tartrate 25 mg PO BID 08/22/20 [History Last Taken 08/27/20] albuterol sulfate 2.5 mg INHALATION Q2H PRN PRN #0 ml 11/10/20 [Rx Last Taken Unknown] aspirin 81 mg PO BREAKFAST #0 tab 11/10/20 [Rx Last Taken Unknown] furosemide 40 mg PO DAILY #0 tab 11/10/20 [Rx Last Taken Unknown] ipratropium-albuterol 3 ml INHALATION Q4H.RT #0 ml 11/10/20 [Rx Last Taken Unknown] quetiapine 25 mg PO BID #0 tab 11/10/20 [Rx Last Taken Unknown] bisacodyl 10 mg IL DAILY PRN 11/12/20 [History Last Taken Unknown] magnesium hydroxide [Milk of Magnesia] 30 ml PO DAILY PRN PRN 11/12/20 [History Last Taken Unknown] nicotine 1 patch TRANSDERMAL DAILY 11/12/20 [History Last Taken Unknown] sodium phosphates [Enema] 118 ml IL DAILY PRN 11/12/20 [History Last Taken Unknown] Allergy/AdvReac Type Severity Reaction Status Date / Time haloperidol lactate Allergy Anaphylaxis Verified 11/12/20 09:39 [From Haldol] doxycycline AdvReac Unknown Other Verified 11/12/20 09:39 antihistamines AdvReac Rash Uncoded 11/12/20 09:39 Family History Father Heart disease Surgical History History of appendectomy Social History Smoking Status: Former smoker ROS ROS ED ROS Narrative Past medical history: Reviewed, hypertension, CHF, hypoxia, COPD, schizophrenia Medications: Reviewed Social history: Lives in an F Review of systems: Unable secondary to patient mental status. EXAM Physical Exam Narrative Exam Narrative: Physical exam General: Patient is tachypneic, he appears in some distress Head: Normocephalic, Atraumatic Eyes: Conjunctiva not pale ENT: Dry mucous membrane there is some perioral cyanosis Neck: Supple, Nontender, No lymphadenopathy Cardiovascular: Regular rate, Regular rhythm Respiratory: Diminished breath sounds, tachypneic and and expiratory wheezing, he speaks in 3-4 word sentences. Abdomen: Soft, Nontender, Nondistended Back: Nontender, Normal Inspection. Negative for: CVA tenderness Extremities: Nontender, No edema Skin: Some slight cyanosis present Neurological: Alert, he refuses to answer any of the orientation questions other than his name. No gross focal deficit Psychological: Patient is slightly agitated, he has tangential thought process, I cannot reason with him, he does not follow commands well. He is refusing any other treatment. Const Vital Signs: 11/12/20 09:22 11/12/20 09:26 11/12/20 10:07 Temperature 98.3 F 98.3 F Temperature Source Oral Oral Pulse Rate 95 95 94 Respiratory Rate 21 H 21 H 24 H Respiratory Effort Short of Breath Respiratory Depth Deep Respiratory Pattern Hyperpnea Blood Pressure 121/77 H 121/77 H 112/81 H Blood Pressure Mean 91 91 91 Pulse Ox 63 63 56 Oxygen Delivery Method Room Air Room Air Room Air Oxygen Flow Rate (L/min) 11/12/20 10:20 11/12/20 10:44 11/12/20 10:51 Temperature 98.2 F Temperature Source Oral Pulse Rate 94 101 H Respiratory Rate 26 H 25 H Respiratory Effort Respiratory Depth Respiratory Pattern Blood Pressure 101/59 L 130/81 H Blood Pressure Mean 73 97 Pulse Ox 58 61 89 Oxygen Delivery Method Room Air Room Air Nasal Cannula Oxygen Flow Rate (L/min) 6 MDM MDM MDM Narrative Medical decision making narrative: Patient is found to have a right-sided pneumonia,, he is hypercarbic and hypoxic. Initially he did not let us put oxygen on him but I gave him Geodon and his disposition improved he allowed oxygen. He is now saturating much better. He is found to have a right sided pneumonia that is worsened and antibiotics were started he has sepsis but he hardy s not have septic shock. He will be treated accordingly and admitted. Lab Data Labs: Laboratory Results - last 24 hr 11/12/20 11/12/20 11/12/20 09:30 09:30 09:30 WBC 9.0 RBC 4.90 Hgb 14.3 Hct 48.5 MCV 99.0 H MCH 29.2 MCHC 29.5 L RDW Std Deviation 55.9 H RDW Coeff of John 15.2 H Plt Count 275 MPV 8.7 Immature Gran % (Auto) 0.300 Neut % (Auto) 79.7 H Lymph % (Auto) 10.7 L [place] % (Auto) 8.1 Eos % (Auto) 1.0 Baso % (Auto) 0.2 Absolute Neuts (auto) 7.2 Absolute Lymphs (auto) 0.97 Nucleated RBC % 0 PT 11.9 INR 0.9 Sodium 133 L Potassium 3.9 Chloride 88 L Carbon Dioxide > 45.0 H* Anion Gap TNP BUN 10 Creatinine 0.56 L Estim Creat Clear Calc 123.42 Est GFR (MDRD) Af Amer 188 Est GFR (MDRD) Non-Af 156 BUN/Creatinine Ratio 17.7 Glucose 153 H Lactic Acid Calcium 8.3 L Total Bilirubin 0.30 AST 19 ALT 33 Alkaline Phosphatase 51 Troponin I High Sens 37 Total Protein 5.9 L Albumin 2.7 L Globulin 3.2 Albumin/Globulin Ratio 0.8 L 11/12/20 09:40 WBC RBC Hgb Hct MCV MCH MCHC RDW Std Deviation RDW Coeff of John Plt Count MPV Immature Gran % (Auto) Neut % (Auto) Lymph % (Auto) [place] % (Auto) Eos % (Auto) Baso % (Auto) Absolute Neuts (auto) Absolute Lymphs (auto) Nucleated RBC % PT INR Sodium Potassium Chloride Carbon Dioxide Anion Gap BUN Creatinine Estim Creat Clear Calc Est GFR (MDRD) Af Amer Est GFR (MDRD) Non-Af BUN/Creatinine Ratio Glucose Lactic Acid 2.7 H* Calcium Total Bilirubin AST ALT Alkaline Phosphatase Troponin I High Sens Total Protein Albumin Globulin Albumin/Globulin Ratio ABG Data ABG results: ABG 11/12/20 10:05 Specimen Type ART Sample Site L Brach pH 7.37 Bicarbonate Actual 46.6 H Total CO2 49 Base Excess 21 H O2 Saturation 61 L ABG pCO2 81.3 H* ABG pO2 35 L* O2 Delivery Device Room Air Crit Call To/Read Back Yes Blood Gas Notified Whom Dr Diop Radiography Diagnostic Testing: Radiology Impression Chest X-Ray 11/12/20 09:32 IMPRESSION: Worsening right-sided pneumonia. Electronically Signed: Abel Valerio MD at 10:16 EDT Tel , Service support , Critical Care Time Critical care time (excluding procedures): - (Critical care time of 35 minutes. This excludes time at the bedside, time reviewing past medical history and care home paperwork, time discussing with hospital And documenting.) Discharge Plan Triage Chief Complaint: Shortness of Breath ED Provider: Hiren Diop Dx/Rx/DC Orders Clinical Impression: Pneumonia, Hypoxia, Paranoia Prescriptions: No Action lisinopril 10 MG tablet 10 mg PO DAILY Qty: 30 RF: 1 fluphenazine HCl 10 MG tablet 10 mg PO DAILY RF: 0 benztropine 1 mg Tablet 1 mg PO DAILY RF: 0 metoprolol tartrate 25 MG tablet 25 mg PO BID RF: 0 quetiapine 25 mg Tablet 25 mg PO BID Qty: 0 RF: 0 furosemide 40 mg Tablet 40 mg PO DAILY Qty: 0 RF: 0 ipratropium-albuterol 0.5 mg-3 mg(2.5 mg base)/3 mL Solution For Nebulization 3 ml inhalation Q4H.RT Qty: 0 RF: 0 albuterol sulfate 2.5 mg /3 mL (0.083 %) Solution For Nebulization 2.5 mg inhalation Q2H PRN PRN (Reason: DYSPNEA) Qty: 0 RF: 0 aspirin 81 mg Tablet,Delayed Release (Dr/Ec) 81 mg PO BREAKFAST Qty: 0 RF: 0 bisacodyl 10 mg Suppository 10 mg IL DAILY PRN (Reason: Constipation) RF: 0 Enema 19-7 gram/118 mL Enema 118 ml IL DAILY PRN (Reason: Constipation) RF: 0 nicotine 14 mg/24 hr Patch 24 Hour 1 patch TRANSDERMAL DAILY RF: 0 magnesium hydroxide [Milk of Magnesia] 400 mg/5 mL Suspension 30 ml PO DAILY PRN PRN (Reason: Constipation) RF: 0 Primary Care Provider: Daquan Pritchett NP Referrals: Daquan Pritchett NP, [employer] ENGINEER[employer] [Primary Care Provider] - Disposition Disposition: Acute Care Hospital [facility]
[2020-11-12 09:53] LABS: Absolute Lymphocyte Count 0.97 X10^3/uL (0.83-4.51); Absolute Neutrophil Count 7.2 X10^3/uL (2.0-7.7); Basophil# 0.02 X10^3/uL; Basophil% 0.2 % (0-1); Eosinophil# 0.09 X10^3/uL; Hematocrit 48.5 % (40-54); Hemoglobin 14.3 g/dL (13.0-16.5); Lymphocyte # 0.97 X10^3/ul (0.83-4.51); Lymphocyte % 10.7 % (19-41); Mean Corp Hgb Conc 29.5 g/dL (32-36); Mean Corpuscular Hgb 29.2 pg (27.0-32.0); Mean Platelet Vol. 8.7 fl (6.2-12.0); Monocyte# 0.73 X10^3/uL; Monocyte% 8.1 % (0-10); NRBC Flagged by Analyzer 0 % (0-5); Neutrophil # 7.19 X10^3/uL (2.7-7.7); Neutrophil % 79.7 % (47-70); Platelet Count 275 K/mm3 (150-450); RBC Distribution Width CV 15.2 % (11.6-14.6); RBC Distribution Width SD 55.9 fl (35.1-43.9)
[2020-11-12 09:57] LABS: International Normalized Ratio 0.9; Prothrombin Time (Protime)PT. 11.9 SECONDS (11.7-14.9)
[2020-11-12] MEDS: Ziprasidone IM 20 MG/ML VIAL IM (10:00)
[2020-11-12] MEDS: MethylPREDNISolone 125 MG/2 ML Vial IV (10:06)
[2020-11-12 10:16] LABS: Base Excess 21 mmol/L (-2 to +2); Bicarbonate 46.6 mmol/L (22-26); Blood Gas Specimen Type ART; O2 Delivery Device Room Air; PO2 35 mmHG (75-100); SITE L Brach; SO2 61 % (95-99); Total Carbon Dioxide 49 mmol/L; pCO2 81.3 mmHg (35-45); pH 7.37 (7.35-7.45)
[2020-11-12 10:23] LABS: ALB/GLOB Ratio 0.8 RATIO (0.9-2.4); AST(SGOT) 19 U/L (15-37); Alanine Aminotransfer ALT/SGPT 33 U/L (16-61); Albumin, Serum 2.7 g/dL (3.2-5.0); Alkaline Phosphatase 51 U/L (45-117); BUN 10 mg/dL (7-18); BUN/Creat Ratio 17.7 RATIO (10-20); Calcium,Total 8.3 mg/dL (8.5-10.1); Carbon Dioxide > 45.0 mmol/L (21.0-32.0); Chloride 88 mmol/L (98-107); Creatinine, Serum 0.56 mg/dL (0.70-1.30); EST Glomerular Filtration Rate 156 mL/min (>60); Est Glom Filt Rate - Afr Amer 188 mL/min (>60); Estimated Creatinine Clearance 123.42 ml/min; Globulin 3.2 g/dL (2.2-4.2); Glucose 153 mg/dL (74-106); Potassium 3.9 mmol/L (3.5-5.1); Protein, Total 5.9 g/dL (6.4-8.2); Sodium Level 133 mmol/L (136-145); Troponin-I HS 37 pg/mL (3.0-78.0)
[2020-11-12 10:23] LABS: Lactic Acid 2.7 mmol/L (0.4-1.9)
[2020-11-12] MEDS: Ceftriaxone 1 GM/50 ML BAG IV (10:25)
--- NOTE | 2020-11-12 10:46 | ED.RN ---
PT CONTINUES TO REFUSED OXYGEN AND BREATHING TREATMENTS. MULTIPLE STAFF MEMBERS HAVE TRIED TO CONVINCE HIM TO ATLEAST ALLOW US TO GIVE HIM A BREATHING TREATMENT. PT IS UNABLE TO GET COMFORTABLE TO SLEEP AND WAS INFORMED ITS BECAUSE HIS OXYGEN IS SO LOW. PT CONTINUES TO REFUSE. PT'S PULSE OX DROPPED INTO THE 30'S WITH A GOOD WAVE FORM AND PTS NOSE AND MOUTH ARE INCREASINGLY PURPLE. ATTEMPTING TO CONTACT THE PTS HAND SALTER HE STATES IS HIS MEDICAL POA
--- NOTE | 2020-11-12 10:51 | ED.RN ---
PT ATTEMPTED TO BARGAIN AND ALLOW OXYGEN TO BE PLACED IF HE WE TOOK ALL THE MONITORING THINGS OFF. EXPLAINED IT WAS A PACKAGE DEAL. PT AGREED TO PUT NC ON BUT REFUSED BREATHING TX OR NRB. PT PLACED ON 6LNC.
--- NOTE | 2020-11-12 10:53 | ED.RN ---
pt poa coming to see him. pt does not have a living will
[2020-11-12] MEDS: Albuterol 2.5 MG/3 ML VIAL.NEB. INHALATION (11:28)
--- NOTE | 2020-11-12 11:48 | NURSING ---
PCU KOTSONIS HYPOXIA, PNEUMONIA
[2020-11-12 13:46] LABS: Reflex Lactate? Y
[2020-11-12 14:47] LABS: Lactic Acid 2.6 mmol/L (0.4-1.9)
[2020-11-12] MEDS: 0.9% Normal Saline 1,000 ML 75 ML IV (16:37)
--- NOTE | 2020-11-12 17:12 | HP.PCM.HOS_ITS ---
[facility] - General General Date of Admission: 11/12/20 HPI Narrative LYLY CALVIN, is a 60 M who presents to the hospital with acute hypoxic respiratory failure. He also has a history of paranoid schizophrenia and has difficulty keeping his oxygen on him. He does have severe COPD and requires oxygen however refuses to acknowledge this and maintains himself is being a full code and has difficulty wearing his oxygen and takes it off. He was recently admitted and discharged to the halfway and at the halfway was not wearing his oxygen and therefore he was found to be hypoxic down to the 60s so he was brought back into the hospital. He does not know why he is here, he says at the staff told him that he did not look good and asked why they brought him and he says that he feels fine. Of note prior to my evaluation the nurse went in to help him go to the bathroom and here he appeared hypoxic because he was not wearing his oxygen in the hospital room and he states that he felt fine and did not need his oxygen. He does not have a white count or fever however chest x-ray demonstrated right lower lobe infiltrate though he is on less oxygen currently than he was when he left the hospital a few days ago. His most recent admission was also acute hypoxic respiratory failure secondary to COPD exacerbation as well as heart failure. [facility] Medical History (Updated 11/12/20 @ 10:[address] Hiren Diop MD) Abdominal pain Cocaine abuse COPD (chronic obstructive pulmonary disease) HTN (hypertension) Paranoid schizophrenia Smoker Substance abuse Home Medications lisinopril 10 mg PO DAILY #30 tab 06/29/19 [Rx Last Taken 08/27/20] fluphenazine HCl 10 mg PO DAILY 10/03/19 [History Last Taken 08/27/20] benztropine 1 mg PO DAILY 08/22/20 [History Last Taken 08/27/20] metoprolol tartrate 25 mg PO BID 08/22/20 [History Last Taken 08/27/20] albuterol sulfate 2.5 mg INHALATION Q2H PRN PRN #0 ml 11/10/20 [Rx Last Taken Unknown] aspirin 81 mg PO BREAKFAST #0 tab 11/10/20 [Rx Last Taken Unknown] furosemide 40 mg PO DAILY #0 tab 11/10/20 [Rx Last Taken Unknown] ipratropium-albuterol 3 ml INHALATION Q4H.RT #0 ml 11/10/20 [Rx Last Taken Unknown] quetiapine 25 mg PO BID #0 tab 11/10/20 [Rx Last Taken Unknown] bisacodyl 10 mg IL DAILY PRN 11/12/20 [History Last Taken Unknown] magnesium hydroxide [Milk of Magnesia] 30 ml PO DAILY PRN PRN 11/12/20 [History Last Taken Unknown] nicotine 1 patch TRANSDERMAL DAILY 11/12/20 [History Last Taken Unknown] sodium phosphates [Enema] 118 ml IL DAILY PRN 11/12/20 [History Last Taken Unknown] Allergy/AdvReac Type Severity Reaction Status Date / Time haloperidol lactate Allergy Anaphylaxis Verified 11/12/20 09:39 [From Haldol] doxycycline AdvReac Unknown Other Verified 11/12/20 09:39 antihistamines Allergy Rash Uncoded 11/12/20 15:40 Family History Father Heart disease Surgical History History of appendectomy Social History Smoking Status: Former smoker ROS Constitutional Constitutional: Denies chills, fatigue, fever(s) or malaise Eyes Eyes: Denies blurry vision ENT HEENT: Denies headache(s) or nasal discharge Cardiovascular Cardiovascular: Denies chest pain, dyspnea on exertion or syncope Respiratory/Chest Respiratory/Chest: Denies cough, shortness of breath at rest or shortness of breath with exertion Gastrointestinal Gastrointestinal: Denies constipation, diarrhea, nausea or vomiting Genitourinary Genitourinary: Denies dysuria Neurologic Neurologic: Denies focal weakness, numbness or tremor(s) Psychiatric Psychiatric: Denies anxiety or depression Vital Signs Vital Signs Vital Signs: 11/12/20 09:22 11/12/20 09:26 11/12/20 10:07 Temperature 98.3 F 98.3 F Temperature Source Oral Oral Pulse Rate 95 95 94 Respiratory Rate 21 H 21 H 24 H Respiratory Effort Short of Breath Respiratory Depth Deep Respiratory Pattern Hyperpnea Blood Pressure 121/77 H 121/77 H 112/81 H Blood Pressure Mean 91 91 91 Blood Pressure Source Blood Pressure Position Blood Pressure Location Pulse Ox 63 63 56 Oxygen Delivery Method Room Air Room Air Room Air Oxygen Flow Rate (L/min) 11/12/20 10:20 11/12/20 10:44 11/12/20 10:51 Temperature 98.2 F Temperature Source Oral Pulse Rate 94 101 H Respiratory Rate 26 H 25 H Respiratory Effort Respiratory Depth Respiratory Pattern Blood Pressure 101/59 L 130/81 H Blood Pressure Mean 73 97 Blood Pressure Source Blood Pressure Position Blood Pressure Location Pulse Ox 58 61 89 Oxygen Delivery Method Room Air Room Air Nasal Cannula Oxygen Flow Rate (L/min) 6 11/12/20 11:05 11/12/20 11:40 11/12/20 12:11 Temperature 97.2 F L 97.9 F Temperature Source Oral Temporal Pulse Rate 101 H 93 100 Respiratory Rate 26 H 26 H 22 H Respiratory Effort Respiratory Depth Respiratory Pattern Tachypnea Blood Pressure 102/88 H 131/96 H Blood Pressure Mean 92 107 Blood Pressure Source Blood Pressure Position Blood Pressure Location Pulse Ox 98 94 Oxygen Delivery Method Nasal Cannula Nasal Cannula Oxygen Flow Rate (L/min) 4 11/12/20 14:12 11/12/20 16:10 11/12/20 16:17 Temperature 98.7 F 98.2 F Temperature Source Temporal Oral Pulse Rate 100 107 H Respiratory Rate 14 16 Respiratory Effort Normal Non-Labored Respiratory Depth Normal Respiratory Pattern Normal Blood Pressure 113/59 L 129/87 H Blood Pressure Mean 77 101 Blood Pressure Source Monitor Blood Pressure Position Semi-Fowlers Blood Pressure Location Right Arm Pulse Ox 98 94 Oxygen Delivery Method Nasal Cannula Nasal Cannula Nasal Cannula Oxygen Flow Rate (L/min) 3 4 Weight Weight: 149 lb 11.102 oz Body Mass Index (BMI) 24.0 Physical Exam Const alert, oriented x3 and no apparent distress General Appearance: cooperative HEENT normocephalic Mouth: dry mucous membranes Eyes PERRL, EOMs intact bilaterally and conjunctivae normal Neck supple and no JVD Resp normal respiratory effort, no retractions, no use of accessory muscles and clear to auscultation bilaterally Auscultation: diminished lung sounds; Negative for crackles, rales, rhonchi or wheezes Cardio regular rate, regular rhythm, S1 normal heart sound, S2 normal heart sound and no murmurs GI soft to palpation, non-tender and non-distended; Negative for hepatosplenomegaly Extremity no clubbing, cyanosis or edema Skin no rashes or lesions noted Neuro no focal motor deficits and no sensory deficits noted Psych affect normal Appearance: appropriate Results Lab / Micro Data Result Diagrams: 11/12/20 09:30 11/12/20 09:30 Labs: Laboratory Results - last 24 hr 11/12/20 09:30: WBC 9.0, RBC 4.90, Hgb 14.3, Hct 48.5, MCV 99.0 H, MCH 29.2, MCHC 29.5 L, RDW Std Deviation 55.9 H, RDW Coeff of John 15.2 H, Plt Count 275, MPV 8.7, Immature Gran % (Auto) 0.300, Neut % (Auto) 79.7 H, Lymph % (Auto) 10.7 L, [place] % (Auto) 8.1, Eos % (Auto) 1.0, Baso % (Auto) 0.2, Absolute Neuts (auto) 7.2, Absolute Lymphs (auto) 0.97, Nucleated RBC % 0 11/12/20 09:30: PT 11.9, INR 0.9 11/12/20 09:30: Sodium 133 L, Potassium 3.9, Chloride 88 L, Carbon Dioxide > 45.0 H*, Anion Gap TNP, BUN 10, Creatinine 0.56 L, Estim Creat Clear Calc 123.42, Est GFR (MDRD) Af Amer 188, Est GFR (MDRD) Non-Af 156, BUN/Creatinine Ratio 17.7, Glucose 153 H, Calcium 8.3 L, Total Bilirubin 0.30, AST 19, ALT 33, Alkaline Phosphatase 51, Troponin I High Sens 37, Total Protein 5.9 L, Albumin 2.7 L, Globulin 3.2, Albumin/Globulin Ratio 0.8 L 11/12/20 09:40: Lactic Acid 2.7 H* 11/12/20 14:05: Lactic Acid 2.6 H* Micro: Microbiology 11/12/20 09:46 Nasal Secretion SARS-CoV-2 Antigen (Rapid) - Final ABG Data ABG results: ABG 11/12/20 10:05 Specimen Type ART Sample Site L Brach pH 7.37 Bicarbonate Actual 46.6 H Total CO2 49 Base Excess 21 H O2 Saturation 61 L ABG pCO2 81.3 H* ABG pO2 35 L* O2 Delivery Device Room Air Crit Call To/Read Back Yes Blood Gas Notified Whom Dr Diop Radiology Impression Chest X-Ray 11/12/20 09:32 IMPRESSION: Worsening right-sided pneumonia. Electronically Signed: Abel Valerio MD at 10:16 EDT Tel , Service support , Assessment & Plan Assessment/Plan (1) Acute respiratory failure with hypoxia: PLAN: 1. Acute hypoxic respiratory failure secondary to COPD and not wearing his oxygen -Unsure as to whether or not he has an exacerbation, will continue some prednisone therapy orally given his recent admission for COPD exacerbation -We will encourage him to continue wearing his oxygen but in the meantime will attempt to find him a guardian as I do not feel that he is able to make his own healthcare decisions. He does currently have a guardian for his financial decisions as he has been deemed incapable of managing his own finances -We will place him on Levaquin for 48 hours to cover his right lower lobe infiltrate, he is afebrile without a leukocytosis. Will obtain sputum cultures if able as well as Legionella antigen and strep antigen. 2. HTN/HLD/chronic diastolic CHF -Recent echo on his last admission on 11/05/2020 demonstrated an EF of 55% with stage I diastolic dysfunction and mildly dilated right ventricle with mild global right ventricular systolic dysfunction -Continue with his home medications including his lisinopril, metoprolol, and Lasix 3. Paranoid schizophrenia -I believe that this condition is limiting his ability to manage himself medically and financially and is the cause to his need for guardianship -He has poor insight into his illness, and is incapable of making appropriate judgments in terms of his medical therapies as evidenced by the fact that he continues to remove his oxygen and have severe hypoxic episodes because of it -We will continue with his home medications and make adjustments to his Seroquel as necessary, in the meantime we will plan to fill out the paperwork and have nirav calderón in-depth discussions with him on obtaining guardianship DVT: Lovenox Charges/Coding Visit Charges Inpatient E&M: 11505 Init Hosp L2
[2020-11-12] MEDS: Ibuprofen 600 MG Tablet PO (19:34)
[2020-11-12] MEDS: Ipratropium/Albuterol Sulfate 3 ML AMPUL.NEB INHALATION (19:39)
[2020-11-12] MEDS: Metoprolol Tartrate 25 MG Tablet PO (21:05)
[2020-11-12] MEDS: QUEtiapine 25 MG Tablet PO (21:05)
[2020-11-13] VITALS (8 sets, daily range): BP systolic 122–144; BP diastolic 68–83; PULSE 89–102; RESP 16–20; TEMP 36.2–37.1; O2SAT 92–99
[2020-11-13] MEDS: MELATONIN 3 MG TABLET PO ×2 (00:04→21:31)
--- NOTE | 2020-11-13 00:36 | NURSING ---
Edelmira Cheema was informed of pt's refusal to wear the Telemetry overnight tonight. No new orders.
--- NOTE | 2020-11-13 01:12 | PCS.PANDOC ---
PANDEMIC DOCUMENTATION INITIATED: Date: 10/27/2020 Time: 190
--- NOTE | 2020-11-13 03:35 | NURSING ---
Attempted to reapply tele to obtain rhythm strip briefly. Pt refused stating Get the fuck out of here until atleast 7am Pt continues to refuse to wear the tele, physician is aware.
--- NOTE | 2020-11-13 04:20 | NURSING ---
Pt is getting belligerent with staff over IV beeping. HL'd after pt made punching gesture at staff. Physician notified that he is refusing IV fluids at this time.
--- NOTE | 2020-11-13 06:50 | CASEMGMT ---
Patient was just in the hospital earlier this week. GOGO spoke with [employer] and he is patient's payee. Therefore he handles patient's finances. GOGO at that time asked if he would be patient's guardian and he declined. GOGO will check back in with Atty Connor, but it was never mentioned that he was also his medical POA. Dayana Green MET[employer] DOOR ASSEMBLER COL[employer] MAKING SUPERVISOR
[2020-11-13 06:51] LABS: Absolute Lymphocyte Count 1.04 X10^3/uL (0.83-4.51); Absolute Neutrophil Count 7.7 X10^3/uL (2.0-7.7); Basophil# 0.02 X10^3/uL; Basophil% 0.2 % (0-1); Eosinophil# 0.02 X10^3/uL; Eosinophils% 0.2 % (0-5); Hemoglobin 12.7 g/dL (13.0-16.5); Lymphocyte # 1.04 X10^3/ul (0.83-4.51); Lymphocyte % 10.9 % (19-41); Mean Corp Hgb Conc 29.5 g/dL (32-36); Mean Corpuscular Hgb 28.9 pg (27.0-32.0); Mean Corpuscular Volume 97.9 fL (80-94); Mean Platelet Vol. 8.6 fl (6.2-12.0); Monocyte# 0.73 X10^3/uL; Monocyte% 7.6 % (0-10); NRBC Flagged by Analyzer 0 % (0-5); Neutrophil # 7.73 X10^3/uL (2.7-7.7); Neutrophil % 80.7 % (47-70); Platelet Count 241 K/mm3 (150-450); RBC Distribution Width CV 15.1 % (11.6-14.6); RBC Distribution Width SD 54.7 fl (35.1-43.9); Red Blood Count 4.39 M/mm3 (4.6-6.2); White Blood Count 9.6 K/mm3 (4.4-11.0)
[2020-11-13 07:20] LABS: Anion Gap 1 (5-15); BUN 16 mg/dL (7-18); BUN/Creat Ratio 28.3 RATIO (10-20); Calcium,Total 8.3 mg/dL (8.5-10.1); Chloride 89 mmol/L (98-107); Creatinine, Serum 0.57 mg/dL (0.70-1.30); EST Glomerular Filtration Rate 155 mL/min (>60); Est Glom Filt Rate - Afr Amer 187 mL/min (>60); Estimated Creatinine Clearance 121.26 ml/min; Glucose 155 mg/dL (74-106); Potassium 4.1 mmol/L (3.5-5.1); Sodium Level 133 mmol/L (136-145)
[2020-11-13] MEDS: Enoxaparin 40 MG/0.4 ML Syringe SC (08:22)
[2020-11-13] MEDS: Lisinopril 10 MG Tablet PO (08:24)
[2020-11-13] MEDS: Aspirin E.C. 81 MG Tablet PO (08:24)
[2020-11-13] MEDS: Benztropine Mesylate 0.5 MG TABLET 1 MG PO (08:24)
[2020-11-13] MEDS: Furosemide 40 MG Tablet PO (08:24)
[2020-11-13] MEDS: Metoprolol Tartrate 25 MG Tablet PO ×2 (08:24→21:31)
[2020-11-13] MEDS: QUEtiapine 25 MG Tablet PO ×2 (08:24→21:31)
[2020-11-13] MEDS: predniSONE 20 MG Tablet 40 MG PO (08:25)
[2020-11-13] MEDS: 0.9% Saline Lock 10 ML Syringe IV (08:34)
[2020-11-13] MEDS: levoFLOXacin IV 750 MG/150 ML BAG 100 MG IV (08:34)
--- NOTE | 2020-11-13 10:47 | CASEMGMT ---
GOGO called patient's payee Atty Flavio Mistry. He is not patient's Healthcare POA nor is he his legal guardian. He does not want to be patient's guardian. GOGO thanked him for the information. Dayana COUGHLIN
--- NOTE | 2020-11-13 14:29 | CASEMGMT ---
NORI GIRALDO Readmission Review Note: Admissions: 08/22/20 ED admit for muscle spasms 08/27-08/29/20 COPD/suicidal-discharged to [facility] facility on 3Lnc 11/04-11/10/20 COPD exac-discharged to [facility] on 5L nc 11/12/20 returned from [facility] for hypoxia d/t not wearing oxygen/combative/agitated Pt consistently removes oxygen and will desat to the 50's and per nursing/physician, pt does not comprehend need for oxygen. Pt was willing to discharge to SNF last visit but at this time physician feels that pt is not competent to make any decisions for self and guardianship will be pursued. Pt has a payee for finances but does not have a guardian or HPOA and this person is unwilling to be guardian for pt. Pt is originally from a prison but pt is cannot go back there if he is on oxygen and pt will likely need oxygen indefinitely. Mala BOWENS is pursuing guardianship for pt and Dr. Riggs is completing paperwork. CM to follow for any further discharge planning/needs. SStjuan JULIO CM
--- NOTE | 2020-11-13 14:35 | CASEMGMT ---
GOGO spoke with [facility] [employer] about guardianship. She will reach out to Estevan Medrano as he is often willing to take on patients. GOGO spoke with physician and he will complete the Statement of Expert Evaluation. GOGO received a call from Lobito, Global Director Air And Climate Change with [facility]. He asked about the plan. GOGO told him SW is working on getting him a guardian. GOGO then plans on trying to get him into a fpc that takes Psych patients. Dayana COUGHLIN
[2020-11-13] MEDS: Ipratropium/Albuterol Sulfate 3 ML AMPUL.NEB INHALATION (14:37)
--- NOTE | 2020-11-13 17:42 | PN.HOSP_ITS ---
Subjective Subjective Has extremely poor insight into his medical illness. Does not believe that he needs oxygen despite the fact that he drops on the 40s. He states he never feels better when he does take his oxygen off Objective Data Objective Data Vital Signs: Vital Signs Temp Pulse Resp BP Pulse Ox 98.6 F 95 20 H 126/68 H 99 11/13/20 11:42 11/13/20 14:39 11/13/20 14:39 11/13/20 11:42 11/13/20 11:42 Oxygen Flow Rate (L/min) 4 Oxygen Delivery Method Nasal Cannula Weight: 149 lb 11.102 oz Body Mass Index (BMI) 24.0 Intake & Output: Intake and Output for Last 24 Hours 11/12/20 11/13/20 11/14/20 03:59 03:59 03:59 Intake Total 1645.00 / 1645.00 1740 / 1740 Output Total 600 / 600 Balance 1645.00 / 1645.00 1140 / 1140 Lab / Micro Data Result Diagrams: 11/13/20 05:40 11/13/20 05:40 Labs: Laboratory Results - last 24 hr 11/13/20 05:40: WBC 9.6, RBC 4.39 L, Hgb 12.7 L, Hct 43.0, MCV 97.9 H, MCH 28.9, MCHC 29.5 L, RDW Std Deviation 54.7 H, RDW Coeff of John 15.1 H, Plt Count 241, MPV 8.6, Immature Gran % (Auto) 0.400, Neut % (Auto) 80.7 H, Lymph % (Auto) 10.9 L, [place] % (Auto) 7.6, Eos % (Auto) 0.2, Baso % (Auto) 0.2, Absolute Neuts (auto) 7.7, Absolute Lymphs (auto) 1.04, Nucleated RBC % 0 11/13/20 05:40: Sodium 133 L, Potassium 4.1, Chloride 89 L, Carbon Dioxide 43.0 H, Anion Gap 1 L, BUN 16, Creatinine 0.57 L, Estim Creat Clear Calc 121.26, Est GFR (MDRD) Af Amer 187, Est GFR (MDRD) Non-Af 155, BUN/Creatinine Ratio 28.3 H, Glucose 155 H, Calcium 8.3 L Micro: Microbiology 11/13/20 08:15 Urine, Clean Catch Legionella Antigen - Final 11/13/20 08:15 Urine, Clean Catch Streptococcus pneumoniae Antigen (M - Final 11/12/20 09:46 Nasal Secretion SARS-CoV-2 Antigen (Rapid) - Final Physical Exam Const alert, oriented x3 and no apparent distress General Appearance: cooperative HEENT normocephalic Eyes PERRL, EOMs intact bilaterally and conjunctivae normal Neck supple and no JVD Resp normal respiratory effort, no retractions, no use of accessory muscles and clear to auscultation bilaterally Auscultation: diminished lung sounds; Negative for crackles, rales, rhonchi or wheezes Cardio regular rate, regular rhythm, S1 normal heart sound, S2 normal heart sound and no murmurs GI soft to palpation, non-tender and non-distended; Negative for hepatosplenomegaly Extremity no clubbing, cyanosis or edema Skin no rashes or lesions noted Neuro no focal motor deficits and no sensory deficits noted Psych affect normal Appearance: appropriate Assessment & Plan Assessment/Plan (1) Acute respiratory failure with hypoxia: PLAN: 1. Acute hypoxic respiratory failure secondary to COPD and not wearing his oxygen -Unsure as to whether or not he has an exacerbation, will continue some prednisone therapy orally given his recent admission for COPD exacerbation -We will encourage him to continue wearing his oxygen but in the meantime will attempt to find him a guardian as I do not feel that he is able to make his own healthcare decisions. He does currently have a guardian for his financial decisions as he has been deemed incapable of managing his own finances -We will place him on Levaquin for 48 hours to cover his right lower lobe infiltrate, he is afebrile without a leukocytosis. Will obtain sputum cultures if able as well as Legionella antigen and strep antigen. 2. HTN/HLD/chronic diastolic CHF -Recent echo on his last admission on 11/05/2020 demonstrated an EF of 55% with stage I diastolic dysfunction and mildly dilated right ventricle with mild global right ventricular systolic dysfunction -Continue with his home medications including his lisinopril, metoprolol, and Lasix 3. Paranoid schizophrenia -I believe that this condition is limiting his ability to manage himself medically and financially and is the cause to his need for guardianship -He has poor insight into his illness, and is incapable of making appropriate judgments in terms of his medical therapies as evidenced by the fact that he co ntinues to remove his oxygen and have severe hypoxic episodes because of it -We will continue with his home medications and make adjustments to his Seroquel as necessary, in the meantime we will plan to fill out the paperwork and have further in-depth discussions with him on obtaining guardianship DVT: Lovenox Capacity Capacity Assessment Tool Can the patient make a choice & communicate that choice?: Yes Can the patient understand benefits, risks and alternatives?: No Can the patient make a logical, rational choice?: No Is the choice the patient makes consistent w/ their values?: Unable to Determine Is there an impending, emergent risk to the patient?: Yes Does the patient have an Advance Directive?: Unable to Determine Is there a Surrogate Available?: No i.e. HCPOA: No i.e. close relative (spouse, child, parent, sibling)?: No Charges/Coding Visit Charges Inpatient E&M: 36518 Subs Hosp L2
[2020-11-14] VITALS (9 sets, daily range): BP systolic 123–142; BP diastolic 76–84; PULSE 85–104; RESP 14–20; TEMP 36.6–37.2; O2SAT 94–96
[2020-11-14 06:31] LABS: BUN 12 mg/dL (7-18); BUN/Creat Ratio 23.7 RATIO (10-20); Calcium,Total 8.7 mg/dL (8.5-10.1); Carbon Dioxide > 45.0 mmol/L (21.0-32.0); Chloride 89 mmol/L (98-107); Creatinine, Serum 0.51 mg/dL (0.70-1.30); EST Glomerular Filtration Rate 176 mL/min (>60); Est Glom Filt Rate - Afr Amer 213 mL/min (>60); Estimated Creatinine Clearance 135.52 ml/min; Glucose 102 mg/dL (74-106); Potassium 3.9 mmol/L (3.5-5.1); Sodium Level 136 mmol/L (136-145)
--- NOTE | 2020-11-14 06:40 | NURSING ---
Pts primary rn aware of lab result of co2>45 at this time.
[2020-11-14] MEDS: Ipratropium/Albuterol Sulfate 3 ML AMPUL.NEB INHALATION ×3 (07:10→15:02)
[2020-11-14] MEDS: predniSONE 20 MG Tablet 40 MG PO (08:29)
[2020-11-14] MEDS: Furosemide 40 MG Tablet PO (08:29)
[2020-11-14] MEDS: QUEtiapine 25 MG Tablet PO ×2 (08:29→20:21)
[2020-11-14] MEDS: Lisinopril 10 MG Tablet PO (08:29)
[2020-11-14] MEDS: Metoprolol Tartrate 25 MG Tablet PO ×2 (08:29→20:21)
[2020-11-14] MEDS: Enoxaparin 40 MG/0.4 ML Syringe SC (08:30)
[2020-11-14] MEDS: Aspirin E.C. 81 MG Tablet PO (08:30)
[2020-11-14] MEDS: Benztropine Mesylate 0.5 MG TABLET 1 MG PO (08:31)
[2020-11-14] MEDS: levoFLOXacin IV 750 MG/150 ML BAG 100 MG IV (08:43)
[2020-11-14] MEDS: 0.9% Saline Lock 10 ML Syringe IV (08:45)
--- NOTE | 2020-11-14 09:49 | PCM.PN.HOSP ---
Subjective Subjective Maintains that he is doing well however has difficulty keeping his oxygen on at times and when he does take it off he does desaturate fairly quickly Objective Data Objective Data Vital Signs: Vital Signs Temp Pulse Resp BP Pulse Ox 98.8 F 90 14 132/78 H 96 11/14/20 08:26 11/14/20 08:29 11/14/20 08:26 11/14/20 08:26 11/14/20 08:26 Oxygen Flow Rate (L/min) 4 Oxygen Delivery Method Nasal Cannula Weight: 149 lb 11.102 oz Body Mass Index (BMI) 24.0 Intake & Output: Intake and Output for Last 24 Hours 11/13/20 11/14/20 11/15/20 03:59 03:59 03:59 Intake Total 1645.00 / 1645.00 2220 / 2220 240 / 240 Output Total 600 / 600 Balance 1645.00 / 1645.00 1620 / 1620 240 / 240 Lab / Micro Data Result Diagrams: 11/13/20 05:40 11/14/20 05:05 Labs: Laboratory Results - last 24 hr 11/14/20 05:05: Sodium 136, Potassium 3.9, Chloride 89 L, Carbon Dioxide > 45.0 H*, Anion Gap TNP, BUN 12, Creatinine 0.51 L, Estim Creat Clear Calc 135.52, Est GFR (MDRD) Af Amer 213, Est GFR (MDRD) Non-Af 176, BUN/Creatinine Ratio 23.7 H, Glucose 102, Calcium 8.7 Micro: Microbiology 11/13/20 08:15 Urine, Clean Catch Legionella Antigen - Final 11/13/20 08:15 Urine, Clean Catch Streptococcus pneumoniae Antigen (M - Final 11/12/20 09:46 Nasal Secretion SARS-CoV-2 Antigen (Rapid) - Final Physical Exam Const alert, oriented x3 and no apparent distress General Appearance: cooperative HEENT normocephalic Eyes PERRL, EOMs intact bilaterally and conjunctivae normal Neck supple and no JVD Resp normal respiratory effort, no retractions, no use of accessory muscles and clear to auscultation bilaterally Auscultation: diminished lung sounds; Negative for crackles, rales, rhonchi or wheezes Cardio regular rate, regular rhythm, S1 normal heart sound, S2 normal heart sound and no murmurs GI soft to palpation, non-tender and non-distended; Negative for hepatosplenomegaly Extremity no clubbing, cyanosis or edema Skin no rashes or lesions noted Neuro no focal motor deficits and no sensory deficits noted Psych affect normal Appearance: appropriate Assessment & Plan Assessment/Plan (1) Acute respiratory failure with hypoxia: PLAN: 1. Acute hypoxic respiratory failure secondary to COPD and not wearing his oxygen -Unsure as to whether or not he has an exacerbation, will continue some prednisone therapy orally given his recent admission for COPD exacerbation -We will encourage him to continue wearing his oxygen but in the meantime will attempt to find him a guardian as I do not feel that he is able to make his own healthcare decisions. He does currently have a guardian for his financial decisions as he has been deemed incapable of managing his own finances -We will place him on Levaquin for 48 hours to cover his right lower lobe infiltrate, he is afebrile without a leukocytosis. Will obtain sputum cultures if able as well as Legionella antigen and strep antigen. 2. HTN/HLD/chronic diastolic CHF -Recent echo on his last admission on 11/05/2020 demonstrated an EF of 55% with stage I diastolic dysfunction and mildly dilated right ventricle with mild global right ventricular systolic dysfunction -Continue with his home medications including his lisinopril, metoprolol, and Lasix 3. Paranoid schizophrenia -I believe that this condition is limiting his ability to manage himself medically and financially and is the cause to his need for guardianship -He has poor insight into his illness, and is incapable of making appropriate judgments in terms of his medical therapies as evidenced by the fact that he continues to remove his oxygen and have severe hypoxic episodes because of it -We will continue with his home medications and make adjustments to his Seroquel as necessary, in the meantime we will plan to fill out the paperwork and have further in-depth discussions with him on obtaining guardianship DVT: Lovenox Charges/Coding Visit Charges Inpatient E&M: 78595 Subs Hosp L2
--- NOTE | 2020-11-14 09:56 | CASEMGMT ---
Addendum entered by Najma Barger 11/14/20 13:21: SW received a message from [facility], they will not take pt back. GOGO called [facility] to see if they would consider pt, they will not. GOGO will continue to explore other SNFs in [facility], if Mr. Pool is able to be guardian, [facility] is preferred. CED [place]-S Addendum entered by Najma Barger 11/14/20 11:05: SW spoke w/Lobito from [facility]. Nobody has filed for guardianship for pt before. SW inquired about pt's living arrangements. As per Lobito, pt was homeless for 3 years. He was here and went to [facility] in August. From there he went to a friend's home. After that he was again homeless, came back to the hospital. Pt then went to a residential. From the residential pt came back to the hospital, then to [place]. Pt is now back in the hospital. He states if they were to pursue guardianship and pt were to contest it, they do not have the legal support to do this. Again, guardianship has not been pursued in the past. GOGO called Salas Medrano back. GOGO gave him pt's financial information and the information above. GOGO let Salas know that physician is to be filling out the statement of expert evaluation. Once that is completed, Salas needs to bring the originals into the court system. Salas would prefer, should he be guardian, pt stay at a halfway in [facility]. [facility]GO will look into [facility]. [facility] called [facility], they have no beds and also have a COVID outbreak. GOGO called Trisha Anand is to get back to this GOGO. GOGO will continue to follow, waiting for call back from Trisha. CED [place] Addendum entered by Najma Barger 11/14/20 10:31: GOGO called pt's payee, Flavio Mistry, to inquire if pt owns anything. As per Mr. Mistry, pt owns nothing. He gets two disability checks, he is uncertain of the amount, directed GOGO to call his secretary to the vice president Vickie([phone]). GOGO spoke w/Vickie, she states pt gets two checks, one for $639 and one for $689. JALEN [place]viedo Addendum entered by Najma Barger 11/14/20 10:27: SW also called [facility] as pt has been involve with [facility] before. Message left. JALEN [place] Original Note: GOGO received a call this morning from Salas Medrano, he is asking for additional information regarding pt. Salas is inquiring if pt owns a house or car, asking about reasons for guardianship, if this has been pursued prior. SW needs to speak w/[facility] regarding pt, will call Salas Back. GOGO called Lobito at [facility], as it seems this is pt's most recent trimming caser. Message left. JALEN [place]o
--- NOTE | 2020-11-14 13:55 | CASEMGMT ---
SOCIAL WORK Assisting Najma BOWENS with discharge planning for patient. Referrals made to [facility] and [facility]. Admissions to review and get back to GOGO. Siddhartha Cerrato, ENGINE TESTER, [employer]
--- NOTE | 2020-11-14 15:23 | CASEMGMT ---
Palliative screening tool completed for [facility]. Patient meets criteria for palliative consult. Hospitalist notified and no referral at this time.
--- NOTE | 2020-11-14 17:18 | CASEMGMT ---
Physician completed the Statement of Expert Evaluation and the Supplement for Emergency Guardian of Person. SW left Salas Ethel a message, will follow up on Tuesday. GOGO will speak w/Salas on Tuesday as to what will make the most sense, emergency or temporary guardianship--and if it's emergency, can the same paperwork be used to extend it to temporary. GOGO will continue to follow. JALEN [place]iedo
[2020-11-14] MEDS: Ibuprofen 600 MG Tablet PO (20:21)
[2020-11-14] MEDS: MELATONIN 3 MG TABLET PO (20:22)
[2020-11-15] VITALS (10 sets, daily range): BP systolic 109–133; BP diastolic 62–96; PULSE 80–116; RESP 16–18; TEMP 36.5–37.4; O2SAT 74–100
[2020-11-15] MEDS: Aspirin E.C. 81 MG Tablet PO (09:17)
[2020-11-15] MEDS: predniSONE 20 MG Tablet 40 MG PO (09:18)
[2020-11-15] MEDS: Benztropine Mesylate 0.5 MG TABLET 1 MG PO (09:18)
[2020-11-15] MEDS: Furosemide 40 MG Tablet PO (09:18)
[2020-11-15] MEDS: Enoxaparin 40 MG/0.4 ML Syringe SC (09:19)
[2020-11-15] MEDS: QUEtiapine 25 MG Tablet PO ×2 (09:20→21:25)
[2020-11-15] MEDS: Lisinopril 10 MG Tablet PO (09:20)
[2020-11-15] MEDS: Metoprolol Tartrate 25 MG Tablet PO ×2 (09:21→21:24)
[2020-11-15] MEDS: Ibuprofen 600 MG Tablet PO ×2 (09:29→16:00)
[2020-11-15] MEDS: levoFLOXacin IV 750 MG/150 ML BAG 100 MG IV (10:00)
--- NOTE | 2020-11-15 12:08 | PCM.PN.HOSP ---
Subjective Subjective Doing well, no new issues overnight. He is being more compliant with keeping his oxygen on but he still states that he has no reason to keep it on and he feels fine without it Objective Data Objective Data Vital Signs: Vital Signs Temp Pulse Resp BP Pulse Ox 99.4 F H 116 H 16 133/89 H 74 11/15/20 08:13 11/15/20 09:21 11/15/20 08:13 11/15/20 09:21 11/15/20 08:13 Oxygen Flow Rate (L/min) 4 Oxygen Delivery Method Room Air Weight: 149 lb 11.102 oz Body Mass Index (BMI) 24.0 Intake & Output: Intake and Output for Last 24 Hours 11/14/20 11/15/20 11/16/20 03:59 03:59 03:59 Intake Total 2220 / 2220 790 / 790 630 / 630 Output Total 600 / 600 Balance 1620 / 1620 790 / 790 630 / 630 Lab / Micro Data Result Diagrams: 11/13/20 05:40 11/14/20 05:05 Micro: Microbiology 11/12/20 09:50 Blood Culture (Wb) - Right Forearm Blood Culture - Preliminary No growth in 48 hours. 11/12/20 09:40 Blood Culture (Wb) - Anticubital Right Blood Culture - Preliminary No growth in 48 hours. 11/13/20 08:15 Urine, Clean Catch Legionella Antigen - Final 11/13/20 08:15 Urine, Clean Catch Streptococcus pneumoniae Antigen (M - Final 11/12/20 09:46 Nasal Secretion SARS-CoV-2 Antigen (Rapid) - Final Physical Exam Const alert, oriented x3 and no apparent distress General Appearance: cooperative HEENT normocephalic Eyes PERRL, EOMs intact bilaterally and conjunctivae normal Neck supple and no JVD Resp normal respiratory effort, no retractions, no use of accessory muscles and clear to auscultation bilaterally Auscultation: diminished lung sounds; Negative for crackles, rales, rhonchi or wheezes Cardio regular rate, regular rhythm, S1 normal heart sound, S2 normal heart sound and no murmurs GI soft to palpation, non-tender and non-distended; Negative for hepatosplenomegaly Extremity no clubbing, cyanosis or edema Skin no rashes or lesions noted Neuro no focal motor deficits and no sensory deficits noted Psych affect normal Appearance: appropriate Assessment & Plan Assessment/Plan (1) Acute respiratory failure with hypoxia: PLAN: 1. Acute hypoxic respiratory failure secondary to COPD and not wearing his oxygen -Unsure as to whether or not he has an exacerbation, will continue some prednisone therapy orally given his recent admission for COPD exacerbation -We will encourage him to continue wearing his oxygen but in the meantime will attempt to find him a guardian as I do not feel that he is able to make his own healthcare decisions. He does currently have a guardian for his financial decisions as he has been deemed incapable of managing his own finances -Legionella and strep antigens are negative, still not been able to obtain sputum culture. 2. HTN/HLD/chronic diastolic CHF -Recent echo on his last admission on 11/05/2020 demonstrated an EF of 55% with stage I diastolic dysfunction and mildly dilated right ventricle with mild global right ventricular systolic dysfunction -Continue with his home medications including his lisinopril, metoprolol, and Lasix 3. Paranoid schizophrenia -I believe that this condition is limiting his ability to manage himself medically and financially and is the cause to his need for guardianship -He has poor insight into his illness, and is incapable of making appropriate judgments in terms of his medical therapies as evidenced by the fact that he continues to remove his oxygen and have severe hypoxic episodes because of it -We will continue with his home medications and make adjustments to his Seroquel as necessary, -In the process of applying for medical guardianship DVT: Josiane Charges/Coding Visit Charges Inpatient E&M: 62893 Subs Hosp L2
[2020-11-15] MEDS: Ipratropium/Albuterol Sulfate 3 ML AMPUL.NEB INHALATION (19:17)
[2020-11-15] MEDS: MELATONIN 3 MG TABLET PO (21:25)
[2020-11-16 04:00] VITALS: BP 137/80; PULSE 90; RESP 16; TEMP 36.9; O2SAT 94
[2020-11-16 07:36] LABS: Hematocrit 41.3 % (40-54); Hemoglobin 12.6 g/dL (13.0-16.5); Mean Corp Hgb Conc 30.5 g/dL (32-36); Mean Corpuscular Hgb 29.2 pg (27.0-32.0); Mean Corpuscular Volume 95.8 fL (80-94); Mean Platelet Vol. 8.5 fl (6.2-12.0); Platelet Count 238 K/mm3 (150-450); RBC Distribution Width CV 15.1 % (11.6-14.6); RBC Distribution Width SD 54.3 fl (35.1-43.9); Red Blood Count 4.31 M/mm3 (4.6-6.2); White Blood Count 9.3 K/mm3 (4.4-11.0)
[2020-11-16 07:37] LABS: Absolute Lymphocyte Count 1.66 X10^3/uL (0.83-4.51); Absolute Neutrophil Count 6.7 X10^3/uL (2.0-7.7); Basophil# 0.02 X10^3/uL; Basophil% 0.2 % (0-1); Eosinophil# 0.07 X10^3/uL; Eosinophils% 0.8 % (0-5); Lymphocyte # 1.66 X10^3/ul (0.83-4.51); Lymphocyte % 17.8 % (19-41); Monocyte# 0.83 X10^3/uL; Monocyte% 8.9 % (0-10); NRBC Flagged by Analyzer 0 % (0-5); Neutrophil % 71.9 % (47-70)
[2020-11-16 08:04] LABS: BUN 14 mg/dL (7-18); BUN/Creat Ratio 32.1 RATIO (10-20); Calcium,Total 8.5 mg/dL (8.5-10.1); Carbon Dioxide > 45.0 mmol/L (21.0-32.0); Chloride 92 mmol/L (98-107); Creatinine, Serum 0.44 mg/dL (0.70-1.30); EST Glomerular Filtration Rate 209 mL/min (>60); Est Glom Filt Rate - Afr Amer 253 mL/min (>60); Estimated Creatinine Clearance 157.08 ml/min; Glucose 84 mg/dL (74-106); Potassium 4.2 mmol/L (3.5-5.1); Sodium Level 136 mmol/L (136-145)
[2020-11-16 09:36] VITALS: PULSE 99
[2020-11-16] MEDS: Metoprolol Tartrate 25 MG Tablet PO ×2 (09:36→19:27)
[2020-11-16] MEDS: predniSONE 20 MG Tablet 40 MG PO (09:36)
[2020-11-16] MEDS: QUEtiapine 25 MG Tablet PO ×3 (09:36→19:27)
[2020-11-16] MEDS: Furosemide 40 MG Tablet PO (09:36)
[2020-11-16] MEDS: Lisinopril 10 MG Tablet PO (09:36)
[2020-11-16] MEDS: Aspirin E.C. 81 MG Tablet PO (09:37)
[2020-11-16] MEDS: Benztropine Mesylate 0.5 MG TABLET 1 MG PO (09:37)
--- NOTE | 2020-11-16 10:05 | NURSING ---
pt out in pratt with no mask yet again and refusing to go back in room. rn hemodialysis charge patricia attempting to direct pt. stated, i been in here for years and im just gonna walk around! pt ambulated at fast pace clear around nursing floor and back to room. mild dyspnea obs. pt yelling at rn hemodialysis charge and this rn. o2 reapplied and pt told us to get the fuck out of here! pt stated, im laying back down. get out!
--- NOTE | 2020-11-16 11:02 | NURSING ---
pt up to br and coffee and snacks given. offered to turn tv on and pt screams no! i fucking want to go home!'
--- NOTE | 2020-11-16 12:48 | PCM.PN.HOSP ---
Subjective Subjective No issues overnight, currently refusing IV medications. He is still keeping his oxygen on but he has to be continually reminded Objective Data Objective Data Vital Signs: Vital Signs Temp Pulse Resp BP Pulse Ox 98.5 F 99 16 137/80 H 94 11/16/20 04:00 11/16/20 09:36 11/16/20 04:00 11/16/20 04:00 11/16/20 04:00 Oxygen Flow Rate (L/min) 3 Oxygen Delivery Method Nasal Cannula Weight: 149 lb 11.102 oz Body Mass Index (BMI) 24.0 Intake & Output: Intake and Output for Last 24 Hours 11/15/20 11/16/20 11/17/20 03:59 03:59 03:59 Intake Total 790 / 790 2620 / 2620 Balance 790 / 790 2620 / 2620 Lab / Micro Data Result Diagrams: 11/16/20 06:58 11/16/20 06:58 Labs: Laboratory Results - last 24 hr 11/16/20 06:58: WBC 9.3, RBC 4.31 L, Hgb 12.6 L, Hct 41.3, MCV 95.8 H, MCH 29.2, MCHC 30.5 L, RDW Std Deviation 54.3 H, RDW Coeff of John 15.1 H, Plt Count 238, MPV 8.5, Immature Gran % (Auto) 0.400, Neut % (Auto) 71.9 H, Lymph % (Auto) 17.8 L, [place] % (Auto) 8.9, Eos % (Auto) 0.8, Baso % (Auto) 0.2, Absolute Neuts (auto) 6.7, Absolute Lymphs (auto) 1.66, Nucleated RBC % 0 11/16/20 06:58: Sodium 136, Potassium 4.2, Chloride 92 L, Carbon Dioxide > 45.0 H*, Anion Gap TNP, BUN 14, Creatinine 0.44 L, Estim Creat Clear Calc 157.08, Est GFR (MDRD) Af Amer 253, Est GFR (MDRD) Non-Af 209, BUN/Creatinine Ratio 32.1 H, Glucose 84, Calcium 8.5 Micro: Microbiology 11/12/20 09:50 Blood Culture (Wb) - Right Forearm Blood Culture - Preliminary No growth in 48 hours. 11/12/20 09:40 Blood Culture (Wb) - Anticubital Right Blood Culture - Preliminary No growth in 48 hours. 11/13/20 08:15 Urine, Clean Catch Legionella Antigen - Final 11/13/20 08:15 Urine, Clean Catch Streptococcus pneumoniae Antigen (M - Final 11/12/20 09:46 Nasal Secretion SARS-CoV-2 Antigen (Rapid) - Final Physical Exam Const alert, oriented x3 and no apparent distress General Appearance: cooperative HEENT normocephalic Eyes PERRL, EOMs intact bilaterally and conjunctivae normal Neck supple and no JVD Resp normal respiratory effort, no retractions, no use of accessory muscles and clear to auscultation bilaterally Auscultation: diminished lung sounds; Negative for crackles, rales, rhonchi or wheezes Cardio regular rate, regular rhythm, S1 normal heart sound, S2 normal heart sound and no murmurs GI soft to palpation, non-tender and non-distended; Negative for hepatosplenomegaly Extremity no clubbing, cyanosis or edema Skin no rashes or lesions noted Neuro no focal motor deficits and no sensory deficits noted Psych affect normal Appearance: appropriate Assessment & Plan Assessment/Plan (1) Acute respiratory failure with hypoxia: PLAN: 1. Acute hypoxic respiratory failure secondary to COPD and not wearing his oxygen -Unsure as to whether or not he has an exacerbation, will continue some prednisone therapy orally given his recent admission for COPD exacerbation -We will encourage him to continue wearing his oxygen but in the meantime will attempt to find him a guardian as I do not feel that he is able to make his own healthcare decisions. He does currently have a guardian for his financial decisions as he has been deemed incapable of managing his own finances -Legionella and strep antigens are negative, still not been able to obtain sputum culture. -We will continue Levaquin for another 2 days to complete treatment 2. HTN/HLD/chronic diastolic CHF -Recent echo on his last admission on 11/05/2020 demonstrated an EF of 55% with stage I diastolic dysfunction and mildly dilated right ventricle with mild global right ventricular systolic dysfunction -Continue with his home medications including his lisinopril, metoprolol, and Lasix 3. Paranoid schizophrenia -I believe that this condition is limiting his ability to manage himself medically and financially and is the cause to his need for guardianship -He has poor insight into his illness, and is incapable of making appropriate judgments in terms of his medical therapies as evidenced by the fact that he continues to remove his oxygen and have severe hypoxic episodes because of it -We will continue with his home medications and make adjustments to his Seroquel as necessary, -In the process of applying for medical guardianship DVT: Clarkx Charges/Coding Visit Charges Inpatient E&M: 98454 Subs Hosp L2
[2020-11-16 13:23] VITALS: BP 133/86; PULSE 99; RESP 16; TEMP 36.2; O2SAT 96
[2020-11-16 14:10] VITALS: O2SAT 96
--- NOTE | 2020-11-16 15:42 | NURSING ---
pt aggitated and punching at nurse. code lazaro called. pt tackled and back to bed. pt screaming at staff and cussing saying im being held hostage here for 6 months. pt unable to reason with despite attempt to reorient.
[2020-11-16 19:27] VITALS: PULSE 115
[2020-11-16] MEDS: MELATONIN 3 MG TABLET PO (19:27)
[2020-11-16 19:30] VITALS: BP 130/89; PULSE 115; RESP 16; TEMP 36.6; O2SAT 96
[2020-11-17] VITALS (8 sets, daily range): BP systolic 132–168; BP diastolic 70–154; PULSE 102–109; RESP 16–18; TEMP 36.5–36.7; O2SAT 94–95
[2020-11-17] MEDS: levoFLOXacin 750 MG Tablet PO (03:21)
[2020-11-17 06:27] LABS: Absolute Lymphocyte Count 1.54 X10^3/uL (0.83-4.51); Absolute Neutrophil Count 7.1 X10^3/uL (2.0-7.7); Basophil# 0.02 X10^3/uL; Basophil% 0.2 % (0-1); Eosinophil# 0.09 X10^3/uL; Eosinophils% 0.9 % (0-5); Hematocrit 42.6 % (40-54); Hemoglobin 12.9 g/dL (13.0-16.5); Lymphocyte # 1.54 X10^3/ul (0.83-4.51); Lymphocyte % 15.9 % (19-41); Mean Corp Hgb Conc 30.3 g/dL (32-36); Mean Corpuscular Hgb 29.2 pg (27.0-32.0); Mean Corpuscular Volume 96.4 fL (80-94); Monocyte# 0.97 X10^3/uL; NRBC Flagged by Analyzer 0 % (0-5); Neutrophil # 7.05 X10^3/uL (2.7-7.7); Neutrophil % 72.6 % (47-70); Platelet Count 248 K/mm3 (150-450); RBC Distribution Width CV 15.3 % (11.6-14.6); RBC Distribution Width SD 54.6 fl (35.1-43.9); Red Blood Count 4.42 M/mm3 (4.6-6.2); White Blood Count 9.7 K/mm3 (4.4-11.0)
[2020-11-17 06:52] LABS: Anion Gap 0 (5-15); BUN 19 mg/dL (7-18); BUN/Creat Ratio 48.8 RATIO (10-20); Calcium,Total 8.7 mg/dL (8.5-10.1); Chloride 93 mmol/L (98-107); Creatinine, Serum 0.39 mg/dL (0.70-1.30); EST Glomerular Filtration Rate 239 mL/min (>60); Est Glom Filt Rate - Afr Amer 289 mL/min (>60); Estimated Creatinine Clearance 177.22 ml/min; Glucose 80 mg/dL (74-106); Potassium 4.3 mmol/L (3.5-5.1); Sodium Level 136 mmol/L (136-145)
[2020-11-17] MEDS: Benztropine Mesylate 0.5 MG TABLET 1 MG PO (10:10)
[2020-11-17] MEDS: Furosemide 40 MG Tablet PO (10:11)
[2020-11-17] MEDS: Metoprolol Tartrate 25 MG Tablet PO ×2 (10:11→20:30)
[2020-11-17] MEDS: predniSONE 20 MG Tablet 40 MG PO (10:11)
[2020-11-17] MEDS: Aspirin E.C. 81 MG Tablet PO (10:11)
[2020-11-17] MEDS: QUEtiapine 25 MG Tablet PO ×2 (10:15→20:30)
[2020-11-17] MEDS: Lisinopril 10 MG Tablet PO (10:15)
--- NOTE | 2020-11-17 13:43 | PCM.PN.HOSP ---
Subjective Subjective Afebrile. Heart rate low 100s. Blood pressure elevated. Patient not able to give detailed history and easily gets fed up. On 3 to 4 L of oxygen. Denies shortness of breath. Denies chest pain. Lastly he said can you leave me alone. Objective Data Objective Data Vital Signs: Vital Signs Temp Pulse Resp BP Pulse Ox 97.8 F 106 H 18 168/154 H 94 11/17/20 09:25 11/17/20 10:11 11/17/20 09:25 11/17/20 10:11 11/17/20 09:25 Oxygen Flow Rate (L/min) 3 Oxygen Delivery Method Nasal Cannula Weight: 149 lb 11.102 oz Body Mass Index (BMI) 24.0 Intake & Output: Intake and Output for Last 24 Hours 11/15/20 11/16/20 11/17/20 23:59 23:59 23:59 Intake Total 1660 / 2380 1920 / 1920 1400 / 1400 Balance 1660 / 2380 1920 / 1920 1400 / 1400 Lab / Micro Data Result Diagrams: 11/17/20 04:44 11/17/20 04:44 Labs: Laboratory Results - last 24 hr 11/17/20 04:44: WBC 9.7, RBC 4.42 L, Hgb 12.9 L, Hct 42.6, MCV 96.4 H, MCH 29.2, MCHC 30.3 L, RDW Std Deviation 54.6 H, RDW Coeff of John 15.3 H, Plt Count 248, MPV 9.0, Immature Gran % (Auto) 0.400, Neut % (Auto) 72.6 H, Lymph % (Auto) 15.9 L, Craig % (Auto) 10.0, Eos % (Auto) 0.9, Baso % (Auto) 0.2, Absolute Neuts (auto) 7.1, Absolute Lymphs (auto) 1.54, Nucleated RBC % 0 11/17/20 04:44: Sodium 136, Potassium 4.3, Chloride 93 L, Carbon Dioxide 43.0 H, Anion Gap 0 L, BUN 19 H, Creatinine 0.39 L, Estim Creat Clear Calc 177.22, Est GFR (MDRD) Af Amer 289, Est GFR (MDRD) Non-Af 239, BUN/Creatinine Ratio 48.8 H, Glucose 80, Calcium 8.7 Micro: Microbiology 11/12/20 09:50 Blood Culture (Wb) - Right Forearm Blood Culture - Final No growth in 5 days. 11/12/20 09:40 Blood Culture (Wb) - Anticubital Right Blood Culture - Final No growth in 5 days. 11/13/20 08:15 Urine, Clean Catch Legionella Antigen - Final 11/13/20 08:15 Urine, Clean Catch Streptococcus pneumoniae Antigen (M - Final 11/12/20 09:46 Nasal Secretion SARS-CoV-2 Antigen (Rapid) - Final Physical Exam Narrative General: Alert, Oriented x3, hyperactive. HEENT: Atraumatic, PERRLA, EOMI, Normocephalic Oral: No Gingival or Mucosal Lesions/ Ulcerations Neck: Supple, No JVD, Negative Carotid Bruits Lungs: Air entry diminished in bilateral lung bases. No crepitation/rhonchi Cardiovascular: Regular rate, Regular Rhythm, Normal S1, Normal S2, No murmurs Abdomen: Bowel Sounds Present, Soft, Non Tender, Non-Distended : No renal angle tenderness. No suprapubic tenderness. Extremities: No edema, Capillary Refill Less than 3 Seconds Skin: No rashes, No breakdown Musculoskeletal: No Tenderness to Palpation of Joints or Extremities Neurological: Cranial nerves II-XII grossly intact, DTR 2+/4 and Symmetrical, Neuro grossly intact Psych/Mental Status: Restless, agitated Assessment & Plan Assessment/Plan (1) Acute exacerbation of chronic obstructive pulmonary disease (COPD): (2) Acute respiratory failure with hypoxia: PLAN: 1. Acute hypoxic respiratory failure secondary to COPD exacerbation: Patient is on prednisone, bronchodilator, oxygen although noncompliant. It is attempted to find guardianship in order to make healthcare decisions. He has guardianship for his financial decision. Urinary antigens are negative. On Levaquin for 1 more day. 2. Chronic diastolic heart failure: 2D echo on 11/05/2020 during previous admission showed EF 55% with stage I diastolic dysfunction. Mildly dilated RV with mild RV systolic dysfunction. On metoprolol lisinopril and Lasix. 3. Hypertension and dyslipidemia: On home medications as mentioned above. 4. Paranoid schizophrenia: Since patient has poor insight into his illness and healthcare. continue with his home medications and make adjustments to his Seroquel as necessary, DVT: Lovenox Charges/Coding Visit Charges Inpatient E&M: 07527 Subs Hosp L2
[2020-11-17] MEDS: Ibuprofen 600 MG Tablet PO (16:18)
[2020-11-17] MEDS: MELATONIN 3 MG TABLET PO (20:30)
[2020-11-18] VITALS (7 sets, daily range): BP systolic 125–162; BP diastolic 73–97; PULSE 92–103; RESP 18; TEMP 36.4–36.9; O2SAT 93–97
[2020-11-18] MEDS: levoFLOXacin 750 MG Tablet PO (03:32)
[2020-11-18] MEDS: Ibuprofen 600 MG Tablet PO ×2 (03:32→10:06)
[2020-11-18] MEDS: Furosemide 40 MG Tablet PO (07:51)
[2020-11-18] MEDS: predniSONE 20 MG Tablet 40 MG PO (07:51)
[2020-11-18] MEDS: Lisinopril 10 MG Tablet PO (07:51)
[2020-11-18] MEDS: QUEtiapine 25 MG Tablet PO ×2 (07:51→22:16)
[2020-11-18] MEDS: Aspirin E.C. 81 MG Tablet PO (07:51)
[2020-11-18] MEDS: Benztropine Mesylate 0.5 MG TABLET 1 MG PO (07:51)
[2020-11-18] MEDS: Metoprolol Tartrate 25 MG Tablet PO ×2 (07:54→22:16)
--- NOTE | 2020-11-18 08:43 | CASEMGMT ---
The number for Salas Medrano is [phone]. JALEN Oviedo
--- NOTE | 2020-11-18 09:47 | CASEMGMT ---
GOGO spoke with patient this am. Introduced self. He does not think he has had the COVID vaccine. He asked when he will be able to get out of here. GOGO told him we have nowhere for him to go. He said he just got paid and he can go pay for an apartment or something. He then asked GOGO to help him call Estevan Ryan regarding his check. GOGO dialed the phone number for him and gave him the phone. GOGO called Salas Medrano and left him a voice mail requesting a return call. Dayana Green CARTON LETTERING MACHINE OPERATOR CED
--- NOTE | 2020-11-18 09:54 | CASEMGMT ---
[facility] would be a facility that would possibly be able to manage patient. They work with patient's who have mental illness and behavioral issues. GOGO called and spoke with Liza at [facility] regarding referral. SW explained the situation to her and she agreed to look at his referral. Referral was faxed to [facility]. Dayana COUGHLIN
--- NOTE | 2020-11-18 13:43 | CASEMGMT ---
GOGO spoke with Salas Medrano and international first officer Justyna Ugarte. Salas has agreed to apply for guardianship for patient. He will be in tomorrow to meet with patient, get paperwork to submit to the court and talk with Justyna BOWENS let him know GGOO sent a referral to [facility] in [place] as they take patient's with mental health and behavioral issues. He will get back to GOGO regarding when he will be in tomorrow. Dayana Green SLAT BASKET TOP MAKER CED
--- NOTE | 2020-11-18 13:51 | CASEMGMT ---
GOGO spoke with Salas Medrano and he said he will be in tomorrow around 10 to meet with patient. SW will also give him the papers for court. GOGO spoke with Flavio Mistry, patient's payee. He said he is not patient's financial POA so he could supply information for Medicaid application once a guardian has been appointed. He said he will help in any way he can. GOGO called Liza at [facility] and she said she is having [facility] look at the referral. GOGO did let her know about patient's payee and Atty Salas Medrano coming in tomorrow to meet patient. Dayana Green GLASS MAKER CED
--- NOTE | 2020-11-18 14:52 | PN.HOSP_ITS ---
Subjective Subjective Patient feels the same. Does not have any chest pain or shortness of breath. No fever Objective Data Objective Data Vital Signs: Vital Signs Temp Pulse Resp BP Pulse Ox 97.5 F L 101 H 18 162/97 H 97 11/18/20 09:30 11/18/20 09:30 11/18/20 09:30 11/18/20 09:30 11/18/20 09:30 Oxygen Flow Rate (L/min) 3 Oxygen Delivery Method Nasal Cannula Weight: 149 lb 11.102 oz Body Mass Index (BMI) 24.0 Intake & Output: Intake and Output for Last 24 Hours 11/16/20 11/17/20 11/18/20 23:59 23:59 23:59 Intake Total 1919 / 1919 2820 / 2820 640 / 640 Balance 1919 2820 / 2820 640 / 640 Lab / Micro Data Result Diagrams: 11/17/20 04:44 11/17/20 04:44 Micro: Microbiology 11/12/20 09:50 Blood Culture (Wb) - Right Forearm Blood Culture - Final No growth in 5 days. 11/12/20 09:40 Blood Culture (Wb) - Anticubital Right Blood Culture - Final No growth in 5 days. 11/13/20 08:15 Urine, Clean Catch Legionella Antigen - Final 11/13/20 08:15 Urine, Clean Catch Streptococcus pneumoniae Antigen (M - Final 11/12/20 09:46 Nasal Secretion SARS-CoV-2 Antigen (Rapid) - Final Physical Exam Narrative General: Awake, oriented x3. Intermittent gets restless. HEENT: Atraumatic, PERRLA, EOMI, Normocephalic Oral: No Gingival or Mucosal Lesions/ Ulcerations Neck: Supple, No JVD, Negative Carotid Bruits Lungs: Air entry diminished in bilateral lung bases. No crepitation/rhonchi Cardiovascular: Regular rate, Regular Rhythm, Normal S1, Normal S2, No murmurs Abdomen: Bowel Sounds Present, Soft, Non Tender, Non-Distended : No renal angle tenderness. No suprapubic tenderness. Extremities: No edema, Capillary Refill Less than 3 Seconds Skin: No rashes, No breakdown Musculoskeletal: No Tenderness to Palpation of Joints or Extremities Neurological: Cranial nerves II-XII grossly intact, DTR 2+/4 and Symmetrical, Neuro grossly intact Psych/Mental Status: Quiet. Assessment & Plan Assessment/Plan (1) Acute exacerbation of chronic obstructive pulmonary disease (COPD): (2) Acute respiratory failure with hypoxia: PLAN: 1. Acute hypoxic respiratory failure secondary to COPD exacer bation: Patient is on prednisone, bronchodilator, oxygen although noncompliant. It is attempted to find guardianship in order to make healthcare decisions. He has guardianship for his financial decision. Urinary antigens are negative. 11/18: he completed Levaquin. No fever or chills. PE 2. Chronic diastolic heart failure: 2D echo on 11/05/2020 during previous admission showed EF 55% with stage I diastolic dysfunction. Mildly dilated RV with mild RV systolic dysfunction. On metoprolol lisinopril and Lasix. 3. Hypertension and dyslipidemia: On home medications as mentioned above. 4. Paranoid schizophrenia: Since patient has poor insight into his illness and healthcare. continue with his home medications and make adjustments to his Seroquel as necessary, DVT: Lovenox Social issues pending guardianship. Charges/Coding Visit Charges Inpatient E&M: 21742 Subs Hosp L2
[2020-11-18] MEDS: MELATONIN 3 MG TABLET PO (22:16)
[2020-11-19] VITALS (8 sets, daily range): BP systolic 108–131; BP diastolic 65–79; PULSE 96–110; RESP 18–24; TEMP 36.7–37.2; O2SAT 92–95
--- NOTE | 2020-11-19 04:16 | NURSING ---
pt refusing to have allow this rn to do a focused assessment or obtain vitals at this time
--- NOTE | 2020-11-19 09:30 | CASEMGMT ---
GOGO called Liza at [facility] this am. She said they are trying to decide where they are going to put him [facility] or [facility]. She said he would have to come on pending Medicaid and not MCR as there is no skilled needs. She asked GOGO to do a PASRR so told her he came to [facility] from another SNF with no break to the community. She asked SW to find out if [facility] did a PASRR. GOGO told her SW can find out. She will let SW know about which building. GOGO then went to patient's room. SW was able to wake him up. He was pleasant with SW. GOGO explained to him that we are trying to find a place for him to go. GOGO then explained that we have an s iron worker named Salas Medrano that is going to come and meet him today. GOGO told him Salas is going to go to court to see if the podiatric medicine doctor will allow him to be patient's guardian. GOGO told him he can then help him with making decisions. He asked if he would have a new payee. GOGO told him he would keep his payee, but have another s iron worker that will help him with other decisions. He was in agreement with this plan. GOGO then told him GOGO is talking with [facility] about him going there as [facility] will not take him back. He asked where it was and GOGO told him it is in [place]. He asked if it was in the country and will he be there forever. GOGO told him it is in the country, but it is not forever. GOGO told him hopefully he can get off the oxygen and then go to the long-term he was supposed to go originally. GOGO told him GOGO will be back at 10 with Atty Salas Medrano to meet him. Dayana COUGHLIN
[2020-11-19] MEDS: Benztropine Mesylate 0.5 MG TABLET 1 MG PO (09:54)
[2020-11-19] MEDS: levoFLOXacin 750 MG Tablet PO (09:54)
[2020-11-19] MEDS: predniSONE 20 MG Tablet 40 MG PO (09:54)
[2020-11-19] MEDS: QUEtiapine 25 MG Tablet PO (09:55)
[2020-11-19] MEDS: Furosemide 40 MG Tablet PO (09:55)
[2020-11-19] MEDS: Metoprolol Tartrate 25 MG Tablet PO ×2 (09:55→21:19)
[2020-11-19] MEDS: Lisinopril 10 MG Tablet PO (09:55)
[2020-11-19] MEDS: Aspirin E.C. 81 MG Tablet PO (09:55)
--- NOTE | 2020-11-19 10:00 | CASEMGMT ---
GOGO and Raw Stock Drier Tender Salas Medrano went to patient's room. Patient's RN was present also. Patient immediately saw GOGO and yelled, I am not going to [facility], you hear me so get out of here. (He was looking at Atty Marcela) GOGO told him Salas is not here to talk with him about [facility]. He said don't stand there and stare at me get out of here. GOGO then spoke with Salas in the hallway and gave him the Statement of Expert Evaluation papers to take to court. He will be getting a check tomorrow and he will take the papers to court at that time. Dayana Green SCHOOL PHOTOGRAPHER CED
--- NOTE | 2020-11-19 10:25 | NURSING ---
Report called to nurse Burns for pt transfer to [facility].
--- NOTE | 2020-11-19 10:47 | CASEMGMT ---
Patient is doing better off of O2. GOGO placed a call to Macey, patient's case folder at [facility] and left her a voice mail requesting a return call. Dayana COUGHLIN
--- NOTE | 2020-11-19 11:00 | CASEMGMT ---
Patient has moved to [facility] room 325. GOGO gave report to [facility] GOGO Green DEPUTY JAILER CED
--- NOTE | 2020-11-19 11:24 | CASEMGMT ---
GOGO spoke with Attlandy Medrano. He said he is just requesting guardianship of person. He would be the one to sign the Medicaid application once he is assigned as patient's guardian. Dayana COUGHLIN
--- NOTE | 2020-11-19 12:01 | CASEMGMT ---
Social Work Note Synchronous Motor Assembler Salas Medrano is to meet with court tomorrow to provide paperwork for guardianship. SW will await determination from courts regarding guardianship for pt. If guardianship is granted, Salas Medrano is able to sign Medicaid Application for pt to admit to SNF under Medicaid. Medicaid Application cannot be submitted until guardianship is confirmed. SW to follow up with Synchronous Motor Assembler Salas Medrano tomorrow after court makes determination. Fernanda Yu CORPORATE COMPLIANCE MANAGER, COLOR ADVISER
--- NOTE | 2020-11-19 12:43 | CASEMGMT ---
GOGO received a return call from Macey Casper at [facility]. She is no longer patient's case assembler. She said Lobito Donohue is his case assembler now. GOGO did let her know patient is doing better off of O2. GOGO asked if the longterm bed is still available should he no longer need O2. She said it is waiting on him. GOGO also let her know guardianship is being pursued. GOGO passed along this information to GOGO COUGHLIN
--- NOTE | 2020-11-19 13:22 | CASEMGMT ---
Social Work Note Pt is currently off Oxygen, if pt doesn't require oxygen at discharge, pt could potentially [facility]. GOGO updated that pt's Process Lead is now Lobito Donohue ([phone]) through [facility]. GOGO placed a call to Lobito Donohue and asked about pt potentially discharging to [facility] that [facility] for pt if pt continues to not need Oxygen. Lobito states he is aware there is a bed still available for pt at the [facility], states the Director is not in till tomorrow, so he will need to speak to the Director tomorrow. SW informed Lobito that Guardianship is being pursued for pt, Theoretical Physicistalon Medrano is going to the courts tomorrow to submit paperwork, so pt will remain at [facility] today still until decision is made for Guardianship. Lobito asked if it could remain at [facility] until Tuesday as the [facility] doesn't like to take Tuesday admissions. GOGO explained that if emergency guardianship is granted tomorrow, pt is off oxygen and not requiring oxygen, and Theoretical Physicistalon Medrano is agreeable to Penitent[facility], pt could potentially discharge tomorrow so that wouldn't be a Tuesday admission for the [facility]. Lobito states that is a possibility. Lobito states he will speak with the director first thing tomorrow morning. SW informed Lobito that this worker will also keep him updated on guardianship, pt's oxygen requirements, etc. Lobito states understanding. GOGO placed a call to Theoretical Physicistalon Medrano and left message updating him that pt may be able to go 24/7 assisted at discharge if pt doesn't need Oxygen at discharge. Plan: Theoretical Physicist Salas Medrano is going to the Courts tomorrow to seek emergency guardianship. Pt's discharge disposition depends on if pt will need Oxygen or not at discharge. SW to continue to follow. Fernanda Yu ADMINISTRATIVE LIAISON, FINANCIAL ECONOMIST
--- NOTE | 2020-11-19 14:09 | PCM.PN.HOSP ---
Subjective Subjective Update from social worker school that guardian issue has court date tomorrow a.m. The person for guardianship met with Dayana social worker school and the informed that his court date tomorrow for guardianship. Patient transferred to [facility] as he did not have telemetry or PCU needed. Patient got agitated on [facility]. Objective Data Objective Data Vital Signs: Vital Signs Temp Pulse Resp BP Pulse Ox 98.0 F 110 H 18 127/69 H 94 11/19/20 08:00 11/19/20 09:55 11/19/20 08:00 11/19/20 09:55 11/19/20 08:00 Oxygen Flow Rate (L/min) 3 Oxygen Delivery Method Room Air Weight: 149 lb 11.102 oz Body Mass Index (BMI) 24.0 Intake & Output: Intake and Output for Last 24 Hours 11/17/20 11/18/20 11/19/20 23:59 23:59 23:59 Intake Total 2820 / 2820 2160 / 2160 Balance 2820 / 2820 2160 / 2160 Lab / Micro Data Result Diagrams: 11/17/20 04:44 11/17/20 04:44 Micro: Microbiology 11/12/20 09:50 Blood Culture (Wb) - Right Forearm Blood Culture - Final No growth in 5 days. 11/12/20 09:40 Blood Culture (Wb) - Anticubital Right Blood Culture - Final No growth in 5 days. 11/13/20 08:15 Urine, Clean Catch Legionella Antigen - Final 11/13/20 08:15 Urine, Clean Catch Streptococcus pneumoniae Antigen (M - Final 11/12/20 09:46 Nasal Secretion SARS-CoV-2 Antigen (Rapid) - Final Physical Exam Narrative General: Awake, oriented x3. Agitated, restless HEENT: Atraumatic, PERRLA, EOMI, Normocephalic Oral: No Gingival or Mucosal Lesions/ Ulcerations Neck: Supple, No JVD, Negative Carotid Bruits Lungs: Air entry diminished in bilateral lung bases. No crepitation/rhonchi Cardiovascular: Regular rate, Regular Rhythm, Normal S1, Normal S2, No murmurs Abdomen: Bowel Sounds Present, Soft, Non Tender, Non-Distended : No renal angle tenderness. No suprapubic tenderness. Extremities: No edema, Capillary Refill Less than 3 Seconds Skin: No rashes, No breakdown Musculoskeletal: No Tenderness to Palpation of Joints or Extremities Neurological: Cranial nerves II-XII grossly intact, DTR 2+/4 and Symmetrical, Neuro grossly intact Psych/Mental Status: Agitation. Assessment & Plan Assessment/Plan (1) Acute exacerbation of chronic obstructive pulmonary disease (COPD): (2) Acute respiratory failure with hypoxia: PLAN: 1. Acute hypoxic respiratory failure secondary to COPD exacerbation: Patient is on prednisone, bronchodilator, oxygen although noncompliant. It is attempted to find guardianship in order to make healthcare decisions. He has guardianship for his financial decision. Urinary antigens are negative. 11/18: he completed Levaquin. No fever or chills. 11/19: Patient had antibiotics since 11/12 initially on ceftriaxone and Zithromax and then Levaquin. Patient also had a steroid from 11/12 therefore will discontinue prednisone. 2. Chronic diastolic heart failure: 2D echo on 11/05/2020 during previous admission showed EF 55% with stage I diastolic dysfunction. Mildly dilated RV with mild RV systolic dysfunction. On metoprolol lisinopril and Lasix. 3. Hypertension and dyslipidemia: On home medications as mentioned above. 4. Paranoid schizophrenia: 11/19: Court hearing for guardianship tomorrow. Haldol for intermittent agitation. Patient is on baseline Seroquel and fluphenazine. Seroquel is increased to 50 mg twice daily. check ECG tomorrow and for QT interval. Since patient has poor insight into his illness and healthcare. continue with his home medications and make adjustments to his Seroquel as necessary, DVT: Lovenox Social issues pending guardianship. Charges/Coding Visit Charges Inpatient E&M: 56062 Subs Hosp L2
--- NOTE | 2020-11-19 15:07 | CASEMGMT ---
Social Work Note GOGO placed a call to Liza at [facility] to inquire about referral. Liza states their sister facility [facility] in [place], [place] is reviewing referral. Liza states she hopes [facility] can accept pt until COVID slows down at [facility]. Liza states if [facility] is not able to accept then pt can go to [facility]. GOGO updated Liza that Stone Layout Marker Salas Medrano is going to the courts tomorrow to see guardianship, will keep Liza updated. GOGO asked Liza to let this worker know when a facility is confirmed for pt. Fernanda Yu DIORAMIST, CARE CLINICIAN
--- NOTE | 2020-11-19 15:10 | CASEMGMT ---
GOGO received a message this am from Abdiaziz at [facility]. GOGO called her back and left her a voice mail with an update on patient and where we stand on d/c. Dayana COUGHLIN
--- NOTE | 2020-11-19 15:42 | CASEMGMT ---
Social Work Note SW received call from Yanet at [facility] in [place] requesting call back ([phone]). SW placed a call to Yanet at [facility]. Yanet states [facility] has a secured Behavior Health Unit and will review referral. Fernanda Yu PSYCHOLOGY TECH, MICROBIOLOGY SOIL SCIENTIST
[2020-11-19] MEDS: Ibuprofen 600 MG Tablet PO ×2 (15:46→21:19)
[2020-11-19] MEDS: proMETHazine 25 MG/ML Syringe 12.5 MG IM (16:10)
[2020-11-19] MEDS: Ziprasidone IM 20 MG/ML VIAL IM (16:10)
--- NOTE | 2020-11-19 19:30 | NURSING ---
Pt rang call light d/t being in the bathroom. Stated he had a BM and also voided. Gait steady. Back to chair at this time. Instructed to call for assistance.
[2020-11-19] MEDS: QUEtiapine 25 MG Tablet 50 MG PO (21:18)
[2020-11-19] MEDS: MELATONIN 3 MG TABLET PO (21:18)
[2020-11-20 03:05] VITALS: BP 126/88; PULSE 82; RESP 24; TEMP 36.9; O2SAT 92
[2020-11-20 03:10] VITALS: O2SAT 92
--- NOTE | 2020-11-20 05:55 | EKG12_ITS ---
Test Reason : AM EKG Blood Pressure : / mmHG Vent. Rate : 086 BPM Atrial Rate : 086 BPM P-R Int : 138 ms QRS Dur : 092 ms QT Int : 354 ms P-R-T Axes : 079 115 073 degrees QTc Int : 423 ms Normal sinus rhythm Right atrial enlargement Left posterior fascicular block Abnormal ECG Confirmed by ALBERTO HENDERSON, RADHA ([id number]), newspaper editor ITALO BRIAN ([id number]) on 11/24/2020 1:12:58 PM Referred By: DON Confirmed By:RADHA DOMINGUEZ MD
[2020-11-20 09:33] VITALS: O2SAT 89; O2SAT 92
--- NOTE | 2020-11-20 09:45 | CASEMGMT ---
Social Work Note SW requested walking pulse ox to determine if pt will need Oxygen or not at discharge as that dictates pt's discharge plan. RN completed walking pulse ox, pt doesn't qualify for home oxygen. GOGO received message from Refrigeration Engineer Salas Medrano requesting call back. GOGO placed a call to Refrigeration Engineeralon Medrano [phone]. GOGO updated Refrigeration Engineer Salas Medrano that pt doesn't qualify for home oxygen, there is a [facility] that was [facility] the [facility] pt. GOGO informed Refrigeration Engineer Salas Medrano that this worker will update pt's Doctor Of Naprapathy Lobito Donohue. GOGO placed a call to Lobito Donohue and updated him that pt doesn't need Oxygen at discharge, asked if pt could admit to [facility]. GOGO waiting for call back. GOGO in to speak with pt. GOGO introduced self and role at [facility]. GOGO updated pt that this worker is now trying to get pt to [facility]. Pt agreeable to Prison, wants to stay in [place]. Fernanda Yu MOTOR VEHICLE OPERATOR ROAD SUPERVISOR, CLIENT SERVICE REPRESENTATIVE
[2020-11-20 09:57] VITALS: PULSE 100
[2020-11-20] MEDS: Metoprolol Tartrate 25 MG Tablet PO (09:57)
[2020-11-20] MEDS: QUEtiapine 25 MG Tablet 50 MG PO (09:57)
[2020-11-20] MEDS: Benztropine Mesylate 0.5 MG TABLET 1 MG PO (09:58)
[2020-11-20] MEDS: Aspirin E.C. 81 MG Tablet PO (09:58)
[2020-11-20] MEDS: Furosemide 40 MG Tablet PO (09:58)
[2020-11-20] MEDS: Lisinopril 10 MG Tablet PO (09:58)
[2020-11-20 10:00] VITALS: BP 124/85; PULSE 100; RESP 18; TEMP 37.2; O2SAT 92
--- NOTE | 2020-11-20 10:40 | CASEMGMT ---
Social Work Note SW received message from Lobito Donohue requesting call back as he is trying to get a hold of pt and has not been able to do so. Lobito states he cannot get pt placed until he speaks to pt. GOGO placed a call to Lobito Donohue. SW informed Lobito that this worker can take into pt's room so he can talk to pt. SW in to speak with pt. SW provided pt with phone and informed him that Lobito is on the phone. Pt talked to Lobito. Pt agreeable to going to [facility]. GOGO spoke with Lobito, Lobito states the Director at [facility] has concerns with pt getting his medications on time today. Lobito states pt's medications/scripts need to be sent to [facility] so they can be delivered to [facility] today. Lobito states pt [facility] on [address] and states Director is Funmi Glynn and her number is [phone]. GOGO placed a call to Eric Guido, Risk Management, and updated her on pt's case. Eric Guido states a check was delivered to Salas Medrano about half hour ago and he stated he would file for guardianship later this afternoon. Eric Guido agrees that Guardianship should still be pursued for pt. GOGO placed a call to Funmi Glynn and left message requesting call back. Fernanda Yu HAND ALMOND BLANCHER, SURVEY QUESTIONNAIRE DESIGNER
--- NOTE | 2020-11-20 11:35 | PCM.DC ---
Discharge Instructions Diet Discharge Diet: 2000 mg Sodium Diet Activity Discharge Activity: Return to Normal Activity Dressing / Incision Call your doctor if you observe: Fever of 101 or Higher, Coldness, Increased Pain, Numbness or Tingling, Change in Color, Inability to urinate, Inability to have a bowel movement, Shortness of breath, Dizziness, Fainting spells, Swelling in the ankles, Chest pain, Prolonged hiccupping, Increased palpitations (irregular heartbeat), Calf discomfort and Uncontrolled pain Follow Up Care Test Results: Test results from this visit will be discussed in further detail at your follow-up appointment, if applicable. Discharge Plan Admission Admit Date/Time: 11/12/20 11:48 Primary Reason for Your Visit: Acute exacerbation of COPD. Paranoid schizophrenia Attending Provider: Calixto Martinez Primary Care Provider: Daquan Pritchett NP Discharge Orders/Prescriptions Prescriptions: Continued lisinopril 10 MG tablet 10 mg PO DAILY Qty: 30 RF: 1 fluphenazine HCl 10 MG tablet 10 mg PO DAILY RF: 0 benztropine 1 mg Tablet 1 mg PO DAILY RF: 0 metoprolol tartrate 25 MG tablet 25 mg PO BID RF: 0 quetiapine 25 mg Tablet 25 mg PO BID Qty: 0 RF: 0 furosemide 40 mg Tablet 40 mg PO DAILY Qty: 0 RF: 0 ipratropium-albuterol 0.5 mg-3 mg(2.5 mg base)/3 mL Solution For Nebulization 3 ml inhalation Q4H.RT Qty: 0 RF: 0 albuterol sulfate 2.5 mg /3 mL (0.083 %) Solution For Nebulization 2.5 mg inhalation Q2H PRN PRN (Reason: DYSPNEA) Qty: 0 RF: 0 aspirin 81 mg Tablet,Delayed Release (Dr/Ec) 81 mg PO BREAKFAST Qty: 0 RF: 0 bisacodyl 10 mg Suppository 10 mg WI DAILY PRN (Reason: Constipation) RF: 0 magnesium hydroxide [Milk of Magnesia] 400 mg/5 mL Suspension 30 ml PO DAILY PRN PRN (Reason: Constipation) RF: 0 nicotine 14 mg/24 hr Patch 24 Hour 1 patch TRANSDERMAL DAILY Qty: 0 RF: 0 Enema 19-7 gram/118 mL Enema 118 ml WI DAILY PRN (Reason: Constipation) Qty: 0 RF: 0 Referrals / Follow Up: Blaz,Daquan SHEET METAL WORK FURNACE INSTALLER, SHEET METAL WORK FURNACE INSTALLER-C [Primary Care Provider] - Disposition Disposition (needs filled in before D/C Order can be placed): Home, Self Care
--- NOTE | 2020-11-20 11:42 | PCM.DC.SUM ---
Providers Date of Admission: 11/12/20 Primary Care Physician: DANIELLE Pryor Reason For Visit: HYPOXIC RESP FAILURE Diagnosis Discharge Diagnosis (1) Acute exacerbation of chronic obstructive pulmonary disease (COPD): Status: Resolved Code(s): J44.1 - Chronic obstructive pulmonary disease with (acute) exacerbation (2) Acute respiratory failure with hypoxia: Status: Deleted Code(s): J96.01 - Acute respiratory failure with hypoxia Medications at Discharge Home Medications Enema 118 ml DC DAILY PRN #10 ml 11/20/20 albuterol sulfate 2.5 mg INHALATION Q2H PRN #120 ml 11/20/20 aspirin 81 mg PO BREAKFAST #30 tab 11/20/20 benztropine 1 mg PO DAILY #30 tab 11/20/20 bisacodyl 10 mg DC DAILY PRN #30 ea 11/20/20 fluphenazine HCl 10 mg PO DAILY #30 tab 11/20/20 furosemide 40 mg PO DAILY #30 tab 11/20/20 ipratropium-albuterol 3 ml INHALATION Q4H.RT 30 Days #120 ml 11/20/20 lisinopril 10 mg PO DAILY #30 tab 11/20/20 metoprolol tartrate 25 mg PO BID #60 tab 11/20/20 nicotine 14 mg TRANSDERMAL DAILY #30 ea 11/20/20 quetiapine 25 mg PO BID #60 tab 11/20/20 Hospital Course Summary of Care Provided Hospital Course: 1. Acute hypoxic respiratory failure secondary to COPD exacerbation: Patient is on prednisone, bronchodilator, oxygen although noncompliant. It is attempted to find guardianship in order to make healthcare decisions. He has guardianship for his financial decision. Urinary antigens are negative. Patient completed antibiotic initially ceftriaxone and Zithromax and then Levaquin total of 7 days. Patient has been on burst prednisone which she completed. Prednisone also discontinue as it might exacerbate his schizophrenia. Acute hypoxic respiratory failure resolved. 2. Chronic diastolic heart failure: 2D echo on 11/05/2020 during previous admission showed EF 55% with stage I diastolic dysfunction. Mildly dilated RV with mild RV systolic dysfunction. On metoprolol lisinopril and Lasix. 3. Hypertension and dyslipidemia: On home medications as mentioned above. 4. Paranoid schizophrenia: Patient is on baseline Seroquel and fluphenazine. On Seroquel 25 mg twice daily which was continued on the home discharge. Patient had guardianship issues settled therefore discharged to [facility]. DVT: Lovenox Discharge medication reconciliation done. Discharge follow-up instructions completed. Discharge process discussed with the patient and all questions were answered to patient's satisfaction. Total time spent, exact 35 minutes on discharge meds reconciliation, examination, coordination of care with nurses and ancillary staff, review of imaging and blood test and discussion with the patient on follow-up instructions. Home qualification oxygen testing was done and he does not qualify for oxygen. A prescription for all his home medications given. Physical Exam Narrative Seen and examined. Patient hemodynamically blood pressure and heart rate stable. No hypoxia. General: Awake, oriented x3. Quiet. HEENT: Atraumatic, PERRLA, EOMI, Normocephalic Oral: No Gingival or Mucosal Lesions/ Ulcerations Neck: Supple, No JVD, Negative Carotid Bruits Lungs: Air entry diminished in bilateral lung bases. No crepitation/rhonchi Cardiovascular: Regular rate, Regular Rhythm, Normal S1, Normal S2, No murmurs Abdomen: Bowel Sounds Present, Soft, Non Tender, Non-Distended : No renal angle tenderness. No suprapubic tenderness. Extremities: No edema, Capillary Refill Less than 3 Seconds Skin: No rashes, No breakdown Musculoskeletal: No Tenderness to Palpation of Joints or Extremities Neurological: Cranial nerves II-XII grossly intact, DTR 2+/4 and Symmetrical, Neuro grossly intact Psych/Mental Status: Mood appropriate. Weight / BMI Weight Weight: 149 lb 11.102 oz Body Mass Index (BMI) 24.0 ABG / Lab / Microbiology Data Result Diagrams: 11/17/20 04:44 11/17/20 04:44 Microbiology: Microbiology 11/12/20 09:50 Blood Culture (Wb) - Right Forearm Blood Culture - Final No growth in 5 days. 11/12/20 09:40 Blood Culture (Wb) - Anticubital Right Blood Culture - Final No growth in 5 days. 11/13/20 08:15 Urine, Clean Catch Legionella Antigen - Final 11/13/20 08:15 Urine, Clean Catch Streptococcus pneumoniae Antigen (M - Final 11/12/20 09:46 Nasal Secretion SARS-CoV-2 Antigen (Rapid) - Final D/C Instructions Discharge Diet: 2000 mg Sodium Diet Call your doctor if you observe: Fever of 101 or Higher, Coldness, Increased Pain, Numbness or Tingling, Change in Color, Inability to urinate, Inability to have a bowel movement, Shortness of breath, Dizziness, Fainting spells, Swelling in the ankles, Chest pain, Prolonged hiccupping, Increased palpitations (irregular heartbeat), Calf discomfort and Uncontrolled pain Meaningful Use Info Meaningful Use Diagnoses (Choose all that apply): None applicable Discharge Plan Admission Admit Date/Time: 11/12/20 11:48 Primary Reason for Your Visit: Acute exacerbation of COPD. Paranoid schizophrenia Attending Provider: Calixto Martinez Primary Care Provider: Daquan Pritchett NP Discharge Orders/Prescriptions Prescriptions: Continued quetiapine 25 mg Tablet 25 mg PO BID Qty: 60 RF: 0 furosemide 40 mg Tablet 40 mg PO DAILY Qty: 30 RF: 0 ipratropium-albuterol 0.5 mg-3 mg(2.5 mg base)/3 mL Solution For Nebulization 3 ml inhalation Q4H.RT 30 Days Qty: 120 RF: 0 fluphenazine HCl 10 MG tablet 10 mg PO DAILY Qty: 30 RF: 0 aspirin 81 mg Tablet,Delayed Release (Dr/Ec) 81 mg PO BREAKFAST Qty: 30 RF: 3 bisacodyl 10 mg Suppository 10 mg DC DAILY PRN (Reason: Constipation) Qty: 30 RF: 0 lisinopril 10 MG tablet 10 mg PO DAILY Qty: 30 RF: 2 benztropine 1 mg Tablet 1 mg PO DAILY Qty: 30 RF: 0 Enema 19-7 gram/118 mL Enema 118 ml DC DAILY PRN (Reason: Constipation) Qty: 10 RF: 0 Changed nicotine 14 mg/24 hr Patch 24 Hour 14 mg TRANSDERMAL DAILY Qty: 30 RF: 0 albuterol sulfate 2.5 mg /3 mL (0.083 %) Solution For Nebulization 2.5 mg inhalation Q2H PRN (Reason: DYSPNEA) Qty: 120 RF: 0 metoprolol tartrate 25 MG tablet 25 mg PO BID Qty: 60 RF: 2 Discontinued magnesium hydroxide [Milk of Magnesia] 400 mg/5 mL Suspension 30 ml PO DAILY PRN PRN (Reason: Constipation) RF: 0 Referrals / Follow Up: Daquan Pritchett NP, NUMERICAL CONTROL MACHINE MACHINIST-C [Primary Care Provider] - Disposition Disposition (needs filled in before D/C Order can be placed): Home, Self Care Charges/Coding Visit Charges Inpatient E&M: 58042 Disch Hosp
--- NOTE | 2020-11-20 11:47 | CASEMGMT ---
Social Work Note GOGO received message from Funmi Glynn requesting call back. GOGO placed a call to Funmi Glynn. Funmi confirms that pt is able to [facility], pt will need to be discharged and admitted to [facility] before 5:00pm today or pt would need to stay at [facility] until Tuesday when he could admit to [facility] on Tuesday. GOGO informed Funmi that it is not appropriate to keep pt at [facility] over the weekend when pt has been medically ready for discharge. GOGO spoke with Funmi that guardianship will be filed for pt, not sure if emergency guardianship will be granted or not. Funmi states she has no problem with pt admitting to [facility] today while guardianship is being pursued for pt. Funmi states pt will not need another COVID test. Funmi states that pt's CM Lobito will be able to provide transportation and that this worker will just need to call him with transport time. GOGO asked physician to send scripts/Medications to [place] to be filled. GOGO to address situation with manager loan. Fernanda Yu BAIT MAN, GANG BOSS
--- NOTE | 2020-11-20 12:07 | CASEMGMT ---
Social Work Note GOGO received call from Electric Installer Salas Medrano stating emergency guardianship was granted and there is a hearing tomorrow at 3:00pm to confirm guardianship. GOGO informed Electric Installer Salas Medrano that pt has been accepted to [facility] on [address] and that pt will discharge there today. Salas agreeable to plan. GOGO provided Salas with Director of [facility] Funmi Fontanez's number [phone] as he will need to fill out paperwork for [facility]. Salas states pt doesn't need to show up at [facility] tomorrow. GOGO updated Salas that pt has been updated on discharge to [facility] and pt is agreeable to plan. GOGO placed a call to Funmi Fontanez and updated her that Emergency Guardianship has been granted and Salas Medrano is Guardian. GOGO informed Funmi that discharge is in, pt's CM Lobito can transport pt at anytime. GOGO placed a call to pt's CM Lobito Donohue and updated him that discharge is in, he can transport pt anytime. Lobito states he will be at [facility] in about an hour to transport pt. GOGO updated RN. GOGO updated pt that his CM Lobito will be coming to [facility] in about an hour to transport pt to [facility]. Pt states understanding, agreeable to plan. Physician updated that it is confirmed pt can discharge to [facility] today. Plan: [facility]charge to [facility] today. Pt's KRISTAL Donohue to provide transportation. Fernanda Yu MACHINE HEEL SEAT LASTER, BRAKE DRUM LATHE OPERATOR
--- NOTE | 2020-11-20 12:44 | CASEMGMT ---
Social Work Note SW placed a call to Yanet at [facility] and updated her that pt is now going to [facility] and to disregard referral. GOGO placed a call to Abdiaziz with [facility] and provided update. Fernanda Yu TECHNICAL STAFF ASSISTANT, HOME IMPROVEMENT CONTRACTOR
--- NOTE | 2020-11-20 14:14 | CASEMGMT ---
Addendum entered by Fernanda Yu 11/20/20 14:50: SW did check orders, pt's medications have been sent to [facility]. Original Note: Social Work Note SW received message from pt's CM Lobito Donohue stating the medication list was never sent to pt's pharmacy [facility] and he needs the medications to get pt placed in [facility]. Lobito states if [facility] doesn't have medications he cannot place pt in [facility] and will be bringing pt back to the hospital. direct mail coordinator informed physician medications need to be sent to [facility], Physician to do so. It should be noted that this worker did ask Physician earlier to send medications to pt's pharmacy [facility]. SW placed a call to Lobito Donohue and updated him that Physician is sending scripts to [facility]. Fernanda Yu PLATE FITTER, SWEATBAND DECORATING MACHINE OPERATOR
== END 2020-11-20 13:08 | disposition home or self-care (01) | DRG 193 ==
LOC: ED 11:39 → PCU 14:33 → MS3 11-19 10:37
PROVIDERS: Admitting Provider Family Medicine; Emergency Provider Emergency Medicine; PCP Nurse Practitioner Family; Visit Provider Internal Medicine
DX: J18.9 Pneumonia, unspecified organism (principal); J96.01 Acute respiratory failure with hypoxia; J96.02 Acute respiratory failure with hypercapnia; J44.1 Chronic obstructive pulmonary disease with (acute) exacerbation; F20.0 Paranoid schizophrenia; I50.32 Chronic diastolic (congestive) heart failure; J44.0 Chronic obstructive pulmonary disease with (acute) lower respiratory infection; I11.0 Hypertensive heart disease with heart failure; E78.5 Hyperlipidemia, unspecified; Z79.899 Other long term (current) drug therapy; Z91.19 Patient's noncompliance with other medical treatment and regimen; Z79.82 Long term (current) use of aspirin
CPT/HCPCS: 36415; 36600; 71045; 80048; 80053; 82803; 83605; 84484; 85025; 85610; 87040; 87426; 87449; 93005; 94640; 97165; 99285; 99406; J7030; J7040; A4216; J3486

== ENCOUNTER 2020-12-20 22:59 | Inpatient (IN) | payer MEDICARE, SELFPAY ==
[2020-12-20 23:00] VITALS: BP 62/49; PULSE 60; RESP 18; TEMP 36.8; O2SAT 74; BMI 21.2
[2020-12-20 23:06] VITALS: O2SAT 88
--- NOTE | 2020-12-20 23:17 | EKG12_ITS ---
Test Reason : DYSRYTHMIA Blood Pressure : / mmHG Vent. Rate : 059 BPM Atrial Rate : 059 BPM P-R Int : 150 ms QRS Dur : 094 ms QT Int : 394 ms P-R-T Axes : 076 150 066 degrees QTc Int : 390 ms Sinus bradycardia Right ventricular hypertrophy Septal infarct , age undetermined Abnormal ECG Confirmed by ALETA HENDERSON, DONA ([id number]), editor trade journal ITALO BRIAN ([id number]) on 12/23/2020 9:32:31 AM Referred By: ALLYN Confirmed By:DONA RIVER MD
--- NOTE | 2020-12-20 23:17 | RAD_ITS ---
STUDY: X-RAY CHEST REASON FOR EXAM: Male, 60 years old. Hypoxia TECHNIQUE: Single AP portable view of the chest. COMPARISON: 11/12/2020. FINDINGS: Streaky density within the right lower lobe likely representing residual atelectasis versus scarring, decreased in size in the interval. Remainder of the lung minor are clear. There is no demonstrated pleural abnormality. Normal size heart. Normal mediastinum and velma. Normal visualized pulmonary arteries. Normal visualized aortic arch and descending thoracic aorta. There are diffuse degenerative changes of the visualized thoracic spine. There is degenerative osteoarthritis of the bilateral shoulders. There is no demonstrated abnormality of the visualized soft tissue structures of the upper abdomen. RAD/Chest 1 View (Portable) IMPRESSION: Improved density within the right lower lobe with streaky markings suggestive of residual atelectasis versus scarring. Otherwise no acute cardiopulmonary disease. Electronically Signed: Amada Shell MD at 0:26 EDT , Service support ,
--- NOTE | 2020-12-20 23:20 | EX.ED.DYSGE1 ---
HPI History of Present Illness Chief Complaint: Fall Informant: patient and EMS Narrative Narrative: 60-year-old male from a residential presents following a fall via EMS. Patient has a history of COPD CHF and paranoid schizophrenia. Reportedly had a fall this evening but he states he did not hurt himself. He states he feels fine and does not need to be in the hospital. EMS notes that he was hypotensive and hypoxic. Triage finds him to be 62/49 with a heart rate of 60 and a pulse ox of 74% on room air. Patient was recently admitted in the hospital with COPD exacerbation. He now has a power of state's attorney. care home states that they cannot take him if he is wearing home oxygen. Patient states he has been eating. He states that he is very angry that we are going to evaluate him. [facility] Medical History CHF (congestive heart failure), NYHA class II Cocaine abuse COPD (chronic obstructive pulmonary disease) HTN (hypertension) Paranoia Paranoid schizophrenia Paranoid schizophrenia Smoker Substance abuse Home Medications albuterol sulfate 2.5 mg INHALATION Q2H PRN #120 ml 11/20/20 [Rx Last Taken Unknown] aspirin 81 mg PO BREAKFAST #30 tab 11/20/20 [Rx Last Taken Unknown] benztropine 1 mg PO DAILY #30 tab 11/20/20 [Rx Last Taken Unknown] fluphenazine HCl 10 mg PO DAILY #30 tab 11/20/20 [Rx Last Taken Unknown] ipratropium-albuterol 3 ml INHALATION Q4H.RT 30 Days #120 ml 11/20/20 [Rx Last Taken Unknown] lisinopril 10 mg PO DAILY #30 tab 11/20/20 [Rx Last Taken Unknown] metoprolol tartrate 25 mg PO BID #60 tab 11/20/20 [Rx Last Taken Unknown] Allergy/AdvReac Type Severity Reaction Status Date / Time haloperidol lactate Allergy Anaphylaxis Verified 12/20/20 23:07 [From Haldol] doxycycline AdvReac Unknown Other Verified 12/20/20 23:07 antihistamines Allergy Rash Uncoded 12/20/20 23:07 Family History Father Heart disease Surgical History History of appendectomy Social History (Updated 12/20/20 @ 23:[address] Daquan Terrell DO) current gender identity: male Smoking Status: Former smoker ROS ROS ED Constitutional Constitutional ED: Denies chills or weight loss Eyes Eyes: Denies change in vision or diplopia ENT ENT ED: Denies ear pain, rhinorrhea or sore throat Cardiovascular Cardiovascular: Denies chest pain, orthopnea, palpitations or racing heartbeat Respiratory/Chest Respiratory/Chest: Denies cough, dyspnea or orthopnea Gastrointestinal Gastrointestinal: Denies abdominal pain, diarrhea, nausea or vomiting Genitourinary Genitourinary ED: Denies dysuria, hematuria or urinary frequency Musculoskeletal Musculoskeletal: Denies arthralgias or myalgias Integumentary Denies abscess or rash Neurologic Neurologic: Denies headache(s) or weakness Psychiatric Psychiatric: Denies anxiety, depression, suicidal ideation or suicidal thoughts Endocrine Endocrinology: Denies polydipsia, polyphagia or polyuria Allergic/Immunologic Allergic/Immunologic ED: Denies mouth swelling, tongue swelling or urticaria EXAM Physical Exam Const Vital Signs: 12/20/20 23:00 12/20/20 23:06 Temperature 98.2 F Temperature Source Oral Pulse Rate 60 Respiratory Rate 18 Blood Pressure 62/49 L Blood Pressure Mean 53 Pulse Ox 74 88 Oxygen Delivery Method Room Air Nasal Cannula Oxygen Flow Rate (L/min) 2 Positive well nourished and well developed General Appearance ED: well developed HEENT Reports normocephalic, head/scalp atraumatic and moist mucous membranes Eyes PERRL and EOMs intact bilaterally Neck no lymphadenopathy, supple and no JVD Resp normal respiratory effort Auscultation: wheezes expiratory wheezes and diminished lung sounds Cardio regular rate, regular rhythm and no murmurs GI normal to inspection, nondistended, normoactive bowel sounds and non-tender Palpation: soft Back/Spine no CVA tenderness and normal ROM Extremity normal to inspection General Extremety ED: Negative for edema General Extremity: Negative for edema Neuro oriented x3 and CN's II-XII intact bilaterally Sensorium / Orientation: alert Motor Exam: strength 5/5 throughout Psych Attitude: agitated Mood & Affect: Negative for depressed or tearful Skin no rashes or lesions noted and no wounds MDM MDM MDM Narrative Medical decision making narrative: Patient was given supplemental oxygen. Sepsis work-up was undertaken including Covid testing. He will be receiving IV fluids. In order to help facilitate his care and give him some Geodon. Care the patient will be checked out to the oncoming physician for check of labs and final disposition I would anticipate a hospitalization. EKG Initial EKG: Attestation: I personally reviewed and interpreted this EKG as follows: Comments: Sinus bradycardia with a ventricular rate of 59 bpm. Discharge Plan Disposition Disposition: Acute Care Hospital [facility]
[2020-12-20 23:36] VITALS: O2SAT 96
[2020-12-20] MEDS: Ziprasidone IM 20 MG/ML VIAL 10 MG IM (23:39)
[2020-12-20 23:46] LABS: Absolute Neutrophil Count 7.3 X10^3/uL (2.0-7.7); Basophil# 0.02 X10^3/uL; Basophil% 0.2 % (0-1); Eosinophil# 0.03 X10^3/uL; Eosinophils% 0.3 % (0-5); Hematocrit 43.9 % (40-54); Hemoglobin 13.9 g/dL (13.0-16.5); Lymphocyte % 11.8 % (19-41); Mean Corp Hgb Conc 31.7 g/dL (32-36); Mean Corpuscular Volume 91.5 fL (80-94); Mean Platelet Vol. 8.8 fl (6.2-12.0); Monocyte# 0.84 X10^3/uL; NRBC Flagged by Analyzer 0 % (0-5); Neutrophil # 7.29 X10^3/uL (2.7-7.7); Neutrophil % 78.1 % (47-70); Platelet Count 353 K/mm3 (150-450); RBC Distribution Width CV 17.4 % (11.6-14.6); RBC Distribution Width SD 59.3 fl (35.1-43.9); White Blood Count 9.3 K/mm3 (4.4-11.0)
[2020-12-20 23:51] VITALS: TEMP 36.9; O2SAT 99
[2020-12-20 23:54] VITALS: O2SAT 99
[2020-12-20] MEDS: 0.9% Normal Saline 1,000 ML 999 ML IV (23:55)
[2020-12-21] VITALS (20 sets, daily range): BP systolic 82–142; BP diastolic 57–100; PULSE 74–92; RESP 16–22; TEMP 36.3–36.7; O2SAT 90–95; BMI 21.3
[2020-12-21 00:07] LABS: ALB/GLOB Ratio 0.8 RATIO (0.9-2.4); AST(SGOT) 36 U/L (15-37); Alanine Aminotransfer ALT/SGPT 48 U/L (16-61); Albumin, Serum 2.7 g/dL (3.2-5.0); Alkaline Phosphatase 80 U/L (45-117); Anion Gap 6 (5-15); BUN 32 mg/dL (7-18); BUN/Creat Ratio 20.8 RATIO (10-20); Calcium,Total 8.3 mg/dL (8.5-10.1); Chloride 83 mmol/L (98-107); Creatinine, Serum 1.54 mg/dL (0.70-1.30); EST Glomerular Filtration Rate 49 mL/min (>60); Est Glom Filt Rate - Afr Amer 59 mL/min (>60); Estimated Creatinine Clearance 45.87 ml/min; Globulin 3.5 g/dL (2.2-4.2); Glucose 130 mg/dL (74-106); Potassium 5.2 mmol/L (3.5-5.1); Protein, Total 6.2 g/dL (6.4-8.2); Sodium Level 123 mmol/L (136-145); Troponin-I HS 52 pg/mL (3.0-78.0)
[2020-12-21 00:10] LABS: Lactic Acid 2.2 mmol/L (0.4-1.9)
[2020-12-21 00:28] LABS: International Normalized Ratio 1.1; Partial Thromboplast Time 27.5 Seconds (24.1-36.2); Prothrombin Time (Protime)PT. 13.9 SECONDS (11.7-14.9)
[2020-12-21] MEDS: 0.9% Normal Saline 1,000 ML 999 ML IV (00:53)
[2020-12-21 01:14] LABS: D-Dimer Quantitative (DVT/PE) 2.19 FEU/ug/m (0.27-0.49)
--- NOTE | 2020-12-21 01:16 | CT_ITS ---
HISTORY: SOB, elevated dimer EXAMINATION: CTA Chest W/ Contrast Injection (and W/O Contrast Images if performed) TECHNIQUE: Helically acquired images were obtained of the chest following IV contrast as per pulmonary angiogram protocol with MIP and MPR reconstructions. A radiation dose optimization technique was used for this scan. IV Contrast dosage and agent: 100mL [id number] COMPARISON: CTA chest from 11/04/20 FINDINGS: LUNGS, PLEURA AND LARGE AIRWAYS: Stable centrilobular and paraseptal pulmonary emphysema is changes with no pulmonary edema, mass or consolidation. Bilateral bronchial wall thickening again noted with patent central airways. No pleural effusion or pleural thickening. No pneumothorax. PULMONARY ARTERIES: No pulmonary arterial filling defects identified. AORTA AND GREAT VESSELS: Atherosclerosis with no thoracic aortic aneurysm or dissection. Great vessels are patent. HEART AND PERICARDIUM: Stable prominent right heart chambers with associated dilatation of IVC and hepatic veins. Trace pericardial effusion. MEDIASTINUM AND HAZEL: No pathologically enlarged mediastinal or hilar lymph nodes. Esophagus appears mildly thickened, similar to previous exam. THYROID: Unremarkable as visualized. UPPER ABDOMEN: Perihepatic ascites again noted. BONES: Intact with no suspicious osseous lesion. SOFT TISSUES: No acute findings. CT/CTA Chest W/WO Contrast IMPRESSION: 1. No pulmonary embolus identified. 2. Stable findings of right heart failure. 3. Pulmonary emphysema and bronchitis. 4. Mildly thickened esophagus. Correlate clinically for esophagitis and consider follow-up upper GI series or EGD. 5. Small volume abdominal ascites. Individualized dose optimization techniques were used for this CT. at 0236 Reported and signed by: Ridge Recinos MD Electronically Signed: Ridge Recinos MD at 2:35 EDT Tel , Service support ,
--- NOTE | 2020-12-21 01:50 | HP.PCM.HOS_ITS ---
HPI - General HPI Narrative LYLY CALVIN, is a 60 M who presented to the emergency department at [facility] on 12/20/2020 after a fall. The patient currently resides at a shelter and has a history of paranoid schizophrenia. Per report from EMS he had a fall this evening but on questioning him him regarding this he has no pain secondary to this. He indicated to the emergency staff that he felt fine and did not need to be in the hospital but the EMS noted that he was hypotensive and hypoxic. When he presented to triage his blood pressure was 62/49 with a heart rate of 60 and a pulse ox of 74% on room air. He had a recent hospitalization here for acute hypoxia from 11/12/2020 to 11/20/2020 where he completed of course of oral antibiotics and burst prednisone therapy and was able to be weaned back to room air at that time. He has known severe COPD. He appeared dehydrated the emergency department and was given 2 L of IV fluids with improvement in his blood pressure to 142/100 on most recent read. He was able to be stabilized with 4 L nasal cannula and was obtaining oxygen saturations of 94 to 99% on this prior to transfer to the medical floor. His CBC was overall unremarkable. He had a D-dimer elevation at 2.19 for which a CTA of his chest was performed. His CMP showed marked hyponatremia with a sodium of 123, potassium elevated at 5.2, hypochloremia with a chloride of 83, elevated carbon dioxide which is baseline for him but at this time is lower than his baseline, normal anion gap but a markedly elevated serum creatinine at 1.54 with a baseline of 0.4-0.5. His lactic acid was mildly elevated 2.2 I suspect this is most likely related to his hypoxia. His liver enzymes are normal. His CTA of the chest showed . He did require IM Geodon in the emergency department to assist with treatment as he had was somewhat combative and refusing evaluation. He does have a guardian at baseline. An infectious work-up was initiated given his hypotension. We were requested to admit the patient for acute hypoxic respiratory failure. [facility] Medical History CHF (congestive heart failure), NYHA class II Cocaine abuse COPD (chronic obstructive pulmonary disease) HTN (hypertension) Paranoia Paranoid schizophrenia Paranoid schizophrenia Smoker Substance abuse Home Medications albuterol sulfate 2.5 mg INHALATION Q2H PRN #120 ml 11/20/20 [Rx Last Taken Unknown] aspirin 81 mg PO BREAKFAST #30 tab 11/20/20 [Rx Last Taken Unknown] benztropine 1 mg PO DAILY #30 tab 11/20/20 [Rx Last Taken Unknown] fluphenazine HCl 10 mg PO DAILY #30 tab 11/20/20 [Rx Last Taken Unknown] ipratropium-albuterol 3 ml INHALATION Q4H.RT 30 Days #120 ml 11/20/20 [Rx Last Taken Unknown] lisinopril 10 mg PO DAILY #30 tab 11/20/20 [Rx Last Taken Unknown] metoprolol tartrate 25 mg PO BID #60 tab 11/20/20 [Rx Last Taken Unknown] Allergy/AdvReac Type Severity Reaction Status Date / Time haloperidol lactate Allergy Anaphylaxis Verified 12/20/20 23:07 [From Haldol] doxycycline AdvReac Unknown Other Verified 12/20/20 23:07 antihistamines Allergy Rash Uncoded 12/20/20 23:07 Family History Father Heart disease Surgical History History of appendectomy Social History (Updated 12/20/20 @ 23:[address] Daquan Terrell DO) current gender identity: male Smoking Status: Former smoker ROS Constitutional Constitutional: Denies anorexia, change in weight, chills, fatigue, fever(s), malaise, night sweats, weakness or other Eyes Eyes: Denies blurry vision, change in eye color, change in vision, discharge from eye(s), double vision, erythema, eye pain, loss of vision or other ENT HEENT: Denies abnormal hearing, dysphagia, ear pain, epistaxis, headache(s), hearing loss, nasal congestion, nasal discharge, post nasal drip, sinus pressure, sore throat or other Cardiovascular Cardiovascular: Denies chest pain, claudication, dyspnea on exertion, edema, lightheadedness, orthopnea, palpitations, paroxysmal nocturnal dyspnea, rapid heart rate, syncope or other Respiratory/Chest Respiratory/Chest: Reports cough; Denies dyspnea, excessive phlegm production, hemoptysis, productive cough, shortness of breath at rest, shortness of breath with exertion, wheezing or other Gastrointestinal Gastrointestinal: Denies abdominal pain, coffee ground emesis, constipation, diarrhea, dyspepsia, hematemesis, hematochezia, loose stools, melena, nausea, vomiting or other Genitourinary Genitourinary: Denies burning urination, difficulty urinating, dysuria, hematuria, nocturia, urinary frequency, urinary hesitancy, urinary incontinence, urinary urgency or other Musculoskeletal Musculoskeletal: Denies arthralgias, back pain, joint pain, joint stiffness, joint swelling, myalgias, neck pain or other Neurologic Neurologic: Denies abnormal gait, abnormal speech, confusion, disequilibrium, dizziness, focal weakness, headache(s), numbness, paresthesias, seizure-like activity, seizures, syncope, tingling, tremor(s) or other Psychiatric Psychiatric: Denies anxiety, depression, homicidal ideation, suicidal ideation or other Endocrine Endocrinology: Denies change in body appearance, cold intolerance, excessive sweating, heat intolerance, polydipsia, polyuria or other Hematologic/Lymphatic Hematologic/Lymphatic: Denies anemia, easy bleeding, easy bruising, lymphadenopathy or other Allergic/Immunologic Allergic/Immunologic: Denies rhinitis, hives, eczemia, asthma or other Vital Signs Vital Signs Vital Signs: 12/20/20 23:00 12/20/20 23:06 12/20/20 23:36 Temperature 98.2 F Temperature Source Oral Pulse Rate 60 Respiratory Rate 18 Respiratory Effort Respiratory Depth Respiratory Pattern Blood Pressure 62/49 L Blood Pressure Mean 53 Pulse Ox 74 88 96 Oxygen Delivery Method Room Air Nasal Cannula Nasal Cannula Oxygen Flow Rate (L/min) 2 4 12/20/20 23:51 12/20/20 23:54 12/21/20 00:01 Temperature 98.4 F Temperature Source Oral Pulse Rate Respiratory Rate Respiratory Effort Short of Breath Labored Accessory Muscle Use Short of Breath Labored Respiratory Depth Normal Respiratory Pattern Tachypnea Blood Pressure 82/61 L Blood Pressure Mean 68 Pulse Ox 99 Oxygen Delivery Method Nasal Cannula Nasal Cannula Oxygen Flow Rate (L/min) 4 4 12/21/20 01:19 Temperature Temperature Source Pulse Rate 78 Respiratory Rate 16 Respiratory Effort Respiratory Depth Respiratory Pattern Blood Pressure 142/100 H Blood Pressure Mean 114 Pulse Ox 94 Oxygen Delivery Method Nasal Cannula Oxygen Flow Rate (L/min) 4 Weight Weight: 65.2 kg Body Mass Index (BMI) 21.2 Physical Exam Const alert, oriented x3, no apparent distress and average body habitus Constitutional Narrative: Upper middle-aged white male who appears much older than stated age, lying in bed in left side-lying sleeping awakens to answer a few questions but overall not interested in interacting with me, was compliant with exam HEENT normocephalic, head/scalp atraumatic and hearing grossly normal bilaterally HEENT Narrative: Poor dentition, Mallampati 2, no thrush, mucous membranes dry Eyes PERRL, EOMs intact bilaterally and conjunctivae normal Eyes Narrative: No scleral icterus Neck no lymphadenopathy, supple and no JVD Neck Narrative: Trachea midline, no thyroid enlargement Resp normal respiratory effort, no retractions and no use of accessory muscles Resp Narrative: Scattered bilateral wheezes-predominantly end expiratory Auscultation: wheezes; Negative for crackles, rales or rhonchi Cardio regular rate, regular rhythm, S1 normal heart sound, S2 normal heart sound, no murmurs, no rub, no gallops, no clicks and no JVD GI normal to inspection, nondistended, normoactive bowel sounds, soft to palpation, non-tender and non-distended Extremity normal to inspection, full ROM and no clubbing, cyanosis or edema Peripheral Pulses: Yes pulses 2+ throughout Skin no rashes or lesions noted, no wounds, skin turgor normal, no jaundice, no petechiae and no mottling Neuro oriented x3, CN's II-XII intact bilaterally, moves all extremities and no focal motor deficits Neuro Narrative: Sleeping but awakens easily Speech: speech normal Psych Psych Narrative: Disinterested Results Lab / Micro Data Result Diagrams: 12/20/20 23:24 12/20/20 23:24 Labs: Laboratory Results - last 24 hr 12/20/20 23:24: WBC 9.3, RBC 4.80, Hgb 13.9, Hct 43.9, MCV 91.5, MCH 29.0, MCHC 31.7 L, RDW Std Deviation 59.3 H, RDW Coeff of John 17.4 H, Plt Count 353, MPV 8.8, Immature Gran % (Auto) 0.600, Neut % (Auto) 78.1 H, Lymph % (Auto) 11.8 L, [place] % (Auto) 9.0, Eos % (Auto) 0.3, Baso % (Auto) 0.2, Absolute Neuts (auto) 7.3, Absolute Lymphs (auto) 1.10, Nucleated RBC % 0 12/20/20 23:24: Sodium 123 L, Potassium 5.2 H, Chloride 83 L, Carbon Dioxide 34.0 H, Anion Gap 6, BUN 32 H, Creatinine 1.54 H, Estim Creat Clear Calc 45.87, Est GFR (MDRD) Af Amer 59 L, Est GFR (MDRD) Non-Af 49 L, BUN/Creatinine Ratio 20.8 H, Glucose 130 H, Calcium 8.3 L, Total Bilirubin 0.30, AST 36, ALT 48, Alkaline Phosphatase 80, Troponin I High Sens 52, Total Protein 6.2 L, Albumin 2.7 L, Globulin 3.5, Albumin/Globulin Ratio 0.8 L 12/20/20 23:24: Lactic Acid 2.2 H* 12/20/20 23:45: PT 13.9, INR 1.1, APTT 27.5 12/20/20 23:45: D-Dimer Quant (PE/DVT) 2.19 H* Micro: Microbiology 12/20/20 23:57 Nasal Secretion SARS-CoV-2 Antigen (Rapid) - Final Radiology Impression Chest X-Ray 12/20/20 23:17 IMPRESSION: Improved density within the right lower lobe with streaky markings suggestive of residual atelectasis versus scarring. Otherwise no acute cardiopulmonary disease. Electronically Signed: Amada Shell MD at 0:26 EDT , Service support , Assessment & Plan Assessment/Plan (1) Acute respiratory failure with hypoxia: (2) Hyponatremia: (3) Hyperkalemia: (4) COPD with acute exacerbation: (5) Lactic acidosis: (6) D-dimer, elevated: (7) AMANDA (acute kidney injury): PLAN: Acute hypoxic respiratory failure secondary to acute exacerbation of COPD -Check viral PCR -Check strep pneumo and Legionella antigens -Sputum culture if able -No white count or significant change in sputum production and therefore will hold off on antibiotics at this time as I doubt there is an infectious process ongoing -Supplemental oxygen as needed and wean as able -I-S/Pep therapy -Mucinex -Pulmonary toilet -Solu-Medrol 40 every 8 -Would recommend outpatient pulmonary follow-up with PFTs in the future Hypotension -Resolved with IV fluid boluses -Continue to monitor Lactic acidosis -Suspect related to dehydration/acute kidney injury/hypoxia -This was mild at 2.2 -Doubt sepsis Acute kidney injury -Suspect dehydration -IV fluids boluses given emergency department -We will continue IV fluids with normal saline at 100 cc/h -Repeat CBC in a.m. -Hold lisinopril Acute hyponatremia -I suspect this is likely hypovolemic hyponatremia given the rest of his laboratory data -We will reevaluate in a.m. with BMP and if improving no need for other work-up -We will check TSH -If hyponatremia is not improving would recommend further work-up and possibly may need to discontinue fluphenazine Acute hyperkalemia -Likely related to acute kidney injury and dehydration -Hold lisinopril -Repeat BMP in a.m. Hypertension -Lisinopril on hold secondary to hyperkalemia and acute kidney injury -Continue metoprolol -As needed hydralazine D-dimer elevation CTA of chest shows no acute pulmonary embolism Esophageal thickening -Refer to GI as an outpatient for consideration for EGD Paranoid schizophrenia -Patient has guardian -Lives in a shelter -Continue fluphenazine and Cogentin Tobacco abuse -Ongoing -Patient states he currently is smoking approximately 30 cigarettes daily -Denies need for nicotine patch at this time DVT prophylaxis -Lovenox -SCDs CODE STATUS -Full code Charges/Coding Visit Charges Inpatient E&M: 88183 Init Hosp L3
[2020-12-21 03:36] LABS: Reflex Lactate? Y
--- NOTE | 2020-12-21 03:56 | PCS.PANDOC ---
PANDEMIC DOCUMENTATION INITIATED: Date: 10/27/2020 Time: 190
--- NOTE | 2020-12-21 03:56 | NURSING ---
patient states that he has had one covid vaccination. Cannot recall when it was administered or which brand it was.
[2020-12-21] MEDS: 0.9% Normal Saline 1,000 ML 125 ML IV ×3 (04:15→20:52)
[2020-12-21] MEDS: 0.9% Saline Lock 10 ML Syringe IV ×2 (04:15→20:50)
[2020-12-21 04:43] LABS: Lactic Acid 1.4 mmol/L (0.4-1.9)
[2020-12-21] MEDS: Ipratropium/Albuterol Sulfate 3 ML AMPUL.NEB INHALATION ×5 (07:18→23:06)
[2020-12-21 07:26] LABS: Absolute Lymphocyte Count 0.33 X10^3/uL (0.83-4.51); Absolute Neutrophil Count 9.5 X10^3/uL (2.0-7.7); Basophil# 0.01 X10^3/uL; Basophil% 0.1 % (0-1); Hematocrit 43.3 % (40-54); Hemoglobin 13.1 g/dL (13.0-16.5); Lymphocyte # 0.33 X10^3/ul (0.83-4.51); Lymphocyte % 3.3 % (19-41); Mean Corp Hgb Conc 30.3 g/dL (32-36); Mean Corpuscular Hgb 28.4 pg (27.0-32.0); Mean Corpuscular Volume 93.9 fL (80-94); Mean Platelet Vol. 8.4 fl (6.2-12.0); Monocyte# 0.25 X10^3/uL; Monocyte% 2.5 % (0-10); NRBC Flagged by Analyzer 0 % (0-5); Neutrophil # 9.47 X10^3/uL (2.7-7.7); Neutrophil % 93.7 % (47-70); POSITIVE DIFFERENTIAL YES; Platelet Count 317 K/mm3 (150-450); RBC Distribution Width CV 17.5 % (11.6-14.6); RBC Distribution Width SD 60.7 fl (35.1-43.9); Red Blood Count 4.61 M/mm3 (4.6-6.2); White Blood Count 10.1 K/mm3 (4.4-11.0)
[2020-12-21 07:32] LABS: Differential Indicated SCAN CRITERIA MET
[2020-12-21 07:52] LABS: Platelet Estimate ADEQUATE (ADEQ); Red Cell Morphology NORM C+C NORMAL (NORM C&C)
[2020-12-21 07:57] LABS: ALB/GLOB Ratio 0.7 RATIO (0.9-2.4); AST(SGOT) 28 U/L (15-37); Alanine Aminotransfer ALT/SGPT 47 U/L (16-61); Albumin, Serum 2.5 g/dL (3.2-5.0); Alkaline Phosphatase 77 U/L (45-117); Anion Gap 4 (5-15); BUN 28 mg/dL (7-18); BUN/Creat Ratio 20.6 RATIO (10-20); Calcium,Total 7.7 mg/dL (8.5-10.1); Chloride 87 mmol/L (98-107); Creatinine, Serum 1.36 mg/dL (0.70-1.30); EST Glomerular Filtration Rate 56 mL/min (>60); Est Glom Filt Rate - Afr Amer 68 mL/min (>60); Estimated Creatinine Clearance 52.25 ml/min; Globulin 3.6 g/dL (2.2-4.2); Glucose 107 mg/dL (74-106); Magnesium 2.3 mg/dL (1.6-2.6); Phosphorus 4.9 mg/dL (2.5-4.9); Potassium 5.5 mmol/L (3.5-5.1); Protein, Total 6.1 g/dL (6.4-8.2); Sodium Level 125 mmol/L (136-145); Thyroid Stim Hormone (TSH) 0.21 uIU/mL (0.358-3.74)
--- NOTE | 2020-12-21 08:09 | PCM.HOSP.N ---
Hospitalist Note Patient is a 60-year-old gentleman with history of paranoid schizophrenia at a long-term brought in following a fall. Was found to be hypotensive with acute kidney injury admitted to regular nursing floor where patient is being managed. Patient was also found to be hyponatremic as well as hypokalemic treatment initiated per protocol Patient seen and examined. His initial assessment including history and physical diagnostic work-up in addition to management orders reviewed will follow
[2020-12-21] MEDS: Sodium Polystyrene Sulfonate 15 GM/60 ML UDC 30 GM PO (09:13)
[2020-12-21] MEDS: Enoxaparin 40 MG/0.4 ML Syringe SC (11:27)
[2020-12-21] MEDS: Aspirin E.C. 81 MG Tablet PO (11:28)
[2020-12-21] MEDS: Benztropine Mesylate 0.5 MG TABLET 1 MG PO (11:28)
[2020-12-21] MEDS: FLUPHENAZINE HCL 10 MG TABLET PO (11:28)
[2020-12-21] MEDS: guaiFENesin 1,200 MG Tablet 1200 MG PO ×2 (11:29→20:50)
[2020-12-21] MEDS: Metoprolol Tartrate 25 MG Tablet PO (11:29)
[2020-12-21] MEDS: LORazepam 2 MG/ML Syringe 1 MG IV (14:45)
[2020-12-21 16:19] LABS: Anion Gap 3 (5-15); BUN 18 mg/dL (7-18); BUN/Creat Ratio 21.5 RATIO (10-20); Calcium,Total 7.6 mg/dL (8.5-10.1); Chloride 91 mmol/L (98-107); Creatinine, Serum 0.84 mg/dL (0.70-1.30); EST Glomerular Filtration Rate 98 mL/min (>60); Est Glom Filt Rate - Afr Amer 119 mL/min (>60); Glucose 133 mg/dL (74-106); Potassium 4.8 mmol/L (3.5-5.1); Sodium Level 129 mmol/L (136-145)
[2020-12-21] MEDS: MELATONIN 3 MG TABLET PO (21:00)
[2020-12-21] MEDS: Acetaminophen 325 MG Tablet 650 MG PO (21:00)
[2020-12-22] VITALS (11 sets, daily range): BP systolic 116–140; BP diastolic 71–80; PULSE 82–105; RESP 16–18; TEMP 36.7–36.9; O2SAT 87–97
[2020-12-22] MEDS: Ipratropium/Albuterol Sulfate 3 ML AMPUL.NEB INHALATION (03:05)
[2020-12-22] MEDS: 0.9% Normal Saline 1,000 ML 125 ML IV (05:04)
[2020-12-22] MEDS: 0.9% Saline Lock 10 ML Syringe IV (05:07)
[2020-12-22 06:23] LABS: Absolute Lymphocyte Count 0.43 X10^3/uL (0.83-4.51); Absolute Neutrophil Count 5.8 X10^3/uL (2.0-7.7); Basophil# 0.01 X10^3/uL; Basophil% 0.2 % (0-1); Hematocrit 43.7 % (40-54); Hemoglobin 13.4 g/dL (13.0-16.5); Lymphocyte # 0.43 X10^3/ul (0.83-4.51); Lymphocyte % 6.5 % (19-41); Mean Corp Hgb Conc 30.7 g/dL (32-36); Mean Corpuscular Hgb 28.9 pg (27.0-32.0); Mean Corpuscular Volume 94.2 fL (80-94); Mean Platelet Vol. 8.3 fl (6.2-12.0); Monocyte# 0.31 X10^3/uL; Monocyte% 4.7 % (0-10); NRBC Flagged by Analyzer 0 % (0-5); Neutrophil # 5.82 X10^3/uL (2.7-7.7); Neutrophil % 88.1 % (47-70); POSITIVE DIFFERENTIAL YES; Platelet Count 292 K/mm3 (150-450); RBC Distribution Width CV 17.2 % (11.6-14.6); Red Blood Count 4.64 M/mm3 (4.6-6.2); White Blood Count 6.6 K/mm3 (4.4-11.0)
[2020-12-22 06:33] LABS: Differential Indicated SCAN CRITERIA MET
[2020-12-22 06:46] LABS: ALB/GLOB Ratio 0.7 RATIO (0.9-2.4); AST(SGOT) 21 U/L (15-37); Alanine Aminotransfer ALT/SGPT 38 U/L (16-61); Albumin, Serum 2.5 g/dL (3.2-5.0); Alkaline Phosphatase 78 U/L (45-117); Anion Gap 2 (5-15); BUN 12 mg/dL (7-18); BUN/Creat Ratio 21.4 RATIO (10-20); Chloride 94 mmol/L (98-107); Creatinine, Serum 0.56 mg/dL (0.70-1.30); EST Glomerular Filtration Rate 156 mL/min (>60); Est Glom Filt Rate - Afr Amer 189 mL/min (>60); Globulin 3.5 g/dL (2.2-4.2); Glucose 148 mg/dL (74-106); Potassium 4.5 mmol/L (3.5-5.1); Sodium Level 132 mmol/L (136-145)
--- NOTE | 2020-12-22 06:49 | CPS ---
Patient refusing to place nasal cannula in nose at this time, set up and charger aware.
[2020-12-22] MEDS: Metoprolol Tartrate 25 MG Tablet PO ×2 (08:56→22:32)
[2020-12-22] MEDS: Benztropine Mesylate 0.5 MG TABLET 1 MG PO (08:56)
[2020-12-22] MEDS: Aspirin E.C. 81 MG Tablet PO (08:56)
[2020-12-22] MEDS: guaiFENesin 1,200 MG Tablet 1200 MG PO ×2 (08:56→22:32)
[2020-12-22] MEDS: FLUPHENAZINE HCL 10 MG TABLET PO (08:56)
[2020-12-22] MEDS: Enoxaparin 40 MG/0.4 ML Syringe SC (08:58)
--- NOTE | 2020-12-22 10:33 | PN.HOSP_ITS ---
Subjective Subjective Follow-up on acute hypoxic respiratory failure/COPD exacerbation: Patient was seen and examined. He insisted that he does not want any more breathing treatment. He remains on 5 L of oxygen. He has audible wheezes. Objective Data Objective Data Vital Signs: Vital Signs Temp Pulse Resp BP Pulse Ox 98.0 F 100 18 128/71 H 91 12/22/20 09:00 12/22/20 09:00 12/22/20 09:00 12/22/20 09:00 12/22/20 09:00 Oxygen Flow Rate (L/min) 5 Oxygen Delivery Method Nasal Cannula Weight: 65.6 kg Body Mass Index (BMI) 21.3 Intake & Output: Intake and Output for Last 24 Hours 12/20/20 12/21/20 12/22/20 23:59 23:59 23:59 Intake Total 4464.58 / 4464.58 1000 / 1000 Balance 4464.58 / 4464.58 1000 / 1000 Lab / Micro Data Result Diagrams: 12/22/20 05:50 12/22/20 05:50 Labs: Laboratory Results - last 24 hr 12/21/20 15:59: Sodium 129 L, Potassium 4.8, Chloride 91 L, Carbon Dioxide 35.0 H, Anion Gap 3 L, BUN 18, Creatinine 0.84, Estim Creat Clear Calc 84.60, Est GFR (MDRD) Af Amer 119, Est GFR (MDRD) Non-Af 98, BUN/Creatinine Ratio 21.5 H, Glucose 133 H, Calcium 7.6 L 12/22/20 05:50: WBC 6.6, RBC 4.64, Hgb 13.4, Hct 43.7, MCV 94.2 H, MCH 28.9, MCHC 30.7 L, RDW Std Deviation 59.0 H, RDW Coeff of John 17.2 H, Plt Count 292, MPV 8.3, Immature Gran % (Auto) 0.500, Neut % (Auto) 88.1 H, Lymph % (Auto) 6.5 L, [place] % (Auto) 4.7, Eos % (Auto) 0.0, Baso % (Auto) 0.2, Absolute Neuts (auto) 5.8, Absolute Lymphs (auto) 0.43 L, Nucleated RBC % 0 12/22/20 05:50: Sodium 132 L, Potassium 4.5, Chloride 94 L, Carbon Dioxide 36.0 H, Anion Gap 2 L, BUN 12, Creatinine 0.56 L, Estim Creat Clear Calc 126.90, Est GFR (MDRD) Af Amer 189, Est GFR (MDRD) Non-Af 156, BUN/Creatinine Ratio 21.4 H, Glucose 148 H, Calcium 8.0 L, Total Bilirubin 0.30, AST 21, ALT 38, Alkaline Phosphatase 78, Total Protein 6.0 L, Albumin 2.5 L, Globulin 3.5, Albumin/Globulin Ratio 0.7 L Micro: Microbiology 12/21/20 04:27 Mucosa - Nasopharyngeal Respiratory Panel (PCR) - Final 12/20/20 23:57 Nasal Secretion SARS-CoV-2 Antigen (Rapid) - Final Physical Exam Narrative Physical exam: General: Alert, Oriented x3, Cooperative, in mild respiratory distress, on 5 L of oxygen HEENT: Atraumatic Oral: Moist Mucosa Neck: Supple Lungs: Diminished to auscultation, audible wheezes +++ Cardiovascular: HS I+II, regular, no murmurs Abdomen: Bowel Sounds Present, Soft, Non Tender Extremities: No edema Assessment & Plan Assessment/Plan (1) AMANDA (acute kidney injury): (2) D-dimer, elevated: (3) Lactic acidosis: (4) COPD with acute exacerbation: (5) Hyperkalemia: (6) Hyponatremia: (7) Acute respiratory failure with hypoxia: PLAN: 1. Acute hypoxic respiratory failure secondary to acute severe COPD exacerbation Patient remains on 5 L of oxygen; he was not on oxygen at home COVID-19 rapid antigen as well as respiratory panel is negative Admitting chest x-ray shows no infiltrates Continue on breathing treatment, IV Solu-Medrol Will add azithromycin IV; Follow-up on sputum cultures QTC on admitting EKG is 390; will recheck in am 2. Hypotension, appears resolved, Will discontinue IV fluids to prevent fluid overload 3. Acute kidney injury, resolved, Admitting creatinine was 1.56; baseline creatinine was about 0.5 Patient's creatinine 0.56 today Continue to hold lisinopril, recheck blood work in a.m. 4. Nicotine dependence, continue replacement 5. Hypertension, controlled, continue metoprolol, Continue to hold lisinopril 6. Rest of chronic medical conditions including paranoid schizophrenia, polysubstance use - appears stable Charges/Coding Visit Charges Inpatient E&M: 91779 Subs Hosp L3
--- NOTE | 2020-12-22 10:34 | CASEMGMT ---
Social Work Note Pt is from a Long Term and Salassegun Prietoarabella is listed as Legal Guardian for pt. Pt will not be able to return to [facility] if he is on Oxygen. Pt is currently on 5 Liters of Oxygen. SW placed a call to Salas Pardo and left message to call this worker back. SW to continue to follow. Plan: JUANA Yu PATIENT SAFETY SITTER, SET UP MECHANIC COATING MACHINES
--- NOTE | 2020-12-22 12:27 | CASEMGMT ---
Social Work Note Per ingot supervisor questions, pt has not completed HCPOA and LW and denied additional information. Pt does have Legal Guardian Salas Pardo listed for pt who would make healthcare decisions for pt. Fernanda Yu NATIONAL GUARD MEMBER, MACHINED PARTS QUALITY INSPECTOR
--- NOTE | 2020-12-22 14:09 | NURSING ---
per pts nurse case management Lobito Donohue ([phone]) pt is to have his 2nd Moderna Vaccine done today @ 1300 @ [facility]... spoke to Gaurav in pharmacy will not be able to give vaccine here. pt has 2weeks from todays date (12/22/20) to get the 2nd dose.. [facility] does all 3 vaccines on - pt can follow up there. or pt can [facility] to see if they are given Moderna.
[2020-12-22] MEDS: MELATONIN 3 MG TABLET PO (22:32)
[2020-12-22] MEDS: Acetaminophen 325 MG Tablet 650 MG PO (22:33)
[2020-12-23] VITALS (7 sets, daily range): BP systolic 101–134; BP diastolic 61–70; PULSE 74–104; RESP 16–20; TEMP 36.8–36.9; O2SAT 95–97
--- NOTE | 2020-12-23 03:22 | NURSING ---
Patient has taken off 02. Patient asked for food, obtained. Patient ate a couple bites. This RN attempted to check a pulse ox/ VS and patient refused. Will attempt again later.
--- NOTE | 2020-12-23 03:37 | NURSING ---
Patient wanted nicotine patch removed from left shoulder. This RN removed per patient request.
--- NOTE | 2020-12-23 03:56 | NURSING ---
While this Rn was in patients room patient had bright lights on and this RN was clearly able to see the patients face. Orbial edema present on both eyes. Patient is able to open eyes. No other part of face present for edema. Patient allowed this RN to put patient back on 02 at 5L, NC.
--- NOTE | 2020-12-23 05:25 | CPS ---
Patient refused EKG this morning. Said that it was to early. Refused to let CONDOMINIUM MANAGER perform study. RN aware.
--- NOTE | 2020-12-23 06:06 | NURSING ---
This RN attempted to check VS and 5am and 6am, patient refused both times. 02 remains on and flowing at 5L.
[2020-12-23 08:00] LABS: Absolute Neutrophil Count 9.4 X10^3/uL (2.0-7.7); Basophil# 0.01 X10^3/uL; Basophil% 0.1 % (0-1); Eosinophil# 0.02 X10^3/uL; Eosinophils% 0.2 % (0-5); Hematocrit 45.4 % (40-54); Hemoglobin 13.5 g/dL (13.0-16.5); Mean Corp Hgb Conc 29.7 g/dL (32-36); Mean Corpuscular Hgb 28.8 pg (27.0-32.0); Mean Platelet Vol. 8.3 fl (6.2-12.0); Monocyte# 0.83 X10^3/uL; Monocyte% 7.4 % (0-10); NRBC Flagged by Analyzer 0 % (0-5); Neutrophil # 9.44 X10^3/uL (2.7-7.7); Neutrophil % 83.9 % (47-70); Platelet Count 285 K/mm3 (150-450); RBC Distribution Width CV 17.2 % (11.6-14.6); RBC Distribution Width SD 62.3 fl (35.1-43.9); Red Blood Count 4.68 M/mm3 (4.6-6.2); White Blood Count 11.3 K/mm3 (4.4-11.0)
[2020-12-23 08:20] LABS: Bacteria 0 SEEN /hpf (None Seen); Mucous, Urine 0 SEEN /hpf (<or=2+); Red Blood Cells-Urine 0 SEEN /hpf (0-5); Squamous Epithelial Cells - UA 0 SEEN /hpf (0-5); White Blood Cells 0 SEEN /hpf (0-5)
[2020-12-23 08:27] LABS: Color, Urine Yellow (Yellow); Glucose, Dipstick Normal (Normal); Ketone-Dipstick Negative (Negative); Leukocyte Esterase-Dipstick Negative /ul (Negative); Nitrite-Dipstick Negative (Negative); Occult Blood-Urine Negative /ul (Negative); Protein-Dipstick 15 mg/dl (Negative); Urine Bilirubin Dipstick Negative (Negative); Urine Clarity Clear (Clear); Urine Urobilinogen Normal (Normal)
--- NOTE | 2020-12-23 08:29 | CASEMGMT ---
Social Work Note SW received message from Salas Medrano stating he is still pt's Legal Guardian. Cell Phone for Salas Medrano is [phone] and Office number is [phone]. GOGO will follow up with Salas Medrano today to discuss discharge plans. Fernanda Yu SAS DEVELOPER, EMERGENCY DEPARTMENT RN
[2020-12-23 08:36] LABS: Hyaline Cast 0-5 SEEN /lpf (0-5)
[2020-12-23 08:41] LABS: Amphetamine Urine VISTA NEGATIVE (<1000 ng/mL); Barbiturate Urine VISTA NEGATIVE (< 200 ng/mL); Benzodiazepine Urine VISTA NEGATIVE (< 200 ng/mL); Cocaine Urine VISTA NEGATIVE (< 300 ng/mL); Ecstacy Urine VISTA NEGATIVE (< 500 ng/mL); Methadone Urine VISTA NEGATIVE (< 300 ng/mL); PCP Urine VISTA NEGATIVE (< 25 ng/mL); THC Urine VISTA POSITIVE (< 50 ng/mL); Vista UDS pH Range 6
[2020-12-23] MEDS: Aspirin E.C. 81 MG Tablet PO (10:10)
[2020-12-23] MEDS: Enoxaparin 40 MG/0.4 ML Syringe SC (10:10)
[2020-12-23] MEDS: guaiFENesin 1,200 MG Tablet 1200 MG PO ×2 (10:10→22:03)
[2020-12-23] MEDS: Metoprolol Tartrate 25 MG Tablet PO ×2 (10:10→22:02)
[2020-12-23] MEDS: FLUPHENAZINE HCL 10 MG TABLET PO (10:10)
[2020-12-23] MEDS: Azithromycin 250 MG Tablet 500 MG PO (10:10)
[2020-12-23] MEDS: Acetaminophen 325 MG Tablet 650 MG PO ×2 (10:10→23:39)
[2020-12-23] MEDS: Benztropine Mesylate 0.5 MG TABLET 1 MG PO (10:10)
[2020-12-23] MEDS: predniSONE 20 MG Tablet 40 MG PO (10:11)
--- NOTE | 2020-12-23 11:59 | CASEMGMT ---
Social Work Note GOGO received call from pt's Legal Guardian Salas Medrano. GOGO spoke with Salas about discharge plans. GOGO updated Salas that pt is currently on 5 Liters of Oxygen, will likely need to go to a SNF at discharge as pt's [facility] is not able to accept pt back with Oxygen. Salas's choices for SNF are 1. [facility] 2. [facility], 3. [facility], 4. [facility]. GOGO informed Salas that this worker will start sending referrals to SNF places to get a SNF arranged in the event pt does need Oxygen at discharge and cannot return to the Fpc. Salas states pt is not going to be happy about that as pt really likes the Fpc he is in. GOGO informed Salas that it is unfortunate that [facility] are not able to take pt's back that have Oxygen requirements. GOGO reviewed chart, no PT/OT have been ordered. PT/OT will be needed for SNF. GOGO ordered PT/OT. SW to send referrals to SNF once PT/OT works with pt in the event pt needs Oxygen at discharge and cannot return to pt's [facility]pc. Plan: TBD pending pt's oxygen requirements at discharge Fernanda Yu FASHION CONSULTANT, MEDIA ANALYTICS MANAGER
--- NOTE | 2020-12-23 12:16 | PCM.PN.HOSP ---
Subjective Subjective Follow-up on acute hypoxic respiratory failure/COPD exacerbation: Patient was seen and examined. He refused to wear his oxygen yesterday. He was found cyanotic. His oxygen sats was in the 30s. He pulled his IV out. He has been refusing his breathing treatments. Objective Data Objective Data Vital Signs: Vital Signs Temp Pulse Resp BP Pulse Ox 98.3 F 96 18 134/70 H 95 12/23/20 10:00 12/23/20 10:10 12/23/20 10:00 12/23/20 10:00 12/23/20 10:00 Oxygen Flow Rate (L/min) 5 Oxygen Delivery Method Nasal Cannula Weight: 65.6 kg Body Mass Index (BMI) 21.3 Intake & Output: Intake and Output for Last 24 Hours 12/21/20 12/22/20 12/23/20 23:59 23:59 23:59 Intake Total 4464.58 / 4464.58 2505 / 2505 250 / 250 Balance 4464.58 / 4464.58 2505 / 2505 250 / 250 Lab / Micro Data Result Diagrams: 12/23/20 07:52 12/22/20 05:50 Labs: Laboratory Results - last 24 hr 12/22/20 05:15: Urine Color Yellow, Urine Clarity Clear, Urine pH 6.0, Ur Specific [place] 1.020, Urine Protein 15 H, Urine Glucose (UA) Normal, Urine Ketones Negative, Urine Occult Blood Negative, Urine Nitrite Negative, Urine Bilirubin Negative, Urine Urobilinogen Normal, Ur Leukocyte Esterase Negative, Urine RBC 0 SEEN, Urine WBC 0 SEEN, Ur Squamous Epith Cells 0 SEEN, Urine Bacteria 0 SEEN, Hyaline Casts 0-5 SEEN, Urine Mucus 0 SEEN 12/22/20 05:15: Urine Opiates Screen NEGATIVE, Urine Methadone Screen NEGATIVE, Ur Barbiturates Screen NEGATIVE, Ur Phencyclidine Scrn NEGATIVE, Ur Amphetamines Screen NEGATIVE, U Methamphetamin-MDMA NEGATIVE, U Benzodiazepines Scrn NEGATIVE, Urine Cocaine Screen NEGATIVE, U Cannabinoids Screen POSITIVE H, Ur Drug Screen Comment 12/23/20 07:52: WBC 11.3 H, RBC 4.68, Hgb 13.5, Hct 45.4, MCV 97.0 H, MCH 28.8, MCHC 29.7 L, RDW Std Deviation 62.3 H, RDW Coeff of John 17.2 H, Plt Count 285, MPV 8.3, Immature Gran % (Auto) 0.400, Neut % (Auto) 83.9 H, Lymph % (Auto) 8.0 L, [place] % (Auto) 7.4, Eos % (Auto) 0.2, Baso % (Auto) 0.1, Absolute Neuts (auto) 9.4 H, Absolute Lymphs (auto) 0.90, Nucleated RBC % 0 Micro: Microbiology 12/22/20 05:15 Urine, Clean Catch Urine Culture - Preliminary Culture exhibits no growth. 12/22/20 05:15 Urine, Clean Catch Legionella Antigen - Final 12/22/20 05:15 Urine, Clean Catch Streptococcus pneumoniae Antigen (M - Final 12/21/20 04:27 Mucosa - Nasopharyngeal Respiratory Panel (PCR) - Final 12/20/20 23:57 Nasal Secretion SARS-CoV-2 Antigen (Rapid) - Final Physical Exam Narrative Physical exam: General: Alert, Oriented x3, Cooperative, in mild respiratory distress, on 4 L of oxygen HEENT: Atraumatic Oral: Moist Mucosa Neck: Supple Lungs: Diminished to auscultation, audible wheezes ++ Cardiovascular: HS I+II, regular, no murmurs Abdomen: Bowel Sounds Present, Soft, Non Tender Extremities: No edema Assessment & Plan Assessment/Plan (1) AMANDA (acute kidney injury): (2) D-dimer, elevated: (3) Lactic acidosis: (4) COPD with acute exacerbation: (5) Hyperkalemia: (6) Hyponatremia: (7) Acute respiratory failure with hypoxia: PLAN: 1. Acute hypoxic respiratory failure secondary to acute severe COPD exacerbation, now much improved Patient remains on 4 L of oxygen; he was not on oxygen at home COVID-19 rapid antigen as well as respiratory panel is negative Admitting chest x-ray shows no infiltrates Continue on breathing treatments, prednisone and oral azithromycin QTC on admitting EKG is 390; will recheck in am 2. Hypotension, appears resolved, Will discontinue IV fluids to prevent fluid overload 3. Acute kidney injury, resolved, Admitting creatinine was 1.56; baseline creatinine was about 0.5 Continue to hold lisinopril, recheck blood work in a.m. 4. Nicotine dependence, continue replacement 5. Hypertension, controlled, continue metoprolol, Continue to hold lisinopril 6. Rest of chronic medical conditions including paranoid schizophrenia, polysubstance use - appears stable Charges/Coding Visit Charges Inpatient E&M: 81356 Subs Hosp L2
--- NOTE | 2020-12-23 16:16 | CASEMGMT ---
Addendum entered by Fernanda Yu 12/23/20 16:57: SW received message from Shirlene at [facility] stating they are not able to accept pt pt. SW waiting for determination from [facility]. Original Note: Social Work Note SW went ahead and faxed referrals to both [facility] and [facility] (will fax PT/OT once available). SW placed a call to Shirlene at [facility] and left message regarding referral. SW placed a call to Yesica at [facility] and left message regarding referral. SW in to speak with pt. SW introduced self and role at [facility]. Pt confirms he came from the [facility]isted on [address] and pt wants to return there at discharge. SW informed pt that at this time pt is requiring oxygen, if oxygen is needed at discharge, pt will not be able to return to Assisted. Pt states I don't even want this Oxygen. SW informed pt that at this time he is needed the oxygen to be able to breath. Pt again states he wants to return to the Assisted and doesn't want the Oxygen. SW informed pt that this worker will wait to see if pt will need Oxygen at discharge. SW informed pt that if needs Oxygen at discharge, he will need to go to a SNF. SW to continue to work on SNF placement in the event pt cannot return to the Assisted. Fernanda Yu ELECTRONIC TYPESETTING MACHINE OPERATOR, OPERATING TABLE ASSEMBLER
[2020-12-23] MEDS: Ipratropium/Albuterol Sulfate 3 ML AMPUL.NEB INHALATION (18:51)
[2020-12-24] VITALS (9 sets, daily range): BP systolic 121–146; BP diastolic 66–86; PULSE 75–114; RESP 18–38; TEMP 36.3–36.8; O2SAT 84–95
[2020-12-24 07:03] LABS: Absolute Lymphocyte Count 1.08 X10^3/uL (0.83-4.51); Absolute Neutrophil Count 7.7 X10^3/uL (2.0-7.7); Basophil# 0.01 X10^3/uL; Basophil% 0.1 % (0-1); Eosinophil# 0.03 X10^3/uL; Eosinophils% 0.3 % (0-5); Hemoglobin 12.6 g/dL (13.0-16.5); Lymphocyte # 1.08 X10^3/ul (0.83-4.51); Mean Corp Hgb Conc 29.3 g/dL (32-36); Mean Corpuscular Hgb 28.6 pg (27.0-32.0); Mean Corpuscular Volume 97.7 fL (80-94); Mean Platelet Vol. 8.1 fl (6.2-12.0); Monocyte# 0.94 X10^3/uL; Monocyte% 9.6 % (0-10); NRBC Flagged by Analyzer 0 % (0-5); Neutrophil # 7.73 X10^3/uL (2.7-7.7); Neutrophil % 78.7 % (47-70); Platelet Count 250 K/mm3 (150-450); RBC Distribution Width CV 17.2 % (11.6-14.6); RBC Distribution Width SD 62.7 fl (35.1-43.9); White Blood Count 9.8 K/mm3 (4.4-11.0)
[2020-12-24 07:25] LABS: ALB/GLOB Ratio 0.7 RATIO (0.9-2.4); AST(SGOT) 20 U/L (15-37); Alanine Aminotransfer ALT/SGPT 30 U/L (16-61); Albumin, Serum 2.5 g/dL (3.2-5.0); Alkaline Phosphatase 64 U/L (45-117); Anion Gap 2 (5-15); BUN 16 mg/dL (7-18); BUN/Creat Ratio 25.5 RATIO (10-20); Calcium,Total 8.3 mg/dL (8.5-10.1); Chloride 90 mmol/L (98-107); Creatinine, Serum 0.63 mg/dL (0.70-1.30); EST Glomerular Filtration Rate 138 mL/min (>60); Est Glom Filt Rate - Afr Amer 167 mL/min (>60); Globulin 3.4 g/dL (2.2-4.2); Glucose 105 mg/dL (74-106); Potassium 4.9 mmol/L (3.5-5.1); Protein, Total 5.9 g/dL (6.4-8.2); Sodium Level 131 mmol/L (136-145)
[2020-12-24] MEDS: predniSONE 20 MG Tablet 40 MG PO (07:41)
[2020-12-24] MEDS: Benztropine Mesylate 0.5 MG TABLET 1 MG PO (07:42)
[2020-12-24] MEDS: Azithromycin 250 MG Tablet 500 MG PO (07:42)
[2020-12-24] MEDS: Metoprolol Tartrate 25 MG Tablet PO ×2 (07:42→21:55)
[2020-12-24] MEDS: guaiFENesin 1,200 MG Tablet 1200 MG PO ×2 (07:42→21:56)
[2020-12-24] MEDS: Enoxaparin 40 MG/0.4 ML Syringe SC (07:42)
[2020-12-24] MEDS: FLUPHENAZINE HCL 10 MG TABLET PO (07:43)
[2020-12-24] MEDS: Aspirin E.C. 81 MG Tablet PO (07:43)
--- NOTE | 2020-12-24 09:28 | CASEMGMT ---
Social Work Note GOGO received email from Yesica at [facility] stating they are able to accept pt. Yesica asked about pt's Medicare card, if pt has had COVID vaccination and pt's discharge plans. GOGO reviewed chart, no Medicare card on file. GOGO did print off verification and pt's Medicare policy number and faxed to [facility]. GOGO placed a call to Yesica at [facility] and left message updating her that pt has had one COVID vaccination, will need a second one and that eventually pt would like to return to [facility] if he can be off oxygen. GOGO faxed updated clinicals to [facility]. Fernanda Yu CODING CLERKS SUPERVISOR, THERAPY AIDE
--- NOTE | 2020-12-24 10:08 | CASEMGMT ---
Social Work Note SW received call from pt's KRISTAL Donohue asking for discharge plans for pt. SW updated Lobito that at this time, pt is on oxygen, will need to go to SNF as pt is not allowed to return to the Nursing Home with Oxygen. Lobito states that pt was supposed to have psychiatry appointment today and doctors appointment tomorrow, Lobito states he will likely need to cancel the appointments. SW informed Lobito that this worker is not sure when pt will be discharged from [facility]. Fernanda Yu CONFERENCE PLANNING MANAGER, VETERINARY EPIDEMIOLOGIST
[2020-12-24] MEDS: Ipratropium/Albuterol Sulfate 3 ML AMPUL.NEB INHALATION ×3 (10:27→18:50)
--- NOTE | 2020-12-24 10:31 | NURSING ---
discussed with patient that if he leaves his oxygen on and allows breathing treatments, he will get better and be able to leave the hospital sooner. pt agreeable to restarting IV, placing continuous pulse ox monitor, and taking breathing treatment.
--- NOTE | 2020-12-24 10:49 | CASEMGMT ---
Addendum entered by Fernanda Yu 12/24/20 15:44: GOGO faxed updated clinicals to [facility]. Addendum entered by Fernanda Yu 12/24/20 13:02: GOGO spoke with Yesica at [facility]. Pt's Medicare coverage is confirmed, pt is able to discharge to [facility]. Addendum entered by Fernanda Yu 12/24/20 13:00: Pt staying at [facility] today to attempt to wean pt off Oxygen. PT/OT worked with pt, pt independent. If pt is able to be weaned off Oxygen and doens't need oxygen at discharge then pt will be able to return to [facility]. If pt needs Oxygen at discharge, pt will need to discharge to [facility] SNF. Original Note: Social Work Note RN placed a call to pt's Legal Guardian Salas Medrano and provided update and updated Salas that [facility] is able to accept pt when pt is medically cleared. Fernanda Yu RADIO TELEVISION ANNOUNCER, OCEANIC SCIENCES PROFESSOR
--- NOTE | 2020-12-24 14:09 | PN.HOSP_ITS ---
Subjective Subjective Follow-up on acute hypoxic respiratory failure/COPD exacerbation: Patient was seen and examined. Patient has been taking his oxygen off. He has been cued several times by the staff. He is now amendable to taking breathing treatments. Objective Data Objective Data Vital Signs: Vital Signs Temp Pulse Resp BP Pulse Ox 97.6 F L 85 20 H 145/86 H 84 12/24/20 07:45 12/24/20 10:29 12/24/20 10:29 12/24/20 07:45 12/24/20 12:22 Oxygen Flow Rate (L/min) 5 Oxygen Delivery Method Nasal Cannula Weight: 65.6 kg Body Mass Index (BMI) 21.3 Intake & Output: Intake and Output for Last 24 Hours 12/22/20 12/23/20 12/24/20 23:59 23:59 23:59 Intake Total 2505 / 2505 250 / 250 700 / 700 Balance 2505 / 2505 250 / 250 700 / 700 Lab / Micro Data Result Diagrams: 12/24/20 06:55 12/24/20 06:55 Labs: Laboratory Results - last 24 hr 12/24/20 06:55: WBC 9.8, RBC 4.40 L, Hgb 12.6 L, Hct 43.0, MCV 97.7 H, MCH 28.6, MCHC 29.3 L, RDW Std Deviation 62.7 H, RDW Coeff of John 17.2 H, Plt Count 250, MPV 8.1, Immature Gran % (Auto) 0.300, Neut % (Auto) 78.7 H, Lymph % (Auto) 11.0 L, Richardson % (Auto) 9.6, Eos % (Auto) 0.3, Baso % (Auto) 0.1, Absolute Neuts (auto) 7.7, Absolute Lymphs (auto) 1.08, Nucleated RBC % 0 12/24/20 06:55: Sodium 131 L, Potassium 4.9, Chloride 90 L, Carbon Dioxide 39.0 H, Anion Gap 2 L, BUN 16, Creatinine 0.63 L, Estim Creat Clear Calc 112.80, Est GFR (MDRD) Af Amer 167, Est GFR (MDRD) Non-Af 138, BUN/Creatinine Ratio 25.5 H, Glucose 105, Calcium 8.3 L, Total Bilirubin 0.30, AST 20, ALT 30, Alkaline Phosphatase 64, Total Protein 5.9 L, Albumin 2.5 L, Globulin 3.4, Albumin/Globulin Ratio 0.7 L Micro: Microbiology 12/22/20 05:15 Urine, Clean Catch Urine Culture - Final Culture exhibits no growth. 12/22/20 05:15 Urine, Clean Catch Legionella Antigen - Final 12/22/20 05:15 Urine, Clean Catch Streptococcus pneumoniae Antigen (M - Final 12/21/20 04:27 Mucosa - Nasopharyngeal Respiratory Panel (PCR) - Final 12/20/20 23:57 Nasal Secretion SARS-CoV-2 Antigen (Rapid) - Final Physical Exam Narrative Physical exam: General: Alert, Oriented x3, Cooperative, in mild respiratory distress, on 4-5 L of oxygen HEENT: Atraumatic Oral: Moist Mucosa Neck: Supple Lungs: Diminished to auscultation, audible wheezes ++ Cardiovascular: HS I+II, regular, no murmurs Abdomen: Bowel Sounds Present, Soft, Non Tender Extremities: No edema Assessment & Plan Assessment/Plan (1) AMANDA (acute kidney injury): (2) D-dimer, elevated: (3) Lactic acidosis: (4) COPD with acute exacerbation: (5) Hyperkalemia: (6) Hyponatremia: (7) Acute respiratory failure with hypoxia: PLAN: 1. Acute hypoxic respiratory failure secondary to acute severe COPD exacerbation, now much improved Patient remains on 4-5 L of oxygen; he was not on oxygen at home COVID-19 rapid antigen as well as respiratory panel is negative Admitting chest x-ray shows no infiltrates Continue on breathing treatments, prednisone and oral azithromycin 2. Hypotension, appears resolved, 3. Acute kidney injury, resolved, Admitting creatinine was 1.56; baseline creatinine was about 0.63 Continue to hold lisinopril, recheck blood work in a.m. 4. Nicotine dependence, continue replacement 5. Hypertension, controlled, continue metoprolol, Continue to hold lisinopril 6. Rest of chronic medical conditions including paranoid schizophrenia, polysubstance use - appears stable Charges/Coding Visit Charges Inpatient E&M: 74845 Subs Hosp L2
[2020-12-25 03:40] VITALS: BP 140/78; PULSE 99; RESP 18; TEMP 36.6; O2SAT 94
[2020-12-25 08:10] VITALS: O2SAT 91
[2020-12-25 08:54] VITALS: BP 145/69; PULSE 98; RESP 18; TEMP 37; O2SAT 93
[2020-12-25] MEDS: Azithromycin 250 MG Tablet 500 MG PO (08:59)
[2020-12-25 09:00] VITALS: PULSE 98
[2020-12-25] MEDS: Aspirin E.C. 81 MG Tablet PO (09:00)
[2020-12-25] MEDS: Benztropine Mesylate 0.5 MG TABLET 1 MG PO (09:00)
[2020-12-25] MEDS: guaiFENesin 1,200 MG Tablet 1200 MG PO (09:00)
[2020-12-25] MEDS: predniSONE 20 MG Tablet 40 MG PO (09:00)
[2020-12-25] MEDS: Metoprolol Tartrate 25 MG Tablet PO (09:00)
[2020-12-25] MEDS: FLUPHENAZINE HCL 10 MG TABLET PO (09:00)
[2020-12-25] MEDS: Enoxaparin 40 MG/0.4 ML Syringe SC (09:00)
--- NOTE | 2020-12-25 11:11 | TREXTCAR_ITS ---
Diet 12/21/20 03:43 Diet: Regular - General Food consistency:: Regular Liquid Consistency:: Regular/Thin Type of Dietary Supplement:: Magic Cup Dessert Diet Comments: BID w/ lunch and dinner Routine Orders/Code Status O2 Liters per Minute: 4 O2 Frequency: Continuous Keep PO Greater than or Equal to (%): 94 Routine Lab Work: CBC (within 3 days) and BMP (within 3 days) Code Status: Full Code Therapies Weight Bearing: Weight bearing as tolerated Physical Therapy: Eval and Treat Occupational Therapy: Eval and Treat Problem/Diagnosis (1) AMANDA (acute kidney injury): Status: Acute (2) D-dimer, elevated: Status: Acute (3) Lactic acidosis: Status: Acute (4) COPD with acute exacerbation: Status: Chronic (5) Hyperkalemia: Status: Acute (6) Hyponatremia: Status: Acute (7) Acute respiratory failure with hypoxia: Status: Acute Allergies/Procedures Done in Hospital Allergies haloperidol lactate [From Haldol] Allergy (Verified 12/20/20 23:07) Anaphylaxis doxycycline Adverse Reaction (Unknown, Verified 12/20/20 23:07) Other antihistamines Allergy (Uncoded 12/20/20 23:07) Rash Procedures: None Type of Care/Length of Stay Estimated LOS: Convalescent Care Less Than 30 days Type of Care Needed: Skilled Rehab Potential: Good Prognosis: Good Additional Orders/Day of Discharge Day of Discharge: 12/25/20 Dietary and Speech Recommendations Dietitian Recommendations/Changes: Continue regular diet as ordered. Will add magic cup BID w/ lunch and dinner as tolerated. Discharge Plan Admission Admit Date/Time: 12/21/20 01:44 Primary Reason for Your Visit: Acute respiratory failure secondary to acute COPD exacerbation Attending Provider: Josi Pittman Primary Care Provider: Daquan Pritchett NP Discharge Orders/Prescriptions Prescriptions: New ipratropium-albuterol 0.5 mg-3 mg(2.5 mg base)/3 mL Solution For Nebulization 3 ml inhalation Q6H.RT Qty: 0 RF: 0 azithromycin 250 mg Tablet 500 mg PO Q24 2 Days Qty: 4 RF: 0 prednisone 20 mg Tablet See Taper mg PO BREAKFAST Qty: 0 RF: 0 nicotine 21 mg/24 hr Patch 24 Hour 21 mg transdermal DAILY Qty: 0 RF: 0 Mucus Relief ER 1,200 mg Tablet Extended Release 12hr 1,200 mg PO BID PRN (Reason: cough) Qty: 0 RF: 0 sennosides-docusate sodium [Stool Softener-Stimulant Laxat] 8.6-50 mg Tablet 2 tab PO BID PRN PRN (Reason: Constipation) Qty: 0 RF: 0 Continued ipratropium-albuterol 0.5 mg-3 mg(2.5 mg base)/3 mL Solution For Nebulization 3 ml inhalation Q4H.RT 30 Days Qty: 120 RF: 0 albuterol sulfate 2.5 mg /3 mL (0.083 %) Solution For Nebulization 2.5 mg inhalation Q2H PRN (Reason: DYSPNEA) Qty: 120 RF: 0 fluphenazine HCl 10 MG tablet 10 mg PO DAILY Qty: 30 RF: 0 aspirin 81 mg Tablet,Delayed Release (Dr/Ec) 81 mg PO BREAKFAST Qty: 30 RF: 3 lisinopril 10 MG tablet 10 mg PO DAILY Qty: 30 RF: 2 benztropine 1 mg Tablet 1 mg PO DAILY Qty: 30 RF: 0 metoprolol tartrate 25 MG tablet 25 mg PO BID Qty: 60 RF: 2 Referrals / Follow Up: Daquan Pritchett NP, PROTECTIVE SIGNAL SUPERINTENDENT-C [Primary Care Provider] - Within 2 Weeks Disposition Disposition (needs filled in before D/C Order can be placed): Alf Facility
--- NOTE | 2020-12-25 11:19 | DS.PCM_ITS ---
Providers Date of Admission: 12/21/20 Date of Discharge: 12/25/20 Primary Care Physician: DANIELLE Pryor Reason For Visit: ACUTE EXACERBATIN OF COPD Diagnosis Discharge Diagnosis (1) AMANDA (acute kidney injury): Status: Resolved Code(s): N17.9 - Acute kidney failure, unspecified (2) D-dimer, elevated: Status: Resolved Code(s): R79.89 - Other specified abnormal findings of blood chemistry (3) Lactic acidosis: Status: Resolved Code(s): E87.2 - Acidosis (4) COPD with acute exacerbation: Status: Acute Code(s): J44.1 - Chronic obstructive pulmonary disease with (acute) exacerbation (5) Hyperkalemia: Status: Resolved Code(s): E87.5 - Hyperkalemia (6) Hyponatremia: Status: Acute Code(s): E87.1 - Hypo-osmolality and hyponatremia (7) Acute respiratory failure with hypoxia: Status: Acute Code(s): J96.01 - Acute respiratory failure with hypoxia Medications at Discharge Home Medications albuterol sulfate 2.5 mg INHALATION Q2H PRN #120 ml 11/20/20 aspirin 81 mg PO BREAKFAST #30 tab 11/20/20 benztropine 1 mg PO DAILY #30 tab 11/20/20 fluphenazine HCl 10 mg PO DAILY #30 tab 11/20/20 ipratropium-albuterol 3 ml INHALATION Q4H.RT 30 Days #120 ml 11/20/20 lisinopril 10 mg PO DAILY #30 tab 11/20/20 metoprolol tartrate 25 mg PO BID #60 tab 11/20/20 azithromycin 500 mg PO Q24 2 Days #4 tab 12/25/20 guaifenesin [Mucus Relief ER] 1,200 mg PO BID PRN #0 tab 12/25/20 ipratropium-albuterol 3 ml INHALATION Q6H.RT #0 ml 12/25/20 nicotine 21 mg TRANSDERMAL DAILY #0 ea 12/25/20 prednisone See Taper PO BREAKFAST #0 tab 12/25/20 sennosides-docusate sodium [Stool Softener-Stimulant Laxat] 2 tab PO BID PRN PRN #0 tab 12/25/20 Hospital Course Operations None Procedures None Summary of Care Provided Minutes Spent on Discharge: 45 Hospital Course: 60-year-old male with multiple comorbidities including paranoid schizophrenia who presented after a fall. Patient was resident in a detention. He fell twice on the day of admission. Patient told the EMS that he was fine but his blood pressure was low and his oxygen saturation was 76%. Patient initially declined being admitted to the hospital. His director of casework recommended that he be admitted. In the emergency room, his pulse ox was 74% on room air, blood pressure was 62/49. He had an elevated D-dimer of 2.19. CTA of the chest was done which was negative for acute PE. He had hypokalemia and an acute kidney injury with creatinine of 1.54. His baseline creatinine is around 0.5. Patient was combative and refusing treatment. He received Geodon. He was admitted to the hospital. His blood pressure medications were held. He received IV fluids and was managed as acute COPD exacerbation. His COVID-19 test as well as respiratory panel was negative. Patient was continued on IV Solu-Medrol and breathing treatment. He was resistant to care during this admission. He refused breathing treatments and several times was found hypoxic with SPO2 in the 30s with his nasal cannula off. His medications were switched to oral form when he ripped his IV out. He was accepted for subacute care. He will complete a prednisone taper, continue on his breathing treatment, complete 5 days of azithromycin. Patient has been calm for the last 2 days prior to discharge. He had been receptive to nursing care. Physical Exam Narrative Physical exam: General: Alert, Oriented x3, Cooperative, in mild respiratory distress, on 4-5 L of oxygen HEENT: Atraumatic Oral: Moist Mucosa Neck: Supple Lungs: Diminished to auscultation, audible wheezes ++ Cardiovascular: HS I+II, regular, no murmurs Abdomen: Bowel Sounds Present, Soft, Non Tender Extremities: No edema Weight / BMI Weight Weight: 65.6 kg Body Mass Index (BMI) 21.3 ABG / Lab / Microbiology Data Result Diagrams: 12/24/20 06:55 12/24/20 06:55 Microbiology: Microbiology 12/22/20 05:15 Urine, Clean Catch Urine Culture - Final Culture exhibits no growth. 12/22/20 05:15 Urine, Clean Catch Legionella Antigen - Final 12/22/20 05:15 Urine, Clean Catch Streptococcus pneumoniae Antigen (M - Final 12/21/20 04:27 Mucosa - Nasopharyngeal Respiratory Panel (PCR) - Final 12/20/20 23:57 Nasal Secretion SARS-CoV-2 Antigen (Rapid) - Final D/C Instructions Discharge Diet: No restrictions Meaningful Use Info Meaningful Use Diagnoses (Choose all that apply): None applicable Discharge Plan Admission Admit Date/Time: 12/21/20 01:44 Primary Reason for Your Visit: Acute respiratory failure secondary to acute COPD exacerbation Attending Provider: Josi Pittman Primary Care Provider: Daquan Pritchett NP Discharge Orders/Prescriptions Prescriptions: New ipratropium-albuterol 0.5 mg-3 mg(2.5 mg base)/3 mL Solution For Nebulization 3 ml inhalation Q6H.RT Qty: 0 RF: 0 azithromycin 250 mg Tablet 500 mg PO Q24 2 Days Qty: 4 RF: 0 prednisone 20 mg Tablet See Taper mg PO BREAKFAST Qty: 0 RF: 0 nicotine 21 mg/24 hr Patch 24 Hour 21 mg transdermal DAILY Qty: 0 RF: 0 Mucus Relief ER 1,200 mg Tablet Extended Release 12hr 1,200 mg PO BID PRN (Reason: cough) Qty: 0 RF: 0 sennosides-docusate sodium [Stool Softener-Stimulant Laxat] 8.6-50 mg Tablet 2 tab PO BID PRN PRN (Reason: Constipation) Qty: 0 RF: 0 Continued ipratropium-albuterol 0.5 mg-3 mg(2.5 mg base)/3 mL Solution For Nebulization 3 ml inhalation Q4H.RT 30 Days Qty: 120 RF: 0 albuterol sulfate 2.5 mg /3 mL (0.083 %) Solution For Nebulization 2.5 mg inhalation Q2H PRN (Reason: DYSPNEA) Qty: 120 RF: 0 fluphenazine HCl 10 MG tablet 10 mg PO DAILY Qty: 30 RF: 0 aspirin 81 mg Tablet,Delayed Release (Dr/Ec) 81 mg PO BREAKFAST Qty: 30 RF: 3 lisinopril 10 MG tablet 10 mg PO DAILY Qty: 30 RF: 2 benztropine 1 mg Tablet 1 mg PO DAILY Qty: 30 RF: 0 metoprolol tartrate 25 MG tablet 25 mg PO BID Qty: 60 RF: 2 Referrals / Follow Up: Daquan Pritchett NP, AUTOCAD OPERATOR-C [Primary Care Provider] - Within 2 Weeks Disposition Disposition (needs filled in before D/C Order can be placed): Shelter Facility Charges/Coding Visit Charges Inpatient E&M: 41994 Disch Hosp
--- NOTE | 2020-12-25 14:30 | CASEMGMT ---
Social Work Note Pt is still requiring 4 Liters of Oxygen. Pt will need to go to a SNF as pt cannot return back to Skilled Nursing with Oxygen. GOGO placed a call to Yesica at [facility] and left message that pt will be discharged to [facility] today, asked if pt will need another COVID test. Yesica sent this worker a email saying pt will need new another COVID test. GOGO updated physician. GOGO faxed completed discharge paperwork to [facility] including transfer to extended care facility, signed medication list, any scripts, COVID test/tool, and convalescent 7000. Original in SNF folder and copy on pt's chart. GOGO completed convalescent 7000 in [facility]. Original in SNF folder and copy on pt's chart. GOGO spoke with RN, pt to transport via cot. GOGO accessed trip assist and arranged transportation via cot for 3:30pm. Transportation form completed and placed on SNF folder and copy on pt's chart. GOGO updated RN on transportation time. GOGO placed a call to Yesica at [facility] and updated her on transportation time. GOGO in to speak with pt. GOGO updated pt that he will be discharged today, at 3:30pm, to a new facility that will manage his oxygen. Pt asked where. GOGO informed pt that the facility is in [place], so still [facility]. Pt states ok. GOGO placed a call to pt's Legal Guardian Salas Pardo and left a message updating him that pt will be discharged to [facility] today at 3:30pm. GOGO did update Salas that this worker did try [facility] (Salas's first choice for SNF) but they were not able to accept pt. Plan: [facility] skilled under convalescent stay with Physician's transporting pt via cot at 3:30pm Fernanda Yu VETERINARY ASSISTANT, BOAT WRAPPER
--- NOTE | 2020-12-25 15:28 | NURSING ---
Report called to [facility] in [place].
== END 2020-12-25 16:24 | disposition skilled nursing facility (03) | DRG 190 ==
LOC: ED 12-21 02:09 → MS3 12-21 07:08
PROVIDERS: Emergency Medicine; Internal Medicine; Admitting Provider Internal Medicine; Emergency Provider Emergency Medicine; PCP Nurse Practitioner Family; Visit Provider Internal Medicine
DX: J44.1 Chronic obstructive pulmonary disease with (acute) exacerbation (principal); J96.01 Acute respiratory failure with hypoxia; N17.9 Acute kidney failure, unspecified; E87.1 Hypo-osmolality and hyponatremia; F20.0 Paranoid schizophrenia; E87.2 Acidosis; F17.210 Nicotine dependence, cigarettes, uncomplicated; E87.5 Hyperkalemia; I95.9 Hypotension, unspecified; I50.9 Heart failure, unspecified; I11.0 Hypertensive heart disease with heart failure; Z79.899 Other long term (current) drug therapy; Z79.82 Long term (current) use of aspirin; Z91.81 History of falling
CPT/HCPCS: 36415; 71045; 71275; 80048; 80053; 80307; 81001; 83605; 83735; 84100; 84443; 84484; 85025; 85379; 85610; 85730; 87040; 87086; 87426; 87449; 87633; 93005; 94640; 94667; 94762; 97161; 97166; 99251; 99285; 99406; J7030; Q9967; A4216; G0463; J3486

== ENCOUNTER 2021-04-10 23:22 | Emergency (ER) | payer MEDICARE, MEDICAID, SELFPAY ==
--- NOTE | 2021-04-10 23:51 | EDS_ITS ---
DATE OF SERVICE 04/10/21 CHIEF COMPLAINT: Legs twitching. HISTORY OF PRESENT ILLNESS: This is a 61-year-old male who has a history of hypertension. He says that his legs have been intermittently twitching for a month. Sometimes it is the left leg, and sometimes it is the right leg. He states that he saw his primary care provider, Daquan Pritchett at [facility], and states that he as placed on a muscle relaxant. He denies any weakness or numbness. No sign or history of claudication. No pain. The patient is not diabetic. PHYSICAL EXAMINATION: GENERAL: This is a 61-year-old male in no acute distress. VITAL SIGNS: Stable and afebrile. HEENT: Unremarkable. NECK: Nontender. LUNGS: Clear to auscultation bilaterally. HEART: Regular rhythm, rate about 95, no murmur. ABDOMEN: Soft and nontender. Normal bowel sounds. No peritoneal signs. EXTREMITIES: The patient is moving all 4 extremities. He has equal and symmetrical 5/5 felter tennis balls strength. Dorsiflexion and plantar flexion intact. He has equal and symmetrical dorsalis pedis pulses. Both feet are warm. Normal touch and sensation. He is able to wiggle his toes. Normal motor strength. Calves are nontender without edema or cords. There is no swelling. He has normal range of motion to all joints of the lower extremities. There is no swelling or redness. NEUROLOGIC: He is awake, alert with no focal motor deficits. EMERGENCY DEPARTMENT COURSE AND MEDICAL DECISION MAKING: The gentleman was complaining of leg twitching. He is a normal exam. This may or may not be related to restless leg syndrome. I explained that there is not a specific medication tonight I could put him on that would make a significant difference. He will follow up with his primary care for further evaluation and workup. IMPRESSION: Leg twitching. Rule out restless leg syndrome. History of hypertension. cc: Daquan Pritchett, [facility]
== END 2021-04-11 00:06 | disposition home or self-care (01) ==
LOC: ED 04-13 14:02
PROVIDERS: Emergency Provider Emergency Medicine; PCP Nurse Practitioner Family; Visit Provider Emergency Medicine
DX: R25.3 Fasciculation (principal)
CPT/HCPCS: 99284

== ENCOUNTER 2021-06-10 23:39 | Emergency (ER) | payer MEDICARE, MEDICAID, SELFPAY ==
[2021-06-10 23:40] VITALS: BP 158/86; PULSE 72; RESP 18; TEMP 36.3; O2SAT 94; BMI 21.5
--- NOTE | 2021-06-11 00:17 | ED.VIS.LOWEX ---
HPI History of Present Illness HPI Narrative: Patient presents with seizures in my legs that became worse tonight. Patient states these have been intermittent over the past few months. Patient states his doctor has prescribed him medications for this. Patient states that it is not working. Patient states it is worse when he lays down and goes to sleep. Patient states nothing makes them better. Patient denies any trauma or injury. Patient denies any headaches. Patient denies any paresthesias or weakness. Patient states his primary care physician has done venous Dopplers of his lower extremities which were negative. Chief Complaint: Lower Extremity Injury Informant: patient Onset/Context/Timing Onset: Month(s) Timing: Intermittent Quality of Pain: - (Shaking) Location: Bilateral lower extremities Worsened by: Laying down Relieved by: Nothing Associated Symptoms Associated Symptoms: Negative for Parasthesia, Weakness and Loss of Funtion PFSH PFS Medical History CHF (congestive heart failure), NYHA class II Cocaine abuse COPD (chronic obstructive pulmonary disease) HTN (hypertension) Hypotension Paranoia Paranoid schizophrenia Paranoid schizophrenia Smoker Substance abuse Home Medications aspirin 81 mg PO BREAKFAST #30 tab 11/20/20 [Rx Last Taken Unknown] benztropine 1 mg PO DAILY #30 tab 11/20/20 [Rx Last Taken Unknown] fluphenazine HCl 10 mg PO DAILY #30 tab 11/20/20 [Rx Last Taken Unknown] ipratropium-albuterol 3 ml INHALATION Q4H.RT 30 Days #120 ml 11/20/20 [Rx Last Taken Unknown] lisinopril 10 mg PO DAILY #30 tab 11/20/20 [Rx Last Taken Unknown] metoprolol tartrate 25 mg PO BID #60 tab 11/20/20 [Rx Last Taken Unknown] azithromycin 500 mg PO Q24 2 Days #4 tab 12/25/20 [Rx Last Taken Unknown] guaifenesin [Mucus Relief ER] 1,200 mg PO BID PRN #0 tab 12/25/20 [Rx Last Taken Unknown] ipratropium-albuterol 3 ml INHALATION Q6H.RT #0 ml 12/25/20 [Rx Last Taken Unknown] nicotine 21 mg TRANSDERMAL DAILY #0 ea 12/25/20 [Rx Last Taken Unknown] prednisone See Taper PO BREAKFAST #0 tab 12/25/20 [Rx Last Taken Unknown] sennosides-docusate sodium [Stool Softener-Stimulant Laxat] 2 tab PO BID PRN PRN #0 tab 12/25/20 [Rx Last Taken Unknown] orphenadrine citrate 100 mg PO QHS PRN PRN #5 tab 06/11/21 [Rx Last Taken Unknown] Allergy/AdvReac Type Severity Reaction Status Date / Time haloperidol lactate Allergy Anaphylaxis Verified 06/10/21 23:44 [From Haldol] doxycycline AdvReac Unknown Other Verified 06/10/21 23:44 antihistamines Allergy Rash Uncoded 06/10/21 23:44 Family History Father Heart disease Surgical History History of appendectomy Social History Smoking Status: Former smoker ROS ROS ED Constitutional Constitutional ED: Denies chills or fever(s) Eyes Eyes: Denies blurry vision or change in vision ENT ENT ED: Denies rhinorrhea or sore throat Cardiovascular Cardiovascular: Denies chest pain or palpitations Respiratory/Chest Respiratory/Chest: Denies cough or dyspnea Gastrointestinal Gastrointestinal: Denies nausea or vomiting Genitourinary Genitourinary ED: Denies dysuria or hematuria Musculoskeletal Musculoskeletal: Denies back pain or neck pain Integumentary Denies abscess or rash Neurologic Neurologic: Denies headache(s) or weakness Allergic/Immunologic Allergic/Immunologic ED: Denies mouth swelling or urticaria EXAM Physical Exam Const Vital Signs: 06/10/21 23:40 Temperature 97.3 F L Temperature Source Temporal Pulse Rate 72 Respiratory Rate 18 Blood Pressure 158/86 H Blood Pressure Mean 110 Pulse Ox 94 Oxygen Delivery Method Room Air Positive well nourished and well developed General Appearance ED: well developed and NAD HEENT Reports moist mucous membranes Extremity normal to inspection and full ROM Extremity Narrative: There is no calf tenderness noted. There is no obvious deformity. There is good range of motion. There are no sensory deficits noted. Strength is 5/5 bilaterally. Currently, his legs are not moving involuntarily. There are no tremors. General Extremety ED: Negative for edema General Extremity: Negative for edema Neuro oriented x3, CN's II-XII intact bilaterally, moves all extremities and no sensory deficits noted Sensorium / Orientation: alert Motor Exam: strength 5/5 throughout Psych mental status grossly normal MDM MDM MDM Narrative Medical decision making narrative: Patient was advised that this is most likely restless leg syndrome. He should continue his medications that his primary care physician prescribed for him. Patient was brought by EMS and states he will have to walk home. I do not feel comfortable giving him a muscle relaxant and having him walk home. Patient was given a prescription for muscle relaxant to take at bedtime. Patient was instructed to follow-up with his primary care physician in 5 to 7 days. Patient understood and was agreeable with the plan. All questions were answered. Discharge Plan Triage Chief Complaint: Lower Extremity Injury ED Provider: Larry Leslie Dx/Rx/DC Orders Clinical Impression: Restless leg syndrome, Nicotine addiction Instructions: RLS What to Do Prescriptions: New orphenadrine citrate 100 mg tablet extended release 100 mg PO QHS PRN PRN (Reason: muscle spasm) Qty: 5 RF: 0 No Action ipratropium-albuterol 0.5 mg-3 mg(2.5 mg base)/3 mL Solution For Nebulization 3 ml inhalation Q4H.RT 30 Days Qty: 120 RF: 0 fluphenazine HCl 10 MG tablet 10 mg PO DAILY Qty: 30 RF: 0 aspirin 81 mg Tablet,Delayed Release (Dr/Ec) 81 mg PO BREAKFAST Qty: 30 RF: 3 lisinopril 10 MG tablet 10 mg PO DAILY Qty: 30 RF: 2 benztropine 1 mg Tablet 1 mg PO DAILY Qty: 30 RF: 0 metoprolol tartrate 25 MG tablet 25 mg PO BID Qty: 60 RF: 2 ipratropium-albuterol 0.5 mg-3 mg(2.5 mg base)/3 mL Solution For Nebulization 3 ml inhalation Q6H.RT Qty: 0 RF: 0 azithromycin 250 mg Tablet 500 mg PO Q24 2 Days Qty: 4 RF: 0 prednisone 20 mg Tablet See Taper mg PO BREAKFAST Qty: 0 RF: 0 nicotine 21 mg/24 hr Patch 24 Hour 21 mg transdermal DAILY Qty: 0 RF: 0 Mucus Relief ER 1,200 mg Tablet Extended Release 12hr 1,200 mg PO BID PRN (Reason: cough) Qty: 0 RF: 0 sennosides-docusate sodium [Stool Softener-Stimulant Laxat] 8.6-50 mg Tablet 2 tab PO BID PRN PRN (Reason: Constipation) Qty: 0 RF: 0 Primary Care Provider: Daquan Pritchett NP Referrals: Daquan Pritchett NP, [facility] [Primary Care Provider] - 3-5 Days Disposition Disposition: Home, Self Care
[2021-06-11 00:30] VITALS: BP 158/86; PULSE 72; RESP 18; O2SAT 94
== END 2021-06-11 00:30 | disposition home or self-care (01) ==
PROVIDERS: Emergency Provider Emergency Medicine; PCP Nurse Practitioner Family; Visit Provider Emergency Medicine
DX: G25.81 Restless legs syndrome (principal); Z87.891 Personal history of nicotine dependence

== ENCOUNTER 2021-06-11 23:22 | Emergency (ER) | payer MEDICARE, MEDICAID, SELFPAY ==
[2021-06-11 23:23] VITALS: BP 168/82; PULSE 74; RESP 16; TEMP 36.4; O2SAT 95; BMI 20.7
--- NOTE | 2021-06-11 23:43 | EKG12_ITS ---
Test Reason : DYSRHYTHMIA Blood Pressure : / mmHG Vent. Rate : 070 BPM Atrial Rate : 070 BPM P-R Int : 152 ms QRS Dur : 092 ms QT Int : 396 ms P-R-T Axes : 080 111 068 degrees QTc Int : 427 ms Normal sinus rhythm low voltage QRS (limb leads) Poor R wave progression Confirmed by ALBERTO HENDERSON, RADHA ([id number]), loan expeditor NATTY BARRIOS ([id number]) on 06/16/2021 11:17:12 AM Referred By: ALVIN Confirmed By:RADHA DOMINGUEZ MD
[2021-06-11] MEDS: Pramipexole Di-HCl 0.125 MG Tablet PO (23:59)
[2021-06-11] MEDS: Gabapentin 100 MG Capsule PO (23:59)
[2021-06-12 00:07] LABS: Absolute Lymphocyte Count 1.91 X10^3/uL (0.83-4.51); Absolute Neutrophil Count 4.2 X10^3/uL (2.0-7.7); Basophil# 0.03 X10^3/uL; Basophil% 0.4 % (0-1); Eosinophils% 2.8 % (0-5); Hematocrit 41.7 % (40-54); Hemoglobin 14.6 g/dL (13.0-16.5); Lymphocyte # 1.91 X10^3/ul (0.83-4.51); Lymphocyte % 26.3 % (19-41); Mean Corpuscular Hgb 31.3 pg (27.0-32.0); Mean Corpuscular Volume 89.5 fL (80-94); Mean Platelet Vol. 8.4 fl (6.2-12.0); Monocyte# 0.87 X10^3/uL; NRBC Flagged by Analyzer 0 % (0-5); Neutrophil # 4.22 X10^3/uL (2.7-7.7); Neutrophil % 58.1 % (47-70); Platelet Count 253 K/mm3 (150-450); RBC Distribution Width CV 11.1 % (11.6-14.6); RBC Distribution Width SD 36.2 fl (35.1-43.9); Red Blood Count 4.66 M/mm3 (4.6-6.2); White Blood Count 7.3 K/mm3 (4.4-11.0)
[2021-06-12 00:34] LABS: Amphetamine Urine VISTA NEGATIVE (<1000 ng/mL); Barbiturate Urine VISTA NEGATIVE (< 200 ng/mL); Benzodiazepine Urine VISTA NEGATIVE (< 200 ng/mL); Cocaine Urine VISTA POSITIVE (< 300 ng/mL); Ecstacy Urine VISTA NEGATIVE (< 500 ng/mL); Methadone Urine VISTA NEGATIVE (< 300 ng/mL); PCP Urine VISTA NEGATIVE (< 25 ng/mL); THC Urine VISTA POSITIVE (< 50 ng/mL); Vista UDS pH Range 7
[2021-06-12 00:34] LABS: Anion Gap 6 (5-15); BUN 16 mg/dL (7-18); BUN/Creat Ratio 23.7 RATIO (10-20); Calcium,Total 8.7 mg/dL (8.5-10.1); Chloride 93 mmol/L (98-107); Creatinine, Serum 0.67 mg/dL (0.70-1.30); EST Glomerular Filtration Rate 126 mL/min (>60); Est Glom Filt Rate - Afr Amer 153 mL/min (>60); Estimated Creatinine Clearance 101.52 ml/min; Glucose 96 mg/dL (74-106); Magnesium 2.1 mg/dL (1.6-2.6); Potassium 4.4 mmol/L (3.5-5.1); Sodium Level 127 mmol/L (136-145)
[2021-06-12 00:38] VITALS: RESP 16
[2021-06-12 01:04] LABS: Acetaminophen (Tylenol) Level < 2.0 ug/mL (10.0-30.0)
[2021-06-12 01:34] VITALS: RESP 16
--- NOTE | 2021-06-12 02:15 | EDS_ITS ---
HPI History of Present Illness Chief Complaint: Mental Health Narrative Narrative: Patient is a 61-year-old male who stays at a senior care. He states he has been struggling with spasms in his legs mainly at night when he tries to sleep. He states he used to be on medication that seemed to help for a few hours and then would dissipate. Secondary to the fact it was not lasting throughout the night he stopped. He was seen in the ER yesterday because of these spasms and placed on a muscle relaxer. Patient states that the spasms are still happening. He states that if he cannot get his spasms under control that he will slit his wrists. Therefore because of his inability to cope with his restless leg syndrome he presents to the ER for repeat evaluation and possible psychiatric placement [facility] Medical History CHF (congestive heart failure), NYHA class II Cocaine abuse COPD (chronic obstructive pulmonary disease) HTN (hypertension) Hypotension Paranoia Paranoid schizophrenia Paranoid schizophrenia Smoker Substance abuse Home Medications aspirin 81 mg PO BREAKFAST #30 tab 11/20/20 [Rx Last Taken Unknown] benztropine 1 mg PO DAILY #30 tab 11/20/20 [Rx Last Taken Unknown] fluphenazine HCl 10 mg PO DAILY #30 tab 11/20/20 [Rx Last Taken Unknown] ipratropium-albuterol 3 ml INHALATION Q4H.RT 30 Days #120 ml 11/20/20 [Rx Last Taken Unknown] lisinopril 10 mg PO DAILY #30 tab 11/20/20 [Rx Last Taken Unknown] metoprolol tartrate 25 mg PO BID #60 tab 11/20/20 [Rx Last Taken Unknown] azithromycin 500 mg PO Q24 2 Days #4 tab 12/25/20 [Rx Last Taken Unknown] guaifenesin [Mucus Relief ER] 1,200 mg PO BID PRN #0 tab 12/25/20 [Rx Last Taken Unknown] ipratropium-albuterol 3 ml INHALATION Q6H.RT #0 ml 12/25/20 [Rx Last Taken Unknown] nicotine 21 mg TRANSDERMAL DAILY #0 ea 12/25/20 [Rx Last Taken Unknown] prednisone See Taper PO BREAKFAST #0 tab 12/25/20 [Rx Last Taken Unknown] sennosides-docusate sodium [Stool Softener-Stimulant Laxat] 2 tab PO BID PRN PRN #0 tab 12/25/20 [Rx Last Taken Unknown] orphenadrine citrate 100 mg PO QHS PRN PRN #5 tab 06/11/21 [Rx Last Taken Unknown] gabapentin 100 mg PO QHS 30 Days #30 cap 06/12/21 [Rx Last Taken Unknown] ropinirole 0.5 mg PO QHS 30 Days #30 tab 06/12/21 [Rx Last Taken Unknown] Allergy/AdvReac Type Severity Reaction Status Date / Time haloperidol lactate Allergy Anaphylaxis Verified 06/11/21 23:26 [From Haldol] doxycycline AdvReac Unknown Other Verified 06/11/21 23:26 antihistamines Allergy Rash Uncoded 06/10/21 23:44 Family History Father Heart disease Surgical History History of appendectomy Social History Smoking Status: Former smoker ROS ROS ED Constitutional Constitutional ED: Denies chills or fever(s) ENT ENT ED: Denies sore throat Cardiovascular Cardiovascular: Denies chest pain Respiratory/Chest Respiratory/Chest: Denies cough or dyspnea Gastrointestinal Gastrointestinal: Denies abdominal pain, diarrhea, nausea or vomiting Genitourinary Genitourinary ED: Denies dysuria Musculoskeletal Musculoskeletal: Reports myalgias and other Details: Positive leg spasms Integumentary Denies rash Neurologic Neurologic: Denies headache(s) Psychiatric Psychiatric: Reports suicidal thoughts Hematologic/Lymphatic Hematologic/Lymphatic: Denies easy bleeding or easy bruising EXAM Physical Exam Const Vital Signs: 06/11/21 23:23 06/12/21 00:38 06/12/21 01:34 Temperature 97.6 F L Temperature Source Temporal Pulse Rate 74 Respiratory Rate 16 16 16 Blood Pressure 168/82 H Blood Pressure Mean 110 Pulse Ox 95 Oxygen Delivery Method Room Air 06/12/21 02:18 Temperature Temperature Source Pulse Rate Respiratory Rate 18 Blood Pressure Blood Pressure Mean Pulse Ox Oxygen Delivery Method Positive well nourished and well developed General Appearance ED: well developed HEENT Reports moist mucous membranes Eyes PERRL and EOMs intact bilaterally Neck supple Resp normal respiratory effort and clear to auscultation bilaterally Cardio regular rate and regular rhythm Rate: other Other Details: Radial pulses are plus 2 out of 4 bilaterally are equal and symmetric GI normal to inspection, nondistended, normoactive bowel sounds, non-tender, non- distended and no masses Auscultation: normoactive bowel sounds Palpation: soft Extremity normal to inspection Extremity Narrative: No saddle anesthesia. No clonus or Babinski. Patellar reflexes are plus 1 out of 4 bilaterally. Negative straight leg raise Neuro oriented x3 and CN's II-XII intact bilaterally Sensorium / Orientation: alert Motor Exam: strength 5/5 throughout Psych Psych Narrative: Patient has an agitated/anxious affect with suicidal ideation Attitude: agitated Mood & Affect: anxious Skin no rashes or lesions noted MDM MDM MDM Narrative Medical decision making narrative: Patient presented to the ER with unrealistic expectations. He expected to take 1 shot or 1 pill and have his restless leg symptoms resolve. We discussed that that is not possible and he will need to take medications and gradually ramp them up to resolve his symptoms. The patient was stating this is unacceptable and he stated if he were to go home he would slit his wrists. Secondary to this statement I did elect to perform a psychiatric exam and have crisis center evaluate the patient. His work-up showed persistent hyponatremia but no derangement to his potassium or magnesium. He did test positive for cocaine and states he does intermittently. We discussed how this is not helping his restless leg syndrome and he needs to stop this. Crisis center did evaluate the patient and they agree that he is only say ing this out of frustration and he does not have true suicidal or homicidal intent. Therefore at this time he is low risk for harming himself or others and he will return home. If he continues to present to the ER because of his inability to cope then they can discuss possible placement. At this time I will start the patient on low-dose gabapentin and Requip to see if this helps control his symptoms otherwise he is safe for discharge. Lab Data Attestation: I reviewed the patient's lab results. Labs: Laboratory Results - last 24 hr 06/11/21 06/11/21 06/11/21 23:57 23:57 23:57 WBC 7.3 RBC 4.66 Hgb 14.6 Hct 41.7 MCV 89.5 MCH 31.3 MCHC 35.0 RDW Std Deviation 36.2 RDW Coeff of John 11.1 L Plt Count 253 MPV 8.4 Immature Gran % (Auto) 0.400 Neut % (Auto) 58.1 Lymph % (Auto) 26.3 [place] % (Auto) 12.0 H Eos % (Auto) 2.8 Baso % (Auto) 0.4 Absolute Neuts (auto) 4.2 Absolute Lymphs (auto) 1.91 Nucleated RBC % 0 Sodium 127 L Potassium 4.4 Chloride 93 L Carbon Dioxide 28.0 Anion Gap 6 BUN 16 Creatinine 0.67 L Estim Creat Clear Calc 101.52 Est GFR (MDRD) Af Amer 153 Est GFR (MDRD) Non-Af 126 BUN/Creatinine Ratio 23.7 H Glucose 96 Calcium 8.7 Magnesium 2.1 Salicylates 3.0 Urine Opiates Screen Urine Methadone Screen Acetaminophen < 2.0 L Ur Barbiturates Screen Ur Phencyclidine Scrn Ur Amphetamines Screen MDMA (Ecstasy) Screen U Benzodiazepines Scrn Urine Cocaine Screen U Cannabinoids Screen Ur Drug Screen Comment Ethyl Alcohol 6.0 06/12/21 00:16 WBC RBC Hgb Hct MCV MCH MCHC RDW Std Deviation RDW Coeff of John Plt Count MPV Immature Gran % (Auto) Neut % (Auto) Lymph % (Auto) Mason % (Auto) Eos % (Auto) Baso % (Auto) Absolute Neuts (auto) Absolute Lymphs (auto) Nucleated RBC % Sodium Potassium Chloride Carbon Dioxide Anion Gap BUN Creatinine Estim Creat Clear Calc Est GFR (MDRD) Af Amer Est GFR (MDRD) Non-Af BUN/Creatinine Ratio Glucose Calcium Magnesium Salicylates Urine Opiates Screen NEGATIVE Urine Methadone Screen NEGATIVE Acetaminophen Ur Barbiturates Screen NEGATIVE Ur Phencyclidine Scrn NEGATIVE Ur Amphetamines Screen NEGATIVE MDMA (Ecstasy) Screen NEGATIVE U Benzodiazepines Scrn NEGATIVE Urine Cocaine Screen POSITIVE H U Cannabinoids Screen POSITIVE H Ur Drug Screen Comment Ethyl Alcohol Discharge Plan Triage Chief Complaint: Mental Health ED Provider: Tomy Gutierrez Dx/Rx/DC Orders Clinical Impression: Restless legs syndrome Instructions: RLS, RLS What to Do Prescriptions: New ropinirole 0.5 mg tablet 0.5 mg PO QHS 30 Days Qty: 30 RF: 0 gabapentin 100 mg capsule 100 mg PO QHS 30 Days Qty: 30 RF: 0 No Action ipratropium-albuterol 0.5 mg-3 mg(2.5 mg base)/3 mL Solution For Nebulization 3 ml inhalation Q4H.RT 30 Days Qty: 120 RF: 0 fluphenazine HCl 10 MG tablet 10 mg PO DAILY Qty: 30 RF: 0 aspirin 81 mg Tablet,Delayed Release (Dr/Ec) 81 mg PO BREAKFAST Qty: 30 RF: 3 lisinopril 10 MG tablet 10 mg PO DAILY Qty: 30 RF: 2 benztropine 1 mg Tablet 1 mg PO DAILY Qty: 30 RF: 0 metoprolol tartrate 25 MG tablet 25 mg PO BID Qty: 60 RF: 2 ipratropium-albuterol 0.5 mg-3 mg(2.5 mg base)/3 mL Solution For Nebulization 3 ml inhalation Q6H.RT Qty: 0 RF: 0 azithromycin 250 mg Tablet 500 mg PO Q24 2 Days Qty: 4 RF: 0 prednisone 20 mg Tablet See Taper mg PO BREAKFAST Qty: 0 RF: 0 nicotine 21 mg/24 hr Patch 24 Hour 21 mg transdermal DAILY Qty: 0 RF: 0 Mucus Relief ER 1,200 mg Tablet Extended Release 12hr 1,200 mg PO BID PRN (Reason: cough) Qty: 0 RF: 0 sennosides-docusate sodium [Stool Softener-Stimulant Laxat] 8.6-50 mg Tablet 2 tab PO BID PRN PRN (Reason: Constipation) Qty: 0 RF: 0 orphenadrine citrate 100 mg tablet extended release 100 mg PO QHS PRN PRN (Reason: muscle spasm) Qty: 5 RF: 0 Primary Care Provider: Daquan Pritchett NP Referrals: Daquan Pritchett NP, [facility] [Primary Care Provider] - Activity Restrictions/Additional Instructions: Please take the Requip and gabapentin as directed to help control your restless leg syndrome. However follow-up with your family doctor as these doses may need to be increased for better control of your symptoms. Also stop doing cocaine as this will cause worsening of your restless leg symptoms/leg spasms Disposition Disposition: Home, Self Care
[2021-06-12 02:18] VITALS: RESP 18
[2021-06-12] MEDS: LORazepam 2 MG/ML Syringe IM (02:58)
[2021-06-12 03:01] VITALS: RESP 18
[2021-06-12 07:21] VITALS: RESP 16
== END 2021-06-12 07:24 | disposition home or self-care (01) ==
PROVIDERS: Emergency Provider Emergency Medicine; PCP Nurse Practitioner Family; Visit Provider Emergency Medicine
DX: G25.81 Restless legs syndrome (principal); F20.0 Paranoid schizophrenia; J44.9 Chronic obstructive pulmonary disease, unspecified; I11.0 Hypertensive heart disease with heart failure; I50.9 Heart failure, unspecified; E87.1 Hypo-osmolality and hyponatremia; Z87.891 Personal history of nicotine dependence; Z79.82 Long term (current) use of aspirin; Z79.899 Other long term (current) drug therapy
CPT/HCPCS: 36415; 80048; 80307; 80329; 82077; 83735; 85025; 87426; 93005; 96372; 99282; 99284; G0480

== ENCOUNTER 2021-07-01 08:58 | Outpatient (CLI) | payer MEDICARE, MEDICAID, SELFPAY ==
[2021-07-01 09:15] LABS: Hematocrit 43.8 % (40-54); Hemoglobin 15.2 g/dL (13.0-16.5); Mean Corp Hgb Conc 34.7 g/dL (32-36); Mean Corpuscular Hgb 31.5 pg (27.0-32.0); Mean Corpuscular Volume 90.7 fL (80-94); Mean Platelet Vol. 8.2 fl (6.2-12.0); Platelet Count 318 K/mm3 (150-450); RBC Distribution Width CV 11.8 % (11.6-14.6); RBC Distribution Width SD 39.4 fl (35.1-43.9); Red Blood Count 4.83 M/mm3 (4.6-6.2)
[2021-07-01 09:43] LABS: Vitamin B12 688 pg/mL (211-911)
[2021-07-01 09:46] LABS: Valproic Acid (Depakene) Level 57 ug/mL (50-100)
[2021-07-01 09:59] LABS: ALB/GLOB Ratio 0.9 RATIO (0.9-2.4); AST(SGOT) 12 U/L (15-37); Alanine Aminotransfer ALT/SGPT 18 U/L (16-61); Albumin, Serum 3.3 g/dL (3.2-5.0); Alkaline Phosphatase 60 U/L (45-117); Anion Gap 4 (5-15); BUN 23 mg/dL (7-18); BUN/Creat Ratio 27.7 RATIO (10-20); Calcium,Total 9.1 mg/dL (8.5-10.1); Chloride 93 mmol/L (98-107); Creatinine, Serum 0.83 mg/dL (0.70-1.30); EST Glomerular Filtration Rate 100 mL/min (>60); Est Glom Filt Rate - Afr Amer 120 mL/min (>60); Ferritin 42 ng/mL (26-388); Globulin 3.7 g/dL (2.2-4.2); Glucose 111 mg/dL (74-106); Iron 104 ug/dL (65-175); Potassium 4.6 mmol/L (3.5-5.1); Sodium Level 130 mmol/L (136-145); Thyroid Stim Hormone (TSH) 0.61 uIU/mL (0.358-3.74)
[2021-07-14 11:09] LABS: Free Kappa Light Chains 16.2 mg/L (3.3-19.4); Free Lambda Light Chains 11.9 mg/L (5.7-26.3)
[2021-07-14 12:38] LABS: Vitamin B1, Thiamine 143.4 nmol/L (66.5-200.0)
== END 2021-07-01 23:59 | disposition home or self-care (01) ==
PROVIDERS: PCP Nurse Practitioner Family; Referring Provider Psychiatry & Neurology Neurology; Visit Provider Psychiatry & Neurology Neurology
DX: F20.0 Paranoid schizophrenia (principal); J96.01 Acute respiratory failure with hypoxia; G62.9 Polyneuropathy, unspecified; G25.81 Restless legs syndrome; Z86.2 Personal history of diseases of the blood and blood-forming organs and certain disorders involving the immune mechanism
CPT/HCPCS: 36415; 80053; 80164; 82140; 82607; 82728; 82746; 83540; 83883; 84425; 84443; 85027

== ENCOUNTER 2021-07-06 16:06 | Observation (INO) | payer MEDICARE, MEDICAID, SELFPAY ==
[2021-07-06 16:09] VITALS: BP 136/63; PULSE 66; RESP 17; TEMP 36.5; O2SAT 92; BMI 21.1
--- NOTE | 2021-07-06 17:06 | EDS_ITS ---
HPI History of Present Illness Chief Complaint: Lower Extremity Injury Informant: patient Onset/Context/Timing Onset: Weeks Context: Gradual Onset Timing: Intermittent Current Severity: Mild Maximum Severity: Mild Narrative Narrative: 61-year-old male history of CHF, COPD, schizophrenia. States that he was to be admitted to a long-term and was told he needed precertification in order for that to happen. Also states that his restless leg syndrome has been increasing. He denies any recent illness. Prior similar symptoms: Yes Recent Illness/Hospitalization: No PFSH PFS Medical History CHF (congestive heart failure), NYHA class II Cocaine abuse COPD (chronic obstructive pulmonary disease) HTN (hypertension) Hypotension Paranoia Paranoid schizophrenia Paranoid schizophrenia Smoker Substance abuse Home Medications acetaminophen 650 mg PO Q6H PRN 07/06/21 [History Last Taken 07/06/21] aspirin [Aspirin Low Dose] 81 mg PO DAILY@0800 07/06/21 [History Last Taken 07/06/21 08:00] benztropine 1 mg PO DAILY 07/06/21 [History Last Taken 07/06/21 08:00] divalproex 500 mg PO BID 07/06/21 [History Last Taken 07/06/21 08:00] fluphenazine HCl 10 mg PO DAILY 07/06/21 [History Last Taken 07/06/21 08:00] ibuprofen 600 mg PO Q8H PRN 07/06/21 [History Last Taken 07/06/21] lisinopril 10 mg PO DAILY 07/06/21 [History Last Taken 07/06/21 08:00] metoprolol tartrate 25 mg PO DAILY 07/06/21 [History Last Taken 07/06/21 08:00] ropinirole 1 mg PO BID 07/06/21 [History Last Taken 07/06/21 08:00] Allergy/AdvReac Type Severity Reaction Status Date / Time haloperidol lactate Allergy Anaphylaxis Verified 07/06/21 16:08 [From Haldol] doxycycline AdvReac Unknown Other Verified 07/06/21 16:08 antihistamines Allergy Rash Uncoded 07/06/21 16:08 Family History Father Heart disease Surgical History History of appendectomy Social History (Updated 07/06/21 @ 17:[address] Diane Connelly MD) housing: other details: [facility]. Smoking Status: Current every day smoker tobacco type: cigarettes second hand exposure: Yes alcohol intake: never substance use type: other details: Crack and cannabis intermittently. ROS ROS ED ROS Narrative Denies recent illness. Review of Systems ROS Unobtainable: Denies due to encephalopathy Constitutional Constitutional ED: Denies fever(s) Eyes Eyes: Denies change in vision ENT ENT ED: Denies ear pain Cardiovascular Cardiovascular: Denies chest pain Respiratory/Chest Respiratory/Chest: Denies cough or dyspnea Gastrointestinal Gastrointestinal: Denies abdominal pain, diarrhea, nausea or vomiting Genitourinary Genitourinary ED: Denies dysuria Musculoskeletal Musculoskeletal: Denies myalgias Integumentary Denies rash Neurologic Neurologic: Denies headache(s) Psychiatric Psychiatric: Denies depression Endocrine Endocrinology: Denies polyuria Allergic/Immunologic Allergic/Immunologic ED: Denies urticaria EXAM Physical Exam Narrative Exam Narrative: 61-year-old male no acute distress. Vital signs stable afebrile. H EENT exam unremarkable. Neck nontender. Lungs coarse breath sounds from smoking history of few scattered wheezes. No rales or rhonchi. Heart regular rate and rhythm no murmur. Abdomen soft nontender. Moving all 4 extremities. Calves are nontender without edema. Neurovascular intact. Neurologically is awake and alert. Const Vital Signs: 07/06/21 16:09 Temperature 97.7 F L Temperature Source Oral Pulse Rate 66 Respiratory Rate 17 Blood Pressure 136/63 H Blood Pressure Mean 87 Pulse Ox 92 Oxygen Delivery Method Room Air Positive well nourished and well developed; Negative for obese, cachectic, contractures or unkempt General Appearance ED: well developed and NAD; Negative for unkempt, cachectic, contractures, cyanotic, diaphoretic or pallor Nutritional Appearance: Negative for cachectic or obese HEENT Reports moist mucous membranes Negative for trauma or tenderness Eyes PERRL and EOMs intact bilaterally General Eye ED: Negative for pale conjunctiva or scleral icterus Neck no lymphadenopathy, supple and no JVD General: Negative for tenderness Chest Wall inspection of chest normal and palpation of chest normal Resp normal respiratory effort and No clear to auscultation bilaterally Resp Narrative: Coarse breath sounds. Few scattered wheezes. Auscultation: rales, rhonchi and wheezes Cardio regular rate, regular rhythm, S1 normal heart sound, S2 normal heart sound and no murmurs GI normal to inspection, nondistended, normoactive bowel sounds, non-tender, non- distended and no masses Inspection: Negative for abdominal distention Auscultation: normoactive bowel sounds Palpation: soft; Negative for tender, guarding or rebound tenderness present Back/Spine no CVA tenderness General Back: Negative for CVA tenderness Cervical Spine: Negative for cervical spine tenderness Thoracic Spine / Upper Back: Negative for thoracic spinal tenderness or paraspinal muscle tenderness Extremity normal to inspection General Extremety ED: Negative for edema or tenderness General Extremity: Negative for edema Neuro oriented x3 Sensorium / Orientation: alert; Negative for lethargic or stuporous Motor Exam: strength 5/5 throughout Psych mental status grossly normal Appearance: Negative for unkempt Attitude: No agitated Mood & Affect: Negative for depressed, anxious or tearful Skin no rashes or lesions noted and no wounds General Skin Exam: Negative for jaundice or pallor MDM MDM MDM Narrative Medical decision making narrative: 61-year-old male history of schizophrenia wants to be admitted to a long-term. Due to his insurance he needs precertification. I did discuss this with our psychiatric social worker supervisor. He will be admitted to the hospitalist who wanted me to order CMP, CBC, tox screen, EtOH and COVID test. Lab Data Attestation: I reviewed the patient's lab results. Lab results narrative: CBC shows a white count of 7. H&H 14 and 41. The other labs are not back yet. The patient is already been accepted upstairs for adm ission the rest the labs to be checked by the hospitalist. Labs: Laboratory Results - last 24 hr 07/06/21 17:03 WBC 7.5 RBC 4.58 L Hgb 14.2 Hct 41.6 MCV 90.8 MCH 31.0 MCHC 34.1 RDW Std Deviation 39.8 RDW Coeff of John 12.0 Plt Count 297 MPV 8.6 Immature Gran % (Auto) 0.400 Neut % (Auto) 65.2 Lymph % (Auto) 20.6 [place] % (Auto) 9.7 Eos % (Auto) 3.7 Baso % (Auto) 0.4 Absolute Neuts (auto) 4.9 Absolute Lymphs (auto) 1.55 Nucleated RBC % 0 Discharge Plan Dx/Rx/DC Orders Clinical Impression: Adult failure to thrive, Restless legs syndrome, History of schizophrenia Disposition Disposition: Acute Care Hospital [facility] Discharge Date/Time: 07/06/21 17:51
--- NOTE | 2021-07-06 17:18 | PCM.HP.STD ---
Documented by User: DANIELLE Bagley 07/06/21 17:36 HPI - General General Date of Admission: 07/06/21 Date of Service: 07/06/21 Chief Complaint: Restless leg syndrome HPI Narrative LYLY CALVIN, is a 61 M who presents with complaints of severe restless leg syndrome. Patient states that this has been ongoing and he sees neurology for restless legs and they have made adjustments to his medications however patient states that it is not fixing it quick enough. Patient is very belligerent during evaluation about his irritation about his legs. Patient adamant that he is going to go to a [place] for continued help with his restless legs. Discussed with patient that he may not qualify for [place] but that we will try to help him with his restless legs. Patient has a history of schizophrenia as well as hypertension. [facility] Medical History CHF (congestive heart failure), NYHA class II Cocaine abuse COPD (chronic obstructive pulmonary disease) HTN (hypertension) Hypotension Paranoia Paranoid schizophrenia Paranoid schizophrenia Smoker Substance abuse Home Medications acetaminophen 650 mg PO Q6H PRN 07/06/21 [History Last Taken 07/06/21] aspirin [Aspirin Low Dose] 81 mg PO DAILY@0800 07/06/21 [History Last Taken 07/06/21 08:00] benztropine 1 mg PO DAILY 07/06/21 [History Last Taken 07/06/21 08:00] divalproex 500 mg PO BID 07/06/21 [History Last Taken 07/06/21 08:00] fluphenazine HCl 10 mg PO DAILY 07/06/21 [History Last Taken 07/06/21 08:00] ibuprofen 600 mg PO Q8H PRN 07/06/21 [History Last Taken 07/06/21] lisinopril 10 mg PO DAILY 07/06/21 [History Last Taken 07/06/21 08:00] metoprolol tartrate 25 mg PO DAILY 07/06/21 [History Last Taken 07/06/21 08:00] ropinirole 1 mg PO BID 07/06/21 [History Last Taken 07/06/21 08:00] Allergy/AdvReac Type Severity Reaction Status Date / Time haloperidol lactate Allergy Anaphylaxis Verified 07/06/21 16:08 [From Haldol] doxycycline AdvReac Unknown Other Verified 07/06/21 16:08 antihistamines Allergy Rash Uncoded 07/06/21 16:08 Family History Father Heart disease unable to obtain (Patient does not know mom or siblings medical history, unable to keep track of his own medical history.) Surgical History History of appendectomy Social History (Updated 07/06/21 @ 17:[address] Diane Connelly MD) housing: other details: skilled nursing. Smoking Status: Current every day smoker tobacco type: cigarettes Smoking packs per day: 1 Smoking cigarettes per day: 20.0 second hand exposure: Yes alcohol intake: never substance use type: other details: Crack and cannabis intermittently. ROS Constitutional Constitutional: Denies anorexia, chills, fatigue, frequent falls, malaise or weakness Cardiovascular Cardiovascular: Denies chest pain, orthopnea, palpitations or syncope Respiratory/Chest Respiratory/Chest: Denies cough, shortness of breath at rest, shortness of breath with exertion or wheezing Gastrointestinal Gastrointestinal: Denies abdominal pain, constipation, diarrhea, nausea or vomiting Genitourinary Genitourinary: Denies dysuria Musculoskeletal Musculoskeletal: Denies back pain, extremity pain, joint pain or joint stiffness Integumentary Integumentary: Denies dry skin Neurologic Neurologic: Reports restless legs; Denies abnormal gait, confusion, dizziness, frequent falls or tremor(s) Psychiatric Psychiatric: Denies anxiety or depression Endocrine Endocrinology: Denies change in body appearance Hematologic/Lymphatic Hematologic/Lymphatic: Denies anemia Vital Signs Vital Signs Vital Signs: 07/06/21 16:09 Temperature 97.7 F L Temperature Source Oral Pulse Rate 66 Respiratory Rate 17 Blood Pressure 136/63 H Blood Pressure Mean 87 Pulse Ox 92 Oxygen Delivery Method Room Air Weight Weight: 143 lb Body Mass Index (BMI) 21.1 Physical Exam Const alert, oriented x3 and no apparent distress General Appearance: cooperative HEENT normocephalic and head/scalp atraumatic Eyes conjunctivae normal and no scleral icterus Neck no lymphadenopathy and supple General: trachea midline Resp normal respiratory effort, normal air movement and clear to auscultation bilaterally Cardio regular rate, regular rhythm, S1 normal heart sound and S2 normal heart sound GI normal to inspection, nondistended, normoactive bowel sounds, soft to palpation and non-tender Extremity normal capillary refill and no clubbing, cyanosis or edema General Extremity: no tenderness to palpation of joints or extremities Skin General Skin Exam: no breakdown and turgor normal Lesions: no lesions Rashes: no rashes Neuro oriented x3, moves all extremities, no focal motor deficits and no sensory deficits noted Psych Appearance: disheveled Attitude: agitated Activity / Motor Behavior: fidgetting Assessment & Plan Assessment/Plan (1) History of schizophrenia: (2) Restless legs syndrome: PLAN: 1. Restless leg syndrome -Admit to [facility] for observation -We will continue ropinirole and add trazodone at night to assist in patient's sleep -CBC, CMP, blood alcohol, UDS ordered -PT and OT to eval and treat -Consult case management for discharge planning as patient is requesting to go to a [place] -Vital signs per protocol 2. Schizophrenia -Continue fluphenazine and divalproex -Patient currently alert and oriented x3, denies hallucinations 3. Hypertension -Continue lisinopril and metoprolol -Vital signs per protocol, currently stable -As needed hydralazine ordered 4. Tobacco abuse -Patient reports being a 1 pack/day smoker -Nicotine patch ordered 5. Substance abuse -Patient reports that he occasionally uses crack and marijuana DVT prophylaxis-not indicated, observation status This patient was seen by Edelmira Cheema NP-C under the supervision of Dr. Connelly. 32 minutes spent in clinical coordination of patient's plan of care. Documented by User: Dr. Diane Connelly MD 07/06/21 17:42 HPI - General General Date of Admission: 07/06/21 [facility] Medical History CHF (congestive heart failure), NYHA class II Cocaine abuse COPD (chronic obstructive pulmonary disease) HTN (hypertension) Hypotension Paranoia Paranoid schizophrenia Paranoid schizophrenia Smoker Substance abuse Home Medications acetaminophen 650 mg PO Q6H PRN 07/06/21 [History Last Taken 07/06/21] aspirin [Aspirin Low Dose] 81 mg PO DAILY@0800 07/06/21 [History Last Taken 07/06/21 08:00] benztropine 1 mg PO DAILY 07/06/21 [History Last Taken 07/06/21 08:00] divalproex 500 mg PO BID 07/06/21 [History Last Taken 07/06/21 08:00] fluphenazine HCl 10 mg PO DAILY 07/06/21 [History Last Taken 07/06/21 08:00] ibuprofen 600 mg PO Q8H PRN 07/06/21 [History Last Taken 07/06/21] lisinopril 10 mg PO DAILY 07/06/21 [History Last Taken 07/06/21 08:00] metoprolol tartrate 25 mg PO DAILY 07/06/21 [History Last Taken 07/06/21 08:00] ropinirole 1 mg PO BID 07/06/21 [History Last Taken 07/06/21 08:00] Allergy/AdvReac Type Severity Reaction Status Date / Time haloperidol lactate Allergy Anaphylaxis Verified 07/06/21 16:08 [From Haldol] doxycycline AdvReac Unknown Other Verified 07/06/21 16:08 antihistamines Allergy Rash Uncoded 07/06/21 16:08 Family History Father Heart disease Surgical History History of appendectomy Social History (Updated 07/06/21 @ 17:[address] Diane Connelly MD) housing: other details: skilled nursing. Smoking Status: Current every day smoker tobacco type: cigarettes Smoking packs per day: 1 Smoking cigarettes per day: 20.0 second hand exposure: Yes alcohol intake: never substance use type: other details: Crack and cannabis intermittently.
[2021-07-06 17:45] VITALS: BP 111/58; PULSE 76; RESP 17; TEMP 36.7; O2SAT 92
[2021-07-06 17:46] LABS: Absolute Lymphocyte Count 1.55 X10^3/uL (0.83-4.51); Absolute Neutrophil Count 4.9 X10^3/uL (2.0-7.7); Basophil# 0.03 X10^3/uL; Basophil% 0.4 % (0-1); Eosinophil# 0.28 X10^3/uL; Eosinophils% 3.7 % (0-5); Hematocrit 41.6 % (40-54); Hemoglobin 14.2 g/dL (13.0-16.5); Lymphocyte # 1.55 X10^3/ul (0.83-4.51); Lymphocyte % 20.6 % (19-41); Mean Corp Hgb Conc 34.1 g/dL (32-36); Mean Corpuscular Volume 90.8 fL (80-94); Mean Platelet Vol. 8.6 fl (6.2-12.0); Monocyte# 0.73 X10^3/uL; Monocyte% 9.7 % (0-10); NRBC Flagged by Analyzer 0 % (0-5); Neutrophil # 4.92 X10^3/uL (2.7-7.7); Neutrophil % 65.2 % (47-70); Platelet Count 297 K/mm3 (150-450); RBC Distribution Width SD 39.8 fl (35.1-43.9); Red Blood Count 4.58 M/mm3 (4.6-6.2); White Blood Count 7.5 K/mm3 (4.4-11.0)
[2021-07-06 18:09] LABS: AST(SGOT) 19 U/L (15-37); Alanine Aminotransfer ALT/SGPT 20 U/L (16-61); Albumin, Serum 3.4 g/dL (3.2-5.0); Alkaline Phosphatase 59 U/L (45-117); Anion Gap 3 (5-15); BUN 26 mg/dL (7-18); BUN/Creat Ratio 32.9 RATIO (10-20); Calcium,Total 8.8 mg/dL (8.5-10.1); Chloride 95 mmol/L (98-107); Creatinine, Serum 0.79 mg/dL (0.70-1.30); EST Glomerular Filtration Rate 105 mL/min (>60); Est Glom Filt Rate - Afr Amer 127 mL/min (>60); Estimated Creatinine Clearance 87.81 ml/min; Globulin 3.5 g/dL (2.2-4.2); Glucose 92 mg/dL (74-106); Potassium 4.8 mmol/L (3.5-5.1); Protein, Total 6.9 g/dL (6.4-8.2); Sodium Level 130 mmol/L (136-145)
[2021-07-06 18:16] LABS: Amphetamine Urine VISTA NEGATIVE (<1000 ng/mL); Barbiturate Urine VISTA NEGATIVE (< 200 ng/mL); Benzodiazepine Urine VISTA NEGATIVE (< 200 ng/mL); Cocaine Urine VISTA POSITIVE (< 300 ng/mL); Ecstacy Urine VISTA NEGATIVE (< 500 ng/mL); Methadone Urine VISTA NEGATIVE (< 300 ng/mL); PCP Urine VISTA NEGATIVE (< 25 ng/mL); THC Urine VISTA NEGATIVE (< 50 ng/mL); Vista UDS pH Range 7
[2021-07-06 18:30] VITALS: BP 131/63; PULSE 95; RESP 18; TEMP 36.4; O2SAT 92
[2021-07-06 18:33] VITALS: BMI 20.7
[2021-07-06] MEDS: Ipratropium/Albuterol Sulfate 3 ML AMPUL.NEB INHALATION (18:56)
[2021-07-06 18:57] VITALS: PULSE 89; RESP 18; O2SAT 91
[2021-07-06] MEDS: traZODone 50 MG Tablet PO (20:47)
[2021-07-06] MEDS: Divalproex Sodium 250 MG Tablet 500 MG PO (20:48)
[2021-07-06] MEDS: Pramipexole Di-HCl 0.5 MG Tablet PO (20:48)
[2021-07-06 22:00] VITALS: BP 133/78; PULSE 80; RESP 18; TEMP 36.8; O2SAT 92
--- NOTE | 2021-07-06 22:35 | DS.PCM_ITS ---
Providers Date of Admission: 07/06/21 Date of Discharge: 07/06/21 Primary Care Physician: DANIELLE Pryor Reason For Visit: FTT ADULT Diagnosis Discharge Diagnosis (1) History of schizophrenia: Status: Acute Code(s): Z86.59 - Personal history of other mental and behavioral disorders (2) Restless legs syndrome: Status: Chronic Code(s): G25.81 - Restless legs syndrome Medications at Discharge Home Medications acetaminophen 650 mg PO Q6H PRN 07/06/21 aspirin [Aspirin Low Dose] 81 mg PO DAILY@0800 07/06/21 benztropine 1 mg PO DAILY 07/06/21 divalproex 500 mg PO BID 07/06/21 fluphenazine HCl 10 mg PO DAILY 07/06/21 ibuprofen 600 mg PO Q8H PRN 07/06/21 lisinopril 10 mg PO DAILY 07/06/21 metoprolol tartrate 25 mg PO DAILY 07/06/21 ropinirole 1 mg PO BID 07/06/21 Weight / BMI Weight Weight: 140 lb 6.951 oz Body Mass Index (BMI) 20.7 ABG / Lab / Microbiology Data Result Diagrams: 07/06/21 17:03 07/06/21 17:03 Laboratory: Laboratory Results - last 24 hr 07/06/21 17:03: WBC 7.5, RBC 4.58 L, Hgb 14.2, Hct 41.6, MCV 90.8, MCH 31.0, MCHC 34.1, RDW Std Deviation 39.8, RDW Coeff of John 12.0, Plt Count 297, MPV 8.6, Immature Gran % (Auto) 0.400, Neut % (Auto) 65.2, Lymph % (Auto) 20.6, Barbour % (Auto) 9.7, Eos % (Auto) 3.7, Baso % (Auto) 0.4, Absolute Neuts (auto) 4.9, Absolute Lymphs (auto) 1.55, Nucleated RBC % 0 07/06/21 17:03: Sodium 130 L, Potassium 4.8, Chloride 95 L, Carbon Dioxide 32.0, Anion Gap 3 L, BUN 26 H, Creatinine 0.79, Estim Creat Clear Calc 87.81, Est GFR (MDRD) Af Amer 127, Est GFR (MDRD) Non-Af 105, BUN/Creatinine Ratio 32.9 H, Glucose 92, Calcium 8.8, Total Bilirubin 0.20, AST 19, ALT 20, Alkaline Phosphatase 59, Total Protein 6.9, Albumin 3.4, Globulin 3.5, Albumin/Globulin Ratio 1.0 07/06/21 17:03: Ethyl Alcohol 8.0 07/06/21 17:51: Urine Opiates Screen NEGATIVE, Urine Methadone Screen NEGATIVE, Ur Barbiturates Screen NEGATIVE, Ur Phencyclidine Scrn NEGATIVE, Ur Amphetamines Screen NEGATIVE, MDMA (Ecstasy) Screen NEGATIVE, U Benzodiazepines Scrn NEGATIVE, Urine Cocaine Screen POSITIVE H, U Cannabinoids Screen NEGATIVE, Ur Drug Screen Comment Meaningful Use Info Meaningful Use Diagnoses (Choose all that apply): None applicable Discharge Plan Admission Admit Date/Time: 07/06/21 17:05 Primary Reason for Your Visit: Restless leg Attending Provider: Diane Connelly Primary Care Provider: Daquan Pritchett NP Discharge Orders/Prescriptions Prescriptions: No Action acetaminophen 325 mg Tablet 650 mg PO Q6H PRN (Reason: Pain) RF: 0 ropinirole 1 mg tablet 1 mg PO BID RF: 0 divalproex 250 mg tablet,delayed release (DR/EC) 500 mg PO BID RF: 0 fluphenazine HCl 10 mg tablet 10 mg PO DAILY RF: 0 aspirin [Aspirin Low Dose] 81 mg Tablet,Delayed Release (Dr/Ec) 81 mg PO DAILY@0800 RF: 0 lisinopril 10 mg tablet 10 mg PO DAILY RF: 0 benztropine 1 mg tablet 1 mg PO DAILY RF: 0 ibuprofen 200 mg Tablet 600 mg PO Q8H PRN (Reason: Pain) RF: 0 metoprolol tartrate 25 mg tablet 25 mg PO DAILY RF: 0 Referrals / Follow Up: Daquan Pritchett NP, INFUSION THERAPY NURSE-C [Primary Care Provider] - Disposition Disposition (needs filled in before D/C Order can be placed): Against Medical Advice
--- NOTE | 2021-07-06 23:07 | NURSING ---
left ama at [id number]
== END 2021-07-06 22:35 | disposition left against medical advice (07) ==
LOC: ED 17:12 → MS3 17:16
PROVIDERS: Admitting Provider Family Medicine; Emergency Provider Emergency Medicine; PCP Nurse Practitioner Family; Visit Provider Family Medicine
DX: R62.7 Adult failure to thrive (principal); F20.0 Paranoid schizophrenia; J44.9 Chronic obstructive pulmonary disease, unspecified; I11.0 Hypertensive heart disease with heart failure; I50.9 Heart failure, unspecified; F14.10 Cocaine abuse, uncomplicated; G25.81 Restless legs syndrome; F17.210 Nicotine dependence, cigarettes, uncomplicated; Z79.82 Long term (current) use of aspirin; Z79.899 Other long term (current) drug therapy
CPT/HCPCS: 80053; 80307; 82077; 85025; 94640; 99218; 99251; 99285; G0378; G0463

== ENCOUNTER 2021-09-04 15:11 | Emergency (ER) | payer MEDICARE, MEDICAID, SELFPAY ==
[2021-09-04 15:14] VITALS: BP 132/97; PULSE 75; RESP 14; TEMP 37.1; O2SAT 96; BMI 22.0
--- NOTE | 2021-09-04 15:33 | EDS_ITS ---
HPI History of Present Illness HPI Narrative: Patient with past medical history of restless leg syndrome, and according to EMR, history of schizophrenia, presents with uncontrolled restless leg syndrome. He states he has been seen by neurologist and has been on 3 different medications. He presents because he states at night he has leg pain and movements and his restless leg syndrome is uncontrolled. He states he feels frustrated because this was a third medication that he has been on. He states he wants help with his restless leg syndrome. Its been going on for months. He denies any new symptoms. No fevers or chills. No loss of bowel or bladder. Chief Complaint: Lower Extremity Injury PFSH [facility] Medical History CHF (congestive heart failure), NYHA class II Cocaine abuse COPD (chronic obstructive pulmonary disease) HTN (hypertension) Hypotension Paranoia Paranoid schizophrenia Paranoid schizophrenia Serum ammonia increased Smoker Substance abuse Home Medications acetaminophen 325 mg tablet 650 mg PO Q6H PRN Pain 07/06/21 [History Last Taken 07/06/21] aspirin 81 mg tablet,delayed release (Jayson Low Dose Aspirin) 81 mg PO DAILY@0800 HEALTH 07/06/21 [History Last Taken 07/06/21 08:00] benztropine 1 mg tablet 1 mg PO DAILY 07/06/21 [History Last Taken 07/06/21 08:00] divalproex 250 mg tablet,delayed release 500 mg PO BID SEIZURES 07/06/21 [History Last Taken 07/06/21 08:00] fluphenazine HCl 10 mg tablet 10 mg PO DAILY 07/06/21 [History Last Taken 07/06/21 08:00] ibuprofen 200 mg tablet 600 mg PO Q8H PRN Pain 07/06/21 [History Last Taken 07/06/21] lisinopril 10 mg tablet 10 mg PO DAILY BP 07/06/21 [History Last Taken 07/06/21 08:00] metoprolol tartrate 25 mg tablet 25 mg PO DAILY HEART 07/06/21 [History Last Taken 07/06/21 08:00] camphor 4 %-methyl salicylate 30 %-menthol 10 % topical cream (Bengay Ultra Strength) 1 applic topical 4X/DAY PRN muscle pain #113 grams 08/04/21 [Rx Last Taken Unknown] lactulose 10 gram/15 mL oral solution 15 ml PO BID #946 mL 08/04/21 [Rx Last Taken Unknown] ropinirole 2 mg tablet 2 mg PO QHS #60 tabs 08/04/21 [Rx Last Taken Unknown] Allergy/AdvReac Type Severity Reaction Status Date / Time haloperidol lactate Allergy Anaphylaxis Verified 09/04/21 15:17 [From Haldol] doxycycline AdvReac Unknown Other Verified 09/04/21 15:17 antihistamines Allergy Rash Uncoded 07/06/21 16:08 Family History Father Heart disease Surgical History History of appendectomy Social History housing: other details: snf. Smoking Status: Current every day smoker tobacco type: cigarettes second hand exposure: Yes alcohol intake: never substance use type: other details: Crack and cannabis intermittently. ROS ROS ED ROS Narrative Constitutional: No fever, no chills. HEENT: No sore throat. No neck pain. No loss of vision. No rhinorrhea. Cardiovascular: No chest pain. No palpitations. No pedal edema. Respiratory: No cough, no shortness of breath. Abdominal: No abdominal pain. No nausea. No vomiting. Genitourinary: No dysuria. No hematuria. Musculoskeletal: No myalgias. No arthralgias. Neurologic: No headaches. No dizziness. No lightheadedness. Bilateral leg pain with restless legs at night while sleeping. Skin: No rash. No change in color. Psychiatric: No depression. No anxiety. EXAM Physical Exam Narrative Exam Narrative: Afebrile. Vital signs noted. HEENT: Normocephalic. Atraumatic. PERRL, EOMI. Neck soft and supple. No point tenderness or step off. Cardiovascular: Regular rate and rhythm. No murmurs, rubs, or gallops appreciated. Respiratory: No tachypnea. Lungs clear to auscultation bilaterally. Gastrointestinal: Abdomen soft, nontender, with normoactive bowel sounds. No rebound or guarding. Neurological: Awake. Alert. Nonfocal, nonlateralizing. Neurovascular intact bilateral lower extremities. Moves all extremities. Skin: No rash. Normal color. No pallor. Musculoskeletal: No pedal edema. Full range of motion extremities. Const Vital Signs: 09/04/21 15:14 Temperature 98.7 F Temperature Source Temporal Pulse Rate 75 Respiratory Rate 14 Blood Pressure 132/97 H Blood Pressure Mean 108 Pulse Ox 96 Oxygen Delivery Method Room Air MDM MDM MDM Narrative Medical decision making narrative: I reviewed the patient's prior records. He was on gabapentin and and another medication and currently takes ropinirole. He takes 2 mg at night. There is room for titration up to 4 mg every night. I recommended that he call his neurologist for titration upward of his medication. I do feel that his emergency medical screening examination is negative. He was told to follow-up with his primary care provider and his neurologist for his nonemergent needs. Disposition is discharged to the nursing home in stable condition. Discharge Plan Triage Chief Complaint: Lower Extremity Injury ED Provider: Scooter Barahona Dx/Rx/DC Orders Clinical Impression: Restless leg syndrome, uncontrolled, Leg pain Instructions: RLS What to Do, ED Pain, Acute, Uncertain Cause Prescriptions: No Action Bengay Ultra Strength 4-30-10 % cream 1 applic topical 4X/DAY PRN (Reason: muscle pain) Qty: 113 2RF ropinirole 2 mg tablet 2 mg PO QHS Qty: 60 1RF Rx Instructions: Take ropinirole one 1mg tab QAM and one 2mg tab QPM x 2 weeks, then start ropinirole 2mg tab BID thereafter lactulose 10 gram/15 mL solution 15 ml PO BID Qty: 946 1RF acetaminophen 325 mg Tablet 650 mg PO Q6H PRN (Reason: Pain) divalproex 250 mg tablet,delayed release (DR/EC) 500 mg PO BID fluphenazine HCl 10 mg tablet 10 mg PO DAILY aspirin [Jayson Low Dose Aspirin] 81 mg Tablet,Delayed Release (Dr/Ec) 81 mg PO DAILY@0800 lisinopril 10 mg tablet 10 mg PO DAILY benztropine 1 mg tablet 1 mg PO DAILY ibuprofen 200 mg Tablet 600 mg PO Q8H PRN (Reason: Pain) metoprolol tartrate 25 mg tablet 25 mg PO DAILY Primary Care Provider: Daquan Pritchett NP Referrals: Robert Reyna MD [STAFF PHYSICIAN] - 3-5 Days Blaz,Daquan OVERNIGHT ASSOCIATE, OVERNIGHT ASSOCIATE-C [Primary Care Provider] - Activity Restrictions/Additional Instructions: Call your neurologist about/regarding increasing your ropinirole dosing. You are currently taking 2 mg a day at night, and the maximum is 4 mg a day. There is room for titration upward. Disposition Disposition: Home, Self Care Discharge Date/Time: 09/04/21 15:53
== END 2021-09-04 15:53 | disposition home or self-care (01) ==
PROVIDERS: Emergency Provider Emergency Medicine; PCP Nurse Practitioner Family; Visit Provider Emergency Medicine
DX: G25.81 Restless legs syndrome (principal); M79.606 Pain in leg, unspecified; F17.210 Nicotine dependence, cigarettes, uncomplicated
CPT/HCPCS: 99283

== ENCOUNTER → 2021-09-22 | Outpatient (CLI) | payer MEDICARE, MEDICAID, SELFPAY | END | disposition home or self-care (01) | PROVIDERS: PCP Nurse Practitioner Family; Referring Provider Nurse Practitioner Family; Visit Provider Nurse Practitioner Family | DX: E72.20 Disorder of urea cycle metabolism, unspecified (principal) | CPT/HCPCS: 36415; 82140 ==

== ENCOUNTER → 2021-12-22 | Outpatient (CLI) | payer MEDICARE, SELFPAY ==
[2021-12-22 12:33] LABS: Sodium Level 131 mmol/L (136-145)
== END | disposition home or self-care (01) ==
PROVIDERS: PCP Nurse Practitioner Family; Referring Provider Psychiatry & Neurology Neurology; Visit Provider Psychiatry & Neurology Neurology
DX: E72.20 Disorder of urea cycle metabolism, unspecified (principal); E87.1 Hypo-osmolality and hyponatremia
CPT/HCPCS: 36415; 82140; 84295

== ENCOUNTER → 2022-10-15 | Outpatient (CLI) | payer MEDICARE, MEDICAID, SELFPAY ==
[2022-10-15 08:06] LABS: Hematocrit 40.3 % (40-54); Mean Corp Hgb Conc 34.7 g/dL (32-36); Mean Corpuscular Hgb 31.7 pg (27.0-32.0); Mean Corpuscular Volume 91.2 fL (80-94); Mean Platelet Vol. 9.6 fl (6.2-12.0); Platelet Count 232 K/mm3 (150-450); RBC Distribution Width CV 12.3 % (11.6-14.6); RBC Distribution Width SD 41.1 fl (35.1-43.9); Red Blood Count 4.42 M/mm3 (4.6-6.2); White Blood Count 10.7 K/mm3 (4.4-11.0)
[2022-10-15 08:26] LABS: Valproic Acid (Depakene) Level 56 ug/mL (50-100)
[2022-10-15 08:28] LABS: ALB/GLOB Ratio 0.9 RATIO (0.9-2.4); AST(SGOT) 14 U/L (15-37); Alanine Aminotransfer ALT/SGPT 16 U/L (16-61); Albumin, Serum 3.5 g/dL (3.2-5.0); Alkaline Phosphatase 60 U/L (45-117); Anion Gap 4 (5-15); BUN 13 mg/dL (7-18); BUN/Creat Ratio 17.8 RATIO (10-20); Calcium,Total 8.9 mg/dL (8.5-10.1); Chloride 85 mmol/L (98-107); Creatinine, Serum 0.73 mg/dL (0.70-1.30); EST Glomerular Filtration Rate 114 mL/min (>60); Est Glom Filt Rate - Afr Amer 138 mL/min (>60); Glucose 103 mg/dL (74-106); Potassium 4.5 mmol/L (3.5-5.1); Protein, Total 7.5 g/dL (6.4-8.2); Sodium Level 122 mmol/L (136-145)
== END | disposition home or self-care (01) ==
PROVIDERS: PCP Family Medicine; Referring Provider Psychiatry & Neurology Neurology; Visit Provider Psychiatry & Neurology Neurology
DX: F20.9 Schizophrenia, unspecified (principal); Z86.59 Personal history of other mental and behavioral disorders; M79.603 Pain in arm, unspecified
CPT/HCPCS: 36415; 80053; 80164; 82140; 85027

== ENCOUNTER → 2023-04-20 | Outpatient (CLI) | payer MEDICARE, MEDICAID, SELFPAY ==
[2023-04-20 15:18] LABS: Anion Gap 3 (5-15); BUN 15 mg/dL (7-18); BUN/Creat Ratio 18.6 RATIO (10-20); Calcium,Total 9.4 mg/dL (8.5-10.1); Chloride 92 mmol/L (98-107); EST Glomerular Filtration Rate 102 mL/min (>60); Est Glom Filt Rate - Afr Amer 124 mL/min (>60); Glucose 76 mg/dL (74-106); Potassium 4.5 mmol/L (3.5-5.1); Sodium Level 126 mmol/L (136-145)
== END | disposition home or self-care (01) ==
PROVIDERS: PCP Family Medicine; Referring Provider Psychiatry & Neurology Neurology; Visit Provider Psychiatry & Neurology Neurology
DX: E87.1 Hypo-osmolality and hyponatremia (principal)
CPT/HCPCS: 36415; 80048